=== PATIENT | female | born 1960 | race Caucasian/White ===

== ENCOUNTER 2020-06-08 07:28 | Outpatient (REF) | payer BC, SELFPAY | END 2020-06-08 07:29 | disposition home or self-care (01) | LOC: HO.LAB 07:28 | PROVIDERS: PCP Internal Medicine; Referring Provider Internal Medicine; Visit Provider Internal Medicine | DX: Z20.828 Contact with and (suspected) exposure to other viral communicable diseases (principal) | CPT/HCPCS: C9803; U0003 ==

== ENCOUNTER → 2021-09-03 08:40 | Outpatient (BNVA) | payer BC, SELFPAY | PROVIDERS: PCP Internal Medicine; Visit Provider Hospitalist ==

== ENCOUNTER 2021-10-09 08:47 | Outpatient (REF) | payer BC, SELFPAY ==
--- NOTE | 2021-10-09 16:00 | PFT_ITS ---
FLOWS: FEV1 45% of predicted at 1.03 L. FVC 66% of predicted at 1.94 L. FEV1 to FVC ratio of 0.53. Positive bronchodilator response. LUNG VOLUMES: Total lung capacity 105% of predicted at 4.87 L. Residual volume 166% of predicted at 3.10 L. Slow vital capacity 64% of predicted at 1.77 L. Expiratory reserve volume 36% of predicted at 0.26 L. Diffusion capacity is moderately decreased, diffusion capacity corrects to normal after adjustment for alveolar ventilation. IMPRESSION: Severe obstructive ventilatory defect with positive bronchodilator response. Increased residual volume suggests air trapping. Dajuan Spivey MD AP/MODL / [id number]
== END 2021-10-09 08:48 | disposition home or self-care (01) ==
LOC: HO.RESP 08:47
PROVIDERS: PCP Internal Medicine; Visit Provider Hospitalist
DX: R06.00 Dyspnea, unspecified (principal); J41.1 Mucopurulent chronic bronchitis
CPT/HCPCS: 94060; 94727; 94729

== ENCOUNTER 2021-10-17 13:42 | Outpatient (REF) | payer BC, SELFPAY ==
--- NOTE | ~2021-10-17 | CT_ITS ---
EXAMINATION: CT CHEST SCREENING CLINICAL INFORMATION: Smoking history. Current smoker. 50 pack-year history. COMPARISON: Previous chest CT most recent March 2017 and chest x-ray most recent July 2019 TECHNIQUE: Multidetector volumetric CT imaging of the chest is performed without contrast using low dose technique. Additional 2D coronal and sagittal reformatted images and axial 3D maximum intensity projection (MIP) images are generated on the CT workstation. This CT examination was performed using dose optimization techniques as appropriate, variously including the following: *Automated exposure control *Adjustment of mA and/or kV according to patient size (this includes techniques or standardized protocols for targeted exams where dose is matched to indication/reason for exam; i.e. extremities or head) *Use of iterative reconstruction technique DLP: 37 mGy-cm FINDINGS: LUNGS: There is biapical pleural and parenchymal scarring. There is evidence of emphysema. There is a irregularly-shaped 7 x 10 mm nodule in the posterior apical segment of the right upper lobe axial image 49 series 6. This demonstrates a slight increase in density with decreased air bronchograms. This may be slightly increased in size measuring maximum 5 x 10 mm axial image 74 series 4 on March 2017 exam. There is a spiculated 1.4 x 1.5 cm anterior segment right upper lobe nodule axial image 159 series 6 that is new and concerning for malignancy. There is a 1.1 x 1.2 cm right upper lobe nodule axial image 205 series 6 that is new and concerning for malignancy. This appears spiculated extending to the lateral pleural surface. There are scattered areas of focal bronchiectasis and cystic change seen in the more inferior right upper lobe. Largest area measures 1 cm axial image 162 series 5. There is a 3 mm peripheral or subpleural left upper lobe nodule axial image 81 series 6 that is stable. There are scattered areas of focal bronchiectasis and bronchial wall thickening in the left upper and lower lobes. There is a new 3 x 6 mm lingular nodule axial image 309 series 6. It is uncertain whether this is related to bronchial soft tissue opacification. MEDIASTINUM: There is evidence of atherosclerotic disease and coronary artery calcification. The mediastinum is otherwise normal. PLEURA: There is no pleural effusion. No pleural mass or thickening. AXILLA: No lymphadenopathy. UPPER ABDOMEN: Unremarkable OSSEOUS STRUCTURES: There are mild degenerative changes of the spine. CT/CT lung screening IMPRESSION: Emphysema. 2 new right upper lobe nodules suggestive of neoplasm and interval increase in size and density of irregularly-shaped nodule in the posterior apical segment of the right upper lobe. New 3 x 6 mm lingular nodule. Scattered areas of cystic change, bronchiectasis and bronchial wall thickening. Coronary artery calcification. ASSESSMENT: Lung-RADS category 4X. Suspicious. RECOMMENDATION: PET CT scan or tissue sampling of the right upper lobe nodules recommended. Findings will be communicated by the [facility] work flow environmental science program director.
== END 2021-10-17 13:43 | disposition home or self-care (01) ==
LOC: HO.CT 13:42
PROVIDERS: PCP Internal Medicine; Visit Provider Physician Assistant Medical
DX: Z12.2 Encounter for screening for malignant neoplasm of respiratory organs (principal); F17.210 Nicotine dependence, cigarettes, uncomplicated
CPT/HCPCS: 71271; G0296

== ENCOUNTER → 2021-10-22 10:15 | Outpatient (BNVA) | payer BC, SELFPAY | PROVIDERS: PCP Internal Medicine; Visit Provider Hospitalist | DX: K21.9 Gastro-esophageal reflux disease without esophagitis (principal); F17.200 Nicotine dependence, unspecified, uncomplicated ==

== ENCOUNTER 2021-10-28 10:09 | Outpatient (REF) | payer BC, SELFPAY ==
--- NOTE | ~2021-10-28 | PE_ITS ---
EXAMINATION: Fluorine-18 FDG PET/CT Scan CLINICAL INDICATION: Initial treatment management. Solitary pulmonary nodule. PROCEDURE: 53 minutes following the intravenous administration of 17.0 mCi of fluorine 18 FDG, images from the base of the skull to the mid thighs were obtained using a combined PET/CT scanner with CT scan based attenuation correction. No oral contrast was administered. No intravenous contrast was administered. Transverse, coronal, sagittal, and volume reconstruction projections were obtained. The patient's blood glucose as determined by a finger stick, was 87 mg/dl immediately prior to injection. Total CT exam dose-length product 193.98 mGy-cm * These CT images were obtained using dose optimization techniques as appropriate, variously including the following: Automated exposure control * Adjustment of mA and/or kV according to patient size (this includes techniques or standardized protocols for targeted exams where dose is matched to indication/reason for exam; i.e. extremities or head) * Use of iterative reconstruction technique COMPARISON: No previous PET/CT scan is available for comparison. CT scan of the chest dated 10/17/2021 is available for comparison. FINDINGS: (Slice numbers described in this report are numbered superiorly to inferiorly with slice #1 in the head) NECK AND VISUALIZED HEAD: No foci of abnormal FDG activity are noted. The distribution of FDG activity is physiological. There is no cervical lymphadenopathy. THORAX: Multiple pulmonary nodules of varying sizes are present, unchanged in appearance from the recent diagnostic CT scan dated 10/17/2021. A spiculated nodule in the right upper lobe shows a spot abnormal FDG activity, SUVmax 5.7, slice 74/267. This corresponds to a spiculated nodule on the CT images that measures 1.8 x 1.3 cm in largest transverse dimensions and approximately 1.6 cm cephalocaudad. Inferior and lateral to this in the right upper lobe there is a second FDG avid pulmonary nodule that shows SUVmax 3.3, slice 82/267 and measures 1.4 x 1.0 cm in largest transverse dimensions, and approximately 1.4 cm cephalocaudad. Spiculations from this nodule extent the lateral pleura. There is a posterior pleural-based right apical pulmonary nodule that measures 1.0 x 0.6 cm in largest transverse dimensions and shows no abnormal FDG activity. Additional smaller subcentimeter nodules visualized on the diagnostic 10/17/2021 CT scan are not well visualized on these nondiagnostic CT images. Biapical scarring is noted with no associated abnormal FDG activity. No additional foci of abnormal FDG activity are present in the chest. There is no pleural or pericardial fluid, or pneumothorax. Emphysema is noted. There is no mediastinal, supraclavicular, or axillary lymphadenopathy. ABDOMEN AND PELVIS: There are no foci of abnormal FDG activity in the abdomen or pelvis. The liver, gallbladder, and spleen are unremarkable. The kidneys, adrenal glands and pancreas are unremarkable. There is mild FDG activity throughout the gastrointestinal tract without a suspicious focal component. There is diverticulosis without evidence of diverticulitis. The hollow viscera are otherwise unremarkable. Uterine fibroids with some calcifications are noted. The pelvic organs are otherwise unremarkable. MUSCULOSKELETAL: No foci of abnormal FDG activity are present in the osseous structures. There is a mild thoracolumbar scoliosis with lumbar convexity to the left. There are degenerative changes in the spine but no suspicious sclerotic or lytic lesions are visualized. VASCULAR: Diffuse vascular calcifications including coronary are noted. There is a mild FDG activity at the junction of the middle and distal third of the left forearm in the region of a metallic bracelet. This is not due to an attenuation artifact as the FDG activity in this region is visible only nonattenuation corrected images. PET/PET CT fusion skull to thigh IMPRESSION: 1. Two right upper lobe FDG avid pulmonary nodules are noted, both likely malignant in etiology. 2. No additional abnormalities suspicious for metastatic or other malignant lesions are noted. 3. Mild FDG activity in the region of the distal left forearm immediately adjacent or underlying a metallic bracelet is noted and is nonspecific but may be due to some superficial inflammatory reaction or infection at this site. Clinical correlation is recommended. 4. Diffuse vascular calcifications including coronary.
== END 2021-10-28 10:10 | disposition home or self-care (01) ==
LOC: HO.PET 10:09
PROVIDERS: Visit Provider Hospitalist
DX: Z13.89 Encounter for screening for other disorder (principal)

== ENCOUNTER → 2021-10-31 09:00 | Outpatient (BNVA) | payer BC, SELFPAY | PROVIDERS: PCP Internal Medicine; Visit Provider Surgery | DX: R91.1 Solitary pulmonary nodule (principal); Z87.891 Personal history of nicotine dependence | CPT/HCPCS: 99202 ==

== ENCOUNTER → 2021-11-12 09:52 | Outpatient (REF) | payer BC, SELFPAY ==
--- NOTE | 2021-11-12 09:58 | ECG_ITS ---
Test Reason : preop Blood Pressure : / mmHG Vent. Rate : 084 BPM Atrial Rate : 084 BPM P-R Int : 130 ms QRS Dur : 070 ms QT Int : 350 ms P-R-T Axes : 044 080 072 degrees QTc Int : 413 ms Normal sinus rhythm Normal ECG When compared with ECG of 07-AUG-2019 14:10, No significant changes seen Referred By: Babar Espino Electronically Signed By:ALEXIS SHAH
[2021-11-12 10:11] LABS: MANUAL DIFF FLAG NO
[2021-11-12 10:39] LABS: Basophils Absolute Auto 0.1 X10*3/uL (0.0-0.2); Basophils Percent Auto 0.5 % (0-2); Eosinophils Absolute Auto 0.2 X10*3/uL (0.0-0.4); Eosinophils Percent Auto 1.4 % (0-4); Hemoglobin 15.3 g/dl (12.0-16.0); Imm Gran Abs Auto 0.07 X10*3/uL (0.00-0.03); Imm Gran Pct Auto 0.6 % (0.0-0.4); Lymphocytes Absolute Auto 2.1 X10*3/uL (1.2-4.9); Lymphocytes Percent Auto 17.4 % (20-40); Mean Corpuscular HGB Conc 33.3 g/dl (31.0-35.0); Mean Corpuscular Hemoglobin 31.8 pg (27.0-33.0); Mean Corpuscular Volume 95.6 fL (80.0-98.0); Mean Platelet Volume 9.3 fL (9.4-12.3); Monocytes Absolute Auto 0.8 X10*3/uL (0.1-1.2); Monocytes Percent Auto 6.5 % (2-11); Neutrophils Percent Auto 73.6 % (45-73); Platelet Count 298 X10*3/uL (160-400); Red Blood Count 4.81 X10*6/uL (4.20-5.50); Red Cell Distribution Width 13.2 % (11.0-16.0); White Blood Count 12.2 X10*3/uL (4.8-10.8)
[2021-11-12 10:50] LABS: INTERNATIONAL NORM RATIO 0.9 (0.9-1.1); Prothrombin Time 10.3 SEC (9.9-13.0)
[2021-11-12 10:53] LABS: Estimated Average Glucose 111 mg/dL; Hemoglobin A1C 148.7098 umol/L; Hemoglobin A1c % 5.5 %; Partial Thromboplastin Time 37.8 SEC (24.1-38.0)
[2021-11-12 10:58] LABS: Appearance Urine CLEAR; Color Urine YELLOW; Glucose Urine UA NEG (NEG); Leukocyte Esterase Urine NEG (NEG); Nitrite Urine NEG (NEG); Specific Gravity - Urine 1.015 (1.005-1.025); UACC Culture Trigger NO; Urine Blood 1+ (NEG); Urine Ketones NEG (NEG); Urine Protein NEG (NEG-TRACE)
[2021-11-12 11:14] LABS: Alanine Aminotransferase 20 U/L (0-31); Albumin Level 4.4 g/dL (3.5-5.0); Alkaline Phosphatase 103 U/L (39-117); Anion Gap 12 (12-20); Aspartate Amino Transferase 24 U/L (5-31); Bilirubin Total 0.6 mg/dL (0.0-1.0); Blood Urea Nitrogen 9 mg/dL (9-16); Carbon Dioxide 30 mmol/L (22-29); Chloride 100 mmol/L (96-108); Estimated Glomerular Filt Rate > 60; Glucose Random 96 mg/dL (60-115); Potassium 4.5 mmol/L (3.3-5.1); Sodium 137 mmol/L (135-145); Total Protein 7.4 g/dL (6.5-8.0)
[2021-11-12 11:17] LABS: Mucus Urine 2+ /LPF; Squamous Epithelial Cell Urine 1+ /LPF
[2021-11-12 11:18] LABS: RBC Urine 0-2 /HPF (0); WBC Urine 0 /HPF (0-4)
[2021-11-12 11:21] LABS: TSH reflex Free T4 0.47 uIU/mL (0.32-4.0)
== END ==
LOC: HO.CARD 09:52
PROVIDERS: PCP Internal Medicine; Visit Provider Internal Medicine
DX: Z01.818 Encounter for other preprocedural examination (principal); R73.9 Hyperglycemia, unspecified
CPT/HCPCS: 36415; 80053; 81001; 83036; 84443; 85025; 85610; 85730; 93005

== ENCOUNTER → 2021-11-14 10:41 | Outpatient (BNVA) | payer BC, SELFPAY | PROVIDERS: PCP Internal Medicine; Visit Provider Hospitalist | DX: K21.9 Gastro-esophageal reflux disease without esophagitis (principal); F17.200 Nicotine dependence, unspecified, uncomplicated ==

== ENCOUNTER 2022-05-18 08:20 | Outpatient (REF) | payer BC, SELFPAY ==
--- NOTE | ~2022-05-18 | CT_ITS ---
EXAMINATION: CT CHEST WITHOUT CONTRAST CLINICAL INFORMATION: Severe COMPARISON: Previous chest CT most recent September 2021 TECHNIQUE: Multidetector volumetric CT imaging of the chest was done. Axial MIP volume rendering provided. Sagittal and coronal reformatted images were obtained. This CT examination was performed using dose optimization techniques as appropriate, variously including the following: *Automated exposure control *Adjustment of mA and/or kV according to patient size (this includes techniques or standardized protocols for targeted exams where dose is matched to indication/reason for exam; i.e. extremities or head) *Use of iterative reconstruction technique DLP: 110 mGy-cm FINDINGS: LUNGS: There are are new postsurgical changes from right upper lobe lobectomy. There is evidence of emphysema. There is mild left apical pleural and parenchymal scarring. There is a small 3 mm peripheral or subpleural left upper lobe nodule axial image 97 series 5 that is stable. There is a 3 x 6 mm central left upper lobe nodule axial image 246 series 5 questionable for bronchial soft tissue opacification versus nodule. This is similar to previous exam. There is right lower lobe bronchial soft tissue opacification for example axial 3:30 360 series 5. The previously identified question endobronchial nodule in the lingula September 2021 exam is no longer seen. There is mild emphysema. MEDIASTINUM: The mediastinum is normal. CORONARY ARTERY CALCIFICATION: Severe PLEURA: There is no pleural effusion. No pleural mass or thickening. AXILLA: No lymphadenopathy. UPPER ABDOMEN: Unremarkable. OSSEOUS STRUCTURES: Degenerative changes of the spine. CT/CT chest wo IV con IMPRESSION: New postsurgical changes from right upper lobe lobectomy. Stable left upper lobe nodules. Right lower lobe bronchial soft tissue opacification. Previously identified 3 x 6 mm lingular nodule question representing bronchial soft tissue opacification on September 2021 exam no longer seen. Severe coronary artery calcification. Fleischner guidelines were followed.
== END 2022-05-18 08:21 | disposition home or self-care (01) ==
LOC: HO.CT 08:20
PROVIDERS: PCP Internal Medicine; Visit Provider Surgery
DX: C34.91 Malignant neoplasm of unspecified part of right bronchus or lung (principal)
CPT/HCPCS: 71250

== ENCOUNTER → 2022-05-26 08:39 | Outpatient (REF) | payer BC, SELFPAY ==
--- NOTE | 2022-05-26 08:42 | CA_ITS ---
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 The visually estimated ejection fraction is >70%. - The basal inferior segment is hypokinetic. - No obvious valvular pathology seen on this study. - Mild pulmonary hypertension is present. Findings Procedure Information Contrast agent, definity, is being given per protocol without apparent complications. Left Ventricle Normal left ventricular cavity size. There is normal left ventricular wall thickness. The left ventricular systolic function is hyperdynamic. The visually estimated ejection fraction is >70%. There is no evidence of regional wall motion abnormalities. Diastolic function is normal for age. Wall Motion Rest Echo Findings The basal inferior segment is hypokinetic. Right Ventricle Normal right ventricular cavity size and systolic function. Atria Both atria are normal in size. Aortic Valve There is a normal trileaflet aortic valve. There is no aortic valve stenosis. There is no aortic valve regurgitation. Mitral Valve The mitral valve appears normal. There is no mitral valve regurgitation. There is no mitral valve stenosis. Pulmonic Valve The pulmonic valve is likely normal. Tricuspid Valve Normal tricuspid valve structure. There is trace tricuspid valve regurgitation. The right ventricular systolic pressure is 41 mmHg. Mild pulmonary hypertension is present. Great Vessels The aorta was not well visualized. Venous The inferior vena cava is normal in size and collapses greater than 50% with inspiration. Pericardium/Pleural There is no evidence of pericardial effusion. Prior Study Comparison Changes noted compared to prior study dated: 08/08/2019. Mild pulmonary hypertension noted. See comments on wall motion. Recommendations, Care & Conclusions No obvious valvular pathology seen on this study. Measurements 2D Linear Measurements IVSd: 0.76 0.6-0.9/0.6-1.0 cm LVIDd: 4.01 3.9-5.3/4.2-5.9 cm LVIDd Index: 2.77 2.4-3.2/2.2-3.1 cm/m2 LVIDs: 2.51 2.0-3.6 cm LVPWd: 0.59 0.7-1.1 cm LA Diam: 2.80 2.7-3.8/3.0-4.0 cm LAIDs Index: 1.93 1.5-2.3 cm/m2 LV Mass: 92.91 67-162/88-224 g LV Mass Index: 64.08 43-95/49-115 g/m2 LVOT Diam: 2.00 3.0+(-)1.3 cm 2D Systolic Function EF 4C: 75.70 >55% EF 2C: 75.30 >55% EF BiP: 75.60 >55% Mitral Valve MV Pk E: 1.03 MV PK A: 1.06 MV Decel Time: 184.00 E/A: 1.00 E'Lateral: 8.81 E'Medial: 6.96 E/E' Med: 14.80 E/E' Lat: 11.70 PHT: 54.00 MVA PHT: 4.07 Decel Madison: 5.59 Aortic Valve AoV Pk Michael: 1.40 AoV Pk Grad: 8.00 LVOT LVOT Pk Michael: 1.23 LVOT Mn Michael: 0.87 LVOT VTI: 0.24 LVOT Pk Grad: 6.00 LVOT Mn Grad: 3.00 LVOT Diam: 2.00 LVOT Area: 3.14 Diastolic Function MV Pk E: 1.03 MV Pk A: 1.06 E/A: 1.00 E'Medial: 6.96 E/E' Med: 14.80 E' Laterial: 8.81 E/E' Lat: 11.70 Right Ventricle TAPSE (mm): 16.10 TVS' Michael: 12.70 Tricuspid Valve TR Pk Michael: 3.10 TR Pk Grad: 38.00 RA Press: 3.00 RVSP: 41.00 Great Vessels Aorta Sinus of Valsalva: 3.30 2.0-3.5 cm Pulmonary Valve PV Pk Michael: 1.12 Peak PV Grad: 5.00 Updated in Other Vendor System with Status of Final Joshua Jimenez MD electronically signed on 05/26/2022 2:33:35 PM with status of Final
== END ==
LOC: HO.CARD 08:39
PROVIDERS: Visit Provider Hospitalist
DX: I27.20 Pulmonary hypertension, unspecified (principal)
CPT/HCPCS: 93306; Q9957

== ENCOUNTER → 2022-07-10 10:08 | Outpatient (BNVA) | payer BC, SELFPAY | PROVIDERS: PCP Internal Medicine; Visit Provider Surgery | DX: C34.11 Malignant neoplasm of upper lobe, right bronchus or lung (principal) | CPT/HCPCS: 99212 ==

== ENCOUNTER → 2022-10-21 08:33 | Outpatient (BNVA) | payer BC, SELFPAY | PROVIDERS: PCP Internal Medicine; Visit Provider Hospitalist | DX: J41.1 Mucopurulent chronic bronchitis (principal); J47.9 Bronchiectasis, uncomplicated; R91.1 Solitary pulmonary nodule; C34.91 Malignant neoplasm of unspecified part of right bronchus or lung; Z79.899 Other long term (current) drug therapy; Z23 Encounter for immunization | CPT/HCPCS: 90471; 90677 ==

== ENCOUNTER 2022-11-11 10:35 | Outpatient (REF) | payer BC, SELFPAY ==
--- NOTE | ~2022-11-11 | CT_ITS ---
EXAMINATION: CT CHEST WITHOUT CONTRAST CLINICAL INFORMATION: Lung cancer right upper lobe COMPARISON: Previous chest CT scan most recent April 2022 TECHNIQUE: Multidetector volumetric CT imaging of the chest was done. Axial MIP volume rendering provided. Sagittal and coronal reformatted images were obtained. This CT examination was performed using dose optimization techniques as appropriate, variously including the following: *Automated exposure control *Adjustment of mA and/or kV according to patient size (this includes techniques or standardized protocols for targeted exams where dose is matched to indication/reason for exam; i.e. 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 Heterogeneous area in the central anterior segment of the left upper lobe. There are areas of mild focal bronchiectasis bronchial wall thickening and some bronchial soft tissue opacification. There is an adjacent heterogeneous groundglass attenuation area measuring 1.5 x 2 cm axial image 2:15 series 4. There are other scattered areas of mild bronchial wall thickening and bronchial soft tissue opacification. There is scarring or subsegmental atelectasis in the right middle lobe. Emphysema. MEDIASTINUM: Small mediastinal lymph nodes similar to previous exam. No enlarged lymph nodes. Normal heart size. Moderate to severe coronary artery calcification. No pericardial effusion. CORONARY ARTERY CALCIFICATION: Moderate to severe PLEURA: There is no pleural effusion. No pleural mass or thickening. AXILLA: No lymphadenopathy. UPPER ABDOMEN: Atherosclerotic disease. There may be small calcifications in the pancreas. OSSEOUS STRUCTURES: Degenerative changes of the spine. CT/CT chest wo IV con IMPRESSION: Stable postsurgical changes from right upper lobe lobectomy. Emphysema. New area of focal bronchiectasis, bronchial wall thickening and soft tissue opacification and associated 1.5 x 2 cm groundglass attenuation area in the anterior segment of the left upper lobe. This may represent an infectious or inflammatory process. Short-term follow-up chest CT in 3 months recommended following treatment. Fleischner guidelines were followed.
== END 2022-11-11 10:36 | disposition home or self-care (01) ==
LOC: HO.CT 10:35
PROVIDERS: PCP Internal Medicine; Visit Provider Surgery
DX: C34.11 Malignant neoplasm of upper lobe, right bronchus or lung (principal)
CPT/HCPCS: 71250

== ENCOUNTER → 2022-11-20 09:44 | Outpatient (BNVA) | payer BC, SELFPAY | PROVIDERS: PCP Internal Medicine; Visit Provider Surgery | DX: R91.1 Solitary pulmonary nodule (principal); C34.91 Malignant neoplasm of unspecified part of right bronchus or lung | CPT/HCPCS: 99212 ==

== ENCOUNTER 2023-01-20 07:25 | Outpatient (REF) | payer BC, SELFPAY ==
--- NOTE | ~2023-01-20 | CT_ITS ---
EXAMINATION: CT CHEST WITHOUT CONTRAST CLINICAL INFORMATION: Follow-up pulmonary nodule. History of right upper lobe lung cancer. COMPARISON: Previous chest CT most recent October 2022 TECHNIQUE: Multidetector volumetric CT imaging of the chest was done. Axial MIP volume rendering provided. Sagittal and coronal reformatted images were obtained. This CT examination was performed using dose optimization techniques as appropriate, variously including the following: *Automated exposure control *Adjustment of mA and/or kV according to patient size (this includes techniques or standardized protocols for targeted exams where dose is matched to indication/reason for exam; i.e. extremities or head) *Use of iterative reconstruction technique DLP: 100 mGy-cm FINDINGS: LUNGS: Stable postsurgical changes from right upper lobe lobectomy. The heterogeneous area of increased attenuation in the central left upper lobe is no longer seen. There is still some residual central left upper lobe bronchiectasis and bronchial wall thickening seen in this region. There are scattered areas of bronchial wall thickening and bronchial soft tissue opacification or mucus plugging seen throughout the lungs, greatest in both lower lobes. There is area of scarring or chronic subsegmental atelectasis in the right middle lobe axial image 314 series 5 that is stable. There is evidence of mild emphysema. MEDIASTINUM: No enlarged hilar or mediastinal lymph nodes. Visualized thyroid gland is normal. Normal heart size. Atherosclerotic disease. Normal caliber thoracic aorta. CORONARY ARTERY CALCIFICATION: Moderate PLEURA: There is no pleural effusion. No pleural mass or thickening. AXILLA: No lymphadenopathy. UPPER ABDOMEN: Atherosclerotic disease OSSEOUS STRUCTURES: Degenerative changes of the spine. CT/CT chest wo IV con IMPRESSION: Stable postsurgical changes from right upper lobe lobectomy. Emphysema. Previously identified groundglass attenuation area in the central left upper lobe no longer seen. Residual mild focal left upper lobe bronchiectasis and bronchial wall thickening seen in this region. Scattered areas of bronchial wall thickening and soft tissue opacification or mucus plugging, greatest in both lower lobes. Fleischner guidelines were followed.
== END 2023-01-20 07:26 | disposition home or self-care (01) ==
LOC: HO.CT 07:25
PROVIDERS: PCP Internal Medicine; Visit Provider Surgery
DX: R91.1 Solitary pulmonary nodule (principal)
CPT/HCPCS: 71250

== ENCOUNTER 2023-01-29 10:18 | Outpatient (AMB) | payer BC, SELFPAY ==
--- NOTE | 2023-01-29 10:46 | MHC.OFFVIS ---
Intake Vital Signs 01/29/23 10:55 Height 5 ft 1 in Weight 105 lb BMI 19.8 BP 140/80 H Blood Pressure Location Lt brachial Position Sitting Pulse 60 Pulse Oximetry (%) 92 Intake Visit Reasons: 6 month follow up Allergies levofloxacin [From LEVAQUIN] Allergy (Intermediate, Verified 01/29/23 10:55) NAUSEA & VOMITING, hives bupropion Allergy (Unknown, Verified 01/29/23 10:55) increased anxiety/depression Medication List - Last Reconciled 01/30/23 by Sergio uRsh MD acetaminophen 975 mg (3 x 325 mg) PO Q6-8H PRN 30 days albuterol sulfate 90 mcg/actuation 2 puffs inhalation Q6H PRN 30 days amlodipine 10 mg PO DAILY 90 days hydralazine 50 mg PO TID 90 days hydrochlorothiazide 12.5 mg PO DAILY 90 days lorazepam 0.5 mg PO TID PRN 30 days nicotine 1 patch transdermal DAILY Symbicort 160-4.5 mcg/actuation (budesonide-formoterol) 2 puffs PO BID NS tiotropium bromide 2.5 mcg/actuation (Spiriva Respimat) 2 puffs inhalation DAILY 90 days HPI 6 month follow up HPI Details 62-year-old woman who underwent a right upper Davinci wedge resection with completion right upper lobectomy on 12/17/2021 for a T3 N0 lung cancer.? She did get adjuvant chemotherapy afterwards and finished that in April of 2022.? She actually did quite well after the surgery and says that while she completed it she did have some difficulty with the chemotherapy and is now starting to feel much better.? She did have 99% PDL1 and the recommendation is for likely for continued immunotherapy for 1 year.? She sees Medical Oncology at [facility] Dr. Williamson.? She is considering whether to have the immunotherapy or not and is seeing him in 2 weeks to make that final decision.? She did have a CT scan of the chest here at [place] after finishing her chemotherapy on 05/18/2022 which showed no evidence of recurrence or new disease.? No pleural fluid and no mediastinal lymphadenopathy.? This was reviewed and interpreted by me directly.? A six-month follow-up CT scan of the chest was done on 11/11/2022 reviewed interpreted by me directly as well showing a new ground-glass ill-defined nodule in the anterior segment of the left upper lobe which is new from previous.? This is most likely infectious or inflammatory.? She is currently on the immunotherapy seems to be doing quite well with that.The CAT scan was repeated on 01/20/2023 which was not read yet but interpreted by me directly shows that the groundglass area in the left upper lobe anteriorly has nearly completely resolved. She is no longer on oxygen and says that her breathing seems to be close to her baseline.? She denies fevers, chills, unintentional weight loss, or any new neurologic symptoms.? She denies chest pain or pain at her incision sites. ? ? [facility] Medical History Adenocarcinoma of right lung (~2021) Anxiety Benign essential hypertension Bronchiectasis COPD (chronic obstructive pulmonary disease) Personal history of nicotine dependence Pulmonary nodule Pure hypercholesterolemia Tachycardia Vitamin D deficiency Surgical History History of colonoscopy History of lung surgery (~2021) History of reversal of tubal ligation History of thumb surgery History of tubal ligation Family History Father Myocardial infarction Mother Stroke Family/Other Hypertension Social History Housing: House Alcohol intake: current Alcohol intake frequency: holidays/special occasions only Patient Tobacco Use Status: Former Tobacco user Tobacco use type: Cigarette Cigarettes Per Day: 15 Years Smoked: Current smoker, onset 16, 3/4ppd x 45yrs, 33pyh e-Cigarette/Vaping Use: Never Used Second Hand Smoke Exposure: Yes service: No Current occupational status: employed Cognitive needs: No Hearing needs: No Vision needs: Yes Physical Exam Vital Signs: Last Vital Signs Pulse 60 01/29/23 10:55 BP 140/80 H 01/29/23 10:55 Pulse Ox 92 01/29/23 10:55 BMI result Body Mass Index 19.8 nad rrr ctab wounds well healed no edema nl bs and abd soft Assessment & Plan Assessment & Plan (1) Adenocarcinoma of right lung: Onset Date: ~2021 Comment: (T3N0 - 99%PDL1; s/p RUL lobectomy 11/2021; chemo 04/2022; Immunetherapy 06/2022) Code(s): C34.91 - Malignant neoplasm of unspecified part of right bronchus or lung Plan: With regards to her lung cancer she is doing quite well from a postoperative and clinical standpoint. There is no evidence of recurrence or new disease and we discussed the findings from her most recent CAT scan which she seemed understand. I did explain to her that as per protocol we will plan on doing a 6-month follow-up CT scan of the chest for the first 2 years postoperatively followed by yearly for 3 years after that and each CAT scan is associated with the visit. The schedule can change and if there are new findings. She looks quite well and is pleased with this plan. (2) Pulmonary nodule: Code(s): R91.1 - Solitary pulmonary nodule Plan: Regarding the left upper lobe pulmonary nodule on the CT scan previously, this has resolved and was likely an infectious or inflammatory nodule. I did explain to her pulmonary nodules in general and how their size, shape, and guide changer time affect are level of suspicion for malignancy which she seemed understand quite well. Follow-up imaging will be as per the surveillance protocol as described above. Orders: Orders CT chest wo IV con 6 Months C34.91 - Malignant neoplasm of unspecified part of right bronchus or lung Coding Level of Care Code Est Pt Level 4 (77628) Diagnoses Adenocarcinoma of right lung C34.91 Pulmonary nodule R91.1
[2023-01-29 10:55] VITALS: BP 140/80; PULSE 60; O2SAT 92; BMI 19.8
== END 2023-01-29 11:10 | disposition home or self-care (01) ==
PROVIDERS: PCP Internal Medicine; Visit Provider Surgery
DX: C34.91 Malignant neoplasm of unspecified part of right bronchus or lung (principal); R91.1 Solitary pulmonary nodule

== ENCOUNTER → 2023-01-29 10:18 | Outpatient (BNVA) | payer BC, SELFPAY | PROVIDERS: Visit Provider Surgery | DX: C34.91 Malignant neoplasm of unspecified part of right bronchus or lung (principal); R91.1 Solitary pulmonary nodule; Z90.2 Acquired absence of lung [part of]; Z92.21 Personal history of antineoplastic chemotherapy | CPT/HCPCS: 99212 ==

== ENCOUNTER 2023-04-07 08:48 | Outpatient (AMB) | payer BC, SELFPAY ==
[2023-04-07 08:56] VITALS: BP 118/70; PULSE 89; O2SAT 93
--- NOTE | 2023-04-07 08:56 | A.OFFVIS_ITS ---
Intake Vital Signs 04/07/23 08:56 Height 5 ft 1 in Weight 105 lb 13.15 oz BMI 20.0 BP 118/70 Blood Pressure Location Rt brachial Position Sitting Pulse 89 Pulse Source Pulse Oximeter Pulse Oximetry (%) 93 Oxygen Delivery Method Room Air Intake Visit Reasons: COPD [employer] Required: No Allergies levofloxacin [From LEVAQUIN] Allergy (Intermediate, Verified 04/07/23 11:00) NAUSEA & VOMITING, hives bupropion Allergy (Unknown, Verified 04/07/23 11:00) increased anxiety/depression HPI HPI Comments History of Present Illness Details The patient is a 62-year-old woman, current smoker, who has been having worsening cough and shortness of breath. Her cough tends to be productive in nature and moderate severity. She has been using inhalers including Flovent and long-acting muscarinic antagonist. The medications have not been very effective for her. Her provided did try to send her Trelegy but was not covered. In the meantime she continues to smoke. The patient understands that she needs to quit and is motivated to quitting. Although it is very hard for her to quit. We talked about different alternatives including trying the Nicotrol inhaler which may be effective for her to slow down her smoking hopefully switch it completely to the nicotine inhaler where she can then decrease it as part of her tobacco cessation. The patient continues to work regularly. she does have some i ncreased dyspnea on exertion but she is still able to do all her work related activities in does not have any significant limitations. We did review of previous chest x-rays that she has had demonstrating significant hyperinflation of the lungs. In addition to that she had a CT scan of the chest back in 2017 where was described that she had bronchiectatic changes. 10/22/2021 the patient is here for a pulmonary follow-up visit. Overall she is feeling little better. She is still coughing. She did try the Nicotrol inhaler for smoking cessation but is only meters smoke more. So therefore she stopped it. She still struggling with smoking. We also looked at her pulmonary function studies demonstrating evidence of COPD. The patient also has a decreased diffusing capacity. She did go back to the lung cancer screening program. She had a recent CT scan demonstrating significant pulmonary nodules in the right upper lobe. No significant lymphadenopathy. But the nodules are greater than a cm in size and are concerning for malignancy. However, in view of her the multiple nodules I will go ahead and request a PET scan to see if there is any progression of this Probable malignant process. She is taking part of the lung cancer screening program so therefore she will be discussed during weekly multidisciplinary rounds. 11/14/2021 the patient is here for a pulmonary follow-up visit. She did follow-up with her PET scan demonstrating significant activity at that right upper lobe area. She is currently scheduled to undergo a lobectomy of the right upper lobe with curative intent. She continues with respiratory therapy patient also quit smoking. Will plan to follow-up after the surgery when she recovers we consider pulmonary rehabilitation. 05/13/2022 the patient is here for pulmo irais follow-up visit. The patient is status post right upper lobe lobectomy. She did have some issues with prolonged air leak. She did have 3 lesions in the right upper lobe. She did start chemotherapy. Now she is recommended to start immune therapy. She does have a CT scan coming up soon next week. Will follow up with the results. In the meantime she did go for a 6 minute walk test with me. The patient did not desaturate although heart rate was elevated 120 needs. Will have her undergo an echocardiogram. She has been using the Symbicort Spiriva with good effect. She does not always using. She feels her breathing is a lot better. At this point the patient is reluctant to undergo pulmonary rehabilitation. She is also reluctant to start immune therapy. She will follow-up with oncology soon. 10/21/2022 the patient is here for pulmon az follow-up visit. She continues to do well. She started immune therapy in June. Some that she gets more congested from it. Moderate severity. Right now is a little better. We did talk about considering medications such as Daliresp or even azithromycin her symptoms persist. She is not interested in additional medicines right now. She has a CT scan scheduled for October and will follow-up with drastic surgery. She is going to continue with respiratory therapy. She is trying to stay active. Otherwise the patient is without any other complaints. Will follow-up in 6 months. 04/07/2023 the patient is here for a pulmonary follow-up visit. Overall she is doing about the same. Complains of a cough productive in nature. Moderate severity. She does use Mucinex on a regular basis with good effect. She also has been on Symbicort Spiriva. They have been affecting beneficial. She did have a repeat CT scan of the chest in December 2022 with postoperative changes. No evidence of any worsening nodular densities. The patient is still struggling with her smoking. She is trying to quit. Will go ahead and start her on azithromycin 3 times a week for her chronic bronchitis and continue with the current respiratory therapy. If she finds the azithromycin helpful then she needs to have an EKG done in order to continue the therapy. Otherwise she can just stop it. FORMERLY [facility] Medical History Adenocarcinoma of right lung (~2021) Anxiety Benign essential hypertension Bronchiectasis COPD (chronic obstructive pulmonary disease) Personal history of nicotine dependence Pulmonary nodule Pure hypercholesterolemia Tachycardia Vitamin D deficiency Surgical History History of lung surgery (~2021) History of thumb surgery History of reversal of tubal ligation History of colonoscopy History of tubal ligation Family History Father Myocardial infarction Mother Stroke Family/Other Hypertension Social History Housing: House Alcohol intake: current Alcohol intake frequency: holidays/special occasions only Patient Tobacco Use Status: Former Tobacco user Tobacco use type: Cigarette Cigarettes Per Day: 15 Years Smoked: Current smoker, onset 16, 3/4ppd x 45yrs, 33pyh e-Cigarette/Vaping Use: Never Used Second Hand Smoke Exposure: Yes service: No Current occupational status: employed Cognitive needs: No Hearing needs: No Vision needs: Yes Review of Systems Const Denies chills, Reports fatigue, Denies fever(s), Denies headache(s) and Reports weight gain ENT Denies headache(s), Denies odynophagia, Denies sinus pain and Denies sore throat Card Denies chest pain, Denies palpitations and Denies dyspnea on exertion (mild) Resp Reports chest congestion (on and off), Reports cough, Denies excessive phlegm production ((+) scanty thick whitish phlegm), Denies dyspnea on exertion (mild) and Denies wheezing (occasionally) GI Denies abdominal pain, Denies constipation, Denies heartburn, Denies diarrhea, Denies nausea, Denies odynophagia and Denies vomiting Denies difficulty voiding, Denies nocturia and Denies dysuria Neuro Denies headache(s) Endo Reports fatigue and Denies palpitations Aller/Immun Denies wheezing (occasionally) Physical Exam Vital Signs: Last Vital Signs Pulse 89 04/07/23 08:56 BP 118/70 04/07/23 08:56 Pulse Ox 93 04/07/23 08:56 Oxygen Delivery Method Room Air 04/07/23 08:56 BMI result Body Mass Index 20.0 Const General: alert Neck Neck: Yes normal visual inspection, Yes full ROM and Yes no lymphadenopathy Chest Chest palpation & inspection: normal inspection of the chest Resp Auscultation: no rhonchi, no wheezes and diminished lung sounds Cardio Rate: regular rate Rhythm: regular rhythm Heart sounds: S1 normal heart sound present and S2 normal heart sound present GI Palpation (GI): Soft to palpation and nontender Auscultation: normal bowel sounds Skin General skin exam: rashes and/or lesions noted Assessment & Plan Assessment & Plan (1) COPD (chronic obstructive pulmonary disease): Code(s): J44.9 - Chronic obstructive pulmonary disease, unspecified Qualifiers: COPD type: chronic bronchitis Chronic bronchitis type: mucopurulent Qualified Code(s): J41.1 - Mucopurulent chronic bronchitis (2) Bronchiectasis: Code(s): J47.9 - Bronchiectasis, uncomplicated Qualifiers: Bronchiectasis type: uncomplicated Qualified Code(s): J47.9 - Bronchiectasis, uncomplicated (3) Pulmonary nodule: Code(s): R91.1 - Solitary pulmonary nodule (4) Adenocarcinoma of right lung: Onset Date: ~2021 Comment: (T3N0 - 99%PDL1; s/p RUL lobectomy 11/2021; chemo 04/2022; Immunetherapy 06/2022) Code(s): C34.91 - Malignant neoplasm of unspecified part of right bronchus or lung Plan continue symbicort continue Spiriva daily continue Immunetherapy start macrolide therapy for chronic bronchitis x 4-[address] chest every 6 months follow-up in 6 months Medications: New azithromycin Take 1 tablet on Wednesday/Wednesday/Wednesday 250 mg PO 3XW 28 days 12 tabs 1RF K21.9 - Gastro-esophageal reflux disease without esophagitis Coding Level of Care Code Est Pt Level 4 (00912) Diagnoses Mucopurulent chronic bronchitis J41.1 COPD type: chronic bronchitis Chronic bronchitis type: mucopurulent Bronchiectasis without complication J47.9 Bronchiectasis type: uncomplicated Pulmonary nodule R91.1 Adenocarcinoma of right lung C34.91 Time Spent (min) 16
== END 2023-04-07 09:19 | disposition home or self-care (01) ==
PROVIDERS: PCP Internal Medicine; Visit Provider Hospitalist
DX: J41.1 Mucopurulent chronic bronchitis (principal); J47.9 Bronchiectasis, uncomplicated; R91.1 Solitary pulmonary nodule; C34.91 Malignant neoplasm of unspecified part of right bronchus or lung
CPT/HCPCS: 99214

== ENCOUNTER → 2023-04-07 08:48 | Outpatient (BNVA) | payer BC, SELFPAY | PROVIDERS: PCP Internal Medicine; Visit Provider Hospitalist | DX: K21.9 Gastro-esophageal reflux disease without esophagitis (principal); F17.200 Nicotine dependence, unspecified, uncomplicated ==

== ENCOUNTER 2023-04-07 10:09 | Outpatient (AMB) | payer BC, SELFPAY ==
[2023-04-07 10:10] VITALS: BP 118/72; PULSE 82; O2SAT 90; BMI 19.7
--- NOTE | 2023-04-07 10:10 | A.OFFPC_ITS ---
Vital Signs 04/07/23 10:10 Height 5 ft 1 in Weight 104 lb 8 oz BMI 19.7 BP 118/72 Blood Pressure Location Lt brachial Position Sitting Pulse 82 Pulse Source Pulse Oximeter Pulse Oximetry (%) 90 L Oxygen Delivery Method Room Air Intake Visit Reasons: 4 month f/u Feed Handler Required: No Accompanied by: Self / Same As Patient Allergies levofloxacin [From LEVAQUIN] Allergy (Intermediate, Verified 04/07/23 11:00) NAUSEA & VOMITING, hives bupropion Allergy (Unknown, Verified 04/07/23 11:00) increased anxiety/depression Medication List - Last Reconciled 04/12/23 by Babar Espino MD acetaminophen 975 mg (3 x 325 mg) PO Q6-8H PRN 30 days albuterol sulfate 90 mcg/actuation 2 puffs inhalation Q6H PRN 30 days amlodipine 10 mg PO DAILY 90 days azithromycin 250 mg PO 3XW durvalumab 500 mg IV Q2W hydralazine 50 mg PO TID 90 days hydrochlorothiazide 12.5 mg PO DAILY 90 days lorazepam 0.5 mg PO TID PRN 30 days nicotine 1 patch transdermal DAILY Symbicort 160-4.5 mcg/actuation (budesonide-formoterol) 2 puffs PO BID NS tiotropium bromide 2.5 mcg/actuation (Spiriva Respimat) 2 puffs inhalation DAILY 90 days Tobacco use date assessed: 04/07/23 Dental Screening Dental Screen Date: 04/07/23 Did you have a dental visit in the last 12 months?: Yes Did you have a dental problem in the last 6 months where you did not have access to dental care?: No Was dental information given to patient?: Patient has dentist HPI 4 month f/u HPI Details Patient comes in today for her follow up visit States that she feels okay Is reportedly doing well on immunotherapy with Imfinzi for her lung cancer [place] [facility] [place] with them earlier this morning - was started on Azithromycin TIW for her mucopurulent coughing Patient denies any headaches or dizziness Denies any chest pains, no increased SOB No nausea/vomiting, no abdominal pain No change in bowel habits noted PFSH Medical History Tachycardia Benign essential hypertension Adenocarcinoma of right lung (~2021) Pulmonary nodule Personal history of nicotine dependence Bronchiectasis Pure hypercholesterolemia Anxiety Vitamin D deficiency COPD (chronic obstructive pulmonary disease) Surgical History History of lung surgery (~2021) History of thumb surgery History of reversal of tubal ligation History of colonoscopy History of tubal ligation Family History Father Myocardial infarction Mother Stroke Family/Other Hypertension Social History Housing: House Alcohol intake: current Alcohol intake frequency: holidays/special occasions only Patient Tobacco Use Status: Former Tobacco user Tobacco use type: Cigarette Cigarettes Per Day: 15 Years Smoked: Current smoker, onset 16, 3/4ppd x 45yrs, 33pyh e-Cigarette/Vaping Use: Never Used Second Hand Smoke Exposure: Yes service: No Current occupational status: employed Cognitive needs: No Hearing needs: No Vision needs: Yes Questionnaire PHQ-9 Over the last 2 weeks, how often have you been bothered by any of the following problems? 1. Little interest or pleasure in doing things: not at all 2. Feeling down, depressed, or hopeless: not at all 3. Trouble falling or staying asleep, or sleeping too much: not at all 4. Feeling tired or having little energy: not at all 5. Poor appetite or overeating: not at all 6. Feeling bad about yourself - or that you are a failure or have let yourself or your family down: not at all 7. Trouble concentrating on things, such as reading the newspaper or watching television: not at all 8. Moving or speaking so slowly that other people could have noticed. Or the opposite - being so fidgety or restless that you have been moving around a lot more than usual: not at all 9. Thoughts that you would be better off or of hurting yourself in some way: not at all Total score: 0 Depression Screening Interpretation: Negative Depression Screening Done: Yes 70196 - PHQ-9 Billing: Yes Source: Developed by Drs. Khoa Cote, Isabel Babin, Tevin Rendon and colleagues, with an educational sancho from [employer]. Thrive Questionnaire Date Thrive assessed: 04/07/23 I am a: Patient What is your living situation today?: I have a steady place to live Within the past 12 months, did the food you bought not last and you didn't have the money to get more?: Never true Within the past 12 months, did you worry whether your food would run out before you got money to buy more?: Never true Do you have trouble paying for medicines?: No Do you have trouble getting transportation to medical appointments?: No Do you have trouble paying your heating and electricity bill?: No Do you have trouble taking care of your child, family member or friend?: No Do you have trouble with day-to-day activities such as bathing, preparing meals, shopping, managing finances, etc.?: No Are you currently unemployed and looking for a job?: No Are you interested in more education?: No Please select the resources that you would like help with: None Currently or been in a relationship where the following occur: no concerns re ported AUDIT C Alcohol Use Questionnaire (AUDIT-C) 1. How often do you have a drink containing alcohol?: Monthly or less 2. How many drinks containing alcohol do you have on a typical day when you are drinking?: 1 or 2 3. How often do you have six or more drinks on one occasion?: Never Total Score: 1 Score Reviewed/Action Taken: Yes LETTY-7 AMB Questionnaire LETTY-7 Date LETTY - 7 assessed: 04/07/23 Feeling nervous, anxious, or on edge: 0 = Not at all Not being able to stop or control worryin = Not at all Worrying too much about different things: 0 = Not at all Trouble relaxin = Not at all Being so restless that it is hard to sit still: 0 = Not at all Becoming easily annoyed or irritable: 0 = Not at all Feeling afraid as if something awful might happen: 0 = Not at all Total LETTY-7 score (0-4 normal; 5-9 mild; 10-14 moderate; 15-21 severe): 0 Source: Developed by Drs. Khoa Cote, Isabel Babin, Tevin Rendon and colleagues, with an educational sancho from [employer]. Review of Systems Const Denies chills, Denies fatigue, Denies fever(s) and Denies headache(s) ENT Denies dysphagia, Denies dizziness, Denies otalgia, Denies headache(s), Denies odynophagia and Denies sore throat Card Denies chest pain, Denies palpitations and Reports dyspnea on exertion (mild) Resp Reports chest congestion (on and off), Reports cough (recurrent; coughs up minimal thick whitish phlegm at times), Denies excessive phlegm production, Denies pain with cough and Reports dyspnea on exertion (mild) GI Denies abdominal pain, Denies constipation, Denies dysphagia, Denies heartburn, Denies diarrhea, Denies nausea, Denies odynophagia and Denies vomiting Denies difficulty voiding, Denies nocturia and Denies dysuria Musc Reports numbness (of her fingers and toes occasionally) and Reports tingling (in her fingers and toes occasionally) Skin/Breast Denies rash Neuro Denies dizziness, Denies headache(s), Reports numbness (of her fingers and toes occasionally) and Reports tingling (in her fingers and toes occasionally) Endo Denies fatigue and Denies palpitations Physical exam (Primary Care) Vital Signs: Last Vital Signs Pulse 82 04/07/23 10:10 BP 118/72 04/07/23 10:10 Pulse Ox 90 L 04/07/23 10:10 Oxygen Delivery Method Room Air 04/07/23 10:10 BMI result Body Mass Index 19.7 Tobacco/Smoking Status: Tobacco use Status Tobacco use date assessed 04/07/23 04/07/23 10:15 Patient Tobacco Use Status Former Tobacco user 04/07/23 10:12 Tobacco use type Cigarette 04/07/23 10:12 e-Cigarette/Vaping Use Never Used 04/07/23 10:12 PHQ-9: PHQ-9 Score PHQ-9: Total score 0 04/07/23 11:13 Depression Screening Interpretation: Negative Thrive Assessment: Date of Thrive Assessment Date Thrive assessed 04/07/23 04/07/23 10:15 Currently or been in a relationship where the following occur: no concerns reported Const General: no acute distress and alert HENMT Ears: TM's normal bilaterally and EAC's normal Throat: Yes posterior oropharynx normal and Yes tonsils normal (no TP congestion noted) Neck Neck: Yes no lymphadenopathy and Yes supple Resp Auscultation: clear to auscultation bilaterally, no crackles, no rales, no wheezes and diminished lung sounds (slightly) bilateral Cardio Rate: regular rate Rhythm: regular rhythm Heart sounds: no murmurs GI Palpation (GI): Soft to palpation and nontender Auscultation: normal bowel sounds Skin Rashes: no rashes Extrem General: Yes no clubbing, cyanosis or edema Office Procedures Flu Questionnaire Does the patient have a severe egg allergy?: No Does the patient have severe life threatening allergies?: No Does the patient have a fever or illness today?: No Has the patient ever had Guillain-[place] Syndrome?: No Has the patient ever had any past reaction to a flu shot?: No Immunizations flu vacc [id number] 6mos up(PF) 60 mcg(15 mcgx4)/0.5 mL IM syringe Performing Provider: Babar Espino MD Performing Location: [facility] Administered by: Jessica Barahona on 04/07/23 11:13 Dose Route Admin Location Dispensed Lot Number Expiration Date [employer] 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 Specialist 0.5 mL IM Left Deltoid 0.5 mL [id number] 12/26/23 [id number] Adhysteria VIS Given Date VIS Provided VIS Publication Date 04/07/23 Single Vaccine 21 Eligibility Eligibility Date Funding Source Not [facility] Eligible 04/07/23 Private Assessment and Plan Assessment & Plan (1) Cancer of upper lobe of right lung: Onset Date: ~2021 Comment: (Adenocarcinoma T3 N0, 99%PDL1 - S/P RUL lobectomy 12/16/21 - no LN, 3 distinct lesions, two were T1b and one was T2a; s/p adjuvant chemo - completed 04/2022) Code(s): C34.11 - Malignant neoplasm of upper lobe, right bronchus or lung Plan: S/P right upper lobectomy on 12/17/2021 and completed her adjuvant chemotherapy (Taxol with carboplatin) in April 2022 Started on immunotherapy in 06/2022 - is currently on Durvalumab at 10 mg/kg IV Q 2 weeks Follow up chest CT on 05/18/2022 after finishing her chemotherapy showed no evidence of recurrence or new disease; there are no pleural few with a no mediastinal lymphadenopathy Repeat chest CT done on 11/11/22 revealed stable postsurgical changes from her right upper lobectomy but there was a new area of focal findings and ground glass attentuation that Dr. Rush believed was due to an infection and she was started on a round of Abx for this - these have reportedly cleared up on her repeat chest CT on 01/20/23 She will be having another repeat chest CT done in 3 months for follow up Follow up with oncology/thoracic surgery as scheduled (2) Peripheral neuropathy due to chemotherapy: Code(s): G62.0 - Drug-induced polyneuropathy; T45.1X5A - Adverse effect of antineoplastic and immunosuppressive drugs, initial encounter Plan: States that her symptoms have improved a lot and are gradually subsiding since she completed her adjuvant chemotherapy in April 2022 (3) COPD (chronic obstructive pulmonary disease): Code(s): J44.9 - Chronic obstructive pulmonary disease, unspecified Qualifiers: COPD type: chronic bronchitis Chronic bronchitis type: mucopurulent Qualified Code(s): J41.1 - Mucopurulent chronic bronchitis Plan: Stable lately and she now no longer requires oxygen supplementation Continue Symbicort 160-4.5 mcg 2 inhalations BID and Spiriva Respimat 2.5 mcg 2 inhalations QD; continue Albuterol HFA 2 inhalations every 6 hours PRN She was started on Azithromycin TIW for her mucopurulent coughing earlier this morning Follow up with pulmonary as scheduled (4) Benign essential hypertension: Code(s): I10 - Essential (primary) hypertension Plan: Reinforced low sodium diet - goal is systolic BP of at least 130 mm or less Continue Amlodipine 10 mg QD, HCTZ 12.5 mg QD and Hydralazine 50 mg TID She is again reminded to monitor her BP regularly (5) Pure hypercholesterolemia: Code(s): E78.00 - Pure hypercholesterolemia, unspecified Plan: Will again try to obtain a copy of her most recent lab results from [facility] Reinforced low cholesterol diet Will recheck her labs and fasting lipids in 4 months for follow up (6) Vitamin D deficiency: Code(s): E55.9 - Vitamin D deficiency, unspecified Plan: Continue Vitamin D3 1000 units QD (7) Constipation: Code(s): K59.00 - Constipation, unspecified Qualifiers: Constipation type: unspecified constipation type Qualified Code(s): K59.00 - Constipation, unspecified Plan: Encouraged increased oral fluids and dietary fiber Continue Docusate 100 mg BID and Senna 8.6 mg 1 to 2 tabs Q HS PRN (8) Anxiety: Code(s): F41.9 - Anxiety disorder, unspecified Plan: Continue Escitalopram 20 mg QD and Lorazepam 0.5 mg TID PRN Plan Flu vaccine given today Follow up in 4 months Orders: Orders Complete Blood Count Auto Diff 4 Months I10 - Essential (primary) hypertension Comprehensive [place]. Panel Fast 4 Months E78.00 - Pure hypercholesterolemia, unspecified Lipid Panel 4 Months E78.00 - Pure hypercholesterolemia, unspecified TSH reflex Free T4 4 Months E78.00 - Pure hypercholesterolemia, unspecified UA CC w/rflx Micro + Cult 4 Months R30.0 - Dysuria Influenza [id number] Immunization 04/07/23 Z23 - Encounter for immunization Vitamin D 25-OH Total 4 Months E55.9 - Vitamin D deficiency, unspecified Medications: New azithromycin 3 weeks (Wednesday/Wednesday/Wednesday) 250 mg PO 3XW Coding Level of Care Code Est Pt Level 4 (46003) Diagnoses Cancer of upper lobe of right lung C34.11 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; T45.1X5A Mucopurulent chronic bronchitis J41.1 COPD type: chronic bronchitis Chronic bronchitis type: mucopurulent Benign essential hypertension I10 Pure hypercholesterolemia E78.00 Vitamin D deficiency E55.9 Constipation, unspecified constipation type K59.00 Constipation type: unspecified constipation type Anxiety F41.9
== END 2023-04-07 11:13 | disposition home or self-care (01) ==
PROVIDERS: PCP Internal Medicine; Visit Provider Internal Medicine
DX: Z23 Encounter for immunization (principal)
CPT/HCPCS: 90471; 90686; 99214

== ENCOUNTER 2023-07-19 07:39 | Outpatient (REF) | payer BC, SELFPAY ==
[2023-07-19 08:02] LABS: MANUAL DIFF FLAG NO
[2023-07-19 08:45] LABS: Basophils Absolute Auto 0.1 X10*3/uL (0.0-0.2); Basophils Percent Auto 0.5 % (0-2); Eosinophils Absolute Auto 0.2 X10*3/uL (0.0-0.4); Eosinophils Percent Auto 2.5 % (0-4); Hematocrit 44.6 % (37.0-47.0); Hemoglobin 14.7 g/dl (12.0-16.0); Imm Gran Abs Auto 0.03 X10*3/uL (0.00-0.03); Imm Gran Pct Auto 0.3 % (0.0-0.4); Lymphocytes Absolute Auto 2.4 X10*3/uL (1.2-4.9); Lymphocytes Percent Auto 26.7 % (20-40); Mean Corpuscular Hemoglobin 30.6 pg (27.0-33.0); Mean Corpuscular Volume 92.9 fL (80.0-98.0); Mean Platelet Volume 9.1 fL (9.4-12.3); Monocytes Absolute Auto 0.4 X10*3/uL (0.1-1.2); Monocytes Percent Auto 4.6 % (2-11); Neutrophils Percent Auto 65.4 % (45-73); Platelet Count 417 X10*3/uL (160-400); Red Cell Distribution Width 13.5 % (11.0-16.0); White Blood Count 9.1 X10*3/uL (4.8-10.8)
[2023-07-19 09:21] LABS: Alanine Aminotransferase 18 U/L (0-31); Albumin Level 4.3 g/dL (3.5-5.0); Alkaline Phosphatase 83 U/L (39-117); Anion Gap 13 (12-20); Aspartate Amino Transferase 20 U/L (5-31); Bilirubin Total 0.4 mg/dL (0.0-1.0); Blood Urea Nitrogen 14 mg/dL (9-16); Calcium 10.2 mg/dL (8.4-10.2); Carbon Dioxide 31 mmol/L (22-29); Chloride 102 mmol/L (96-108); Cholesterol 213 mg/dL (<200); Estimated Glomerular Filt Rate > 60; Glucose Fasting 107 mg/dL (60-99); HDL Cholesterol 80 mg/dL (>40); LDL Cholesterol Calculated 121 mg/dL (<100); Sodium 142 mmol/L (135-145); Total Protein 8.1 g/dL (6.5-8.0); Triglycerides 62 mg/dL (<150)
[2023-07-19 09:38] LABS: TSH reflex Free T4 0.82 uIU/mL (0.32-4.0); Vitamin D 25-OH Total 12.1 ng/mL (>30)
[2023-07-19 09:44] LABS: Folate 7.9 ng/mL (> or = 4.0); Vitamin B12 1754 pg/mL (200-900)
[2023-07-19 10:39] LABS: Appearance Urine Cloudy; Color Urine Dark Yellow; Glucose Urine UA Negative (Negative); Leukocyte Esterase Urine Trace (Negative); Nitrite Urine Negative (Negative); UMIC TRIGGER UACC YES; Urine Blood Negative (Negative); Urine Ketones Trace mg/dL (Negative); Urine Protein 30 (1+) mg/dL (Neg-Trace)
[2023-07-19 10:50] LABS: Bacteria Urine Trace (None Seen); RBC Urine 0-2 /HPF (0-2); Squamous Epithelial Cell Urine >20 /HPF (0-2); WBC Urine 0-5 /HPF (0-5)
== END 2023-07-19 07:40 | disposition home or self-care (01) ==
LOC: HO.LAB 07:39
PROVIDERS: PCP Internal Medicine; Visit Provider Internal Medicine
DX: I10 Essential (primary) hypertension (principal); E55.9 Vitamin D deficiency, unspecified; E53.8 Deficiency of other specified B group vitamins; E78.00 Pure hypercholesterolemia, unspecified
CPT/HCPCS: 36415; 80053; 80061; 81001; 82306; 82607; 82746; 84443; 85025

== ENCOUNTER 2023-07-20 07:45 | Outpatient (REF) | payer BC, SELFPAY ==
--- NOTE | ~2023-07-20 | CT_ITS ---
EXAMINATION: CT CHEST WITH CONTRAST CLINICAL INFORMATION: Right lung cancer follow-up COMPARISON: Multiple previous CTs, most recent, 01/20/2023 TECHNIQUE: Multidetector volumetric CT imaging of the chest was obtained after the administration of 65 mL of Omnipaque 350 intravenous contrast without immediate adverse reactions. Axial MIP volume rendering provided. Sagittal and coronal reformatted images were obtained. This CT examination was performed using dose optimization techniques as appropriate, variously including the following: *Automated exposure control *Adjustment of mA and/or kV according to patient size (this includes techniques or standardized protocols for targeted exams where dose is matched to indication/reason for exam; i.e. 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 LUNGS: Stable right upper lobectomy. Hyperinflation with centrilobular emphysema, scarring and atelectasis. Trachea and bronchi are patent. Tracheal debris, likely mucus. Bronchial wall thickening, most prominent right mainstem and right lower lobe bronchi with mucus plugging. Interval development of nonspecific scattered left hemithorax opacities, most prominent in the left lower lobe, 5:95, upper lobe, 5:78, 9:30 and 39, for example. Unchanged 3 mm DEINSE subpleural nodule, 5:42. MEDIASTINUM: Unremarkable thyroid. No change nonspecific mediastinal lymph nodes. Diffuse esophageal thickening. Heart size within normal limits. No pericardial effusion. Degree of coronary calcifications: Moderately severe. Atherosclerotic calcifications nonaneurysmal aorta. Ectatic pulmonary arteries. PLEURA: There is no pleural effusion. No pleural mass or thickening. CHEST WALL/AXILLA: Benign-appearing bilateral breast calcifications. Nonspecific axillary lymph nodes. UPPER ABDOMEN: Unremarkable OSSEOUS STRUCTURES: No suspicious osseous lesions CT/CT chest w IV con IMPRESSION: Stable right upper lobectomy changes, emphysema, bronchial wall thickening, mucus plugging and 3 mm left upper lobe subpleural nodule. No new lung nodules and no CT evidence of recurrent/residual malignancy. Interval development of nonspecific left hemithorax opacities, possibly infectious. [address] follow-up recommended. Fleischner guidelines were followed.
[2023-07-20] MEDS: iohexoL 350 MG/ML 100 ML INFUS..BTL IV (08:19)
== END 2023-07-20 07:46 | disposition home or self-care (01) ==
LOC: HO.CT 07:45
PROVIDERS: PCP Internal Medicine; Visit Provider Internal Medicine
DX: C34.91 Malignant neoplasm of unspecified part of right bronchus or lung (principal)
CPT/HCPCS: 71260; Q9967

== ENCOUNTER 2023-10-06 08:39 | Outpatient (AMB) | payer BC, SELFPAY ==
--- NOTE | 2023-10-06 08:46 | MHC.OFFVIS ---
Intake Vital Signs 10/06/23 08:48 Height 5 ft 1 in Weight 101 lb 6.602 oz BMI 19.2 BP 128/60 Blood Pressure Location Lt brachial Position Sitting Pulse 90 Pulse Source Pulse Oximeter Pulse Oximetry (%) 93 Oxygen Delivery Method Room Air Intake Visit Reasons: COPD Philosophy Specialist Required: No Allergies levofloxacin [From LEVAQUIN] Allergy (Intermediate, Verified 10/06/23 08:50) NAUSEA & VOMITING, hives bupropion Allergy (Unknown, Verified 10/06/23 08:50) increased anxiety/depression HPI HPI Comments History of Present Illness Details The patient is a 63-year-old woman, current smoker, who has been having worsening cough and shortness of breath. Her cough tends to be productive in nature and moderate severity. She has been using inhalers including Flovent and long-acting muscarinic antagonist. The medications have not been very effective for her. Her provided did try to send her Trelegy but was not covered. In the meantime she continues to smoke. The patient understands that she needs to quit and is motivated to quitting. Although it is very hard for her to quit. We talked about different alternatives including trying the Nicotrol inhaler which may be effective for her to slow down her smoking hopefully switch it completely to the nicotine inhaler where she can then decrease it as part of her tobacco cessation. The patient continues to work regularly. she does have some increased dyspnea on exertion but she is still able to do all her work related activities in does not have any significant limitations. We did review of previous chest x-rays that she has had demonstrating significant hyperinflation of the lungs. In addition to that she had a CT scan of the chest back in 2017 where was described that she had bronchiectatic changes. 10/22/2021 the patient is here for a pulmonary follow-up visit. Overall she is feeling little better. She is still coughing. She did try the Nicotrol inhaler for smoking cessation but is only meters smoke more. So therefore she stopped it. She still struggling with smoking. We also looked at her pulmonary function studies demonstrating evidence of COPD. The patient also has a decreased diffusing capacity. She did go back to the lung cancer screening program. She had a recent CT scan demonstrating significant pulmonary nodules in the right upper lobe. No significant lymphadenopathy. But the nodules are greater than a cm in size and are concerning for malignancy. However, in view of her the multiple nodules I will go ahead and request a PET scan to see if there is any progression of this Probable malignant process. She is taking part of the lung cancer screening program so therefore she will be discussed during weekly multidisciplinary rounds. 11/14/2021 the patient is here for a pulmonary follow-up visit. She did follow-up with her PET scan demonstrating significant activity at that right upper lobe area. She is currently scheduled to undergo a lobectomy of the right upper lobe with curative intent. She continues with respiratory therapy patient also quit smoking. Will plan to follow-up after the surgery when she recovers we consider pulmonary rehabilitation. 05/13/2022 the patient is here for pulmonary follow-up visit. The patient is status post right upper lobe lobectomy. She did have some issues with prolonged air leak. She did have 3 lesions in the right upper lobe. She did start chemotherapy. Now she is recommended to start immune therapy. She does have a CT scan coming up soon next week. Will follow up with the results. In the meantime she did go for a 6 minute walk test with me. The patient did not desaturate although heart rate was elevated 120 needs. Will have her undergo an echocardiogram. She has been using the Symbicort Spiriva with good effect. She does not always using. She feels her breathing is a lot better. At this point the patient is reluctant to undergo pulmonary rehabilitation. She is also reluctant to start immune therapy. She will follow-up with oncology soon. 10/21/2022 the patient is here for pulmonary follow-up visit. She continues to do well. She started immune therapy in June. Some that she gets more congested from it. Moderate severity. Right now is a little better. We did talk about considering medications such as Daliresp or even azithromycin her symptoms persist. She is not interested in additional medicines right now. She has a CT scan scheduled for October and will follow-up with drastic surgery. She is going to continue with respiratory therapy. She is trying to stay active. Otherwise the patient is without any other complaints. Will follow-up in 6 months. 04/07/2023 the patient is here for a pulmonary follow-up visit. Overall she is doing about the same. Complains of a cough productive in nature. Moderate severity. She does use Mucinex on a regular basis with good effect. She also has been on Symbicort Spiriva. They have been affecting beneficial. She did have a repeat CT scan of the chest in December 2022 with postoperative changes. No evidence of any worsening nodular densities. The patient is still struggling with her smoking. She is trying to quit. Will go ahead and start her on azithromycin 3 times a week for her chronic bronchitis and continue with the current respiratory therapy. If she finds the azithromycin helpful then she needs to have an EKG done in order to continue the therapy. Otherwise she can just stop it. 10/06/2023 the patient is here for a pulmonary follow-up visit. Overall she has been doing well. She is been off the immunotherapy now. She is doing well. Denies any worsening shortness of breath. She still has a productive cough at times but otherwise better. She has not using Mucinex as much. She did try the azithromycin but was not helpful. Was causing to have some GI upset. In addition to that she was placed on levofloxacin also had significant allergic reaction. It is now her allergy list. Her last CT scan of the chest back in June 2023 demonstrating stable disease postoperative changes. She is due for CT scan in 6 months. Therefore will have her get a CT scan in 6 months and follow-up after that. The meantime she continues on Symbicort and Spiriva. She has not required her rescue inhaler often. Typically less than twice a week. She is still working more than 40 hours a week and she is doing well denies any respiratory limitations. [facility] Medical History Tachycardia Benign essential hypertension Adenocarcinoma of right lung (~2021) Pulmonary nodule Personal history of nicotine dependence Bronchiectasis Pure hypercholesterolemia Anxiety Vitamin D deficiency COPD (chronic obstructive pulmonary disease) Surgical History History of lung surgery (~2021) History of thumb surgery History of reversal of tubal ligation History of colonoscopy History of tubal ligation Family History Father Myocardial infarction Mother Stroke Family/Other Hypertension Social History Housing: House Alcohol intake: current Alcohol intake frequency: holidays/special occasions only Patient Tobacco Use Status: Former Tobacco user Tobacco use type: Cigarette Cigarettes Per Day: 15 Years Smoked: Current smoker, onset 16, 3/4ppd x 45yrs, 33pyh e-Cigarette/Vaping Use: Never Used Second Hand Smoke Exposure: Yes service: No Current occupational status: employed Cognitive needs: No Hearing needs: No Vision needs: Yes Review of Systems Const Denies chills, Denies fatigue, Denies fever(s), Denies headache(s) and Reports weight gain ENT Denies headache(s), Denies odynophagia, Denies sinus pain and Denies sore throat Card Denies chest pain, Denies palpitations and Denies dyspnea on exertion (mild) Resp Reports chest congestion (on and off), Reports cough, Denies excessive phlegm production ((+) scanty thick whitish phlegm), Denies dyspnea on exertion (mild) and Denies wheezing (occasionally) GI Denies abdominal pain, Denies constipation, Denies heartburn, Denies diarrhea, Denies nausea, Denies odynophagia and Denies vomiting Denies difficulty voiding, Denies nocturia and Denies dysuria Neuro Denies headache(s) Endo Denies fatigue and Denies palpitations Aller/Immun Denies wheezing (occasionally) Physical Exam Const General: alert Neck Neck: Yes normal visual inspection, Yes full ROM and Yes no lymphadenopathy Chest Chest palpation & inspection: normal inspection of the chest Resp Auscultation: no rhonchi, no wheezes and diminished lung sounds Cardio Rate: regular rate Rhythm: regular rhythm Heart sounds: S1 normal heart sound present and S2 normal heart sound present GI Palpation (GI): Soft to palpation and nontender Auscultation: normal bowel sounds Skin General skin exam: rashes and/or lesions noted Assessment & Plan Assessment & Plan (1) COPD (chronic obstructive pulmonary disease): Code(s): J44.9 - Chronic obstructive pulmonary disease, unspecified Qualifiers: COPD type: chronic bronchitis Chronic bronchitis type: mucopurulent Qualified Code(s): J41.1 - Mucopurulent chronic bronchitis (2) Bronchiectasis: Code(s): J47.9 - Bronchiectasis, uncomplicated Qualifiers: Bronchiectasis type: uncomplicated Qualified Code(s): J47.9 - Bronchiectasis, uncomplicated (3) Pulmonary nodule: Code(s): R91.1 - Solitary pulmonary nodule (4) Adenocarcinoma of right lung: Onset Date: ~2021 Comment: (T3N0 - 99%PDL1; s/p RUL lobectomy 11/2021; chemo 04/2022; Immunetherapy 06/2022) Code(s): C34.91 - Malignant neoplasm of unspecified part of right bronchus or lung Plan continue symbicort continue Spiriva daily completed Immunetherapy Jun 2023 stopped macrolide therapy for chronic bronchitis x 4-8 weeks, did not work CT chest every 6 months November 2023 follow-up in 6 months Orders: Orders CT chest wo IV con 12/15/23 C34.91 - Malignant neoplasm of unspecified part of right bronchus or lung Coding Level of Care Code Est Pt Level 4 (82430) Diagnoses Mucopurulent chronic bronchitis J41.1 COPD type: chronic bronchitis Chronic bronchitis type: mucopurulent Bronchiectasis without complication J47.9 Bronchiectasis type: uncomplicated Pulmonary nodule R91.1 Adenocarcinoma of right lung C34.91 Time Spent (min) 17
[2023-10-06 08:48] VITALS: BP 128/60; PULSE 90; O2SAT 93; BMI 19.2
== END 2023-10-06 09:04 | disposition home or self-care (01) ==
PROVIDERS: PCP Internal Medicine; Visit Provider Hospitalist
DX: J41.1 Mucopurulent chronic bronchitis (principal); J47.9 Bronchiectasis, uncomplicated; R91.1 Solitary pulmonary nodule; C34.91 Malignant neoplasm of unspecified part of right bronchus or lung
CPT/HCPCS: 99214

== ENCOUNTER → 2023-10-06 08:39 | Outpatient (BNVA) | payer BC, SELFPAY | PROVIDERS: PCP Internal Medicine; Visit Provider Hospitalist | DX: K21.9 Gastro-esophageal reflux disease without esophagitis (principal); F17.200 Nicotine dependence, unspecified, uncomplicated ==

== ENCOUNTER 2023-12-01 13:02 | Outpatient (AMB) | payer BC, SELFPAY ==
[2023-12-01 13:03] VITALS: BP 138/64; PULSE 53; O2SAT 93; BMI 18.3
--- NOTE | 2023-12-01 13:03 | MHC.PC.OV ---
Vital Signs 12/01/23 13:03 Height 5 ft 1 in Weight 97 lb 0.6 oz BMI 18.3 BP 138/64 Blood Pressure Location Lt brachial Position Sitting Pulse 53 Pulse Source Pulse Oximeter Pulse Oximetry (%) 93 Oxygen Delivery Method Nasal Cannula Oxygen Flow Rate 1 Comment oxygen at 1 L Intake Visit Reasons: Hx lung cancer, COPD, HTN Intake Note: Patient is here to follow up Client Technologies Analyst Required: No Allergies levofloxacin [From LEVAQUIN] Allergy (Intermediate, Verified 01/27/24 23:05) NAUSEA & VOMITING, hives bupropion Allergy (Unknown, Verified 01/27/24 23:05) increased anxiety/depression Medication List - Last Reconciled 12/01/23 by Babar Espino MD acetaminophen 975 mg (3 x 325 mg) PO Q6-8H PRN 30 days albuterol sulfate 90 mcg/actuation 2 puffs inhalation Q6H PRN 30 days amlodipine 10 mg PO DAILY 90 days amoxicillin-pot clavulanate 875-125 mg 1 tab PO BID fluticasone propion-salmeterol 113-14 mcg/actuation (AirDuo RespiClick) 1 inh inhalation Q12H 90 days hydralazine 50 mg PO TID 90 days hydrochlorothiazide 12.5 mg PO DAILY 90 days ipratropium-albuterol 0.5 mg-3 mg(2.5 mg base)/3 mL mL inhalation lorazepam 0.5 mg PO TID PRN 30 days tiotropium bromide 2.5 mcg/actuation (Spiriva Respimat) 2 puffs inhalation DAILY 90 days Tobacco use date assessed: 12/01/23 Dental Screening Dental Screen Date: 12/01/23 HPI Hx lung cancer, COPD, HTN HPI Details Patient comes in today for her follow up visit States that she was recently hospitalized at [facility] from 11/25/2023 to 11/27/2023 for COPD exacerbation States that she has already finished her Azithromycin and is finishing up her Augmentin and oral Prednisone (has 1 more day of Tx left on both) She is currently on oxygen at 1 LPM, and her oxygen saturation earlier today was at 93% States that because the prescription for her oxygen at the time of her discharge was for her to use 1 LPM at rest and increase up to 6 LPM with ambulation, the oxygen concentrator that she had previously was taken away and she is currently using a large oxygen tank - was reportedly told that this is mostly because of the way her Rx was written out States that she is mostly keeping her oxygen at 1 LPM and goes up to only 2 to 3 LPM when needed with activity or ambulation as she actually feels like she cannot breathe right when she increases her oxygen to more than 3 LPM States that she feels most comfortable with her breathing when it is at 1 L She was able to move up her pulmonary follow up appt and is now scheduled to see Dr. Love next Wednesday on 12/06/2023 States that she is scheduled to go back to work tomorrow and does not think she is able to do so given her current condition and will need a note from us to oush back her RTW date She relates feeling fatigued often lately; denies any fever or sore throat She denies any chest pains; has significant SOB and GIRALDO that she states is chronic although she feels that her breathing has gotten worse over the past few months She is currently still on immunotherapy but is now wondering if that is even helping, given the progressive decline in her breathing recently Still has on and off nausea but she denies any vomiting; denies any abdominal pain No change in bowel habits noted [facility] Medical History Tobacco dependence Tachycardia Benign essential hypertension Adenocarcinoma of right lung (~2021) Pulmonary nodule Personal history of nicotine dependence Bronchiectasis Pure hypercholesterolemia Anxiety Vitamin D deficiency COPD (chronic obstructive pulmonary disease) Surgical History History of lung surgery (~2021) History of thumb surgery History of reversal of tubal ligation History of colonoscopy History of tubal ligation Family History Father Myocardial infarction Mother Stroke Family/Other Hypertension Social History Housing: House Alcohol intake: current Alcohol intake frequency: holidays/special occasions only Patient Tobacco Use Status: Former Tobacco user Tobacco use type: Cigarette Cigarettes Per Day: 15 Years Smoked: Current smoker, onset 16, 3/4ppd x 45yrs, 33pyh e-Cigarette/Vaping Use: Never Used Second Hand Smoke Exposure: Yes service: No Current occupational status: employed Cognitive needs: No Hearing needs: No Vision needs: Yes Questionnaire PHQ-9 Over the last 2 weeks, how often have you been bothered by any of the following problems? 1. Little interest or pleasure in doing things: not at all 2. Feeling down, depressed, or hopeless: not at all 3. Trouble falling or staying asleep, or sleeping too much: not at all 4. Feeling tired or having little energy: not at all 5. Poor appetite or overeating: not at all 6. Feeling bad about yourself - or that you are a failure or have let yourself or your family down: not at all 7. Trouble concentrating on things, such as reading the newspaper or watching television: not at all 8. Moving or speaking so slowly that other people could have noticed. Or the opposite - being so fidgety or restless that you have been moving around a lot more than usual: not at all 9. Thoughts that you would be better off or of hurting yourself in some way: not at all Total score: 0 Depression Screening Interpretation: Negative Depression Screening Done: Yes 14514 - PHQ-9 Billing: Yes Source: Developed by Drs. Khoa Cote, Isabel Babin, Tevin Rendon and colleagues, with an educational sancho from [employer]. Thrive Questionnaire Date Thrive assessed: 12/01/23 I am a: Patient What is your living situation today?: I have a steady place to live Within the past 12 months, did the food you bought not last and you didn't have the money to get more?: Never true Within the past 12 months, did you worry whether your food would run out before you got money to buy more?: Never true Do you have trouble paying for medicines?: No Do you have trouble getting transportation to medical appointments?: No Do you have trouble paying your heating and electricity bill?: No Do you have trouble taking care of your child, family member or friend?: No Do you have trouble with day-to-day activities such as bathing, preparing meals, shopping, managing finances, etc.?: No Are you currently unemployed and looking for a job?: No Are you interested in more education?: No Please select the resources that you would like help with: None Currently or been in a relationship where the following occur: no concerns reported THRIVE Score: 0 AUDIT C Alcohol Use Questionnaire (AUDIT-C) 1. How often do you have a drink containing alcohol?: Monthly or less 2. How many drinks containing alcohol do you have on a typical day when you are drinking?: 1 or 2 3. How often do you have six or more drinks on one occasion?: Never Total Score: 1 Score Reviewed/Action Taken: Yes LETTY-7 AMB Questionnaire LETTY-7 Date LETTY - 7 assessed: 04/07/23 Source: Developed by Drs. Khoa Cote, Isabel Babin, Tevin Rendon and colleagues, with an educational sancho from [employer]. Review of Systems Const Denies chills, Reports fatigue, Denies fever(s) and Denies headache(s) ENT Denies dysphagia, Denies dizziness, Denies otalgia, Denies headache(s), Denies odynophagia and Denies sore throat Card Denies chest pain, Denies palpitations, Reports dyspnea and Reports dyspnea on exertion Resp Reports chest congestion (chest feels tight), Reports cough (recurrent; coughs up minimal thick whitish phlegm at times), Denies excessive phlegm production, Denies pain with cough, Reports dyspnea, Reports dyspnea on exertion and Reports wheezing (at times) GI Denies abdominal pain, Denies constipation, Denies dysphagia, Denies heartburn, Denies diarrhea, Denies nausea, Denies odynophagia and Denies vomiting Denies difficulty voiding, Denies nocturia and Denies dysuria Musc Denies back pain, Reports numbness (of her fingers and toes occasionally) and Reports tingling (in her fingers and toes occasionally) Skin/Breast Denies rash Neuro Denies dizziness, Denies headache(s), Reports numbness (of her fingers and toes occasionally) and Reports tingling (in her fingers and toes occasionally) Endo Reports fatigue and Denies palpitations Aller/Immun Reports wheezing (at times) Physical exam (Primary Care) Vital Signs: Last Vital Signs Pulse 53 12/01/23 13:03 BP 138/64 12/01/23 13:03 Pulse Ox 93 12/01/23 13:03 Oxygen Delivery Method Nasal Cannula 12/01/23 13:03 Oxygen Flow Rate 1 12/01/23 13:03 BMI result Body Mass Index 18.3 Tobacco/Smoking Status: Tobacco use Status Tobacco use date assessed 12/01/23 12/01/23 13:04 Patient Tobacco Use Status Former Tobacco user 12/01/23 13:04 Tobacco use type Cigarette 12/01/23 13:04 e-Cigarette/Vaping Use Never Used 12/01/23 13:04 Depression Screening Interpretation: Negative Thrive Assessment: Date of Thrive Assessment Date Thrive assessed 12/01/23 12/01/23 13:04 Currently or been in a relationship where the following occur: no concerns reported Const General: no acute distress, alert and tired appearing HENMT Ears: TM's normal bilaterally and EAC's normal Throat: Yes posterior oropharynx normal and Yes tonsils normal (no TP congestion noted) Neck Neck: Yes no lymphadenopathy and Yes supple Thyroid: Thyroid normal Resp Auscultation: no crackles, no rales, rhonchi (scattered) throughout, no wheezes and diminished lung sounds bilateral Cardio Rate: regular rate Rhythm: regular rhythm Heart sounds: no murmurs GI Palpation (GI): Soft to palpation and nontender Auscultation: normal bowel sounds General: Yes no CVA tenderness Back/Spine/Pelvis Back: no CVA tenderness Skin Rashes: no rashes Extrem General: Yes no clubbing, cyanosis or edema Assessment and Plan Assessment & Plan (1) COPD exacerbation: Code(s): J44.1 - Chronic obstructive pulmonary disease with (acute) exacerbation Plan: Patient was just discharged from [facility], where she was admitted for bronchitis and COPD exacerbation She is currently still on oxygen at 2 liters/minute in is still experiencing significant GIRALDO /SOB and does not believe that she is able to return to work yet States that she will need a note from us extending leave of absence Would also like to get a prescription for a portable oxygen device so she is able to move around easier instead of having a large regular oxygen tank, which will limit her mobility significantly Continue Augmentin 875 mg BID Continue Airduo Respiclick 113-14 mcg 1 inhalation BID and Spiriva Respimat 2.5 mcg 2 inhalations QD; continue Albuterol HFA 2 inhalations every 6 hours PRN She will be seeing Dr. Love tomorrow for pulmonary follow-up (2) Cancer of upper lobe of right lung: Onset Date: ~2021 Comment: (Adenocarcinoma T3 N0, 99%PDL1 - S/P RUL lobectomy 12/16/21 - no LN, 3 distinct lesions, two were T1b and one was T2a; s/p adjuvant chemo - completed 04/2022) Code(s): C34.11 - Malignant neoplasm of upper lobe, right bronchus or lung Plan: S/P right upper lobectomy on 12/17/2021 and completed her adjuvant chemotherapy (Taxol with carboplatin) in April 2022 Started on immunotherapy in 06/2022 (Durvalumab at 10 mg/kg IV Q 2 weeks) x 1 year - completed immunotherapy earlier this year Follow up chest CT on 05/18/2022 after finishing her chemotherapy showed no evidence of recurrence or new disease; there are no pleural few with a no mediastinal lymphadenopathy Repeat chest CT done on 11/11/22 revealed stable postsurgical changes from her right upper lobectomy but there was a new area of focal findings and ground glass attentuation that Dr. Rush believed was due to an infection and she was started on a round of Abx for this - these have reportedly cleared up on her repeat chest CT on 01/20/23 She will be having another repeat chest CT done in 3 months for follow up Follow up with oncology/thoracic surgery as scheduled (3) Benign essential hypertension: Code(s): I10 - Essential (primary) hypertension Plan: Reinforced low sodium diet - goal is systolic BP of at least 130 mm or less Continue Amlodipine 10 mg QD, HCTZ 12.5 mg QD and Hydralazine 50 mg TID She is reminded to monitor her BP regularly (4) Pure hypercholesterolemia: Code(s): E78.00 - Pure hypercholesterolemia, unspecified Plan: Reinforced low cholesterol diet Will recheck her labs and fasting lipids in 3 to 4 months for follow up (5) Peripheral neuropathy due to chemotherapy: Code(s): G62.0 - Drug-induced polyneuropathy; T45.1X5A - Adverse effect of antineoplastic and immunosuppressive drugs, initial encounter Plan: States that her symptoms have improved a lot and are gradually subsiding since she completed her adjuvant chemotherapy in April 2022 (6) Constipation: Code(s): K59.00 - Constipation, unspecified Qualifiers: Constipation type: unspecified constipation type Qualified Code(s): K59.00 - Constipation, unspecified Plan: Encouraged increased oral fluids and dietary fiber Continue Docusate 100 mg BID and Senna 8.6 mg 1 to 2 tabs Q HS PRN (7) Anxiety: Code(s): F41.9 - Anxiety disorder, unspecified Plan: Continue Lorazepam 0.5 mg TID PRN (8) Smoker: Code(s): F17.200 - Nicotine dependence, unspecified, uncomplicated Plan: Counseled again on smoking cessation, especially now that she is on oxygen supplementation Plan Follow up in 3 months Medications: New [PORTABLE OXYGEN TANK for home use] Use as directed at 1 LPM at rest and can go up to 2 to 3 LPM with ambulation 1 ea 0RF COPD / shortness of breath Coding Level of Care Code Est Pt Level 4 (57392) Diagnoses COPD exacerbation J44.1 Cancer of upper lobe of right lung C34.11 Benign essential hypertension I10 Pure hypercholesterolemia E78.00 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; T45.1X5A Constipation, unspecified constipation type K59.00 Constipation type: unspecified constipation type Anxiety F41.9 Smoker F17.200
== END 2023-12-01 14:07 | disposition home or self-care (01) ==
PROVIDERS: PCP Internal Medicine; Visit Provider Internal Medicine
DX: J44.1 Chronic obstructive pulmonary disease with (acute) exacerbation (principal); C34.11 Malignant neoplasm of upper lobe, right bronchus or lung; I10 Essential (primary) hypertension; G62.0 Drug-induced polyneuropathy; E78.00 Pure hypercholesterolemia, unspecified; T45.1X5A Adverse effect of antineoplastic and immunosuppressive drugs, initial encounter; K59.00 Constipation, unspecified; F41.9 Anxiety disorder, unspecified; F17.200 Nicotine dependence, unspecified, uncomplicated
CPT/HCPCS: 99214

== ENCOUNTER 2023-12-06 15:31 | Outpatient (AMB) | payer BC, SELFPAY ==
[2023-12-06 15:34] VITALS: PULSE 90; O2SAT 93; BMI 18.9
--- NOTE | 2023-12-06 15:34 | A.OFFVIS_ITS ---
Vital Signs 12/06/23 15:34 Height 5 ft 1 in Weight 100 lb BMI 18.9 Pulse 90 Pulse Source Pulse Oximeter Pulse Oximetry (%) 93 Comment 1 Liter Oxygen([employer]) Intake Visit Reasons: copd [employer] Super[employer] Required: No Allergies levofloxacin [From [facility]EVAQUIN] Allergy (Intermediate, Verified 12/06/23 15:37) NAUSEA & VOMITING, hives bupropion Allergy (Unknown, Verified 12/06/23 15:37) increased anxiety/depression HPI Comments Details: The patient is a 63-year-old woman, current smoker, who has been having worsening cough and shortness of breath. Her cough tends to be productive in nature and moderate severity. She has been using inhalers including Flovent and long-acting muscarinic antagonist. The medications have not been very effective for her. Her provided did try to send her Trelegy but was not covered. In the meantime she continues to smoke. The patient understands that she needs to quit and is motivated to quitting. Although it is very hard for her to quit. We talked about different alternatives including trying the Nicotrol inhaler which may be effective for her to slow down her smoking hopefully switch it completely to the nicotine inhaler where she can then decrease it as part of her tobacco cessation. The patient continues to work regularly. she does have some increased dyspnea on exertion but she is still able to do all her work related activities in does not have any significant limitations. We did review of previous chest x-rays that she has had demonstrating significant hyperinflation of the lungs. In addition to that she had a CT scan of the chest back in 2017 where was described that she had bronchiectatic changes. 10/22/2021 the patient is here for a pulmonary follow-up visit. Overall she is feeling little better. She is still coughing. She did try the Nicotrol inhaler for smoking cessation but is only meters smoke more. So therefore she stopped it. She still struggling with smoking. We also looked at her pulmonary function studies demonstrating evidence of COPD. The patient also has a decreased diffusing capacity. She did go back to the lung cancer screening program. She had a recent CT scan demonstrating significant pulmonary nodules in the right upper lobe. No significant lymphadenopathy. But the nodules are greater than a cm in size and are concerning for malignancy. However, in view of her the multiple nodules I will go ahead and request a PET scan to see if there is any progression of this Probable malignant process. She is taking part of the lung cancer screening program so therefore she will be discussed during weekly multidisciplinary rounds. 11/14/2021 the patient is here for a pulmonary follow-up visit. She did follow-up with her PET scan demonstrating significant activity at that right upper lobe area. She is currently scheduled to undergo a lobectomy of the right upper lobe with curative intent. She continues with respiratory therapy patient also quit smoking. Will plan to follow-up after the surgery when she recovers we consider pulmonary rehabilitation. 05/13/2022 the patient is here for pulmonary follow-up visit. The patient is status post right upper lobe lobectomy. She did have some issues with prolonged air leak. She did have 3 lesions in the right upper lobe. She did start chemotherapy. Now she is recommended to start immune therapy. She does have a CT scan coming up soon next week. Will follow up with the results. In the meantime she did go for a 6 minute walk test with me. The patient did not desaturate although heart rate was elevated 120 needs. Will have her undergo an echocardiogram. She has been using the Symbicort Spiriva with good effect. She does not always using. She feels her breathing is a lot better. At this point the patient is reluctant to undergo pulmonary rehabilitation. She is also reluctant to start immune therapy. She will follow-up with oncology soon. 10/21/2022 the patient is here for pulmonary follow-up visit. She continues to do well. She started immune therapy in June. Some that she gets more congested from it. Moderate severity. Right now is a little better. We did talk about considering medications such as Daliresp or even azithromycin her symptoms persist. She is not interested in additional medicines right now. She has a CT scan scheduled for October and will follow-up with drastic surgery. She is going to continue with respiratory therapy. She is trying to stay active. Otherwise the patient is without any other complaints. Will follow-up in 6 months. 04/07/2023 the patient is here for a pulmonary follow-up visit. Overall she is doing about the same. Complains of a cough productive in nature. Moderate severity. She does use Mucinex on a regular basis with good effect. She also has been on Symbicort Spiriva. They have been affecting beneficial. She did have a repeat CT scan of the chest in December 2022 with postoperative changes. No evidence of any worsening nodular densities. The patient is still struggling with her smoking. She is trying to quit. Will go ahead and start her on azithromycin 3 times a week for her chronic bronchitis and continue with the current respiratory therapy. If she finds the azithromycin helpful then she needs to have an EKG done in order to continue the therapy. Otherwise she can just stop it. 10/06/2023 the patient is here for a pulmonary follow-up visit. Overall she has been doing well. She is been off the immunotherapy now. She is doing well. Denies any worsening shortness of breath. She still has a productive cough at times but otherwise better. She has not using Mucinex as much. She did try the azithromycin but was not helpful. Was causing to have some GI upset. In addition to that she was placed on levofloxacin also had significant allergic reaction. It is now her allergy list. Her last CT scan of the chest back in June 2023 demonstrating stable disease postoperative changes. She is due for CT scan in 6 months. Therefore will have her get a CT scan in 6 months and follow-up after that. The meantime she continues on Symbicort and Spiriva. She has not required her rescue inhaler often. Typically less than twice a week. She is still working more than 40 hours a week and she is doing well denies any respiratory limitations. 12/06/2023 the patient is here for hospital follow-up visit. The patient is gravely ill with acute respiratory failure and difficulty breathing. She was admitted to [facility]. She was placed on oxygen. She did have a CTA which I personally reviewed back in 11/26/2023. It actually demonstrated postoperative changes that she after her lung surgery. In addition to that had some areas of dense ground-glass opacities on the left hemithorax suggesting an airspace disease and pneumonia. She had significant bronchitis and mucus plugging. The patient was placed on antibiotics and prednisone she was able to be discharged home on oxygen. She is currently on 2 L and has a large oxygen tanks and is hard for her to carry. She is still pretty debilitated and weak. On further questioning she did admit that she is still smoking. is ve ry upset family in general. We talked about the importance of smoking cessation. Explained to the patient that she has a good chance of improving her overall health and respiratory capacity. She is significantly weak would benefit from pulmonary rehabilitation. I do believe that this will be a good opportunity to improve her overall health and exercise capacity then after the I am hopeful that we can wean her off some of the oxygen and she can go back to work. will try to see reassess her condition 3 months. Which time it will be difficult for her to work with her significant stability and oxygen requirements. So is reasonable to take a leave of absence for now for more in order to improve her overall respiratory capacity. She is willing to try the azithromycin again. She did not tolerate the GI upset before. Will see if we can restart in see if she can tolerate it better. If she can not then will try a different antibiotic. Patient also having wheezing place her on a slow prednisone taper to see if we can not some relief as well. For smoking cessation she has using the patch and she is tolerating well. She has significant cravings in between she will call for further recommendations. [facility] Medical History (Updated 12/06/23 @ 23:29 by Alex Love MD) Tobacco dependence Tachycardia Benign essential hypertension Adenocarcinoma of right lung (~2021) Pulmonary nodule Personal history of nicotine dependence Bronchiectasis Pure hypercholesterolemia Anxiety Vitamin D deficiency COPD (chronic obstructive pulmonary disease) Surgical History History of lung surgery (~2021) History of thumb surgery History of reversal of tubal ligation History of colonoscopy History of tubal ligation Family History Father Myocardial infarction Mother Stroke Family/Other Hypertension Social History Housing: House Alcohol intake: current Alcohol intake frequency: holidays/special occasions only Patient Tobacco Use Status: Former Tobacco user Tobacco use type: Cigarette Cigarettes Per Day: 15 Years Smoked: Current smoker, onset 16, 3/4ppd x 45yrs, 33pyh e-Cigarette/Vaping Use: Never Used Second Hand Smoke Exposure: Yes service: No Current occupational status: employed Cognitive needs: No Hearing needs: No Vision needs: Yes Review of Systems Const Denies chills, Reports fatigue, Denies fever(s), Denies headache(s) and Reports weight loss ENT Denies headache(s), Denies odynophagia, Denies sinus pain and Denies sore throat Card Denies chest pain, Denies palpitations, Reports dyspnea and Reports dyspnea on exertion (mild) Resp Reports chest congestion (on and off), Reports cough, Denies hemoptysis, Denies excessive phlegm production ((+) scanty thick whitish phlegm), Reports dyspnea, Reports dyspnea on exertion (mild) and Reports wheezing (occasionally) GI Denies abdominal pain, Denies constipation, Denies heartburn, Denies diarrhea, Denies nausea, Denies odynophagia and Denies vomiting Denies difficulty voiding, Denies nocturia and Denies dysuria Neuro Denies headache(s) Endo Reports fatigue and Denies palpitations Aller/Immun Reports wheezing (occasionally) Physical Exam Vital Signs: Last Vital Signs Pulse 90 12/06/23 15:34 Pulse Ox 93 12/06/23 15:34 BMI result Body Mass Index 18.9 Const General: alert and tired appearing Nutritional Appearance: underweight Neck Neck: Yes normal visual inspection, Yes full ROM and Yes no lymphadenopathy Chest Chest palpation & inspection: normal inspection of the chest Resp Effort & Inspection: normal respiratory effort and prolonged expiratory phase Auscultation: no rhonchi, wheezes and diminished lung sounds Cardio Rate: regular rate Rhythm: regular rhythm Heart sounds: S1 normal heart sound present and S2 normal heart sound present GI Palpation (GI): Soft to palpation and nontender Auscultation: normal bowel sounds Skin General skin exam: rashes and/or lesions noted Office Procedures 6 Minute Walk Time:: 23:30 SPO2 % at rest: 92 Pulse at rest: 78 SPO2 % during excercise: 88 Pulse during excercise: 90 Distance in yards walked: 120 Massimo Score: 6 Supplemental Oxygen: The patient was saturating 92% on room air rest. With quick ambulation on room air she desaturated down to 88%. She was placed on 2 L pulse maintaining a pulse ox of 93% with activity. The patient qualifies for a conserving device. [id number] - 6 Minute Walk Assessment & Plan Assessment & Plan (1) COPD (chronic obstructive pulmonary disease): Code(s): J44.9 - Chronic obstructive pulmonary disease, unspecified Category: Medical Qualifiers: COPD type: chronic bronchitis Chronic bronchitis type: mucopurulent Qualified Code(s): J41.1 - Mucopurulent chronic bronchitis (2) Bronchiectasis: Code(s): J47.9 - Bronchiectasis, uncomplicated Category: Medical Qualifiers: Bronchiectasis type: uncomplicated Qualified Code(s): J47.9 - Bronchiectasis, uncomplicated (3) Pulmonary nodule: Code(s): R91.1 - Solitary pulmonary nodule Category: Medical (4) Adenocarcinoma of right lung: Onset Date: ~2021 Comment: (T3N0 - 99%PDL1; s/p RUL lobectomy 11/2021; chemo 04/2022; Immunetherapy 06/2022) Code(s): C34.91 - Malignant neoplasm of unspecified part of right bronchus or lung Category: Medical (5) Tobacco dependence: Code(s): F17.200 - Nicotine dependence, unspecified, uncomplicated Category: Medical Plan continue oxygen: will request a POC 2l/pulse with activity or for now B cylinders with a conserving valve continue symbicort continue Spiriva daily Provided a nebulizer for Duoneb completed Immunetherapy Jun 2023 restart macrolide therapy for chronic bronchitis x 4-[address] taper CT chest in 3-4 months PFTs start pulmonary rehab Keep out of work untill we reassess her respiratory status and oxygen needs follow-up in 3 months Orders: Orders PFT pulmonary function test Today J41.1 - Mucopurulent chronic bronchitis Pulmonary Rehab Today J41.1 - Mucopurulent chronic bronchitis Medications: New nicotine 1 patch transdermal DAILY 28 ea 5RF 28 days ipratropium-albuterol 0.5 mg-3 mg(2.5 mg base)/3 mL 3 mL inhalation BID 180 mL 11RF 30 days J44.9 - Chronic obstructive pulmonary disease, unspecified prednisone PO daily; Take 2 tabs daily x 7 days, then 1 tab daily x 7 days, then 10mg every other day x 14 days 28 tabs 0RF 28 days azithromycin Wednesday, Wednesday, Wednesday 500 mg PO 3XW 12 tabs 4RF 28 days Coding Level of Care Code Est Pt Level 5 (84418) Diagnoses Mucopurulent chronic bronchitis J41.1 COPD type: chronic bronchitis Chronic bronchitis type: mucopurulent Bronchiectasis without complication J47.9 Bronchiectasis type: uncomplicated Pulmonary nodule R91.1 Adenocarcinoma of right lung C34.91 Tobacco dependence F17.200 CPT Codes Coding ([id number]) Time Spent (min) 40
[2023-12-06 23:29] VITALS: PULSE 78; O2SAT 92
== END 2023-12-06 16:09 | disposition home or self-care (01) ==
PROVIDERS: PCP Internal Medicine; Visit Provider Hospitalist
DX: J41.1 Mucopurulent chronic bronchitis (principal); J47.9 Bronchiectasis, uncomplicated; C34.91 Malignant neoplasm of unspecified part of right bronchus or lung; R91.1 Solitary pulmonary nodule; F17.200 Nicotine dependence, unspecified, uncomplicated
CPT/HCPCS: 94618; 99215

== ENCOUNTER → 2023-12-06 15:31 | Outpatient (BNVA) | payer BC, SELFPAY | PROVIDERS: PCP Internal Medicine; Visit Provider Hospitalist | DX: J41.1 Mucopurulent chronic bronchitis (principal); J47.9 Bronchiectasis, uncomplicated; C34.91 Malignant neoplasm of unspecified part of right bronchus or lung; R91.1 Solitary pulmonary nodule; F17.210 Nicotine dependence, cigarettes, uncomplicated | CPT/HCPCS: 94618 ==

== ENCOUNTER 2023-12-31 10:39 | Outpatient (REF) | payer BC, SELFPAY ==
[2023-12-31 08:09] VITALS: PULSE 73; RESP 16; O2SAT 95
--- NOTE | 2023-12-31 11:00 | PFT_ITS ---
Flows: FEV1: 49 % of predicted at 1.07 L FVC: 90 % of predicted at 2.46 L FEV1/FVC: 44 % Bronchodilator response: Absent Volumes: Total lung capacity: 104 % of predicted at 4.73 L Residual volume: 151 % of predicted at 2.45 L Slow vital capacity: 77 % of predicted at 2.28 L Expiratory reserve volume: 131 % of predicted at 0.90 L Diffusion capacity: Mildly decreased, corrects to normal after adjustment for alveolar ventilation. Impression: Severe obstructive ventilatory defect with no bronchodilator response. Increased residual volume suggests air trapping. Decreased diffusion capacity suggests emphysema. MTDD
== END 2023-12-31 10:40 | disposition home or self-care (01) ==
LOC: HO.RESP 10:39
PROVIDERS: PCP Internal Medicine; Visit Provider Hospitalist
DX: J41.1 Mucopurulent chronic bronchitis (principal)
CPT/HCPCS: 94010; 94640; 94727; 94729

== ENCOUNTER 2024-01-07 08:55 | Outpatient (AMB) | payer BC, SELFPAY ==
[2024-01-07 09:06] VITALS: BP 136/60; PULSE 60; O2SAT 95
--- NOTE | 2024-01-07 09:06 | A.OFFVIS_ITS ---
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 Her cough tends to be productive in nature and moderate severity. She has been using inhalers including Flovent and long-acting muscarinic antagonist. The medications have not been very effective for her. Her provided did try to send her Trelegy but was not covered. In the meantime she continues to smoke. The patient understands that she needs to quit and is motivated to quitting. Although it is very hard for her to quit. We talked about different alternatives including trying the Nicotrol inhaler which may be effective for her to slow down her smoking hopefully switch it completely to the nicotine inhaler where she can then decrease it as part of her tobacco cessation. The patient continues to work regularly. she does have some increased dyspnea on exertion but she is still able to do all her work related activities in does not have any significant limitations. We did review of previous chest x-rays that she has had demonstrating significant hyperinflation of the lungs. In addition to that she had a CT scan of the chest back in 2017 where was described that she had bronchiectatic changes. 10/22/2021 the patient is here for a pulmonary follow-up visit. Overall she is feeling little better. She is still coughing. She did try the Nicotrol inhaler for smoking cessation but is only meters smoke more. So therefore she stopped it. She still struggling with smoking. We also looked at her pulmonary function studies demonstrating evidence of COPD. The patient also has a decreased diffusing capacity. She did go back to the lung cancer screening program. She had a recent CT scan demonstrating significant pulmonary nodules in the right upper lobe. No significant lymphadenopathy. But the nodules are greater than a cm in size and are concerning for malignancy. However, in view of her the multiple nodules I will go ahead and request a PET scan to see if there is any progression of this Probable malignant process. She is taking part of the lung cancer screening program so therefore she will be discussed during weekly multidisciplinary rounds. 11/14/2021 the patient is here for a pulmonary follow-up visit. She did follow-up with her PET scan demonstrating significant activity at that right upper lobe area. She is currently scheduled to undergo a lobectomy of the right upper lobe with curative intent. She continues with respiratory therapy patient also quit smoking. Will plan to follow-up after the surgery when she recovers we consider pulmonary rehabilitation. 05/13/2022 the patient is here for pulmonary follow-up visit. The patient is status post right upper lobe lobectomy. She did have some issues with prolonged air leak. She did have 3 lesions in the right upper lobe. She did start chemotherapy. Now she is recommended to start immune therapy. She does have a CT scan coming up soon next week. Will follow up with the results. In the meantime she did go for a 6 minute walk test with me. The patient did not desaturate although heart rate was elevated 120 needs. Will have her undergo an echocardiogram. She has been using the Symbicort Spiriva with good effect. She does not always using. She feels her breathing is a lot better. At this point the patient is reluctant to undergo pulmonary rehabilitation. She is also reluctant to start immune therapy. She will follow-up with oncology soon. 10/21/2022 the patient is here for pulmonary follow-up visit. She continues to do well. She started immune therapy in June. Some that she gets more congested from it. Moderate severity. Right now is a little better. We did talk about considering medications such as Daliresp or even azithromycin her symptoms persist. She is not interested in additional medicines right now. She has a CT scan scheduled for October and will follow-up with drastic surgery. She is going to continue with respiratory therapy. She is trying to stay active. Otherwise the patient is without any other complaints. Will follow-up in 6 months. 04/07/2023 the patient is here for a pulmonary follow-up visit. Overall she is doing about the same. Complains of a cough productive in nature. Moderate severity. She does use Mucinex on a regular basis with good effect. She also has been on Symbicort Spiriva. They have been affecting beneficial. She did have a repeat CT scan of the chest in December 2022 with postoperative changes. No evidence of any worsening nodular densities. The patient is still struggling with her smoking. She is trying to quit. Will go ahead and start her on azithromycin 3 times a week for her chronic bronchitis and continue with the current respiratory therapy. If she finds the azithromycin helpful then she needs to have an EKG done in order to continue the therapy. Otherwise she can just stop it. 10/06/2023 the patient is here for a pulmonary follow-up visit. Overall she has been doing well. She is been off the immunotherapy now. She is doing well. Denies any worsening shortness of breath. She still has a productive cough at times but otherwise better. She has not using Mucinex as much. She did try the azithromycin but was not helpful. Was causing to have some GI upset. In addition to that she was placed on levofloxacin also had significant allergic re action. It is now her allergy list. Her last CT scan of the chest back in June 2023 demonstrating stable disease postoperative changes. She is due for CT scan in 6 months. Therefore will have her get a CT scan in 6 months and follow-up after that. The meantime she continues on Symbicort and Spiriva. She has not required her rescue inhaler often. Typically less than twice a week. She is still working more than 40 hours a week and she is doing well denies any respiratory limitations. 12/06/2023 the patient is here for hospital follow-up visit. The patient is gravely ill with acute respiratory failure and difficulty breathing. She was admitted to [facility]. She was placed on oxygen. She did have a CTA which I personally reviewed back in 11/26/2023. It actually demonstrated postoperative changes that she after her lung surgery. In addition to that had some areas of dense ground-glass opacities on the left hemithorax suggesting an airspace disease and pneumonia. She had significant bronchitis and mucus plugging. The patient was placed on antibiotics and prednisone she was able to be discharged home on oxygen. She is currently on 2 L and has a large oxygen tanks and is hard for her to carry. She is still pretty debilitated and weak. On further questioning she did admit that she is still smoking. is very upset family in general. We talked about the importance of smoking cessation. Explained to the patient that she has a good chance of improving her overall health and respiratory capacity. She is significantly weak would benefit from pulmonary rehabilitation. I do believe that this will be a good opportunity to improve her overall health and exercise capacity then after the I am hopeful that we can wean her off some of the oxygen and she can go back to work. will try to see reassess her condition 3 months. Which time it will be difficult for her to work with her significant stability and oxygen requirements. So is reasonable to take a leave of absence for now for more in order to improve her overall respiratory capacity. She is willing to try the azithromycin again. She did not tolerate the GI upset before. Will see if we can restart in see if she can tolerate it better. If she can not then will try a different antibiotic. Patient also having wheezing place her on a slow prednisone taper to see if we can not some relief as well. For smoking cessation she has using the patch and she is tolerating well. She has significant cravings in between she will call for further recommendations. 01/07/2024 the patient is here for a pulmonary follow-up visit. She is starting to participate in pulmonary rehabilitation. This will be very affecting beneficial for her. In addition to that we did review her pulmonary function studies demonstrating severe COPD. I am hopeful though that with her respiratory therapy and recovered from severe pneumonia that her PFTs were actually improved. She still has the oxygen she can use with activity. I am hopeful that when she returns in approximately 6 weeks she will be able to discontinue the oxygen. She will continue with current respiratory therapy. The patient is no longer smoking which is very reassuring. She will continue with the [facility] papers and she will be out of work until we can wean her off the oxygen and she completes her pulmonary rehabilitation. I which time she will have a reassessment in order to get back to work. [facility] Medical History (Updated 12/06/23 @ 23:29 by Alex Love MD) Tobacco dependence Tachycardia Benign essential hypertension Adenocarcinoma of right lung (~2021) Pulmonary nodule Personal history of nicotine dependence Bronchiectasis Pure hypercholesterolemia Anxiety Vitamin D deficiency COPD (chronic obstructive pulmonary disease) Surgical History History of lung surgery (~2021) History of thumb surgery History of reversal of tubal ligation History of colonoscopy History of tubal ligation Family History Father Myocardial infarction Mother Stroke Family/Other Hypertension Social History Housing: House Alcohol intake: current Alcohol intake frequency: holidays/special occasions only Patient Tobacco Use Status: Former Tobacco user Tobacco use type: Cigarette Cigarettes Per Day: 15 Years Smoked: Current smoker, onset 16, 3/4ppd x 45yrs, 33pyh e-Cigarette/Vaping Use: Never Used Second Hand Smoke Exposure: Yes service: No Current occupational status: employed Cognitive needs: No Hearing needs: No Vision needs: Yes Review of Systems Const Denies chills, Reports fatigue, Denies fever(s), Denies headache(s) and Reports weight loss ENT Denies headache(s), Denies odynophagia, Denies sinus pain and Denies sore throat Card Denies chest pain, Denies palpitations, Reports dyspnea and Reports dyspnea on exertion (mild) Resp Reports chest congestion (on and off), Reports cough, Denies hemoptysis, Denies excessive phlegm production ((+) scanty thick whitish phlegm), Reports dyspnea, Reports dyspnea on exertion (mild) and Reports wheezing (occasionally) GI Denies abdominal pain, Denies constipation, Denies heartburn, Denies diarrhea, Denies nausea, Denies odynophagia and Denies vomiting Denies difficulty voiding, Denies nocturia and Denies dysuria Neuro Denies headache(s) Endo Reports fatigue and Denies palpitations Aller/Immun Reports wheezing (occasionally) Physical Exam Vital Signs: Last Vital Signs Pulse 60 01/07/24 09:06 BP 136/60 01/07/24 09:06 Pulse Ox 95 01/07/24 09:06 Oxygen Delivery Method Room Air 01/07/24 09:06 BMI result Body Mass Index 20.0 Const General: alert and tired appearing Nutritional Appearance: underweight Neck Neck: Yes normal visual inspection, Yes full ROM and Yes no lymphadenopathy Chest Chest palpation & inspection: normal inspection of the chest Resp Effort & Inspection: normal respiratory effort and prolonged expiratory phase Auscultation: no rhonchi, wheezes and diminished lung sounds Cardio Rate: regular rate Rhythm: regular rhythm Heart sounds: S1 normal heart sound present and S2 normal heart sound present GI Palpation (GI): Soft to palpation and nontender Auscultation: normal bowel sounds Skin General skin exam: rashes and/or lesions noted Assessment & Plan Assessment & Plan (1) COPD (chronic obstructive pulmonary disease): Code(s): J44.9 - Chronic obstructive pulmonary disease, unspecified Category: Medical Qualifiers: COPD type: chronic bronchitis Chronic bronchitis type: mucopurulent Qualified Code(s): J41.1 - Mucopurulent chronic bronchitis (2) Bronchiectasis: Code(s): J47.9 - Bronchiectasis, uncomplicated Category: Medical Qualifiers: Bronchiectasis type: uncomplicated Qualified Code(s): J47.9 - Bronchiectasis, uncomplicated (3) Pulmonary nodule: Code(s): R91.1 - Solitary pulmonary nodule Category: Medical (4) Adenocarcinoma of right lung: Onset Date: ~2021 Comment: (T3N0 - 99%PDL1; s/p RUL lobectomy 11/2021; chemo 04/2022; Immunetherapy 06/2022) Code(s): C34.91 - Malignant neoplasm of unspecified part of right bronchus or lung Category: Medical (5) Tobacco dependence: Code(s): F17.200 - Nicotine dependence, unspecified, uncomplicated Category: Medical Plan continue oxygen: will request a POC 2l/pulse with activity or for now B cylinders with a conserving valve continue symbicort continue Spiriva daily nebulizer for Duoneb completed Immunetherapy Jun 2023 continue macrolide therapy for chronic bronchitis x 4-8 weeks restart prednisone taper CT chest in 3-4 months continue pulmonary rehab Keep out of work untill we reassess her respiratory status and oxygen needs during the next visit follow-up in 6-8 weeks Medications: New prednisone PO daily; Take 2 tabs daily x 10 days, then 1 tab daily x 10 days 30 tabs 0RF 20 days Coding Level of Care Code Tele Est Pt Level 4 (41403) Diagnoses Mucopurulent chronic bronchitis J41.1 COPD type: chronic bronchitis Chronic bronchitis type: mucopurulent Bronchiectasis without complication J47.9 Bronchiectasis type: uncomplicated Pulmonary nodule R91.1 Adenocarcinoma of right lung C34.91 Tobacco dependence F17.200 Time Spent (min) 17
== END 2024-01-07 09:57 | disposition home or self-care (01) ==
PROVIDERS: PCP Internal Medicine; Visit Provider Hospitalist
DX: J41.1 Mucopurulent chronic bronchitis (principal); J47.9 Bronchiectasis, uncomplicated; R91.1 Solitary pulmonary nodule; C34.91 Malignant neoplasm of unspecified part of right bronchus or lung; F17.200 Nicotine dependence, unspecified, uncomplicated
CPT/HCPCS: 99214

== ENCOUNTER → 2024-01-07 08:55 | Outpatient (BNVA) | payer BC, SELFPAY | PROVIDERS: PCP Internal Medicine; Visit Provider Hospitalist ==

== ENCOUNTER 2024-01-27 08:30 | Outpatient (RCR) | payer BC, SELFPAY | END 2024-03-02 07:39 | disposition home or self-care (01) | LOC: HO.PR 08:30 | PROVIDERS: PCP Internal Medicine; Visit Provider Hospitalist | DX: J44.9 Chronic obstructive pulmonary disease, unspecified (principal) | CPT/HCPCS: 94618; 94625; 99212 ==

== ENCOUNTER 2024-01-27 11:29 | Outpatient (AMB) | payer BC, SELFPAY ==
[2024-01-27 11:30] VITALS: BP 148/60; PULSE 63; O2SAT 94; BMI 19.6
--- NOTE | 2024-01-27 11:30 | MHC.PC.OV ---
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 Accompanied by: Self / Same As Patient Allergies levofloxacin [From LEVAQUIN] Allergy (Intermediate, Verified 01/27/24 23:05) NAUSEA & VOMITING, hives bupropion Allergy (Unknown, Verified 01/27/24 23:05) increased anxiety/depression Medication List - Last Reconciled 01/27/24 by Babar Espino MD acetaminophen 975 mg (3 x 325 mg) PO Q6-8H PRN 30 days albuterol sulfate 90 mcg/actuation 2 puffs inhalation Q6H PRN 30 days amlodipine 10 mg PO DAILY 90 days azithromycin 500 mg PO 3XW 28 days cholecalciferol (vitamin D3) 50 mcg PO DAILY 90 days fluticasone propion-salmeterol 113-14 mcg/actuation (AirDuo RespiClick) 1 inh inhalation Q12H 90 days hydralazine 50 mg PO TID 90 days hydrochlorothiazide 12.5 mg PO DAILY 90 days ipratropium-albuterol 0.5 mg-3 mg(2.5 mg base)/3 mL mL inhalation ipratropium-albuterol 0.5 mg-3 mg(2.5 mg base)/3 mL 3 mL inhalation BID 30 days lorazepam 0.5 mg PO TID PRN 30 days [NEBULIZER with all related supplies, including tubing and mask As directed] nicotine 1 patch topical DAILY nicotine 1 patch transdermal DAILY 28 days [PORTABLE OXYGEN TANK for home use Use as directed at 1 LPM at rest and can go up to 2 to 3 LPM with ambulation] prednisone PO daily; Take 2 tabs daily x 10 days, then 1 tab daily x 10 days 20 days sertraline 25 mg PO DAILY 30 days tiotropium bromide 2.5 mcg/actuation (Spiriva Respimat) 2 puffs inhalation DAILY 90 days tizanidine 4 mg PO Q8H PRN 30 days Tobacco use date assessed: 12/01/23 Dental Screening Dental Screen Date: 12/01/23 HPI Neck Pain HPI Details Patient comes in today for her follow-up visit States that she currently feels okay and is much better than she was last time she was here, when she was experiencing a significant exacerbation of her COPD She is currently still going to pulmonary rehab and is finishing up her most recent round of oral Prednisone taper States that she has not required oxygen so far She continues to use her inhalers regularly as instructed and follows up with [place]monary [place] [facility] [place] Relates that she has been experiencing increased pain over the right side of her neck for over a week now - states that she has a hard time sleeping at night recently due to her neck pain She does not recall any recent injury to her neck She has also been experiencing increased anxiety lately and is wondering if she can have her dose of Lorazepam increased - states that she tries to take her Lorazepam only as needed but finds that it has not been helping as much lately She denies any headaches or dizziness Denies any chest pains No nausea/ vomiting, no abdominal pain No change in bowel habits noted [facility] Medical History Tobacco dependence Tachycardia Benign essential hypertension Adenocarcinoma of right lung (~2021) Pulmonary nodule Personal history of nicotine dependence Bronchiectasis Pure hypercholesterolemia Anxiety Vitamin D deficiency COPD (chronic obstructive pulmonary disease) Surgical History History of lung surgery (~2021) History of thumb surgery History of reversal of tubal ligation History of colonoscopy History of tubal ligation Family History Father Myocardial infarction Mother Stroke Family/Other Hypertension Social History Housing: House Alcohol intake: current Alcohol intake frequency: holidays/special occasions only Patient Tobacco Use Status: Former Tobacco user Tobacco use type: Cigarette Cigarettes Per Day: 15 Years Smoked: Current smoker, onset 16, 3/4ppd x 45yrs, 33pyh e-Cigarette/Vaping Use: Never Used Second Hand Smoke Exposure: Yes service: No Current occupational status: employed Cognitive needs: No Hearing needs: No Vision needs: Yes Questionnaire PHQ-9 Over the last 2 weeks, how often have you been bothered by any of the following problems? 1. Little interest or pleasure in doing things: not at all 2. Feeling down, depressed, or hopeless: not at all 3. Trouble falling or staying asleep, or sleeping too much: not at all 4. Feeling tired or having little energy: not at all 5. Poor appetite or overeating: not at all 6. Feeling bad about yourself - or that you are a failure or have let yourself or your family down: not at all 7. Trouble concentrating on things, such as reading the newspaper or watching television: not at all 8. Moving or speaking so slowly that other people could have noticed. Or the opposite - being so fidgety or restless that you have been moving around a lot more than usual: not at all 9. Thoughts that you would be better off or of hurting yourself in some way: not at all Total score: 0 Depression Screening Interpretation: Negative Depression Screening Done: Yes 34847 - PHQ-9 Billing: Yes Source: Developed by Drs. Khoa Cote, Tevin Guerra and colleagues, with an educational sancho from [employer]. Thrive Questionnaire Date Thrive assessed: 12/01/23 LETTY-7 AMB Questionnaire LETTY-7 Date LETTY - 7 assessed: 01/27/24 Feeling nervous, anxious, or on edge: 0 = Not at all Not being able to stop or control worryin = Not at all Worrying too much about different things: 0 = Not at all Trouble relaxin = Not at all Being so restless that it is hard to sit still: 0 = Not at all Becoming easily annoyed or irritable: 0 = Not at all Feeling afraid as if something awful might happen: 0 = Not at all Total LETTY-7 score (0-4 normal; 5-9 mild; 10-14 moderate; 15-21 severe): 0 Source: Developed by Drs. Khao Cote, Tevin Guerra and colleagues, with an educational sancho from [employer]. Review of Systems Const Denies chills, Reports fatigue, Denies fever(s) and Denies headache(s) ENT Denies dysphagia, Denies dizziness, Denies otalgia, Denies headache(s), Reports neck pain (over the right side - increased for over a week), Denies odynophagia and Denies sore throat Card Denies chest pain, Denies palpitations and Reports dyspnea on exertion Resp Denies chest congestion (but chest still feels tight at times), Reports cough (occasional; coughs up minimal thick whitish phlegm at times), Denies excessive phlegm production, Denies pain with cough, Reports dyspnea on exertion and Denies wheezing GI Denies abdominal pain, Denies constipation, Denies dysphagia, Denies heartburn, Denies diarrhea, Denies nausea, Denies odynophagia and Denies vomiting Denies difficulty voiding, Denies nocturia and Denies dysuria Musc Denies back pain, Reports neck pain (over the right side - increased for over a week), Reports numbness (of her fingers and toes occasionally) and Reports tingling (in her fingers and toes occasionally) Skin/Breast Denies rash Neuro Denies dizziness, Denies headache(s), Reports numbness (of her fingers and toes occasionally) and Reports tingling (in her fingers and toes occasionally) Psych Reports anxiety (increased) Endo Reports fatigue and Denies palpitations Aller/Immun Denies wheezing Physical exam (Primary Care) Vital Signs: Last Vital Signs Pulse 63 01/27/24 11:30 BP 148/60 H 01/27/24 11:30 Pulse Ox 94 01/27/24 11:30 Oxygen Delivery Method Room Air 01/27/24 11:30 BMI result Body Mass Index 19.6 Tobacco/Smoking Status: Tobacco use Status Tobacco use date assessed 12/01/23 01/27/24 11:32 Patient Tobacco Use Status Former Tobacco user 01/27/24 11:32 Tobacco use type Cigarette 01/27/24 11:32 e-Cigarette/Vaping Use Never Used 01/27/24 11:32 PHQ-9: PHQ-9 Score PHQ-9: Total score 0 01/27/24 12:15 Depression Screening Interpretation: Negative Thrive Assessment: Date of Thrive Assessment Date Thrive assessed 12/01/23 01/27/24 11:32 Const General: no acute distress and alert HENMT Ears: TM's normal bilaterally and EAC's normal Throat: Yes posterior oropharynx normal and Yes tonsils normal (no TP congestion noted) Neck Neck: Yes no lymphadenopathy and Yes supple Thyroid: Thyroid normal Resp Auscultation: no crackles, no rales, no wheezes and diminished lung sounds (significantly) bilateral Cardio Rate: regular rate Rhythm: regular rhythm Heart sounds: no murmurs GI Palpation (GI): Soft to palpation and nontender Auscultation: normal bowel sounds General: Yes no CVA tenderness Back/Spine/Pelvis Back: no CVA tenderness Cervical Spine: cervical muscular tenderness (increased over the right side, including the right trapezius muscle) and No Cervical spine tenderness Thoracic/Lumbar Spine: paraspinal muscle tenderness on the right in the upper thoracic and No lumbar spinal tenderness Skin Rashes: no rashes Extrem General: Yes no clubbing, cyanosis or edema Assessment and Plan Assessment & Plan (1) COPD (chronic obstructive pulmonary disease): Code(s): J44.9 - Chronic obstructive pulmonary disease, unspecified Qualifiers: COPD type: chronic bronchitis Chronic bronchitis type: mucopurulent Qualified Code(s): J41.1 - Mucopurulent chronic bronchitis Plan: Stable lately and she now no longer requires oxygen supplementation Continue Airduo Respiclick 113-14 mcg 1 inhalation BID and Spiriva Respimat 2.5 mcg 2 inhalations QD; continue Albuterol HFA 2 inhalations every 6 hours PRN Continue Azithromycin TIW for her mucopurulent coughing She is currently still going to pulmonary rehab and is still finishing up her oral prednisone taper Follow up with pulmonary as scheduled (2) Cancer of upper lobe of right lung: Onset Date: ~2021 Comment: (Adenocarcinoma T3 N0, 99%PDL1 - S/P RUL lobectomy 12/16/21 - no LN, 3 distinct lesions, two were T1b and one was T2a; s/p adjuvant chemo - completed 04/2022) Code(s): C34.11 - Malignant neoplasm of upper lobe, right bronchus or lung Plan: S/P right upper lobectomy on 12/17/2021 and completed her adjuvant chemotherapy (Taxol with carboplatin) in April 2022 Started on immunotherapy in 06/2022 (Durvalumab at 10 mg/kg IV Q 2 weeks) x 1 year - completed immunotherapy earlier this year Follow up chest CT on 05/18/2022 after finishing her chemotherapy showed no evidence of recurrence or new disease; there are no pleural few with a no mediastinal lymphadenopathy Repeat chest CT done on 11/11/22 revealed stable postsurgical changes from her right upper lobectomy but there was a new area of focal findings and ground glass attentuation that Dr. Rush believed was due to an infection and she was started on a round of Abx for this - these have reportedly cleared up on her repeat chest CT on 01/20/23 She will be having another repeat chest CT done in 3 months for follow up Follow up with oncology/thoracic surgery as scheduled (3) Benign essential hypertension: Code(s): I10 - Essential (primary) hypertension Plan: Reinforced low sodium diet - goal is systolic BP of at least 130 mm or less Continue Amlodipine 10 mg QD, HCTZ 12.5 mg QD and Hydralazine 50 mg TID She is again reminded to monitor her BP regularly (4) Pure hypercholesterolemia: Code(s): E78.00 - Pure hypercholesterolemia, unspecified Plan: Reinforced low cholesterol diet Will recheck her labs and fasting lipids in 4 months for follow up (5) Vitamin D deficiency: Code(s): E55.9 - Vitamin D deficiency, unspecified Plan: Will start her on Vitamin D3 2000 units QD (6) Acute cervical myofascial strain: Code(s): S16.1XXA - Strain of muscle, fascia and tendon at neck level, initial encounter Qualifiers: Encounter type: initial encounter Qualified Code(s): S16.1XXA - Strain of muscle, fascia and tendon at neck level, initial encounter Plan: Will start her on Tizanidine 4 mg TID PRN Advised that she can also apply some warm compress over the path of the right side of her neck PRN for symptomatic relief Will refer her to Physical therapy for further evaluation and management (7) Peripheral neuropathy due to chemotherapy: Code(s): G62.0 - Drug-induced polyneuropathy; T45.1X5A - Adverse effect of antineoplastic and immunosuppressive drugs, initial encounter Plan: States that her symptoms have improved a lot and are gradually subsiding since she completed her adjuvant chemotherapy in April 2022 (8) Constipation: Code(s): K59.00 - Constipation, unspecified Qualifiers: Constipation type: unspecified constipation type Qualified Code(s): K59.00 - Constipation, unspecified Plan: Encouraged increased oral fluids and dietary fiber Continue Docusate 100 mg BID and Senna 8.6 mg 1 to 2 tabs Q HS PRN (9) Anxiety: Code(s): F41.9 - Anxiety disorder, unspecified Plan: Continue Lorazepam 0.5 mg TID PRN - Rx refilled Will start her on Sertraline 25 mg QD Plan Follow up as scheduled in February 2024 Medications: New sertraline 25 mg PO DAILY 30 days 30 tabs 1RF tizanidine 4 mg PO Q8H 30 days PRN 90 tabs 0RF muscle spasms/muscle pain cholecalciferol (vitamin D3) 50 mcg PO DAILY 90 days 90 caps 3RF E55.9 - Vitamin D deficiency, unspecified Refilled lorazepam 0.5 mg PO TID 30 days PRN 90 tabs 2RF anxiety Coding Level of Care Code Est Pt Level 4 (24718) Diagnoses Mucopurulent chronic bronchitis J41.1 COPD type: chronic bronchitis Chronic bronchitis type: mucopurulent Cancer of upper lobe of right lung C34.11 Benign essential hypertension I10 Pure hypercholesterolemia E78.00 Vitamin D deficiency E55.9 Acute cervical myofascial strain, initial encounter S16.1XXA Encounter type: initial encounter 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; T45.1X5A Constipation, unspecified constipation type K59.00 Constipation type: unspecified constipation type Anxiety F41.9
== END 2024-01-27 12:35 | disposition home or self-care (01) ==
PROVIDERS: PCP Internal Medicine; Visit Provider Internal Medicine
DX: J41.1 Mucopurulent chronic bronchitis (principal); C34.11 Malignant neoplasm of upper lobe, right bronchus or lung; G62.0 Drug-induced polyneuropathy; I10 Essential (primary) hypertension; E78.00 Pure hypercholesterolemia, unspecified; E55.9 Vitamin D deficiency, unspecified; S16.1XXA Strain of muscle, fascia and tendon at neck level, initial encounter; T45.1X5A Adverse effect of antineoplastic and immunosuppressive drugs, initial encounter; K59.00 Constipation, unspecified; F41.9 Anxiety disorder, unspecified
CPT/HCPCS: 99214

== ENCOUNTER 2024-02-23 10:35 | Outpatient (AMB) | payer BC, SELFPAY ==
[2024-02-23 10:38] VITALS: BP 128/70; PULSE 89; O2SAT 94; BMI 19.8
--- NOTE | 2024-02-23 10:38 | MHC.OFFVIS ---
Vital Signs 02/23/24 10:38 Height 5 ft 1 in Weight 105 lb BMI 19.8 BP 128/70 Blood Pressure Location Lt brachial Position Sitting Pulse 89 Pulse Source Pulse Oximeter Pulse Oximetry (%) 94 Oxygen Delivery Method Room Air Intake Visit Reasons: copd Burner Tender Required: No Allergies levofloxacin [From LEVAQUIN] Allergy (Intermediate, Verified 02/23/24 10:41) NAUSEA & VOMITING, hives bupropion Allergy (Unknown, Verified 02/23/24 10:41) increased anxiety/depression HPI Comments Details: The patient is a 63-year-old woman, current smoker, who has been having worsening cough and shortness of breath. Her cough tends to be productive in nature and moderate severity. She has been using inhalers including Flovent and long-acting muscarinic antagonist. The medications have not been very effective for her. Her provided did try to send her Trelegy but was not covered. In the meantime she continues to smoke. The patient understands that she needs to quit and is motivated to quitting. Although it is very hard for her to quit. We talked about different alternatives including trying the Nicotrol inhaler which may be effective for her to slow down her smoking hopefully switch it completely to the nicotine inhaler where she can then decrease it as part of her tobacco cessation. The patient continues to work regularly. she does have some increased dyspnea on exertion but she is still able to do all her work related activities in does not have any significant limitations. We did review of previous chest x-rays that she has had demonstrating significant hyperinflation of the lungs. In addition to that she had a CT scan of the chest back in 2016 where was described that she had bronchiectatic changes. 10/06/2023 the patient is here for a pulmonary follow-up visit. Overall she has been doing well. She is been off the immunotherapy now. She is doing well. Denies any worsening shortness of breath. She still has a productive cough at times but otherwise better. She has not using Mucinex as much. She did try the azithromycin but was not helpful. Was causing to have some GI upset. In addition to that she was placed on levofloxacin also had significant allergic reaction. It is now her allergy list. Her last CT scan of the chest back in June 2023 demonstrating stable disease postoperative changes. She is due for CT scan in 6 months. Therefore will have her get a CT scan in 6 months and follow-up after that. The meantime she continues on Symbicort and Spiriva. She has not required her rescue inhaler often. Typically less than twice a week. She is still working more than 40 hours a week and she is doing well denies any respiratory limitations. 12/06/2023 the patient is here for hospital follow-up visit. The patient is gravely ill with acute respiratory failure and difficulty breathing. She was admitted to [facility]. She was placed on oxygen. She did have a CTA which I personally reviewed back in 11/26/2023. It actually demonstrated postoperative changes that she after her lung surgery. In addition to that had some areas of dense ground-glass opacities on the left hemithorax suggesting an airspace disease and pneumonia. She had significant bronchitis and mucus plugging. The patient was placed on antibiotics and prednisone she was able to be discharged home on oxygen. She is currently on 2 L and has a large oxygen tanks and is hard for her to carry. She is still pretty debilitated and weak. On further questioning she did admit that she is still smoking. is very upset family in general. We talked about the importance of smoking cessation. Explained to the patient that she has a good chance of improving her overall health and respiratory capacity. She is significantly weak would benefit from pulmonary rehabilitation. I do believe that this will be a good opportunity to improve her overall health and exercise capacity then after the I am hopeful that we can wean her off some of the oxygen and she can go back to work. will try to see reassess her condition 3 months. Which time it will be difficult for her to work with her significant stability and oxygen requirements. So is reasonable to take a leave of absence for now for more in order to improve her overall respiratory capacity. She is willing to try the azithromycin again. She did not tolerate the GI upset before. Will see if we can restart in see if she can tolerate it better. If she can not then will try a different antibiotic. Patient also having wheezing place her on a slow prednisone taper to see if we can not some relief as well. For smoking cessation she has using the patch and she is tolerating well. She has significant cravings in between she will call for further recommendations. 01/07/2024 the patient is here for a pulmonary follow-up visit. She is starting to participate in pulmonary rehabilitation. This will be very affecting beneficial for her. In addition to that we did review her pulmonary function studies demonstrating severe COPD. I am hopeful though that with her respiratory therapy and recovered from severe pneumonia that her PFTs were actually improved. She still has the oxygen she can use with activity. I am hopeful that when she returns in approximately 6 weeks she will be able to discontinue the oxygen. She will continue with current respiratory therapy. The patient is no longer smoking which is very reassuring. She will continue with the [facility] papers and she will be out of work until we can wean her off the oxygen and she completes her pulmonary rehabilitation. I which time she will have a reassessment in order to get back to work. 02/23/2024 the patient is here for pulmonary follow-up visit. Overall she is feeling better. She has been performing well pulmonary rehabilitation. The patient also has been using her respiratory medications. She has been able to wean off her oxygen to some degree. We did go for a walking oximetry and her oxygen still drops to the high 80s low 90s with activity. Therefore will keep her on the portable oxygen concentrator that she can use for portability outside of the home. She does not need her concentrator and home any longer or oxygen tanks. Therefore will request a revision. She is able to go back to work. She is scheduled to go back work on Wednesday which is reassuring as well. The patient does have a CT scan scheduled for sometime in February. She will follow-up with Oncology and also with thoracic surgery. [facility], [facility] Medical History Tobacco dependence Tachycardia Benign essential hypertension Adenocarcinoma of right lung (~2021) Pulmonary nodule Personal history of nicotine dependence Bronchiectasis Pure hypercholesterolemia Anxiety Vitamin D deficiency COPD (chronic obstructive pulmonary disease) Surgical History History of lung surgery (~2021) History of thumb surgery History of reversal of tubal ligation History of colonoscopy History of tubal ligation Family History Father Myocardial infarction Mother Stroke Family/Other Hypertension Social History Housing: House Alcohol intake: current Alcohol intake frequency: holidays/special occasions only Patient Tobacco Use Status: Former Tobacco user Tobacco use type: Cigarette Cigarettes Per Day: 15 Years Smoked: Current smoker, onset 16, 3/4ppd x 45yrs, 33pyh e-Cigarette/Vaping Use: Never Used Second Hand Smoke Exposure: Yes service: No Current occupational status: employed Cognitive needs: No Hearing needs: No Vision needs: Yes Review of Systems Const Denies chills, Reports fatigue, Denies fever(s) and Denies headache(s) ENT Denies headache(s), Denies odynophagia, Denies sinus pain and Denies sore throat Card Denies chest pain, Denies palpitations and Reports dyspnea on exertion (mild) Resp Denies chest congestion (on and off), Reports cough, Denies hemoptysis, Denies excessive phlegm production ((+) scanty thick whitish phlegm), Reports dyspnea on exertion (mild) and Reports wheezing (occasionally) GI Denies abdominal pain, Denies constipation, Denies heartburn, Denies diarrhea, Denies nausea, Denies odynophagia and Denies vomiting Denies difficulty voiding, Denies nocturia and Denies dysuria Neuro Denies headache(s) Endo Reports fatigue and Denies palpitations Aller/Immun Reports wheezing (occasionally) Physical Exam Vital Signs: Last Vital Signs Pulse 89 02/23/24 10:38 BP 128/70 02/23/24 10:38 Pulse Ox 94 02/23/24 10:38 Oxygen Delivery Method Room Air 02/23/24 10:38 BMI result Body Mass Index 19.8 Const General: alert and tired appearing Nutritional Appearance: underweight Neck Neck: Yes normal visual inspection, Yes full ROM and Yes no lymphadenopathy Chest Chest palpation & inspection: normal inspection of the chest Resp Effort & Inspection: normal respiratory effort and prolonged expiratory phase Auscultation: no rhonchi, no wheezes and diminished lung sounds Cardio Rate: regular rate Rhythm: regular rhythm Heart sounds: S1 normal heart sound present and S2 normal heart sound present GI Palpation (GI): Soft to palpation and nontender Auscultation: normal bowel sounds Skin General skin exam: rashes and/or lesions noted Assessment & Plan Assessment & Plan (1) COPD (chronic obstructive pulmonary disease): Code(s): J44.9 - Chronic obstructive pulmonary disease, unspecified Category: Medical Qualifiers: COPD type: chronic bronchitis Chronic bronchitis type: mucopurulent Qualified Code(s): J41.1 - Mucopurulent chronic bronchitis (2) Bronchiectasis: Code(s): J47.9 - Bronchiectasis, uncomplicated Category: Medical Qualifiers: Bronchiectasis type: uncomplicated Qualified Code(s): J47.9 - Bronchiectasis, uncomplicated (3) Pulmonary nodule: Code(s): R91.1 - Solitary pulmonary nodule Category: Medical (4) Adenocarcinoma of right lung: Onset Date: ~2021 Comment: (T3N0 - 99%PDL1; s/p RUL lobectomy 11/2021; chemo 04/2022; Immunetherapy 06/2022) Code(s): C34.91 - Malignant neoplasm of unspecified part of right bronchus or lung Category: Medical (5) Tobacco dependence: Code(s): F17.200 - Nicotine dependence, unspecified, uncomplicated Category: Medical Plan continue oxygen: a POC 2l/pulse with activity with POC for portability outside of the home. She may discontinue the home concentrator and tanks continue symbicort continue Spiriva daily nebulizer for Duoneb completed Immunetherapy Jun 2023, Oncology F/U 02/2024 stopped macrolide therapy for chronic bronchitis CT chestevery 6 months continue pulmonary rehab follow-up in 3-4 months Coding Level of Care Code Est Pt Level 4 (42297) Complex EM visit Add On G2211 Diagnoses Mucopurulent chronic bronchitis J41.1 COPD type: chronic bronchitis Chronic bronchitis type: mucopurulent Bronchiectasis without complication J47.9 Bronchiectasis type: uncomplicated Pulmonary nodule R91.1 Adenocarcinoma of right lung C34.91 Tobacco dependence F17.200 Time Spent (min) 17
== END 2024-02-23 11:07 | disposition home or self-care (01) ==
PROVIDERS: PCP Internal Medicine; Visit Provider Hospitalist
DX: J41.1 Mucopurulent chronic bronchitis (principal); J47.9 Bronchiectasis, uncomplicated; R91.1 Solitary pulmonary nodule; C34.91 Malignant neoplasm of unspecified part of right bronchus or lung; F17.200 Nicotine dependence, unspecified, uncomplicated
CPT/HCPCS: 99214

== ENCOUNTER → 2024-02-23 10:35 | Outpatient (BNVA) | payer BC, SELFPAY | PROVIDERS: PCP Internal Medicine; Visit Provider Hospitalist ==

== ENCOUNTER 2024-03-22 08:32 | Outpatient (REF) | payer BC, SELFPAY ==
--- NOTE | ~2024-03-22 | CT_ITS ---
EXAMINATION: CT CHEST WITH CONTRAST CLINICAL INFORMATION: Malignant neoplasm of unspecified part of right bronchus or lung COMPARISON: 07/20/2023 TECHNIQUE: Multidetector volumetric CT imaging of the chest was obtained after the administration of 65 mL of Omnipaque 350 intravenous contrast without immediate adverse reactions. Axial MIP volume rendering provided. Sagittal and coronal reformatted images were obtained. This CT examination was performed using dose optimization techniques as appropriate, variously including the following: *Automated exposure control *Adjustment of mA and/or kV according to patient size (this includes techniques or standardized protocols for targeted exams where dose is matched to indication/reason for exam; i.e. extremities or head) *Use of iterative reconstruction technique DLP: 142 mGy-cm FINDINGS: [employer]: Hyperexpanded lungs. LUNGS: There are postsurgical changes in the right lung status post right upper lobectomy. There is moderate emphysema with bronchial wall thickening. There is no definite consolidation. Scattered areas of linear scarring and atelectasis in both lungs. There are scattered micronodules measuring less than 4 mm, no dominant suspicious pulmonary nodules. MEDIASTINUM: Normal thyroid. Central airway appears patent. Normal heart size, no pericardial effusion. Scattered aortic valve calcifications. No bulky mediastinal lymphadenopathy PLEURA: There is no pleural effusion. No pleural mass or thickening. AXILLA: No lymphadenopathy. UPPER ABDOMEN: Unremarkable OSSEOUS STRUCTURES: Unremarkable. CT/CT chest w IV con IMPRESSION: 1. Postsurgical changes in the right lung status post right upper lobectomy. No dominant suspicious pulmonary nodules. 2. Moderate emphysema. Fleischner guidelines were followed. Electronically signed by: Khoa Betancourt MD 04/03/2024 09:13 AM EDT
[2024-03-22] MEDS: iohexoL 350 MG/ML 100 ML INFUS..BTL IV (09:56)
[2024-03-23 08:11] LABS: Creatinine POC 0.7 mg/dL (0.5-1.4); GFR POC > 60
== END 2024-03-22 08:33 | disposition home or self-care (01) ==
LOC: HO.CT 08:32
PROVIDERS: PCP Internal Medicine; Visit Provider Internal Medicine
DX: C34.91 Malignant neoplasm of unspecified part of right bronchus or lung (principal)
CPT/HCPCS: 71260; 82565; Q9967

== ENCOUNTER 2024-05-12 11:18 | Outpatient (AMB) | payer BC, SELFPAY ==
--- NOTE | 2024-05-12 11:21 | MHC.OFFVIS ---
Vital Signs 05/12/24 11:22 Height 5 ft 1 in Weight 104 lb 2 oz BMI 19.7 BP 120/54 L Blood Pressure Location Rt brachial Position Sitting Pulse 61 Pulse Source Pulse Oximeter Pulse Oximetry (%) 92 Oxygen Delivery Method Room Air Intake Visit Reasons: productive cough, shortness of breath Allergies levofloxacin [From LEVAQUIN] Allergy (Intermediate, Verified 05/12/24 11:24) NAUSEA & VOMITING, hives bupropion Allergy (Unknown, Verified 05/12/24 11:24) increased anxiety/depression HPI HPI productive cough, shortness of breath: Details: Dee Dee is a pleasant 63 year old female, former smoker with 30pyh with underlying RUL adenocarcinoma, COPD, and bronchiectasis. At baseline she is moderately controlled on AirDuo, Spiriva, albuterol MDI, Duoneb. She is under the care of Dr. Love and presents today for an acute visit. She reports worsening wheezing, productive cough and dyspnea since Wednesday with associated chills and notes sick contacts. She called PCP who prescribed cefuroxime which she started yesterday and presents today with question of prednisone given wheezing. She denies any increased need of supplemental oxygen, currently using 2-3L with exertion, room air at rest. She is not using supplemental oxygen today. [facility] Medical History Tobacco dependence Tachycardia Benign essential hypertension Adenocarcinoma of right lung (~2021) Pulmonary nodule Personal history of nicotine dependence Bronchiectasis Pure hypercholesterolemia Anxiety Vitamin D deficiency COPD (chronic obstructive pulmonary disease) Surgical History History of lung surgery (~2021) History of thumb surgery History of reversal of tubal ligation History of colonoscopy History of tubal ligation Family History Father Myocardial infarction Mother Stroke Family/Other Hypertension Social History Housing: House Alcohol intake: current Alcohol intake frequency: holidays/special occasions only Patient Tobacco Use Status: Former Tobacco user Tobacco use type: Cigarette Cigarettes Per Day: 15 Years Smoked: Current smoker, onset 16, 3/4ppd x 45yrs, 33pyh e-Cigarette/Vaping Use: Never Used Second Hand Smoke Exposure: Yes service: No Current occupational status: employed Cognitive needs: No Hearing needs: No Vision needs: Yes Review of Systems Const Denies excessive sweating, Denies fever(s), Denies headache(s) and Denies night sweats Eyes Denies dry eyes, Denies irritation and Denies itchy eyes ENT Reports Normal hearing present, Denies headache(s), Denies nasal congestion, Denies nasal discharge, Denies post nasal drip and Denies sore throat Card Denies chest pain, Denies chest pain at rest, Denies chest pain with activity, Denies claudication, Denies leg edema, Reports dyspnea on exertion, Denies orthopnea and Denies paroxysmal nocturnal dyspnea Resp Reports chest congestion, Reports cough, Denies excessive phlegm production, Denies pain on inspiration, Denies pain with cough, Reports dyspnea on exertion, Denies stridor and Reports wheezing Musc Denies myalgias Neuro Reports Normal hearing present and Denies headache(s) Endo Denies excessive sweating Dell/Lymph Denies lymphadenopathy Aller/Immun Denies itchy eyes, Denies seasonal rhinorrhea and Reports wheezing Physical Exam Vital Signs: Last Vital Signs Pulse 61 05/12/24 11:22 BP 120/54 L 05/12/24 11:22 Pulse Ox 92 05/12/24 11:22 Oxygen Delivery Method Room Air 05/12/24 11:22 BMI result Body Mass Index 19.7 Const General: cooperative, no acute distress, well developed and alert Orientation/consciousness: patient oriented x3 Limitations: no limitations HEENT Head: Yes normal to inspection, Yes normocephalic and Yes atraumatic Ears: hearing grossly normal bilaterally and external ears normal Eyes General: appearance normal, both eyes and all related structures Eyelids: Yes eyelids normal Sclerae: sclerae normal EOM: EOMs intact bilaterally Neck Neck: Yes normal visual inspection and Yes no lymphadenopathy Lymphatic: no lymphadenopathy noted Chest Chest palpation & inspection: normal inspection of the chest Resp Effort & Inspection: normal respiratory effort, able to speak in complete sentences, no audible wheezes, no stridor, not tachypneic, no tripod positioning and no use of accessory muscles Auscultation: rhonchi and wheezes Cardio Jugular venous distension: no JVD Rate: regular rate Rhythm: regular rhythm Skin Other: warm, dry General skin exam: no rashes or lesions noted Neuro General: patient oriented x3 Cranial nerves: Yes Normal hearing present Cognition (Neuro): normal cognition Gait exam (Neuro): Normal gait present Extrem General: Yes normal to inspection, Yes capillary refill normal, Yes no clubbing, cyanosis or edema and Yes no pedal edema Psych Appearance: grossly normal and well kempt Speech and movement: Normal speech and movement present and Clear speech present Affect: normal affect Attitude: cooperative Thought process: Normal thought process present Thought content: Normal thought content present Insight: Good insight present (Psych) Judgement: Good judgement present (Psych) Assessment & Plan Assessment & Plan (1) COPD (chronic obstructive pulmonary disease): Code(s): J44.9 - Chronic obstructive pulmonary disease, unspecified Category: Medical Qualifiers: COPD type: chronic bronchitis Chronic bronchitis type: mucopurulent Qualified Code(s): J41.1 - Mucopurulent chronic bronchitis (2) Bronchiectasis: Code(s): J47.9 - Bronchiectasis, uncomplicated Category: Medical Qualifiers: Bronchiectasis type: uncomplicated Qualified Code(s): J47.9 - Bronchiectasis, uncomplicated (3) Adenocarcinoma of right lung: Onset Date: ~2021 Comment: (T3N0 - 99%PDL1; s/p RUL lobectomy 11/2021; chemo 04/2022; Immunetherapy 06/2022) Code(s): C34.91 - Malignant neoplasm of unspecified part of right bronchus or lung Category: Medical Plan Advised patient to complete antibiotics prescribed by PCP and will add prednisone. She is aware if symptoms do not improve to call office and will send for CXR. If symptoms worsen she will seek emergent care. All questions were answered and patient is in agreement of plan. Will follow up for regularly scheduled appointment with Dr. Love or sooner if needed. Medications: New prednisone 40 mg (2 x 20 mg) PO DAILY 10 tabs 0RF Coding Level of Care Code Est Pt Level 4 (16384) Complex EM visit Add On G2211 Diagnoses Mucopurulent chronic bronchitis J41.1 COPD type: chronic bronchitis Chronic bronchitis type: mucopurulent Bronchiectasis without complication J47.9 Bronchiectasis type: uncomplicated Adenocarcinoma of right lung C34.91
[2024-05-12 11:22] VITALS: BP 120/54; PULSE 61; O2SAT 92; BMI 19.7
== END 2024-05-12 11:41 | disposition home or self-care (01) ==
PROVIDERS: PCP Internal Medicine; Visit Provider Nurse Practitioner Family
DX: J41.1 Mucopurulent chronic bronchitis (principal); J47.9 Bronchiectasis, uncomplicated; C34.91 Malignant neoplasm of unspecified part of right bronchus or lung
CPT/HCPCS: 99214

== ENCOUNTER → 2024-05-12 11:18 | Outpatient (BNVA) | payer BC, SELFPAY | PROVIDERS: PCP Internal Medicine; Visit Provider Nurse Practitioner Family ==

== ENCOUNTER 2024-05-24 09:02 | Outpatient (AMB) | payer BC, SELFPAY ==
[2024-05-24 09:08] VITALS: BP 108/52; PULSE 98; O2SAT 94; BMI 19.6
--- NOTE | 2024-05-24 09:08 | MHC.OFFVIS ---
Vital Signs 05/24/24 09:08 Height 5 ft 1 in Weight 103 lb 9.876 oz BMI 19.6 BP 108/52 L Blood Pressure Location Lt brachial Position Sitting Pulse 98 Pulse Source Pulse Oximeter Pulse Oximetry (%) 94 Oxygen Delivery Method Room Air Intake Visit Reasons: COPD Product Safety Associate Required: No Allergies levofloxacin [From LEVAQUIN] Allergy (Intermediate, Verified 05/24/24 09:10) NAUSEA & VOMITING, hives bupropion Allergy (Unknown, Verified 05/24/24 09:10) increased anxiety/depression HPI Comments Details: The patient is a 63-year-old woman, current smoker, who has been having worsening cough and shortness of breath. Her cough tends to be productive in nature and moderate severity. She has been using inhalers including Flovent and long-acting muscarinic antagonist. The medications have not been very effective for her. Her provided did try to send her Trelegy but was not covered. In the meantime she continues to smoke. The patient understands that she needs to quit and is motivated to quitting. Although it is very hard for her to quit. We talked about different alternatives including trying the Nicotrol inhaler which may be effective for her to slow down her smoking hopefully switch it completely to the nicotine inhaler where she can then decrease it as part of her tobacco cessation. The patient continues to work regularly. she does have some increased dyspnea on exertion but she is still able to do all her work related activities in does not have any significant limitations. We did review of previous chest x-rays that she has had demonstrating significant hyperinflation of the lungs. In addition to that she had a CT scan of the chest back in 2016 where was described that she had bronchiectatic changes. 10/06/2023 the patient is here for a pulmonary follow-up visit. Overall she has been doing well. She is been off the immunotherapy now. She is doing well. Denies any worsening shortness of breath. She still has a productive cough at times but otherwise better. She has not using Mucinex as much. She did try the azithromycin but was not helpful. Was causing to have some GI upset. In addition to that she was placed on levofloxacin also had significant allergic reaction. It is now her allergy list. Her last CT scan of the chest back in June 2023 demonstrating stable disease postoperative changes. She is due for CT scan in 6 months. Therefore will have her get a CT scan in 6 months and follow-up after that. The meantime she continues on Symbicort and Spiriva. She has not required her rescue inhaler often. Typically less than twice a week. She is still working more than 40 hours a week and she is doing well denies any respiratory limitations. 12/06/2023 the patient is here for hospital follow-up visit. The patient is gravely ill with acute respiratory failure and difficulty breathing. She was admitted to [facility]. She was placed on oxygen. She did have a CTA which I personally reviewed back in 11/26/2023. It actually demonstrated postoperative changes that she after her lung surgery. In addition to that had some areas of dense ground-glass opacities on the left hemithorax suggesting an airspace disease and pneumonia. She had significant bronchitis and mucus plugging. The patient was placed on antibiotics and prednisone she was able to be discharged home on oxygen. She is currently on 2 L and has a large oxygen tanks and is hard for her to carry. She is still pretty debilitated and weak. On further questioning she did admit that she is still smoking. is very upset family in general. We talked about the importance of smoking cessation. Explained to the patient that she has a good chance of improving her overall health and respiratory capacity. She is significantly weak would benefit from pulmonary rehabilitation. I do believe that this will be a good opportunity to improve her overall health and exercise capacity then after the I am hopeful that we can wean her off some of the oxygen and she can go back to work. will try to see reassess her condition 3 months. Which time it will be difficult for her to work with her significant stability and oxygen requirements. So is reasonable to take a leave of absence for now for more in order to improve her overall respiratory capacity. She is willing to try the azithromycin again. She did not tolerate the GI upset before. Will see if we can restart in see if she can tolerate it better. If she can not then will try a different antibiotic. Patient also having wheezing place her on a slow prednisone taper to see if we can not some relief as well. For smoking cessation she has using the patch and she is tolerating well. She has significant cravings in between she will call for further recommendations. 01/07/2024 the patient is here for a pulmonary follow-up visit. She is starting to participate in pulmonary rehabilitation. This will be very affecting beneficial for her. In addition to that we did review her pulmonary function studies demonstrating severe COPD. I am hopeful though that with her respiratory therapy and recovered from severe pneumonia that her PFTs were actually improved. She still has the oxygen she can use with activity. I am hopeful that when she returns in approximately 6 weeks she will be able to discontinue the oxygen. She will continue with current respiratory therapy. The patient is no longer smoking which is very reassuring. She will continue with the [facility] papers and she will be out of work until we can wean her off the oxygen and she completes her pulmonary rehabilitation. I which time she will have a reassessment in order to get back to work. 02/23/2024 the patient is here for pulmonary follow-up visit. Overall she is feeling better. She has been performing well pulmonary rehabilitation. The patient also has been using her respiratory medications. She has been able to wean off her oxygen to some degree. We did go for a walking oximetry and her oxygen still drops to the high 80s low 90s with activity. Therefore will keep her on the portable oxygen concentrator that she can use for portability outside of the home. She does not need her concentrator and home any longer or oxygen tanks. Therefore will request a revision. She is able to go back to work. She is scheduled to go back work on Wednesday which is reassuring as well. The patient does have a CT scan scheduled for sometime in February. She will follow-up with Oncology and also with thoracic surgery. 05/24/2024 the patient is follow-up did require antibiotics and prednisone. She is back to her baseline now. Although she is a little congested. She continues with respiratory therapy with good effect. She continues use a portable oxygen concentrator with activity with good effect. She wants her concentrator to be picked up from her home. Will go ahead and put a script out as she is not using the home oxygen longer just needs portability outside of the home. Her last CT scan was back in the fall 2023 which is reassuring. She will have a follow-up CT scan in 6 months set up by thoracic surgery and Oncology. She has received all her vaccines. Otherwise patient is without any other complaints. She will follow-up in 6 months. [facility] Medical History Tobacco dependence Tachycardia Benign essential hypertension Adenocarcinoma of right lung (~2021) Pulmonary nodule Personal history of nicotine dependence Bronchiectasis Pure hypercholesterolemia Anxiety Vitamin D deficiency COPD (chronic obstructive pulmonary disease) Surgical History History of lung surgery (~2021) History of thumb surgery History of reversal of tubal ligation History of colonoscopy History of tubal ligation Family History Father Myocardial infarction Mother Stroke Family/Other Hypertension Social History Housing: House Alcohol intake: current Alcohol intake frequency: holidays/special occasions only Patient Tobacco Use Status: Former Tobacco user Tobacco use type: Cigarette Cigarettes Per Day: 15 Years Smoked: Current smoker, onset 16, 3/4ppd x 45yrs, 33pyh e-Cigarette/Vaping Use: Never Used Second Hand Smoke Exposure: Yes service: No Current occupational status: employed Cognitive needs: No Hearing needs: No Vision needs: Yes Review of Systems Const Denies chills, Reports fatigue, Denies fever(s) and Denies headache(s) ENT Denies headache(s), Denies odynophagia, Denies sinus pain and Denies sore throat Card Denies chest pain, Denies palpitations and Reports dyspnea on exertion (mild) Resp Denies chest congestion (on and off), Reports cough, Denies hemoptysis, Denies excessive phlegm production ((+) scanty thick whitish phlegm), Reports dyspnea on exertion (mild) and Reports wheezing (occasionally) GI Denies abdominal pain, Denies constipation, Denies heartburn, Denies diarrhea, Denies nausea, Denies odynophagia and Denies vomiting Denies difficulty voiding, Denies nocturia and Denies dysuria Neuro Denies headache(s) Endo Reports fatigue and Denies palpitations Aller/Immun Reports wheezing (occasionally) Physical Exam Vital Signs: Last Vital Signs Pulse 98 05/24/24 09:08 BP 108/52 L 05/24/24 09:08 Pulse Ox 94 05/24/24 09:08 Oxygen Delivery Method Room Air 05/24/24 09:08 BMI result Body Mass Index 19.6 Const General: alert and tired appearing Nutritional Appearance: underweight Neck Neck: Yes normal visual inspection, Yes full ROM and Yes no lymphadenopathy Chest Chest palpation & inspection: normal inspection of the chest Resp Effort & Inspection: normal respiratory effort and prolonged expiratory phase Auscultation: no rhonchi, no wheezes and diminished lung sounds Cardio Rate: regular rate Rhythm: regular rhythm Heart sounds: S1 normal heart sound present and S2 normal heart sound present GI Palpation (GI): Soft to palpation and nontender Auscultation: normal bowel sounds Skin General skin exam: rashes and/or lesions noted Assessment & Plan Assessment & Plan (1) COPD (chronic obstructive pulmonary disease): Code(s): J44.9 - Chronic obstructive pulmonary disease, unspecified Category: Medical Qualifiers: COPD type: chronic bronchitis Chronic bronchitis type: mucopurulent Qualified Code(s): J41.1 - Mucopurulent chronic bronchitis (2) Bronchiectasis: Code(s): J47.9 - Bronchiectasis, uncomplicated Category: Medical Qualifiers: Bronchiectasis type: uncomplicated Qualified Code(s): J47.9 - Bronchiectasis, uncomplicated (3) Pulmonary nodule: Code(s): R91.1 - Solitary pulmonary nodule Category: Medical (4) Adenocarcinoma of right lung: Onset Date: ~2021 Comment: (T3N0 - 99%PDL1; s/p RUL lobectomy 11/2021; chemo 04/2022; Immunetherapy 06/2022) Code(s): C34.91 - Malignant neoplasm of unspecified part of right bronchus or lung Category: Medical (5) Tobacco dependence: Code(s): F17.200 - Nicotine dependence, unspecified, uncomplicated Category: Medical Plan continue oxygen: a POC 2l/pulse with activity with POC for portability outside of the home. She may discontinue the home concentrator and tanks continue symbicort continue Spiriva daily nebulizer for Duoneb completed Immunetherapy till Jun 2023, Oncology F/U CT chest every 6 months continue pulmonary rehab follow-up in 4-6 months Medications: New prednisone PO daily; Take 2 tabs daily x 5 days, then 1 tablet daily x 5 days 15 tabs 0RF 10 days doxycycline hyclate 100 mg PO BID 20 caps 0RF 10 days Coding Level of Care Code Est Pt Level 4 (22561) Complex EM visit Add On G2211 Diagnoses Mucopurulent chronic bronchitis J41.1 COPD type: chronic bronchitis Chronic bronchitis type: mucopurulent Bronchiectasis without complication J47.9 Bronchiectasis type: uncomplicated Pulmonary nodule R91.1 Adenocarcinoma of right lung C34.91 Tobacco dependence F17.200 Time Spent (min) 17
== END 2024-05-24 09:22 | disposition home or self-care (01) ==
PROVIDERS: PCP Internal Medicine; Visit Provider Hospitalist
DX: J41.1 Mucopurulent chronic bronchitis (principal); J47.9 Bronchiectasis, uncomplicated; R91.1 Solitary pulmonary nodule; C34.91 Malignant neoplasm of unspecified part of right bronchus or lung; F17.200 Nicotine dependence, unspecified, uncomplicated
CPT/HCPCS: 99214

== ENCOUNTER → 2024-05-24 09:02 | Outpatient (BNVA) | payer BC, SELFPAY | PROVIDERS: PCP Internal Medicine; Visit Provider Hospitalist ==

== ENCOUNTER 2024-07-17 08:58 | Outpatient (REF) | payer BC, SELFPAY ==
[2024-07-17 18:29] LABS: Influenza A PCR NEGATIVE (Negative); Influenza B PCR NEGATIVE (Negative); Resp Syncy Virus RNA Qual PCR NEGATIVE (Negative); SARS COV2 PCR INHOUSE NEGATIVE (Negative)
== END 2024-07-17 08:59 | disposition home or self-care (01) ==
LOC: HO.LNP 08:58
PROVIDERS: PCP Internal Medicine; Visit Provider Physician Assistant Medical
DX: J44.1 Chronic obstructive pulmonary disease with (acute) exacerbation (principal); R05.9 Cough, unspecified; J98.01 Acute bronchospasm
CPT/HCPCS: 0241U; 96127

== ENCOUNTER 2024-07-17 08:58 | Outpatient (AMB) | payer BC, SELFPAY ==
--- NOTE | 2024-07-17 09:00 | A.OFFPC_ITS ---
Vital Signs 07/17/24 09:02 Height 5 ft 1 in Weight 101 lb BMI 19.1 BP 100/60 Blood Pressure Location Lt brachial Position Sitting Pulse 105 H Pulse Source Pulse Oximeter Temp 97.1 F Temp Source Skin Pulse Oximetry (%) 93 Oxygen Delivery Method Room Air Intake Visit Reasons: breathing problems Intake Note: Patient is here to follow up on Breathing problems with little movements. Recovering from cold about a week ago. Umbrella Frame Maker Required: No Plane Tableman: Not Required per policy Accompanied by: Self / Same As Patient Allergies levofloxacin [From LEVAQUIN] Allergy (Intermediate, Verified 07/17/24 09:56) NAUSEA & VOMITING, hives bupropion Allergy (Unknown, Verified 07/17/24 09:56) increased anxiety/depression Medication List - Last Reconciled 07/17/24 by Lorna Batres PA-C acetaminophen 975 mg (3 x 325 mg) PO Q6-8H PRN 30 days albuterol sulfate 90 mcg/actuation 2 puffs inhalation Q6H PRN 30 days amlodipine 10 mg PO DAILY 90 days amoxicillin-pot clavulanate 875-125 mg 1 tab PO BID 10 days azithromycin For 250 mg dose pack: take 500 mg today (day 1), then 250 mg for 4 days (days 2-5) PO cholecalciferol (vitamin D3) 50 mcg PO DAILY 90 days fluticasone propion-salmeterol 113-14 mcg/actuation (AirDuo RespiClick) 1 inh inhalation Q12H 90 days hydralazine 50 mg PO TID 90 days hydrochlorothiazide 12.5 mg PO DAILY 90 days ipratropium-albuterol 0.5 mg-3 mg(2.5 mg base)/3 mL 3 mL inhalation BID 30 days ipratropium-albuterol 0.5 mg-3 mg(2.5 mg base)/3 mL 3 mL inhalation Q20M PRN lorazepam 0.5 mg PO TID PRN 30 days [NEBULIZER with all related supplies, including tubing and mask As directed] nicotine 1 patch topical DAILY [PORTABLE OXYGEN TANK for home use Use as directed at 1 LPM at rest and can go up to 2 to 3 LPM with ambulation] prednisone PO daily; Take 2 tabs daily x 5 days, then 1 tablet daily x 5 days 10 days prednisone 60 mg (3 x 20 mg) PO DAILY 7 days tiotropium bromide 2.5 mcg/actuation (Spiriva Respimat) 2 puffs inhalation DAILY 90 days Tobacco use date assessed: 07/17/24 Fall risk assessment: No Falls in past year Last assessed Fall Risk: 07/17/24 Dental Screening Dental Screen Date: 07/17/24 Did you have a dental visit in the last 12 months?: No Did you have a dental problem in the last 6 months where you did not have access to dental care?: No Was dental information given to patient?: Patient has dentist [facility] Medical History Tobacco dependence Tachycardia Benign essential hypertension Adenocarcinoma of right lung (~2021) Pulmonary nodule Personal history of nicotine dependence Bronchiectasis Pure hypercholesterolemia Anxiety Vitamin D deficiency COPD (chronic obstructive pulmonary disease) Surgical History History of lung surgery (~2021) History of thumb surgery History of reversal of tubal ligation History of colonoscopy History of tubal ligation Family History Father Myocardial infarction Mother Stroke Family/Other Hypertension Social History Housing: House Alcohol intake: current Alcohol intake frequency: holidays/special occasions only Patient Tobacco Use Status: Former Tobacco user Tobacco use type: Cigarette Cigarettes Per Day: 15 Years Smoked: Current smoker, onset 16, 3/4ppd x 45yrs, 33pyh Packs per year/per ci.00 e-Cigarette/Vaping Use: Never Used Second Hand Smoke Exposure: Yes service: No Current occupational status: employed Cognitive needs: No Hearing needs: No Vision needs: Yes Questionnaire PHQ-9 Over the last 2 weeks, how often have you been bothered by any of the following problems? 1. Little interest or pleasure in doing things: not at all 2. Feeling down, depressed, or hopeless: not at all 3. Trouble falling or staying asleep, or sleeping too much: not at all 4. Feeling tired or having little energy: not at all 5. Poor appetite or overeating: not at all 6. Feeling bad about yourself - or that you are a failure or have let yourself or your family down: not at all 7. Trouble concentrating on things, such as reading the newspaper or watching television: not at all 8. Moving or speaking so slowly that other people could have noticed. Or the opposite - being so fidgety or restless that you have been moving around a lot more than usual: not at all 9. Thoughts that you would be better off or of hurting yourself in some way: not at all Total score: 0 Depression Screening Interpretation: Negative Depression Screening Done: Yes 72327 - PHQ-9 Billing: Yes Source: Developed by Drs. Khoa Cote, Isabel Babin, Tevin Rendon and colleagues, with an educational sancho from [employer]. Thrive Questionnaire Date Thrive assessed: 07/17/24 I am a: Patient What is your living situation today?: I have a steady place to live Within the past 12 months, did the food you bought not last and you didn't have the money to get more?: Never true Within the past 12 months, did you worry whether your food would run out before you got money to buy more?: Never true Do you have trouble paying for medicines?: No Do you have trouble getting transportation to medical appointments?: No Do you have trouble paying your heating and electricity bill?: No Do you have trouble taking care of your child, family member or friend?: No Do you have trouble with day-to-day activities such as bathing, preparing meals, shopping, managing finances, etc.?: No Are you currently unemployed and looking for a job?: No Are you interested in more education?: No Please select the resources that you would like help with: None Currently or been in a relationship where the following occur: No concerns reported THRIVE Score: 0 AUDIT C Alcohol Use Questionnaire (AUDIT-C) 1. How often do you have a drink containing alcohol?: Monthly or less 2. How many drinks containing alcohol do you have on a typical day when you are drinking?: 1 or 2 3. How often do you have six or more drinks on one occasion?: Never Total Score: 1 Score Reviewed/Action Taken: Yes LETTY-7 AMB Questionnaire LETTY-7 Date LETTY - 7 assessed: 07/17/24 Feeling nervous, anxious, or on edge: 0 = Not at all Not being able to stop or control worryin = Not at all Worrying too much about different things: 0 = Not at all Trouble relaxin = Not at all Being so restless that it is hard to sit still: 0 = Not at all Becoming easily annoyed or irritable: 0 = Not at all Feeling afraid as if something awful might happen: 0 = Not at all Total LETTY-7 score (0-4 normal; 5-9 mild; 10-14 moderate; 15-21 severe): 0 Source: Developed by Drs. Khoa Cote, Isabel Babin, Tevin Rendon and colleagues, with an educational sancho from [employer]. LETTY-7 Assessment Billing LETTY-7 Assessment Tool: LETTY-7 Assessment 26709 Physical exam (Primary Care) Vital Signs: Last Vital Signs Temp 97.1 F 07/17/24 09:02 Pulse 105 H 07/17/24 09:02 BP 100/60 07/17/24 09:02 Pulse Ox 93 07/17/24 09:02 Oxygen Delivery Method Room Air 07/17/24 09:02 Care Plan Goal for BP management: Blood pressure within normal limits 100/60. BMI result Body Mass Index 19.1 Normal BMI Tobacco/Smoking Status: Tobacco use Status Tobacco use date assessed 07/17/24 07/17/24 09:09 Patient Tobacco Use Status Former Tobacco user 07/17/24 09:09 Tobacco use type Cigarette 07/17/24 09:09 e-Cigarette/Vaping Use Never Used 07/17/24 09:09 PHQ-9: PHQ-9 Score PHQ-9: Total score 0 07/17/24 09:09 Depression Screening Interpretation: Negative Thrive Assessment: Date of Thrive Assessment Date Thrive assessed 07/17/24 07/17/24 09:09 Currently or been in a relationship where the following occur: No concerns reported Coding Level of Care Code Est Pt Level 4 (43803) Complex EM visit Add On G2211 Diagnoses COPD exacerbation J44.1 Cough R05.9 Bronchospasm J98.01 Additional Codes PHQ-9 - 50348 - PHQ-9 Billing: Yes ([id number]) LETTY-7 Assessment Billing - LETTY-7 Assessment Tool: LETTY-7 Assessment 84266 ([id number]) Assessment & Plan Assessment & Plan (1) COPD exacerbation: Code(s): J44.1 - Chronic obstructive pulmonary disease with (acute) exacerbation Category: Medical Plan: Patient given DuoNeb exam improved while here in the clinic. Oxygen 92-3% on RA. Will send for chest x-ray to rule out pneumonia. Patient will be sent home with Augmentin, Z-Carson, prednisone, albuterol inhaler and DuoNeb with instructions to follow-up on Wednesday as scheduled with PCP. Condition is stable will continue to monitor. (2) Cough: Code(s): R05.9 - Cough, unspecified Category: Medical Plan: See above. (3) Bronchospasm: Code(s): J98.01 - Acute bronchospasm Category: Medical Plan: See above. Plan Plan - Perform a chest X-ray to assess pulmonary status. - Administer a breathing treatment during the visit. - patient will be discharged with Augmentin, Z-Carson, prednisone for 7 days with refill of albuterol, nebulizer. - Refer the patient to the hospital for completion of the chest X-ray. - patient to follow-up on Wednesday as scheduled with PCP. Orders: Orders XR chest 2V Today J44.1 - Chronic obstructive pulmonary disease with (acute) exacerbation, J98.01 - Acute bronchospasm, R05.9 - Cough, unspecified SARS-CoV2/FLU/RSV Today J44.1 - Chronic obstructive pulmonary disease with (a cute) exacerbation, J98.01 - Acute bronchospasm, R05.9 - Cough, unspecified Medications: New amoxicillin-pot clavulanate 875-125 mg 1 tab PO BID 10 days 20 tabs 0RF ipratropium-albuterol 0.5 mg-3 mg(2.5 mg base)/3 mL for 3 doses 3 mL inhalation Q20M PRN 90 mL 3RF shortness of breath or wheezing azithromycin For 250 mg dose pack: take 500 mg today (day 1), then 250 mg for 4 days (days 2-5) PO 6 tabs 0RF prednisone 60 mg (3 x 20 mg) PO DAILY 7 days 21 tabs 0RF copd excerbation Patient Instructions: Patient Instructions - go across the street to obtain your chest x-ray - Monitor for any side effects while on Augmentin, and azithromycin. - use albuterol inhaler which is your rescue inhaler every 4-6 hours - use your DuoNeb every 4-6 hours for up dry - Contact the clinic if experiencing adverse reactions. - Follow-up as discussed for further evaluation and guidance. - by a pulse oximetry monitor if your oxygen goes below 90% on room air you will have to go to the emergency department immediately Scribe Plan - Not visible on output: History of Present Illness The patient is a 64-year-old female presenting with trouble breathing. This symptom began approximately one week ago and has been progressively worsening. The patient has a history of Chronic Obstructive Pulmonary Disease (COPD) and uses an albuterol inhaler for management. She reports using the inhaler every hour due to waking up feeling breathless, both day and night. Despite this frequent use, she experiences persistent trouble breathing. There is no history of fever, and no significant relief from attempts to use other medications like a ALBA (likely a reference to a corticosteroid inhaler) twice daily. The patient mentions spitting up mucus but denies chest pain, except when coughing, which exacerbates her trouble breathing. She has not experienced leg swelling or calf tenderness. The patient is a smoker and recently returned to smoking after some cessation. Social History - Current smoker, recently returned to smoking Review of Systems - Respiratory: Reports spitting up mucus. Physical Exam Appearance: Alert. Oriented X3. In mild acute respiratory distress with decreased breath sounds and inspiratory and expiratory wheezing throughout with accessory muscle usage noted. No hypoxia is noted. No cyanosis is noted. Head: Normal external exam. Normocephalic. Atraumatic. Eyes: Pupils are equal, round, and reactive to light. Extraocular movements intact. Conjunctiva and sclera normal. Eyelids normal. Ears: External auditory canal normal. Tympanic membranes normal. Throat: Pharynx normal. Uvula midline. Moist mucous membranes. Neck: Normal inspection. Neck supple. Full range of motion. No adenopathy. Thyroid Normal. No meningeal signs. No neck mass noted. Cardiovascular: Normal heart rate and rhythm. Heart sound normal. No murmurs noted. Pulses normal throughout. Respiratory: In mild acute respiratory distress with decreased breath sounds and inspiratory and expiratory wheezing throughout with accessory muscle usage noted. No tracheal tugging noted. No abdominal retractions are noted. No hypoxia is noted. No cyanosis is noted. Patient tolerating secretions well. No trismus or drooling or stridor. No changes in voice. Abdomen: Soft and nontender. Bowel sounds normal in all 4 quadrants. No distention noted. No organomegaly noted. Back: No costovertebral angle tenderness. Full range of motion noted. Skin: Skin warm and dry. Normal skin color. Normal skin turgor. No rashes/lesi ons/lacerations noted. Extremities: No lower extremity edema. Extremities exhibit normal range of motion. Extremities nontender. Neuro: Oriented X 3. No motor deficit. No sensory deficit. Reflexes normal. In Clinic: This patient presents with symptoms most consistent with acute COPD exacerbation with bronchospasm. No hypoxia. Patient most likely URI such as RSV/COVID/flu or bronchitis. H and P not consistent with pneumonia although will obtain chest x-ray to rule out. H&P not consistent with acute PE, pneumothorax, ACS, CHF, cardiac effusion. Patient received 2 DuoNebs while here and exam improved no longer and respiratory distress. Breath sounds have improved and patient has mild wheezing noted at this time. No accessory muscle usage is noted at this time. No cyanosis noted. Patient tolerating secretions well. Plan - Perform a chest X-ray to assess pulmonary status. - Administer a breathing treatment during the visit. - patient will be discharged with Augmentin, Z-Carson, prednisone for 7 days with refill of albuterol, nebulizer. - Refer the patient to the hospital for completion of the chest X-ray. - patient to follow-up on Wednesday as scheduled with PCP. Patient was informed and verbally consented to the use of an ambient scribe for clinic note documentation during this visit. Discussion Notes I discussed with the patient her current symptoms and management options. I informed her of the necessity for a chest X-ray to better assess her pulmonary condition. We discussed the potential for breathing treatments while she is here and considering additional use of steroid injection if available. I advised her to proceed to the hospital for a chest X-ray following our initial assessments here. The importance of managing her COPD was emphasized, and smoking cessation support was recommended to improve her respiratory health. We will evaluate the effectiveness of the current management plan based on the chest X-ray findings and her response to treatments administered during this visit. Patient Instructions - go across the street to obtain your chest x-ray - Monitor for any side effects while on Augmentin, and azithromycin. - use albuterol inhaler which is your rescue inhaler every 4-6 hours - use your DuoNeb every 4-6 hours for up dry - Contact the clinic if experiencing adverse reactions. - Follow-up as discussed for further evaluation and guidance. - by a pulse oximetry monitor if your oxygen goes below 90% on room air you will have to go to the emergency department immediately
[2024-07-17 09:02] VITALS: BP 100/60; PULSE 105; TEMP 36.2; O2SAT 93; BMI 19.1
== END 2024-07-17 13:45 | disposition home or self-care (01) ==
PROVIDERS: PCP Internal Medicine; Visit Provider Physician Assistant Medical
DX: J44.1 Chronic obstructive pulmonary disease with (acute) exacerbation (principal); R05.9 Cough, unspecified; J98.01 Acute bronchospasm

== ENCOUNTER 2024-07-19 13:54 | Outpatient (AMB) | payer BC, SELFPAY ==
--- NOTE | 2024-07-19 14:25 | A.OFFPC_ITS ---
Vital Signs 07/19/24 14:26 Height 5 ft 1 in Weight 100 lb 2 oz BMI 18.9 BP 122/64 Blood Pressure Location Lt brachial Position Sitting Pulse 102 H Pulse Source Pulse Oximeter Pulse Oximetry (%) 99 Oxygen Delivery Method Room Air Intake Visit Reasons: COPD, lung cancer Stunt Double Required: No Accompanied by: Self / Same As Patient Allergies levofloxacin [From LEVAQUIN] Allergy (Intermediate, Verified 07/24/24 00:08) NAUSEA & VOMITING, hives bupropion Allergy (Unknown, Verified 07/24/24 00:08) increased anxiety/depression Medication List - Last Reconciled 07/24/24 by Babar Espino MD acetaminophen 975 mg (3 x 325 mg) PO Q6-8H PRN 30 days albuterol sulfate 90 mcg/actuation 2 puffs inhalation Q6H PRN 30 days amlodipine 10 mg PO DAILY 90 days amoxicillin-pot clavulanate 875-125 mg 1 tab PO BID 10 days azithromycin For 250 mg dose pack: take 500 mg today (day 1), then 250 mg for 4 days (days 2-5) PO cholecalciferol (vitamin D3) 50 mcg PO DAILY 90 days fluticasone propion-salmeterol 113-14 mcg/actuation (AirDuo RespiClick) 1 inh inhalation Q12H 90 days hydralazine 50 mg PO TID 90 days hydrochlorothiazide 12.5 mg PO DAILY 90 days ipratropium-albuterol 0.5 mg-3 mg(2.5 mg base)/3 mL 3 mL inhalation BID 30 days ipratropium-albuterol 0.5 mg-3 mg(2.5 mg base)/3 mL 3 mL inhalation Q20M PRN lorazepam 0.5 mg PO TID PRN 30 days [NEBULIZER with all related supplies, including tubing and mask As directed] nicotine 1 patch topical DAILY [PORTABLE OXYGEN TANK for home use Use as directed at 1 LPM at rest and can go up to 2 to 3 LPM with ambulation] prednisone PO daily; Take 2 tabs daily x 5 days, then 1 tablet daily x 5 days 10 days prednisone 60 mg (3 x 20 mg) PO DAILY 7 days prednisone 4 tablets x 3 days, then 3 tablets x 3 days, then 2 tablets x 3 days, then 1 tablet x 3 days 12 days tiotropium bromide 2.5 mcg/actuation (Spiriva Respimat) 2 puffs inhalation DAILY 90 days Tobacco use date assessed: 07/19/24 Fall risk assessment: No Falls in past year Last assessed Fall Risk: 07/19/24 Dental Screening Dental Screen Date: 07/19/24 Did you have a dental visit in the last 12 months?: No Did you have a dental problem in the last 6 months where you did not have access to dental care?: No Was dental information given to patient?: No HPI COPD, lung cancer HPI Details Patient comes in today for her follow up visit She was just seen here by another provider a couple of days ago for increasing cough and congestion and shortness of breath and was started empirically on dual antibiotic therapy with Augmentin and azithromycin as well as started on oral prednisone 60 mg QD x 7 days Patient states that she is still currently on these medications reports experiencing only a slight improvement in her symptoms so far Patient relates (+) fatigue but denies any fever, headaches or dizziness She denies any chest pains; still has increased chest congestion/tightness and on and off shortness of breath that feels worse with exertion No nausea/vomiting, no abdominal pain No change in bowel habits noted [facility] Medical History Tobacco dependence Tachycardia Benign essential hypertension Adenocarcinoma of right lung (~2021) Pulmonary nodule Personal history of nicotine dependence Bronchiectasis Pure hypercholesterolemia Anxiety Vitamin D deficiency COPD (chronic obstructive pulmonary disease) Surgical History History of lung surgery (~2021) History of thumb surgery History of reversal of tubal ligation History of colonoscopy History of tubal ligation Family History Father Myocardial infarction Mother Stroke Family/Other Hypertension Social History Housing: House Alcohol intake: current Alcohol intake frequency: holidays/special occasions only Patient Tobacco Use Status: Former Tobacco user Tobacco use type: Cigarette Cigarettes Per Day: 15 Years Smoked: Current smoker, onset 16, 3/4ppd x 45yrs, 33pyh e-Cigarette/Vaping Use: Never Used Second Hand Smoke Exposure: Yes service: No Current occupational status: employed Cognitive needs: No Hearing needs: No Vision needs: Yes Questionnaire PHQ-9 Over the last 2 weeks, how often have you been bothered by any of the following problems? 1. Little interest or pleasure in doing things: not at all 2. Feeling down, depressed, or hopeless: not at all 3. Trouble falling or staying asleep, or sleeping too much: not at all 4. Feeling tired or having little energy: not at all 5. Poor appetite or overeating: not at all 6. Feeling bad about yourself - or that you are a failure or have let yourself or your family down: not at all 7. Trouble concentrating on things, such as reading the newspaper or watching television: not at all 8. Moving or speaking so slowly that other people could have noticed. Or the opposite - being so fidgety or restless that you have been moving around a lot more than usual: not at all 9. Thoughts that you would be better off or of hurting yourself in some way: not at all Total score: 0 Depression Screening Interpretation: Negative Depression Screening Done: Yes 19425 - PHQ-9 Billing: Yes Source: Developed by Drs. Khoa Cote, Isabel Babin, Tevin Rendon and colleagues, with an educational sancho from [employer]. Thrive Questionnaire Date Thrive assessed: 07/19/24 I am a: Patient What is your living situation today?: I have a steady place to live Within the past 12 months, did the food you bought not last and you didn't have the money to get more?: Never true Within the past 12 months, did you worry whether your food would run out before you got money to buy more?: Never true Do you have trouble paying for medicines?: No Do you have trouble getting transportation to medical appointments?: No Do you have trouble paying your heating and electricity bill?: No Do you have trouble taking care of your child, family member or friend?: No Do you have trouble with day-to-day activities such as bathing, preparing meals, shopping, managing finances, etc.?: No Are you currently unemployed and looking for a job?: No Are you interested in more education?: No Please select the resources that you would like help with: None Currently or been in a relationship where the following occur: No concerns reported THRIVE Score: 0 AUDIT C Alcohol Use Questionnaire (AUDIT-C) 1. How often do you have a drink containing alcohol?: Monthly or less 2. How many drinks containing alcohol do you have on a typical day when you are drinking?: 1 or 2 3. How often do you have six or more drinks on one occasion?: Never Total Score: 1 Score Reviewed/Action Taken: Yes LETTY-7 AMB Questionnaire LETTY-7 Date LETTY - 7 assessed: 07/19/24 Feeling nervous, anxious, or on edge: 0 = Not at all Not being able to stop or control worryin = Not at all Worrying too much about different things: 0 = Not at all Trouble relaxin = Not at all Being so restless that it is hard to sit still: 0 = Not at all Becoming easily annoyed or irritable: 0 = Not at all Feeling afraid as if something awful might happen: 0 = Not at all Total LETTY-7 score (0-4 normal; 5-9 mild; 10-14 moderate; 15-21 severe): 0 Source: Developed by Drs. Khoa Cote, Isabel Babin, Tevin Rendon and colleagues, with an educational sancho from [employer]. LETTY-7 Assessment Billing LETTY-7 Assessment Tool: LETTY-7 Assessment 24372 Review of Systems Const Denies chills, Reports fatigue, Denies fever(s) and Denies headache(s) ENT Denies dysphagia, Denies dizziness, Denies otalgia, Denies headache(s), Denies neck pain, Denies odynophagia and Denies sore throat Card Denies chest pain, Denies palpitations and Reports dyspnea on exertion Resp Reports chest congestion (chest still feels tight at times), Reports cough (recurrent and increased lately; coughs up thick whitish phlegm often), Denies excessive phlegm production, Denies pain with cough, Reports dyspnea on exertion and Reports wheezing (occasionally) GI Denies abdominal pain, Denies constipation, Denies dysphagia, Denies heartburn, Denies diarrhea, Denies nausea, Denies odynophagia and Denies vomiting Denies difficulty voiding, Denies nocturia, Denies dysuria and Denies urinary urgency Musc Denies back pain, Denies neck pain, Reports numbness (of her fingers and toes occasionally) and Reports tingling (in her fingers and toes occasionally) Skin/Breast Denies rash Neuro Denies dizziness, Denies headache(s), Reports numbness (of her fingers and toes occasionally) and Reports tingling (in her fingers and toes occasionally) Psych Reports anxiety Endo Reports fatigue and Denies palpitations Aller/Immun Reports wheezing (occasionally) Physical exam (Primary Care) Vital Signs: Last Vital Signs Pulse 102 H 07/19/24 14:26 BP 122/64 07/19/24 14:26 Pulse Ox 99 07/19/24 14:26 Oxygen Delivery Method Room Air 07/19/24 14:26 BMI result Body Mass Index 18.9 Tobacco/Smoking Status: Tobacco use Status Tobacco use date assessed 07/19/24 07/19/24 14:34 Patient Tobacco Use Status Former Tobacco user 07/19/24 14:34 Tobacco use type Cigarette 07/19/24 14:34 e-Cigarette/Vaping Use Never Used 07/19/24 14:34 PHQ-9: PHQ-9 Score PHQ-9: Total score 0 07/19/24 14:56 Depression Screening Interpretation: Negative Thrive Assessment: Date of Thrive Assessment Date Thrive assessed 07/19/24 07/19/24 14:34 Currently or been in a relationship where the following occur: No concerns reported Const General: no acute distress and alert HENMT Ears: TM's normal bilaterally and EAC's normal Throat: Yes posterior oropharynx normal and Yes tonsils normal (no TP congestion noted) Neck Neck: Yes supple and No lymphadenopathy Thyroid: Thyroid normal Resp Auscultation: no crackles, no rales, rhonchi (scattered) throughout, no wheezes and diminished lung sounds (significantly) bilateral Cardio Rate: regular rate Rhythm: regular rhythm Heart sounds: no murmurs GI Palpation (GI): Soft to palpation and nontender Auscultation: normal bowel sounds General: Yes no CVA tenderness Back/Spine/Pelvis Back: no CVA tenderness Cervical Spine: No Cervical spine tenderness Thoracic/Lumbar Spine: No lumbar spinal tenderness Skin Rashes: no rashes Extrem General: Yes no clubbing, cyanosis or edema Coding Level of Care Code Est Pt Level 4 (00466) Diagnoses COPD exacerbation J44.1 Cancer of upper lobe of right lung C34.11 Benign essential hypertension I10 Pure hypercholesterolemia E78.00 Vitamin D deficiency E55.9 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; T45.1X5A Constipation, unspecified constipation type K59.00 Constipation type: unspecified constipation type Anxiety F41.9 Additional Codes LETTY-7 Assessment Billing - LETTY-7 Assessment Tool: LETTY-7 Assessment 39661 ([id number]) PHQ-9 - 54162 - PHQ-9 Billing: Yes ([id number]) Assessment & Plan Assessment & Plan (1) COPD exacerbation: Code(s): J44.1 - Chronic obstructive pulmonary disease with (acute) exacerbation Category: Medical Plan: Continue Augmentin and Azithromycin Continue Prednisone 60 mg QD but will have her start/continue on oral Prednisone taper as soon as she is finished with her 7 days course of 60 mg of Prednisone daily Follow up with pulmonary as scheduled (2) Cancer of upper lobe of right lung: Onset Date: ~2021 Comment: (Adenocarcinoma T3 N0, 99%PDL1 - S/P RUL lobectomy 12/16/21 - no LN, 3 distinct lesions, two were T1b and one was T2a; s/p adjuvant chemo - completed 04/2022) Code(s): C34.11 - Malignant neoplasm of upper lobe, right bronchus or lung Category: Medical Plan: S/P right upper lobectomy on 12/17/2021 and completed her adjuvant chemotherapy (Taxol with carboplatin) in April 2022 Started on immunotherapy in 06/2022 (Durvalumab at 10 mg/kg IV Q 2 weeks) x 1 year - completed immunotherapy earlier this year Follow up chest CT on 05/18/2022 after finishing her chemotherapy showed no evidence of recurrence or new disease; there are no pleural few with a no mediastinal lymphadenopathy Repeat chest CT done on 11/11/22 revealed stable postsurgical changes from her right upper lobectomy but there was a new area of focal findings and ground glass attentuation that Dr. Rush believed was due to an infection and she was started on a round of Abx for this - these have reportedly cleared up on her repeat chest CT on 01/20/[address] done in February 2024 revealed (+) postsurgical changes in the right lung status post right upper lobectomy. No dominant suspicious pulmonary nodules were seen. Moderate emphysema She will have repeat chest CT done again in 6 months - CT ordered for August 2024 Follow up with oncology/thoracic surgery as scheduled for continuing surveillance (3) Benign essential hypertension: Code(s): I10 - Essential (primary) hypertension Category: Medical Plan: Reinforced low sodium diet - goal is systolic BP of at least 130 mm or less Continue Amlodipine 10 mg QD, HCTZ 12.5 mg QD and Hydralazine 50 mg TID She is again reminded to monitor her BP regularly (4) Pure hypercholesterolemia: Code(s): E78.00 - Pure hypercholesterolemia, unspecified Category: Medical Plan: Reinforced low cholesterol diet Her recent labs done did not include a fasting lipid profile Will recheck her labs and fasting lipids in 4 months for follow up (5) Vitamin D deficiency: Code(s): E55.9 - Vitamin D deficiency, unspecified Category: Medical Plan: Continue Vitamin D3 2000 units QD (6) Peripheral neuropathy due to chemotherapy: Code(s): G62.0 - Drug-induced polyneuropathy; T45.1X5A - Adverse effect of antineoplastic and immunosuppressive drugs, initial encounter Category: Medical Plan: States that her symptoms have improved a lot and are gradually subsiding since she completed her adjuvant chemotherapy in April 2022 (7) Constipation: Code(s): K59.00 - Constipation, unspecified Category: Medical Qualifiers: Constipation type: unspecified constipation type Qualified Code(s): K59.00 - Constipation, unspecified Plan: Encouraged increased oral fluids and dietary fiber Continue Docusate 100 mg BID and Senna 8.6 mg 1 to 2 tabs Q HS P (8) Anxiety: Code(s): F41.9 - Anxiety disorder, unspecified Category: Medical Plan: Continue Lorazepam 0.5 mg TID PRN She was started additionally on Sertraline 25 mg QD a few months ago but it appears that she self-discontinued the medication a while back Plan Follow-up in 4 months Orders: Orders CT chest w IV con 09/19/24 C34.91 - Malignant neoplasm of unspecified part of right bronchus or lung Medications: New prednisone 4 tablets x 3 days, then 3 tablets x 3 days, then 2 tablets x 3 days, then 1 tablet x 3 days 12 days 33 ea 0RF J45.901 - Unspecified asthma with (acute) exacerbation, M25.50 - Pain in unspecified joint
[2024-07-19 14:26] VITALS: BP 122/64; PULSE 102; O2SAT 99; BMI 18.9
--- OUTSIDE RECORDS SUMMARY | 2024-07-19 16:10 | XMS_ITS | Clinical Summary ---
Author Organization [facility] Address [address] [place] [address] Care Team Providers Care Thumb Sewer Name Role Phone Babar Espino MD Primary Care Provider [phone]- [phone] Allergies Active Allergy Reactions Criticality Noted Date Comments Bupropion 11/07/2021 Other reaction(s): OTHER Levofloxacin 11/07/2021 Other reaction(s): Hives/Urticaria Medications Medication Sig Dispensed Refills Start Date End Date Status acetaminophen (TYLENOL) 325 MG tablet TAKE 3 TABLETS (975 MG) BY MOUTH EVERY 6 TO 8 HOURS NEEDED FOR PAIN FOR 30 DAYS 0 01/05/2022 Active Albuterol Sulfate, sensor, 108 (90 Base) MCG/ACT AEPB Inhale 2 puffs into the lungs every 6 (six) hours as needed. 0 Active amLODIPine (NORVASC) tablet 10 mg TAKE 1 TABLET BY MOUTH DAILY FOR BLOOD PRESSURE 0 01/05/2022 Active budesonide-formoterol (SYMBICORT) 160-4.5 MCG/ACT inhaler Inhale 2 puffs into the lungs. 0 Active hydroCHLOROthiazide (MICROZIDE) 12.5 MG capsule Take 1 capsule (12.5 mg total) by mouth. 0 Active LORazepam (ATIVAN) 0.5 MG tablet Take 1 tablet (0.5 mg total) by mouth. 0 Active Spiriva Respimat 2.5 MCG/ACT AERS 0 01/15/2022 Active azithromycin (ZITHROMAX) 250 MG tablet TAKE 1 TAB 250 MG ORALLY 3 TIMES A WEEK FOR 28 DAYS TAKE 1 TABLET ON WEDNESDAY/WEDNESDAY/ IDAY 0 04/07/2023 Active Active Problems Problem Noted Date Diagnosed Date Non-small cell carcinoma of lung 02/13/2022 Family History Medical History Relation Name Comments Hypertension Father Hypertension Mother Cancer Niece Relation Name Status Comments Father Mother Niece Social History Tobacco Use Types Packs/Day Years Used Date Smoking Tobacco: Former Cigarettes Smokeless Tobacco: Never Alcohol Use Standard Drinks/Week Comments Yes 0 (1 standard drink = 0.6 oz pur e alcohol) SOCIAL Sex and Gender Information Value Date Recorded Sex Assigned at Female 02/19/2022 3:59 PM EDT Gender Identity Not on file Sexual Orientation Not on file Job Start Date Occupation Industry Not on file Not on file Not on file Last Filed Vital Signs Vital Sign Reading Time Taken Comments Blood Pressure 133/60 03/29/2024 8:46 AM EDT Pulse 89 03/29/2024 8:46 AM EDT Temperature 36.2 ??C (97.1 ??F) 03/29/2024 8:46 AM ED T Respiratory Rate 16 07/14/2023 9:11 AM EST Oxygen Saturation 97% 03/29/2024 8:46 AM EDT Inhaled Oxygen Concentration - - Weight 49.1 kg (108 lb 3.2 oz) 03/29/2024 8:46 A M EDT Height 154.9 cm (5' 1 ) 12/15/2023 8:55 AM EDT Body Mass Index 20.44 12/15/2023 8:55 AM EDT Plan of Treatment Health Maintenance Due Date Last Done Comments Hepatitis C Screening 1960 COVID-19 Vaccine (#1) 1965 Pneumococcal Vaccine (1 of 2 - PCV) 1966 Pneumococcal Vaccine (1 of 2 - PCV) 1966 Depression Screening 1972 Preventative Health Evaluation 1978 DTap / Tdap / Td (1 - Tdap) 1979 Shingrix-Zoster Vaccine (1 of 2) 1979 Cervical Cancer Screening (P ap Smear) 1981 Colon Cancer Screening (Colonoscopy) 2005 Breast Cancer Screening (Mammogram) 2010 RSV Adult > 60+ Yrs or Pregn ant (1 - Risk 60-74 years 1-dose series) 2020 Influenza Vaccine (#1) 2024 Hepatitis B Vaccines Aged Out No long er eligible based on patient's age to complete this topic RSV Ped < 20 months Aged Out No longe r eligible based on patient's age to complete this topic Care Teams Thumb Sewer Relationship Specialty Start Date End Date Babar Espino MD [address] [place] [address] [place] [address] PCP - General Internal Medicine 01/22/22
--- OUTSIDE RECORDS SUMMARY | 2024-07-19 16:10 | XMS_ITS | Encounter Summary ---
Author Organization [facility] Address [address] [place] [address] Care Team Providers Care Demo Specialist Name Role Phone Babar Espino MD Primary Care Provider [phone]- [phone] Reason for Visit * Reason Comments High EOB for [facility] Encounter Details Date Type Department Care Team Description 03/30/2022 Nurse Only [facility] [address] [place] [address] Sima Laguerre RN High EOB for [facility] Social History Tobacco Use Types Packs/Day Years [...] file Not on file Not on file COVID-19 Exposure Response Date Recorded In the last 10 days, have yo u been in contact with someone who was confirmed or suspected to have Coronavirus/COVID-19? No / Unsure 03/18/2022 9:06 AM EDT documented as of this encounter Progress Notes * Sima Laguerre RN - 03/30/2022 9:09 AM EDT Received call from patient, she received an EOB from her insurance for $28,182.51, it stated a prior authorization was not done for the Caris test this office ordered. NN called [employer] and spoke with Eden from the Financial Dept, he reported at this time patient has a zero dollar balance for 2 of the 3 test done, she also reported that the patient will not pay more than a co-pay of deductible. Mr. Charles. Aware there is help if he needs he will call the office. documented in this encounter Plan of Treatment Not on file documented as of this encounter Visit Diagnoses Not on filedocumented in this encounter Care Teams Demo Specialist Relationship Specialty Start Date End Date Babar Espino MD [address] [place] [address] [place] [address] PCP - General Internal Medicine 01/22/22 documented as of this encounter
--- OUTSIDE RECORDS SUMMARY | 2024-07-19 16:10 | XMS_ITS | Clinical Summary ---
[facility] Organization [facility] Address [address] [place] [address] Care Team Providers Care Splitter Head Name Role Phone Babar Espino MD Primary Care Provider Allergies Active Allergy Reactions Criticality Noted Date Comments Bupropion 11/07/2021 Other reaction(s): OTHER Levofloxacin 11/07/2021 Other reaction(s): Hives/Urticaria Medications Medication Sig Dispensed Refills Start Date End Date Status acetaminophen (TYLENOL) 325 mg tablet TAKE 3 TABLETS (975 MG) BY MOUTH EVERY 6 TO 8 HOURS NEEDED FOR PAIN FOR 30 DAYS 01/05/2022 Active albuterol sulfate 90 mcg/actuation aero powdr breath act w/sensor Inhale 2 puffs into the lungs every 6 (six) hours as needed. Active amLODIPine (NORVASC) 10 mg tablet TAKE 1 TABLET BY MOUTH DAILY FOR BLOOD PRESSURE 01/05/2022 Active azithromycin (ZITHROMAX) 250 mg tablet TAKE 1 TAB 250 MG ORALLY 3 TIMES A WEEK FOR 28 DAYS TAKE 1 TABLET ON WEDNESDAY/WEDNESDAY/ AY 04/07/2023 Active budesonide-formoter oL (SYMBICORT) 160-4.5 mcg/actuation inhaler Inhale 2 puffs into the lungs. Active docusate sodium (COLACE) 100 mg capsule TAKE 1 CAPSULE BY MOUTH TWICE A DAY NEEDED FOR CONSTIPATION 01/05/2022 Active hydroCHLOROthiazide (MICROZIDE) 12.5 mg capsule Take 1 capsule (12.5 mg total) by mouth. Active LORazepam (ATIVAN) 0.5 mg tablet Take 1 tablet (0.5 mg total) by mouth. Active ondansetron (ZOFRAN) 8 mg tablet Take 1 tablet (8 mg total) by mouth every 8 (eight) hours as needed for nausea. 02/25/2022 Active senna (SENOKOT) 8.6 mg tablet Take 1 tablet by mouth daily. Active tiotropium (Spiriva Respimat) 2.5 mcg/actuation inhalation spray 01/15/2022 Active Active Problems Problem Noted Date Diagnosed Date Non-small cell carcinoma of lung 02/13/2022 Surgical History Surgery Date Site/Laterality Comments TUBAL LIGATION PROCEDURE: HISTORICAL TUBAL LIGATION OTHER SURGICAL HISTORY N/A PROCEDURE: AK CLTX CARPO/METACARPAL DISLOCATION THUMB W/MANJ COLONOSCOPY N/A PROCEDURE: HISTORICAL COLONOSCOPY TUBAL LIGATION N/A PROCEDURE: HISTORICAL TUBAL LIGATION; COMMENT: reversal OTHER SURGICAL HISTORY 12/16/2021 Right PROCEDURE: AK THORACOSCOPY W/LOBECTOMY SINGLE LOBE; COMMENT: RUL Medical History Medical History Date Comments Anxiety disorder DX:Anxiety diso rder COPD (chronic obstructive pu lmonary disease) (CMS/HCC) DX:COPD (chronic obstructive pulmonary disease) ([facility]) Pulmonary nodule DX:Pulmonary no dule Vitamin D deficiency DX:Vitamin D deficiency Pure hypercholesterolemia DX:Pur e hypercholesterolemia Bronchiectasis (CMS/HCC) DX:Bron chiectasis (HCC) Mild intermittent asthma, uncomplicated 09/06/2023 DX:Mild intermittent asthma, uncomplicated Essential (primary) hypertension 09/06/2023 DX:Essential (primary) hypertension Adenocarcinoma of right lung (CMS/HCC) 2021 DX:Adenocarcinoma of right l terry ([facility]) Personal history of nicotine dependence DX:Personal history of nicot ine dependence Supraventricular tachycardia (CMS/HCC) DX:Supraventricular tachycar fernie ([facility]) Family History Medical History Relation Name Comments Heart attack Father Stroke Mother Relation Name Status Comments Father Mother Social History Tobacco Use Types Packs/Day Years Used Date Smoking Tobacco: Former Cigarettes 1 48.4 0 06/28/1973 - 11/04/2021 Smokeless Tobacco: Never Alcohol Use Standard Drinks/Week Comments Not Currently 0 (1 standard drink = 0.6 oz pur e alcohol) Sex and Gender Information Value Date Recorded Sex Assigned at Not on file Gender Identity Not on file Sexual Orientation Not on file Obstetrics History Last Filed Vital Signs Vital Sign Reading Time Taken Comments Blood Pressure 144/63 04/17/2024 9:07 AM EDT Sitting L Arm Pulse 54 04/17/2024 9:07 AM EDT Temperature - - Respiratory Rate - - Oxygen Saturation - - Inhaled Oxygen Concentration - - Weight 48.9 kg (107 lb 12.8 oz) 04/17/2024 9:07 AM EDT Height 154.9 cm (5' 1 ) 04/17/2024 9:07 AM EDT Body Mass Index 20.37 04/17/2024 9:07 AM EDT Plan of Treatment Upcoming Encounters Date Type Department Care Team (Late st Contact Info) Description 09/20/2024 8:45 AM EDT Office Visit [facility] Hematology Oncology [address] [place] [address] Marie Williamson MD [address] [place] [address] Health Maintenance Due Date Last Done Comments Breast Cancer Screening 1960 COVID-19 Vaccine (#1) 1965 Pneumococcal Vaccine: Pediat rics (0 to 5 Years) and At-Risk Patients (6 to 64 Years) (1 of 2 - PCV) 1966 DTaP,Tdap,and Td Vaccines (1 - Tdap) 1979 Zoster Vaccines (1 of 2) 1979 Cervical Cancer Screening: P ap Smear 1981 RSV Immunization Patients 60 + Years Old (1 - Risk 60-74 years 1-dose series) 2020 Colorectal Cancer Screening: Colonoscopy 06/06/2022 Depression Screening 06/06/2022 HIV Screening 06/06/2022 Hepatitis C Screening 06/06/2022 Lung Cancer Screening (Low Dose CT) 06/06/2022 Social Influencers of Health Screening 06/06/2022 Influenza Vaccine (#1) 2024 HIB Vaccines Aged Out No longer eligi ble based on patient's age to complete this topic HPV Vaccines Aged Out No longer eligi ble based on patient's age to complete this topic Hepatitis A Vaccines Aged Out No long er eligible based on patient's age to complete this topic Hepatitis B Vaccines Aged Out No long er eligible based on patient's age to complete this topic IPV Vaccines Aged Out No longer eligi ble based on patient's age to complete this topic MMR Vaccines Aged Out No longer eligi ble based on patient's age to complete this topic Meningococcal ACWY Vaccine Aged Out N o longer eligible based on patient's age to complete this topic RSV Immunization Patients Un hailey 20 months Aged Out No longer eligible b ased on patient's age to complete this topic Varicella Vaccines Aged Out No longer eligible based on patient's age to complete this topic Care Teams Splitter Head Relationship Specialty Start Date End Date Babar Espino MD [address] [place] [address] Dr [address] [place], [place] PCP - General Internal Medicine 11/07/21
--- OUTSIDE RECORDS SUMMARY | 2024-07-19 16:10 | XMS_ITS | Encounter Summary ---
Author Organization [facility] Address [address] [place] [address] Care Team Providers Care Ticket Taker Ferryboat Name Role Phone Babar Espino MD Primary Care Provider Encounter Details Date Type Department Care Team (Late st Contact Info) Description 03/29/2024 8:28 AM EDT Hospital Encounter TH HISTORIC ENCOUNTERS EASTERN CONVERSION ONLY Marie Williamson MD [address] [place] [id number] Social History Tobacco Use Types Packs/Day Years [...] HPI: 63-year-old female who has more than 06-evfb-lzkw smoking history, quit smoking few months ago, [...] 45 Oncology History Overview Note Patient has 92-rtzu-yrrg smoking history, also evidence of COPD In [...] on molecular studies, according to results from [facility], it seems that all his specimen (3 [...] of lung (HCC) 02/25/2022 - 04/29/2022 Chemotherapy [facility] OP PACLITAXEL / CARBOPLATIN (LUNG) 5 HRS Plan Provider: Marie Williamson MD Treatment goal: Curative Line of treatment: Adjuvant 07/23/2022 - 07/14/2023 Chemotherapy [facility] BCN OP DURVALUMAB Plan Provider: Marie Williamson MD Treatment goal: Curative Line of treatment: Adjuvant PAST MEDICAL HISTORY: Chronic obstructive pulmonary disease Adenocarcinoma of right lung Hypertension Anxiety ? SOCIAL HISTORY: She quit smoking in October 2023, has more than 46-zexd-jtsg smoking history She drinks socially She was [...] CT scan done a week ago in [facility] still not read by radiologist, I will call them again IMPRESSION: SNOMED CT(R) 1. Adenocarcinoma of right lung (HCC) ADENOCARCINOMA OF RIGHT LUNG 63-year-old female who has more than 35-suyt-yqmc smoking history, she quit smoking in October of this year, patient in the spring of this year had CT scan that showed groundglass opacities/question infection/inflammation (at that time she was diagnosed with pneumonia and treated with antibiotics with good response) patient has been feeling very well, has no worsening symptom or any major issues, patient had a CT scan done week ago in [facility], we do not have results yet, I try [facility]ology department, hopefully some radiologist will call [...] Description 09/20/2024 8:45 AM EDT Office Visit [facility] Hematology Oncology [address] [place] [phone] Marie Williamson MD [address] [place] [address] documented as of this encounter Procedures Procedure Name Priority Date/Time Associated Diagnosis Comments ..MISCELLANEOUS REFERENCE LAB TEST 03/29/2024 documented in this encounter Results * Miscellaneous reference lab test (03/29/2024) Provider Onbase MD LAB BLOOD ORDERABLES documented in this encounter Visit Diagnoses Not on filedocumented in this encounter Care Teams Ticket Taker Ferryboat Relationship Specialty Start Date End Date Babar Espino MD [address] [place] [address] Dr [address] [place], [place] PCP - General Internal Medicine 11/07/21 documented as of this encounter
--- OUTSIDE RECORDS SUMMARY | 2024-07-19 16:10 | XMS_ITS | Encounter Summary ---
Author Organization [facility] Address [address] [place] [address] Care Team Providers Care Groundskeeping Yardman Name Role Phone Babar Espino MD Primary Care Provider [phone]- [phone] Encounter Details Date Type Department Care Team Description 02/25/2022 Social Work [facility] Oncology Services [address] [place] [address] Bill C[place], [facility] Social History Tobacco Use Types Packs/Day Years [...] suspected to have Coronavirus/COVID-19? No / Unsure 02/25/2022 9:46 AM EDT documented as of this encounter Plan of Treatment Not on file documented as of this encounter Visit Diagnoses Not on filedocumented in this encounter Care Teams Groundskeeping Yardman Relationship Specialty Start Date End Date Babar Espino MD [address] [place] [address] [place] [address] PCP - General Internal Medicine 01/22/22 documented as of this encounter
--- OUTSIDE RECORDS SUMMARY | 2024-07-19 16:10 | XMS_ITS ---
Author Organization [facility] Address [address] [place] [address] Care Team Providers Care Seeing Eye Dog Trainer Name Role Phone Babar Espino MD Primary Care Provider [phone]- [phone] Active Problems Problem Noted Date Diagnosed Date Non-small cell carcinoma of lung 02/13/2022 Current Oncology Plans No current plan information found. Past Plans ONCOLOGY TREATMENT Plan Name Start Date Discontinue Date Treatment Medications Discontinue Reason Plan Provider [facility] 08/31/2023 albuterol (PROVENTIL)diphenhydrAMI NE (BENADRYL)durvalumab (IMFINZI) infusionEPINEPHrinefamot idine (PF) (PEPCID)hydrocortisone (SOLU-CORTEF) IVmeperidine (DEMEROL) 25 MG/MLpotassium chloride ERSaline Flush 0.9 %sodium chloride (NS) 0.9 %sodium chloride 0.9% bolus (NS) Therapy Complete Marie Williamson MD 15 of [address] [facility] OP PACLITAXEL / CARBOPLATIN (LUNG) 5 HRS 022 07/14/2022 albuterol (PROVENTIL)CARBOplatin (PARAPLATIN) chemo infusion (by AUC)dexamethasone (DECADRON)dexamethasone (DECADRON) DOSE > 10 mg IVPBdexamethasone sod phosphate PF (DECADRON)diphenhydrAMIN E (BENADRYL)EPINEPHrinefam otidine (PEPCID)famotidine (PF) (PEPCID)hydrocortisone (SOLU-CORTEF) IVmeperidine (DEMEROL) 25 MG/MLPACLitaxel (TAXOL) chemo infusionpalonosetron (ALOXI)potassium chloride ERprochlorperazine (COMPAZINE)Saline Flush 0.9 %sodium chloride (NS) 0.9 %sodium chloride 0.9% bolus (NS) Change in Level of Care Marie Williamson MD [facility] 5 HRS 022 02/25/2022 albuterol (PROVENTIL)CARBOplatin (PARAPLATIN) chemo infusion (by AUC)dexamethasone (DECADRON)dexamethasone (DECADRON) DOSE > 10 mg IVPBdexamethasone sod phosphate PF (DECADRON)diphenhydrAMIN E (BENADRYL)EPINEPHrinefam otidine (PEPCID)famotidine (PF) (PEPCID)hydrocortisone (SOLU-CORTEF) IVmeperidine (DEMEROL) 25 MG/MLPACLitaxel (TAXOL) chemo infusionpalonosetron (ALOXI)prochlorperazine (COMPAZINE)Saline Flush 0.9 %sodium chloride (NS) 0.9 %sodium chloride 0.9% bolus (NS) Entered in error Marie Williamson MD 1 of 4 cycles started [facility] [id number] METFORMIN OR [place] WITH PACLITAXEL AND CARBOPLATIN 022 02/24/2022 No medications scheduled. Entered in error Marie Williamson MD No cycles in plan Radiation Treatments * No radiation treatments are documented for this patient in [facility]. Treatments may have been administered in another system.
== END 2024-07-19 15:11 | disposition home or self-care (01) ==
PROVIDERS: PCP Internal Medicine; Visit Provider Internal Medicine
DX: J44.1 Chronic obstructive pulmonary disease with (acute) exacerbation (principal); C34.11 Malignant neoplasm of upper lobe, right bronchus or lung; G62.0 Drug-induced polyneuropathy; I10 Essential (primary) hypertension; E78.00 Pure hypercholesterolemia, unspecified; E55.9 Vitamin D deficiency, unspecified; T45.1X5A Adverse effect of antineoplastic and immunosuppressive drugs, initial encounter; K59.00 Constipation, unspecified; F41.9 Anxiety disorder, unspecified

== ENCOUNTER → 2024-07-19 13:54 | Outpatient (BNVA) | payer BC, SELFPAY | PROVIDERS: PCP Internal Medicine; Visit Provider Internal Medicine | DX: J44.1 Chronic obstructive pulmonary disease with (acute) exacerbation (principal); Z85.118 Personal history of other malignant neoplasm of bronchus and lung; I10 Essential (primary) hypertension; E78.00 Pure hypercholesterolemia, unspecified; E55.9 Vitamin D deficiency, unspecified; G62.0 Drug-induced polyneuropathy; T45.1X5D Adverse effect of antineoplastic and immunosuppressive drugs, subsequent encounter; K59.00 Constipation, unspecified; F41.9 Anxiety disorder, unspecified; Z79.899 Other long term (current) drug therapy | CPT/HCPCS: 96127 ==

== ENCOUNTER 2024-08-20 10:01 | Inpatient (IN) | payer BC, SELFPAY ==
[2024-08-20] VITALS (10 sets, daily range): BP systolic 103–153; BP diastolic 49–99; PULSE 97–106; RESP 18–26; TEMP 36.6–36.9; O2SAT 85–99; BMI 18.5
--- NOTE | ~2024-08-20 | CT_ITS ---
CLINICAL HISTORY: diff breathing CTA chest with 3-D postprocessing Comparison: CR - XR CHEST 1V - 08/20/24 10:[address]/SR - CT CHEST W IV CON - 03/22/24 08:[address]/REG/HI/SR - CT CHEST W IV CON - 07/20/23 07:57 EST Findings: Study quality is adequate for the diagnosis of pulmonary embolism. No pulmonary embolism. Heart size within normal limits. RV/LV ratio is normal. Severe calcified coronary artery disease. No aortic dissection or aneurysm. Moderate calcified atherosclerotic disease in the chest. Severe calcified atherosclerotic disease in the upper abdomen. No lymphadenopathy. Mediastinal and hilar lymph nodes measure up to 9 mm in short axis Status post right upper lobectomy. Right hemithorax mild volume loss. Mild increased subpleural reticulation /scarring. There is a mild amount of bilateral ground-glass opacity which is predominantly at the lung bases, however also seen in the left upper lobe. There is mild bronchial wall thickening with a mild amount of secretions in the airways with question of mucous plugging. Mild emphysema. No pneumothorax or pleural effusion. No acute osseous or soft tissue abnormality. No acute pathology in the imaged portion of the upper abdomen. Impression: No pulmonary embolism. Mild amount of bilateral ground-glass opacity which could be infectious /inflammatory. Three-month follow-up chest CT is recommended to confirm resolution. This document has been electronically signed by: Florinda Brady MD on 08/20/2024 13:56:50
--- NOTE | ~2024-08-20 | XR_ITS ---
CLINICAL HISTORY: dyspnea 1 view chest x-ray Comparison: CT dated 03/22/2024 Findings: Emphysematous lungs and mild right basilar lung scarring. Postsurgical right hilar/perihilar changes. Mild hazy left basilar atelectasis/infiltrate. Heart size is normal. No acute fracture. IMPRESSION: Mild hazy left basilar atelectasis/infiltrate. This document has been electronically signed by: Celestina Cardona MD on 08/20/2024 11:57:33
--- NOTE | 2024-08-20 10:10 | ECG_ITS ---
Test Reason : TACHY Blood Pressure : */* mmHG Vent. Rate : 107 BPM Atrial Rate : 107 BPM P-R Int : 132 ms QRS Dur : 70 ms QT Int : 326 ms P-R-T Axes : 80 79 74 degrees QTcB Int : 435 ms Sinus tachycardia Possible Left atrial enlargement Minimal voltage criteria for LVH, may be normal variant ( Jerel product ) Borderline ECG When compared with ECG of 12-Nov-2021 09:59, No significant change was found Referred By: Generic ED Physician Electronically Signed By: ALEXIS SHAH
--- NOTE | 2024-08-20 10:13 | ED_ITS ---
HPI - General Adult General Chief complaint: Dyspnea Stated complaint: diff breathing Time Seen by Provider: 08/20/24 10:50 Source: patient and family (patient's daughter) Mode of arrival: wheelchair Limitations: no limitations History of Present Illness ED Provider: Brenda Harry PA-C HPI narrative: Patient is a 64 year old assigned female at with a history of COPD and right upper lobe lung cancer s/p lobectomy and immunotherapy presenting to the emergency department today with increased shortness of breath and coughing. Patient states that over the last 3 days she has had significant cough and shortness of breath. Patient denies any dizziness, lightheadedness, abdominal pain, nausea, vomiting, fever, chills, blurry vision, double vision, loss of vision, chest pain, back pain, night sweats, pain with urination, increased urinary frequency, increased urinary urgency, blood in her urine or stool, syncope or a near syncopal episode, recent trauma or falls, bowel incontinence, bladder incontinence, or any other complaints at this time. Onset (ago): day(s) (3) Relieving factors: none Exacerbating factors: none Associated symptoms: cough and shortness of breath Treatments prior to arrival: none Related Data Home Medications ?Medication ?Instructions ?Recorded ?Confirmed nicotine 21 mg/24 hr daily 1 patch topical DAILY 12/06/23 07/24/24 transdermal patch Previous Rx's ?Medication ?Instructions ?Recorded acetaminophen 325 mg tablet 975 mg (3 x 325 mg) PO Q6-8H PRN 01/05/22 pain 30 days #360 tabs NEBULIZER with all related #1 ea 12/03/23 supplies, including tubing and mask PORTABLE OXYGEN TANK for home use #1 ea 12/06/23 ipratropium 0.5 mg-albuterol 3 mg 3 ml inhalation BID 30 days #180 mL 12/06/23 (2.5 mg base)/3 mL nebulization soln cholecalciferol (vitamin D3) 50 50 mcg PO DAILY 90 days #90 caps 01/27/24 mcg (2,000 unit) capsule lorazepam 0.5 mg tablet 0.5 mg PO TID PRN anxiety 30 days 01/27/24 #90 tabs amlodipine 10 mg tablet 10 mg PO DAILY for blood pressure 03/15/24 90 days #90 tabs hydrochlorothiazide 12.5 mg capsule 12.5 mg PO DAILY 90 days #90 caps 04/08/24 fluticasone 113 mcg-salmeterol 14 1 inh inhalation Q12H 90 days #3 ea 04/26/24 mcg/actuation breath activated powdr (AirDuo RespiClick) prednisone 20 mg tablet See Rx Instructions PO DAILY 10 05/24/24 days #15 tabs hydralazine 50 mg tablet 50 mg PO TID blood pressure 90 07/07/24 days #270 tabs tiotropium bromide 2.5 2 puff inhalation DAILY 90 days #3 07/07/24 mcg/actuation mist for inhalation inhalers (Spiriva Respimat) amoxicillin 875 mg-potassium 1 tab PO BID 10 days #20 tabs 07/17/24 clavulanate 125 mg tablet azithromycin 250 mg tablet See Rx Instructions PO .COMPLEX #6 07/17/24 tabs ipratropium 0.5 mg-albuterol 3 mg 3 ml inhalation Q20M PRN shortness 07/17/24 (2.5 mg base)/3 mL nebulization of breath or wheezing #90 mL soln prednisone 20 mg tablet 60 mg (3 x 20 mg) PO DAILY copd 07/17/24 excerbation 7 days #21 tabs prednisone 10 mg tablets in a dose See Rx Instructions PO PER PKG DIR 07/19/24 pack 12 days #33 ea albuterol sulfate 90 mcg/actuation 2 puff inhalation Q6H PRN 07/25/24 aerosol inhaler shortness of breath or wheezing 30 days #8.5 grams Allergies Allergy/AdvReac Type Severity Reaction Status Date / Time levofloxacin [From LEVAQUIN] Allergy Intermediate NAUSEA & Verified 08/20/24 10:08 VOMITING, hives bupropion Allergy Unknown increased Verified 08/20/24 10:08 anxiety/depression Review of Systems 2 Constitutional: Constitutional: Reports no additional constitutional complaints, Denies chills, Denies fever(s) and Denies night sweats Eyes: Eyes: Reports no additional eye complaints, Denies blurry vision, Denies change in vision, Denies diplopia, Denies eye discharge, Denies loss of vision and Denies eye pain ENT: Denies dizziness Cardiovascular: Cardiovascular: Reports no additional cardiovascular complaints, Denies chest pain, Denies lightheadedness, Denies Loss of Consciousness and Reports dyspnea Respiratory: Respiratory: Reports no additional respiratory complaints, Reports cough and Reports dyspnea Gastrointestinal: Gastrointestinal: Reports no additional gastrointestinal complaints, Denies abdominal pain, Denies melena, Denies hematochezia, Denies change in bowel habits and Denies change in stool character Genitourinary: Genitourinary: Denies hematuria, Denies urinary frequency, Denies dysuria, Denies urinary incontinence, Denies urinary hesitancy and Denies urinary urgency Musculoskeletal: Musculoskeletal: Reports no additional musculoskeletal complaints, Denies numbness and Denies tingling Neurologic: Denies dizziness, Denies loss of vision, Denies numbness and Denies tingling Psychiatric: Psychiatric: Reports no additional psychiatric complaints Endocrine: Endocrine: Reports no additional endocrine complaints Hematologic/Lymphatic: Hematologic/Lymphatic: Reports no additional hematologic/lymphatic complaints Allergic/Immunologic: Allergic/Immunologic: Reports no additional allergic/immunologic complaints PMFSH Past Medical History Attestation statement: The following information was validated with the patient. (patient's daughter validated all information) Source: old records reviewed, obtained from family (patient's daughter provided additional history and confirmed the history provided by the patient.) and nursing notes reviewed Medical History Tobacco dependence Tachycardia Benign essential hypertension Adenocarcinoma of right lung (~2021) Pulmonary nodule Personal history of nicotine dependence Bronchiectasis Pure hypercholesterolemia Anxiety Vitamin D deficiency COPD (chronic obstructive pulmonary disease) Surgical History History of lung surgery (~2021) History of thumb surgery History of reversal of tubal ligation History of colonoscopy History of tubal ligation Family History Family History Father Myocardial infarction Mother Stroke Family/Other Hypertension Social History Social History Housing: House Alcohol intake: current Alcohol intake frequency: holidays/special occasions only Patient Tobacco Use Status: Former Tobacco user Tobacco use type: Cigarette Cigarettes Per Day: 15 Years Smoked: Current smoker, onset 16, 3/4ppd x 45yrs, 33pyh e-Cigarette/Vaping Use: Never Used Second Hand Smoke Exposure: Yes Advance Directives: Yes Advance Directives Information Provided: No Advance Directives on File: No Do you have a plan to hurt others: No Plan service: No Current occupational status: employed Cognitive needs: No Hearing needs: No Vision needs: Yes Physical Exam ED Vital Signs: Vital Signs - 24 hr 08/20/24 10:03 08/20/24 10:08 08/20/24 10:40 Temperature 98.1 F Pulse Rate 106 H 106 H Respiratory Rate 26 H 22 H Blood Pressure 153/99 H Pulse Oximetry 85 L 94 Oxygen Delivery Method Nasal Cannula Nasal Cannula Oxygen Flow Rate 3 BMI result Body Mass Index 18.5 Const General: cooperative, no acute distress, alert and awake Nutritional Appearance: well nourished Orientation/consciousness: patient oriented x3 Limitations: no limitations HENMT Head: Yes normal to inspection and Yes atraumatic Ears: hearing grossly normal bilaterally and external ears normal General nose exam: Normal external nose present, no nasal discharge noted and no epistaxis Face and sinus: Yes normal facial exam, No abrasion and No laceration Mouth: Normal oral and palatal mucosa present, no drooling and no muffled voice Eyes General: appearance normal, both eyes and all related structures Periorbital: periorbital findings normal Eyelids: Yes eyelids normal Conjunctivae: conjunctivae normal Pupils: Equal, round and reactive pupils present EOM: EOMs intact bilaterally Neck Neck: Yes normal visual inspection, Yes full ROM and Yes no lymphadenopathy Chest Chest palpation & inspection: normal inspection of the chest Resp Effort & Inspection: able to speak in complete sentences, labored and tachypneic Auscultation: wheezes throughout and diminished lung sounds diffuse Cardio Rate: tachycardic GI Inspection: Yes normal to inspection Neuro General: patient oriented x3, moves all extremities and CN's II-XI intact bilaterally Cranial nerves: Yes Equal, round and reactive pupils present Cognition (Neuro): normal cognition Extrem General: Yes normal to inspection, Yes full ROM and Yes capillary refill normal Psych Appearance: grossly normal Mental Status: mental status grossly normal Affect: normal affect Attitude: cooperative Thought process: Normal thought process present Thought content: Normal thought content present Insight: Good insight present (Psych) Course Course Course Narrative: RME performed by Brenda Harry PA-C. Patient is a 64 year old assigned female at presenting to the emergency department with shortness of breath / difficulty breathing. Detailed physical exam and review of systems are deferred to the outreach clinician. EKG, labs, imaging, and swabs ordered. career services representative aware. Medications Administered Generic Name Dose Route Start Last Admin Trade Name Freq PRN Reason Stop Dose Admin Azithromycin 500 mg/ Sodium 250 mls @ 125 mls/hr 08/20/24 11:01 08/20/24 11:37 Chloride IV 08/20/24 13:00 125 mls/hr ONCE ONE Administration Discontinued Medications Generic Name Dose Route Start Last Admin Trade Name Freq PRN Reason Stop Dose Admin Albuterol Sulfate 5 mg/ 7.5 mg 08/20/24 10:39 08/20/24 11:03 Albuterol Sulfate 2.5 mg INHALE 08/20/24 10:40 7.5 mg ONCE ONE Administration Ceftriaxone Sodium 1 gm 08/20/24 11:01 08/20/24 11:24 Ceftriaxone Sodium 1 Gm Vial IVPUSH 08/20/24 11:02 1 gm ONCE ONE Administration Magnesium Sulfate/Dextrose 1 gm in 100 mls @ 100 mls/hr 08/20/24 10:37 08/20/24 11:58 Magnesium Sulfate/D5w IV 08/20/24 11:36 Infused ONCE ONE Infusion Lorazepam 1 mg 08/20/24 11:01 08/20/24 11:21 Lorazepam 2 Mg/Ml Vial IVPUSH 08/20/24 11:02 1 mg ONCE ONE Administration Methylprednisolone Sodium Succinate 60 mg 08/20/24 10:37 08/20/24 10:59 Methylprednisolone Sod Succ 125 Mg/2 Ml Vial IVPUSH 08/20/24 10:38 60 mg ONCE ONE Administration Medical Decision Making Medical Decision Making MDM Narrative: Patient is a 64 year old assigned female at with a history of COPD and right upper lobe lung cancer s/p lobectomy and immunotherapy presenting to the emergency department today with increased shortness of breath and coughing. Patient's physical exam was as noted in the physical exam portion of this note. Patient was found to be tachycardic and hypoxic at 85%. Patient's blood work was unremarkable. Patient's EKG showed tachycardia. Patient's chest x-ray showed a mild left basilar atelectasis / infiltrate. I explained my physical exam findings as well as all test results to the patient and the patient's daughter. I answered all questions asked by the patient and the patient's daughter. Patient was given IV solu-medrol, IV magnesium, a breathing treatment, and started on oxygenation via nasal cannula as previously noted. Patient's work of breathing improved. Patient's clinical presentation is most consistent with a COPD exacerbation and possible pneumonia but NOT sepsis at 1200. Patient was given IV Ceftriaxone and azithromycin. I spoke with the hospitalist team who agreed to admission. Patient and her daughter verbalized understanding and agreement with this treatment plan and admission. Differential Diagnosis Differential Diagnoses: The differential diagnosis associated with the presentation includes COPD exacerbation Influenza RSV PNA Hypoxia Admission/Observation Consideration of admission/observation: Escalation of care including admission/observation considered Patient admitted as noted in the MDM Rationale portion of this note. Consult Healthcare Provider Management of the patient was discussed with: Hospitalist (agreed to admission as noted in the MDM Rationale portion of this note. ) Lab Data [facility] Lab Attestation statement: I reviewed the patient's lab results. My interpretation of these results are in the MDM Rationale portion of this note. 08/20/24 10:22 08/20/24 10:24 Labs: Lab Results 08/20/24 08/20/24 08/20/24 Range/Units 10:22 10:24 11:01 WBC 9.0 (4.8-10.8) X10*3/uL RBC 5.02 (4.20-5.50) X10*6/uL Hgb 15.5 (12.0-16.0) g/dl Hct 44.6 (37.0-47.0) % MCV 88.8 (80.0-98.0) fL MCH 30.9 (27.0-33.0) pg MCHC 34.8 (31.0-35.0) g/dl RDW 13.7 (11.0-16.0) % Plt Count 409 H (160-400) X10*3/uL MPV 8.5 L (9.4-12.3) fL Immature Gran % (Auto) 0.2 (0.0-0.4) % Neut % (Auto) 80.9 H (45-73) % Lymph % (Auto) 9.1 L (20-40) % [place] % (Auto) 9.2 (2-11) % Eos % (Auto) 0.4 (0-4) % Baso % (Auto) 0.2 (0-2) % Lymph # (Auto) 0.8 L (1.2-4.9) X10*3/uL [place] # (Auto) 0.8 (0.1-1.2) X10*3/uL Eos # (Auto) 0.0 (0.0-0.4) X10*3/uL Baso # (Auto) 0.0 (0.0-0.2) X10*3/uL Abs Immat Gran (auto) 0.02 (0.00-0.03) X10*3/uL Absolute Neuts (auto) 7.3 (2.0-8.3) x10*3/uL Absolute Nucleated RBC 0.000 (0.0-0.012) X10*3/uL Nucleated RBC % (auto) 0.0 (0.0-0.2) /100WBC VBG pH 7.48 H (7.32-7.43) VBG pCO2 42 mmHg VBG pO2 42 mmHg VBG HCO3 32 H (22-26) mmol/L VBG O2 Saturation 70.0 % VBG Base Excess 7.7 mmol/L Sodium 136 (135-145) mmol/L Potassium 3.4 (3.3-5.1) mmol/L Chloride 95 L (96-108) mmol/L Carbon Dioxide 26 (22-29) mmol/L Anion Gap 18 (12-20) BUN 7 L (9-16) mg/dL Creatinine 0.62 (0.5-1.4) mg/dL Estim Creat Clear Calc 64.1 Estimated GFR > 60 Random Glucose 116 H (60-115) mg/dL Calcium 10.0 (8.4-10.2) mg/dL Total Bilirubin 0.5 (0.0-1.0) mg/dL AST 23 (5-31) U/L ALT 13 (0-31) U/L Alkaline Phosphatase 75 (39-117) U/L Troponin I High Sens 3.8 (<3.5-17.0) ng/L B-Natriuretic Peptide < 10 (<100) pg/mL Total Protein 7.5 (6.5-8.0) g/dL Albumin 4.0 (3.5-5.0) g/dL Influenza Type A (PCR) NEGATIVE (Negative) Influenza Type B (PCR) NEGATIVE (Negative) RSV RNA Qual (PCR) NEGATIVE (Negative) SARS-CoV-2 RNA (RT-PCR) NEGATIVE (Negative) Independent Interpretation I performed an independent interpretation of an: EKG and Plain X-Ray Interpretation: My interpretation is in agreement with the radiologist's impression of this imaging study. L CLINICAL HISTORY: dyspnea 1 view chest x-ray Comparison: CT dated 03/22/2024 Findings: Emphysematous lungs and mild right basilar lung scarring. Postsurgical right hilar/perihilar changes. Mild hazy left basilar atelectasis/infiltrate. Heart size is normal. No acute fracture. IMPRESSION: Mild hazy left basilar atelectasis/infiltrate. This document has been electronically signed by: Celestina Cardona MD on 08/20/2024 11:57:33 Dictated By: Celestina Cardona MD Signed By: Electronically signed by Celestina Cardona MD 08/20/24 1158 I independently interpreted this EKG and am in agreement with the below findings: Vent. Rate: 107 BPM Atrial Rate: 107 BPM P-R Int: 132 ms QRS Dur: 70 ms QT Int: 326 ms P-R-T Axes: 80 79 74 degrees QTcB Int: 435 ms Sinus tachycardia Possible Left atrial enlargement Minimal voltage criteria for LVH, may be normal variant ([place] product) When compared with ECG of 12-Nov-2021 09:59, No significant change was found DD/ 1016 Radiology Impression Discussion of test interpretation with radiology: I have reviewed the radiologist's reading. Independent Historian Clinical information obtained from an independent historian. History obtained from or confirmed by: Other (patient's daughter provided additional history and confirmed the history provided by the patient.) Critical Care Time Critical Care Time Critical Care Time: Yes Total Critical Care Time: 31 Attestation: I spent 31 minutes of Critical Care Time with this patient. This does not include time spent on separately reported billable procedures. Discharge Plan Discharge Clinical Impression: Hypoxia, Asthma exacerbation in COPD, Pneumonia Patient Disposition: Admitted As Inpatient Print Language: Rw[place]an
[2024-08-20 10:28] LABS: MANUAL DIFF FLAG NO
[2024-08-20 10:29] LABS: Basophils Percent Auto 0.2 % (0-2); Eosinophils Percent Auto 0.4 % (0-4); Hematocrit 44.6 % (37.0-47.0); Hemoglobin 15.5 g/dl (12.0-16.0); Imm Gran Abs Auto 0.02 X10*3/uL (0.00-0.03); Imm Gran Pct Auto 0.2 % (0.0-0.4); Lymphocytes Absolute Auto 0.8 X10*3/uL (1.2-4.9); Lymphocytes Percent Auto 9.1 % (20-40); Mean Corpuscular HGB Conc 34.8 g/dl (31.0-35.0); Mean Corpuscular Hemoglobin 30.9 pg (27.0-33.0); Mean Corpuscular Volume 88.8 fL (80.0-98.0); Mean Platelet Volume 8.5 fL (9.4-12.3); Monocytes Absolute Auto 0.8 X10*3/uL (0.1-1.2); Monocytes Percent Auto 9.2 % (2-11); Neutrophils Absolute Auto 7.3 x10*3/uL (2.0-8.3); Neutrophils Percent Auto 80.9 % (45-73); Platelet Count 409 X10*3/uL (160-400); Red Blood Count 5.02 X10*6/uL (4.20-5.50); Red Cell Distribution Width 13.7 % (11.0-16.0)
[2024-08-20 10:50] LABS: Alanine Aminotransferase 13 U/L (0-31); Alkaline Phosphatase 75 U/L (39-117); Anion Gap 18 (12-20); Aspartate Amino Transferase 23 U/L (5-31); Bilirubin Total 0.5 mg/dL (0.0-1.0); Blood Urea Nitrogen 7 mg/dL (9-16); Carbon Dioxide 26 mmol/L (22-29); Chloride 95 mmol/L (96-108); Creatinine Clr Calc Pharmacy 64.1; Estimated Glomerular Filt Rate > 60; Glucose Random 116 mg/dL (60-115); Potassium 3.4 mmol/L (3.3-5.1); Sodium 136 mmol/L (135-145); Total Protein 7.5 g/dL (6.5-8.0)
[2024-08-20 10:56] LABS: B Type Natriuretic Peptide < 10 pg/mL (<100)
[2024-08-20 10:58] LABS: Troponin-I High Sensitivity 3.8 ng/L (<3.5-17.0)
[2024-08-20] MEDS: methylPREDNISolone Sod Succ 125 MG/2 ML VIAL 60 MG IVPUSH (10:59)
[2024-08-20] MEDS: Magnesium Sulfate/D5W 1 GM/100 ML PIGGYBACK IV (11:02)
[2024-08-20] MEDS: Albuterol Sulfate 5 MG, Albuterol Sulfate (0.083%) 2.5 MG 7.5 MG INHALE (11:03)
[2024-08-20 11:05] LABS: Venous Blood Gas Refer to POC result
[2024-08-20 11:05] LABS: VBG Base Excess 7.7 mmol/L; VBG HCO3 32 mmol/L (22-26); VBG pCO2 42 mmHg; VBG pH 7.48 (7.32-7.43); VBG pO2 42 mmHg
[2024-08-20 11:07] LABS: Influenza A PCR NEGATIVE (Negative); Influenza B PCR NEGATIVE (Negative); Resp Syncy Virus RNA Qual PCR NEGATIVE (Negative); SARS COV2 PCR INHOUSE NEGATIVE (Negative)
[2024-08-20] MEDS: LORazepam 2 MG/ML VIAL 1 MG IVPUSH (11:21)
[2024-08-20] MEDS: cefTRIAXone sodium 1 GM VIAL IVPUSH ×2 (11:24→22:35)
[2024-08-20] MEDS: Azithromycin 500 MG in 0.9 % Sodium Chloride 250 ML 125 MG IV (11:37)
--- NOTE | 2024-08-20 12:13 | P.HPHOSP_ITS ---
History of Present Illness Date of Service: 08/20/24 Attending physician on admission: Benjie Crane Chief Complaint: SOB 64 year old female presents to the ED w/ fatigue, malaise, shortness of breath and cough X 3 days. Cough is non productive. Shortness of breath present at rest and with exertion but seems to be worse with even mild exertion. She denies recent travel, long travel, hx PE/DVT, endorses cancer hx. Not on Blood thinners or OCPS. Denies CP, nausea, vomiting, abd pain, headache, vision changes, dizziness, fevers, chills. She tells me she just doesnt feel like her self. Review of Systems 2 Review of Systems: Yes all other systems are reviewed and are negative [facility] Medical History Tobacco dependence Tachycardia Benign essential hypertension Adenocarcinoma of right lung (~2021) Pulmonary nodule Personal history of nicotine dependence Bronchiectasis Pure hypercholesterolemia Anxiety Vitamin D deficiency COPD (chronic obstructive pulmonary disease) Functional capacity: independent ambulation Family History Father Myocardial infarction Mother Stroke Family/Other Hypertension Surgical History History of lung surgery (~2021) History of thumb surgery History of reversal of tubal ligation History of colonoscopy History of tubal ligation Social History Housing: House Alcohol intake: current Alcohol intake frequency: holidays/special occasions only Patient Tobacco Use Status: Former Tobacco user Tobacco use type: Cigarette Cigarettes Per Day: 15 Years Smoked: Current smoker, onset 16, 3/4ppd x 45yrs, 33pyh Smoked in Last 30 Days: Yes e-Cigarette/Vaping Use: Never Used Second Hand Smoke Exposure: Yes Advance Directives: Yes Advance Directives Information Provided: No Advance Directives on File: No Do you have a plan to hurt others: No Plan service: No Current occupational status: employed Cognitive needs: No Hearing needs: No Vision needs: Yes Meds Allergies Allergy/AdvReac Type Severity Reaction Status Date / Time levofloxacin [From LEVAQUIN] Allergy Intermediate NAUSEA & Verified 08/20/24 10:08 VOMITING, hives bupropion Allergy Unknown increased Verified 08/20/24 10:08 anxiety/depression Active Medications: Current Medications Azithromycin 500 mg/ Sodium (Chloride) 250 mls @ 125 mls/hr IV ONCE ONE Stop: 08/20/24 13:00 Last Admin: 08/20/24 11:37 Dose: 125 mls/hr Home Medications ?Medication ?Instructions ?Recorded ?Confirmed ?Last Taken ?Type nicotine 14 mg/24 hr daily 1 patch transdermal DAILY 08/20/24 08/20/24 Unknown History transdermal patch Physical Exam 2 Vital Signs and Narrative: Vital Signs: Last Vital Signs Temp 98.1 F 08/20/24 10:03 Pulse 106 H 08/20/24 10:40 Resp 22 H 08/20/24 10:40 BP 153/99 H 08/20/24 10:03 Pulse Ox 94 08/20/24 10:08 O2 Del Method Nasal Cannula 08/20/24 10:08 O2 Flow Rate 3 08/20/24 10:08 Oxygen Flow Rate 3 08/20/24 10:03 BMI result Body Mass Index 18.5 vss 94% on 3L NCC Appearance: Alert.? Oriented X3.? No acute distress.? Head: Normocephalic, atraumatic, no step-offs or deformities Eyes: Pupils equal, round and reactive to light.? Neck: Normal inspection.? Neck supple.? CVS: Normal heart rate and rhythm.? Pulses normal.? Respiratory: No respiratory distress.? Breath sounds diminished b.l & expiratory wheezing b/l .? Abdomen: Soft and nontender.? Skin: Skin warm and dry.? Normal skin color.? Normal skin turgor.? Extremities: No lower extremity edema.? No calf ttp. 5/5 strength to bilateral upper and lower extremities Back: No midline tenderness, no C-spine tenderness, full range of motion, no CVA tenderness bilaterally Neuro: Oriented X 3.? No motor deficit.? No sensory deficit. CN 2-12 intact Results Labs 08/20/24 10:22 08/20/24 10:24 Labs: Laboratory Results - last 24 hr 08/20/24 08/20/24 08/20/24 10:22 10:24 11:01 MCV 88.8 MCH 30.9 MCHC 34.8 RDW 13.7 Plt Count 409 H MPV 8.5 L Immature Gran % (Auto) 0.2 Neut % (Auto) 80.9 H Lymph % (Auto) 9.1 L [place] % (Auto) 9.2 Eos % (Auto) 0.4 Baso % (Auto) 0.2 Lymph # (Auto) 0.8 L [place] # (Auto) 0.8 Eos # (Auto) 0.0 Baso # (Auto) 0.0 Abs Immat Gran (auto) 0.02 Absolute Neuts (auto) 7.3 Absolute Nucleated RBC 0.000 Nucleated RBC % (auto) 0.0 VBG pH 7.48 H VBG pCO2 42 VBG pO2 42 VBG HCO3 32 H VBG O2 Saturation 70.0 VBG Base Excess 7.7 Anion Gap 18 Estim Creat Clear Calc 64.1 Estimated GFR > 60 Random Glucose 116 H Calcium 10.0 Total Bilirubin 0.5 AST 23 ALT 13 Alkaline Phosphatase 75 B-Natriuretic Peptide < 10 Total Protein 7.5 Albumin 4.0 Influenza Type A (PCR) NEGATIVE Influenza Type B (PCR) NEGATIVE RSV RNA Qual (PCR) NEGATIVE SARS-CoV-2 RNA (RT-PCR) NEGATIVE Assessment and Plan (1) Asthma exacerbation in COPD: Status: Acute (2) Hypoxia: Status: Acute (3) Malignant neoplasm of unspecified part of right bronchus or lung: Status: Acute (4) Tobacco dependence: Status: Acute (5) Bronchitis: Status: Acute Plan 64 year old female hx copd, asthma, hypertension, lung cancer, anxiety, presents to the ed w/ 3 days of cough and shortness of breath. She reports overall just feeling tired and unwell. No sick contacts. Denies hx of DT/KS. Not on thinners. Denies CP, fevers, chills, headache, vision changes, dizziness, weakness, nausea, vomiting, abd pain.Labs CBC unremarkable, chemistry no acute findings needing intervention. Viral panel negative however I [place] [facility] [place]. Xray with mild hazy left basilar atelectasis/infiltrate. Requested ED to order CTA chest to rule out PE as patient has hx of malignancy is tachycardic, hypoxic 85% on 3 L as well as tachypnic Tachycardia likely in setting of multiple nebulizing treatments I do not suspect sepsis 1435- CTA no PE mild amount of ground glass opacity which could be infections ( follow treatment guide as below) #Hypoxia #Bronchitis -Ceftriaxone 1 g IV Q 12 H & Azithromycin 500 mg IV daily -Decadron 6 mg IVP daily [place] [place] pending #COPD/Asthma overlap -Duoneb 3 mL q4h prn #Hypertension -Amlodipine 10 mg daily -Hydralazine 50 mg TID -Hydrochlorothiazide 12.5 mg dialy #lung cancer - Adenocarcioma in R lung s/p lobectomy, chemo and immunotherapy ( although patient says its on the left side but all medical records show right) -Could be contributing to SOB # Anxiety - Lorazepam 0.5 mg TID PRN #Nicotine dependence -Nicotine patches PRN Code status: full code DVTP: Lovenox Quality Stroke Does the patient have a stroke diagnosis?: No VTE Prior VTE?: No VTE Risk Level:: Medical - moderate - high VTE Device Contraindication: Treatment Not Indicated VTE Drug Contraindication: N/A - Med Ordered
[2024-08-20] MEDS: Nicotine 14 MG PATCH.TD24 TRANSDERMA (12:36)
[2024-08-20] MEDS: Nicotine Polacrilex Lozenge 2 MG LOZENGE BUCCAL (12:37)
[2024-08-20] MEDS: iohexoL 350 MG/ML 100 ML INFUS..BTL IV (12:56)
--- NOTE | 2024-08-20 13:09 | PHA.MEDREC ---
Pharmacy Consult ? Medication Reconciliation Pharmacy has completed the medication reconciliation. Spoke to pt to confirm meds. Per pt, no longer taking ABX at home.
[2024-08-20] MEDS: hydrALAZINE HCl 50 MG TABLET PO ×2 (16:09→21:38)
[2024-08-20] MEDS: Enoxaparin Sodium 40 MG/0.4 ML SYRINGE SUBCUT (16:09)
[2024-08-20] MEDS: 0.9 % Sodium Chloride Flush 3 ML SYRINGE IVFLUSH (16:09)
--- NOTE | 2024-08-20 17:11 | PM.EVENT ---
Event Note Date of Service: 08/20/24 Event Note: patient is inga nd exmained came with sob and productive cough ,generlaised weak labs ,imaging ,ekg reviewed : cbc , bmp seems fine , ekg nsr cta :No pulmonary embolism.Mild amount of bilateral ground-glass opacity which could be infectious /inflammatory. Three-month follow-up chest CT is recommended to confirm resolution. physical exam and assessment and plan coordianted in APC note agree with the plan in addition: acute hypoxemic respiratory failure sec to copd/possible pneumonia per cta tachycardia sec to nebs tachypnea sec to copd no leucocytosis or fever no sepsis at present started on nebs ,steriods ,antibiotics ,oxygen ,moniter closely for respiratory status and sats Time Spent With Patient Time: Total time managing care of this patient today ____ minutes.
[2024-08-20] MEDS: LORazepam 0.5 MG TABLET PO (22:45)
--- NOTE | 2024-08-20 22:52 | PC.NURSE ---
pt ambulated to bathroom with 02 tank on wheels 3L. pt has sob with exp wheezing.
[2024-08-21] VITALS (13 sets, daily range): BP systolic 116–127; BP diastolic 62–74; PULSE 89–101; RESP 16–20; TEMP 36.5–37.1; O2SAT 93–95
[2024-08-21] MEDS: 0.9 % Sodium Chloride Flush 3 ML SYRINGE IVFLUSH ×3 (01:01→15:20)
--- NOTE | 2024-08-21 01:10 | PC.NURSE ---
Report taken from Phuong RN, assumed care of pt at 2300. Pt resting in bed eyes closed easily awoken. A&Ox3 skin pwd respirations even unlabored. Productive cough noted. Offers no complaints. VSS. Awaiting bed assignment for admission, aware of plan of care.
[2024-08-21] MEDS: Albuterol/Iprat 2.5/0.5MG 3 ML AMPUL.NEB INHALE ×2 (01:58→06:59)
--- NOTE | 2024-08-21 05:56 | PC.NURSE ---
Pt continues to rest in bed NAD. Skin pwd respirations even unlabored. Continues to await bed assignment for admission.
[2024-08-21 06:45] LABS: Hematocrit 40.8 % (37.0-47.0); Hemoglobin 13.6 g/dl (12.0-16.0); Mean Corpuscular HGB Conc 33.3 g/dl (31.0-35.0); Mean Corpuscular Hemoglobin 30.3 pg (27.0-33.0); Mean Corpuscular Volume 90.9 fL (80.0-98.0); Mean Platelet Volume 9.2 fL (9.4-12.3); Platelet Count 427 X10*3/uL (160-400); Red Blood Count 4.49 X10*6/uL (4.20-5.50); Red Cell Distribution Width 13.5 % (11.0-16.0); White Blood Count 11.9 X10*3/uL (4.8-10.8)
[2024-08-21 07:02] LABS: Alanine Aminotransferase 13 U/L (0-31); Albumin Level 3.6 g/dL (3.5-5.0); Alkaline Phosphatase 66 U/L (39-117); Anion Gap 14 (12-20); Aspartate Amino Transferase 19 U/L (5-31); Bilirubin Total 0.2 mg/dL (0.0-1.0); Blood Urea Nitrogen 7 mg/dL (9-16); Calcium 9.6 mg/dL (8.4-10.2); Carbon Dioxide 30 mmol/L (22-29); Chloride 99 mmol/L (96-108); Creatinine Clr Calc Pharmacy 67.3; Estimated Glomerular Filt Rate > 60; Glucose Random 121 mg/dL (60-115); Potassium 3.6 mmol/L (3.3-5.1); Sodium 139 mmol/L (135-145); Total Protein 6.6 g/dL (6.5-8.0)
[2024-08-21] MEDS: Tiotropium Bromide 2.5 mcg 1 PUFF/2.5 MCG MIST.INHAL 2 PUFF INHALE (07:47)
[2024-08-21] MEDS: Fluticasone/Vilanterol 100/25 BLST.W.DEV 1 PUFF INHALE (07:48)
[2024-08-21] MEDS: Cholecalciferol (Vitamin D3) 25 MCG TABLET 50 MCG PO (08:34)
[2024-08-21] MEDS: hydroCHLOROthiazide 12.5 MG TABLET PO (08:34)
[2024-08-21] MEDS: hydrALAZINE HCl 50 MG TABLET PO ×3 (08:34→20:44)
[2024-08-21] MEDS: amLODIPine Besylate 10 MG TABLET PO (08:35)
[2024-08-21] MEDS: Nicotine 14 MG PATCH.TD24 TRANSDERMA (08:36)
[2024-08-21] MEDS: dexAMETHasone sod phosphate 4 MG/ML VIAL 6 MG IVPUSH (08:37)
[2024-08-21] MEDS: Azithromycin 500 MG in 0.9 % Sodium Chloride 250 ML 125 MG IV (08:40)
[2024-08-21] MEDS: LORazepam 0.5 MG TABLET PO ×2 (08:46→20:46)
[2024-08-21 08:53] LABS: C Reactive Protein 4.61 mg/dL (< or = 0.50)
[2024-08-21 09:09] LABS: Procalcitonin 0.04 ng/mL
--- NOTE | 2024-08-21 09:49 | PC.NURSE ---
Pt alert and oriented, breathing even and unlabored right now. On 3L O2 NC. Had breathing treatment this morning with good effect. Reporting pain with breathing. Ate breakfast and took morning meds with no issues. No new complaints.
[2024-08-21] MEDS: cefTRIAXone sodium 1 GM VIAL IVPUSH (11:18)
[2024-08-21] MEDS: Nicotine Polacrilex Lozenge 2 MG LOZENGE BUCCAL (11:18)
[2024-08-21 11:45] LABS: Adenovirus PCR Not Detected (Not Detect.); Bordetella parapertussis PCR Not Detected (Not Detect.); Bordetella pertussis PCR Not Detected (Not Detect.); Chlamydia pneumoniae PCR Not Detected (Not Detect.); Coronavirus 229E PCR Not Detected (Not Detect.); Coronavirus HKU1 PCR Not Detected (Not Detect.); Coronavirus NL63 PCR Not Detected (Not Detect.); Coronavirus OC43 PCR Not Detected (Not Detect.); Human metapneumovirus PCR Not Detected (Not Detect.); Influenza A PCR Not Detected (Not Detect.); Influenza B PCR Not Detected (Not Detect.); Mycoplasma pneumoniae PCR Not Detected (Not Detect.); Parainfluenza 1 PCR Not Detected (Not Detect.); Parainfluenza 2 PCR Not Detected (Not Detect.); Parainfluenza 3 PCR Not Detected (Not Detect.); Parainfluenza 4 PCR Not Detected (Not Detect.); RSV PCR Not Detected (Not Detect.); Rhino/Enterovirus PCR Not Detected (Not Detect.)
--- NOTE | 2024-08-21 11:50 | HO.PM.IMPN ---
Subjective Subjective Date of Service: 08/21/24 Interval History: c/o dyspnea, wheeze; nonproductive cough; no fever smokes 5-7 cig/d, requesting nicotine lozenge in addition to patch Review of Systems Review of Systems: Yes all other systems are reviewed and are negative Physical Exam Vital Signs: Vital Signs: Last Vital Signs Temp 97.8 F 08/21/24 08:41 Pulse 101 H 08/21/24 08:41 Resp 19 08/21/24 08:41 BP 119/65 08/21/24 08:41 Pulse Ox 94 08/21/24 08:41 O2 Del Method Nasal Cannula 08/21/24 08:41 O2 Flow Rate 3 08/21/24 08:41 Oxygen Flow Rate 3 08/20/24 10:03 BMI result Body Mass Index 18.5 Gen: pursed-lip breathing HEENT: sclera anicteric, moist mucus membranes Neck: supple Lungs: diminished, scattered inspiratory rhonchi Heart: regular rate and rhythm, no murmurs Abd: soft, non-tender, non-distended Ext: no edema Skin: warm/well-perfused Neuro: alert and oriented x3, no focal findings Psych: appropriate affect Objective Data Active Medications Acetaminophen (Acetaminophen 325 Mg Tablet) 650 mg PO Q6H PRN PRN Reason: Pain, Mild 1-3,fever,headache Amlodipine Besylate (Amlodipine Besylate 10 Mg Tablet) 10 mg PO DAILY [facility]; Protocol Last Admin: 08/21/24 08:35 Dose: 10 mg Documented By: CRISPIN Calcium Carbonate (Calcium Carbonate 750 Mg Tab.Chew) 750 mg PO Q4H PRN PRN Reason: Heartburn Ceftriaxone Sodium (Ceftriaxone Sodium 1 Gm Vial) 1 gm IVPUSH Q12H [facility] Last Admin: 08/21/24 11:18 Dose: 1 gm Documented By: CRISPIN Levalbuterol HCl 1.25 mg/ (Ipratropium [place] 0.5 mg) 0 mg INHALE Q4H PRN PRN Reason: shortness of breath or wheeze Dexamethasone Sodium Phosphate (Dexamethasone Sod Phosphate 4 Mg/Ml Vial) 6 mg IVPUSH DAILY [facility] Last Admin: 08/21/24 08:37 Dose: 6 mg Documented By: CRISPIN Enoxaparin Sodium (Enoxaparin Sodium 40 Mg/0.4 Ml Syringe) 40 mg SUBCUT Q24H [facility] Last Admin: 08/20/24 16:09 Dose: 40 mg Documented By: LENY Fluticasone/Vilanterol (Fluticasone/Vilanterol 100/25 Blst.W.Dev) 1 puff INHALE RDAILY [facility] Last Admin: 08/21/24 07:48 Dose: 1 puff Documented By: CRISPIN Hydralazine HCl (Hydralazine Hcl 50 Mg Tablet) 50 mg PO TID [facility]; Protocol Last Admin: 08/21/24 08:34 Dose: 50 mg Documented By: CRISPIN Hydrochlorothiazide (Hydrochlorothiazide 12.5 Mg Tablet) 12.5 mg PO DAILY [facility]; Protocol Last Admin: 08/21/24 08:34 Dose: 12.5 mg Documented By: CRISPIN Azithromycin 500 mg/ Sodium (Chloride) 250 mls @ 125 mls/hr IV DAILY [facility] Stop: 08/24/24 08:59 Last Infusion: 08/21/24 10:56 Dose: Infused Documented By: CRISPIN Lorazepam (Lorazepam 0.5 Mg Tablet) 0.5 mg PO TID PRN PRN Reason: anxiety Last Admin: 08/21/24 08:46 Dose: 0.5 mg Documented By: CRISPIN Magnesium Hydroxide (Milk Of Magnesia 30 Ml Oral.Susp) 30 ml PO DAILY PRN PRN Reason: Constipation Melatonin (Melatonin 3 Mg Tablet) 6 mg PO BEDTIME PRN PRN Reason: Insomnia Nicotine (Nicotine 14 Mg Patch.Td24) 14 mg TRANSDERMA DAILY [facility] Last Admin: 08/21/24 08:36 Dose: 14 mg Documented By: CRISPIN Nicotine Polacrilex (Nicotine Polacrilex Lozenge 2 Mg Lozenge) 2 mg BUCCAL Q2H PRN PRN Reason: Nicotine Cravings Last Admin: 08/21/24 11:18 Dose: 2 mg Documented By: CRISPIN Sodium Chloride (0.9 % Sodium Chloride Flush 3 Ml Syringe) 3 ml IVFLUSH QSHIFT [facility] Last Admin: 08/21/24 07:49 Dose: 3 ml Documented By: CRISPIN Tiotropium [place] (Tiotropium [place] 2.5 Mcg 1 Puff/2.5 Mcg Mist.Inhal) 2 puff INHALE RDAILY [facility] Last Admin: 08/21/24 07:47 Dose: 2 puff Documented By: CRISPIN Vitamin D (Cholecalciferol (Vitamin D3) 25 Mcg Tablet) 50 mcg PO DAILY [facility] Last Admin: 08/21/24 08:34 Dose: 50 mcg Documented By: CRISPIN Labs 08/21/24 06:19 08/21/24 06:19 Labs: Laboratory Results - last 24 hr 08/21/24 06:19 MCV 90.9 MCH 30.3 MCHC 33.3 RDW 13.5 Plt Count 427 H MPV 9.2 L Absolute Nucleated RBC 0.000 Nucleated RBC % (auto) 0.0 Anion Gap 14 Estim Creat Clear Calc 67.3 Estimated GFR > 60 Random Glucose 121 H Calcium 9.6 Total Bilirubin 0.2 AST 19 ALT 13 Alkaline Phosphatase 66 C-Reactive Protein 4.61 H Total Protein 6.6 Albumin 3.6 Procalcitonin 0.04 Assessment and Plan (1) COPD exacerbation: Status: Acute Plan d2 for 64yo F with hx lung adenoCA s/p RUL lobectomy/chemotherapy/immunotherapy, COPD on prn home O2, asthma, HTN, and anxiety presenting with 3d of cough + dyspnea, found to be hypoxic; CTA with no PE but with bilateral GGO acute-chronic hypoxic respiratory failure due to COPD/asthma exacerbation and ground-glass pneumonia - dexamethasone 08/21-, ceftriaxone + azithromycin 08/20-, nebs, Breo + Spiriva - RPP pending, follow BCx, send urinary antigens for Legionella and pneumococcus, trend PCT - wean O2 as tolerated; on prn home O2 HTN - continue amlodipine, hydralazine, HCTZ anxiety - continue prn lorazepam tobacco abuse - combination NRT patch/lozenge dispo - PT eval; may benefit from outpt pulm rehab VTE ppx - enoxaparin In my clinical judgment, the patient requires continued inpatient hospitalization for the following reasons: hypoxia Total time managing care of this patient today: 35 minutes. Quality Stroke Does the patient have a stroke diagnosis?: No VTE Prior VTE?: No VTE Risk Level:: Medical - moderate - high VTE Device Contraindication: Treatment Not Indicated VTE Drug Contraindication: N/A - Med Ordered
[2024-08-21 12:45] LABS: SARS-CoV-2 PCR Not Detected (Not Detect.)
[2024-08-21] MEDS: Enoxaparin Sodium 40 MG/0.4 ML SYRINGE SUBCUT (15:19)
--- NOTE | 2024-08-21 16:25 | MHC.CM.PN ---
PT REPORTS SHE LIVES WITH HER SPOUSE AND IS INDEPENDENT WITH CARE SHE HAS NO SERVICES AND USES HOME OXYGEN COPY OF HCP REQUESTED P[CP: JOSE M VALADEZ DCP: HOME NO SERVICES VIA FAMILY TRANSPORT
[2024-08-21] MEDS: Melatonin 3 MG TABLET 6 MG PO (23:36)
[2024-08-22] VITALS (8 sets, daily range): BP systolic 120–145; BP diastolic 57–72; PULSE 75–98; RESP 14–18; TEMP 36–36.7; O2SAT 87–95; BMI 18.5
[2024-08-22 07:17] LABS: Hematocrit 41.9 % (37.0-47.0); Hemoglobin 14.8 g/dl (12.0-16.0); Mean Corpuscular HGB Conc 35.3 g/dl (31.0-35.0); Mean Corpuscular Hemoglobin 31.5 pg (27.0-33.0); Mean Corpuscular Volume 89.1 fL (80.0-98.0); Mean Platelet Volume 8.8 fL (9.4-12.3); Platelet Count 435 X10*3/uL (160-400); Red Cell Distribution Width 13.4 % (11.0-16.0); White Blood Count 14.3 X10*3/uL (4.8-10.8)
[2024-08-22 07:21] LABS: VBG Base Excess 10.7 mmol/L; VBG HCO3 35 mmol/L (22-26); VBG pCO2 47 mmHg; VBG pH 7.48 (7.32-7.43); VBG pO2 84 mmHg
[2024-08-22 07:21] LABS: Venous Blood Gas Refer to POC result
[2024-08-22 07:32] LABS: Anion Gap 14 (12-20); Blood Urea Nitrogen 14 mg/dL (9-16); Calcium 9.7 mg/dL (8.4-10.2); Carbon Dioxide 31 mmol/L (22-29); Chloride 100 mmol/L (96-108); Creatinine Clr Calc Pharmacy 66.2; Estimated Glomerular Filt Rate > 60; Glucose Random 95 mg/dL (60-115); Potassium 3.5 mmol/L (3.3-5.1); Sodium 141 mmol/L (135-145)
[2024-08-22] MEDS: dexAMETHasone sod phosphate 4 MG/ML VIAL 6 MG IVPUSH (08:07)
[2024-08-22] MEDS: hydrALAZINE HCl 50 MG TABLET PO ×3 (08:07→20:13)
[2024-08-22] MEDS: Azithromycin 500 MG in 0.9 % Sodium Chloride 250 ML 125 MG IV (08:07)
[2024-08-22] MEDS: Cholecalciferol (Vitamin D3) 25 MCG TABLET 50 MCG PO (08:07)
[2024-08-22] MEDS: amLODIPine Besylate 10 MG TABLET PO (08:07)
[2024-08-22] MEDS: hydroCHLOROthiazide 12.5 MG TABLET PO (08:07)
[2024-08-22] MEDS: Nicotine 14 MG PATCH.TD24 TRANSDERMA (08:08)
[2024-08-22] MEDS: 0.9 % Sodium Chloride Flush 3 ML SYRINGE IVFLUSH ×3 (08:08→20:13)
[2024-08-22] MEDS: cefTRIAXone sodium 1 GM VIAL IVPUSH (13:48)
--- NOTE | 2024-08-22 13:54 | HO.PM.IMPN ---
Subjective Subjective Date of Service: 08/22/24 Interval History: hypoxic to 87 on RA though dyspnea improved short of breath with exertion Review of Systems Review of Systems: Yes all other systems are reviewed and are negative Physical Exam Vital Signs: Vital Signs: Last Vital Signs Temp 98.0 F 08/22/24 11:37 Pulse 98 08/22/24 11:37 Resp 14 08/22/24 11:37 BP 145/60 H 08/22/24 11:37 Pulse Ox 87 L 08/22/24 11:37 O2 Del Method Room Air 08/22/24 11:37 O2 Flow Rate 2 08/22/24 07:41 Oxygen Flow Rate 3 08/20/24 10:03 BMI result Body Mass Index 18.5 Gen: NAD HEENT: sclera anicteric, moist mucus membranes Neck: supple Lungs: diminished Heart: regular rate and rhythm, no murmurs Abd: soft, non-tender, non-distended Ext: no edema Skin: warm/well-perfused Neuro: alert and oriented x3, no focal findings Psych: appropriate affect Objective Data Active Medications Acetaminophen (Acetaminophen 325 Mg Tablet) 650 mg PO Q6H PRN PRN Reason: Pain, Mild 1-3,fever,headache Amlodipine Besylate (Amlodipine Besylate 10 Mg Tablet) 10 mg PO DAILY [facility]; Protocol Last Admin: 08/22/24 08:07 Dose: 10 mg Documented By: PAM Calcium Carbonate (Calcium Carbonate 750 Mg Tab.Chew) 750 mg PO Q4H PRN PRN Reason: Heartburn Ceftriaxone Sodium (Ceftriaxone Sodium 1 Gm Vial) 1 gm IVPUSH Q24H [facility] Last Admin: 08/22/24 13:48 Dose: 1 gm Documented By: PAM Levalbuterol HCl 1.25 mg/ (Ipratropium [place] 0.5 mg) 0 mg INHALE Q4H PRN PRN Reason: shortness of breath or wheeze Dexamethasone Sodium Phosphate (Dexamethasone Sod Phosphate 4 Mg/Ml Vial) 6 mg IVPUSH DAILY [facility] Last Admin: 08/22/24 08:07 Dose: 6 mg Documented By: PAM Enoxaparin Sodium (Enoxaparin Sodium 40 Mg/0.4 Ml Syringe) 40 mg SUBCUT Q24H [facility] Last Admin: 08/21/24 15:19 Dose: 40 mg Documented By: CRISPIN Fluticasone/Vilanterol (Fluticasone/Vilanterol 100/25 Blst.W.Dev) 1 puff INHALE RDAILY [facility] Last Admin: 08/22/24 11:15 Dose: Not Given Documented By: ALEM Non-Admin Reason: Med Not Available Hydralazine HCl (Hydralazine Hcl 50 Mg Tablet) 50 mg PO TID [facility]; Protocol Last Admin: 08/22/24 08:07 Dose: 50 mg Documented By: PAM Hydrochlorothiazide (Hydrochlorothiazide 12.5 Mg Tablet) 12.5 mg PO DAILY [facility]; Protocol Last Admin: 08/22/24 08:07 Dose: 12.5 mg Documented By: PAM Azithromycin 500 mg/ Sodium (Chloride) 250 mls @ 125 mls/hr IV DAILY [facility] Stop: 08/24/24 08:59 Last Infusion: 08/22/24 10:24 Dose: Infused Documented By: PAM Lorazepam (Lorazepam 0.5 Mg Tablet) 0.5 mg PO TID PRN PRN Reason: anxiety Last Admin: 08/21/24 20:46 Dose: 0.5 mg Documented By: ARLETTE Magnesium Hydroxide (Milk Of Magnesia 30 Ml Oral.Susp) 30 ml PO DAILY PRN PRN Reason: Constipation Melatonin (Melatonin 3 Mg Tablet) 6 mg PO BEDTIME PRN PRN Reason: Insomnia Last Admin: 08/21/24 23:36 Dose: 6 mg Documented By: DENISE Nicotine (Nicotine 14 Mg Patch.Td24) 14 mg TRANSDERMA DAILY [facility] Last Admin: 08/22/24 08:08 Dose: 14 mg Documented By: PAM Nicotine Polacrilex (Nicotine Polacrilex Lozenge 2 Mg Lozenge) 2 mg BUCCAL Q2H PRN PRN Reason: Nicotine Cravings Last Admin: 08/21/24 11:18 Dose: 2 mg Documented By: CRISPIN Sodium Chloride (0.9 % Sodium Chloride Flush 3 Ml Syringe) 3 ml IVFLUSH QSHIFT [facility] Last Admin: 08/22/24 08:08 Dose: 3 ml Documented By: PAM Tiotropium [place] (Tiotropium [place] 2.5 Mcg 1 Puff/2.5 Mcg Mist.Inhal) 2 puff INHALE RDAILY [facility] Last Admin: 08/22/24 11:15 Dose: Not Given Documented By: ALEM Non-Admin Reason: Med Not Available Vitamin D (Cholecalciferol (Vitamin D3) 25 Mcg Tablet) 50 mcg PO DAILY [facility] Last Admin: 08/22/24 08:07 Dose: 50 mcg Documented By: PAM Labs 08/22/24 07:10 08/22/24 07:10 Labs: Laboratory Results - last 24 hr 08/22/24 08/22/24 07:10 07:17 MCV 89.1 MCH 31.5 MCHC 35.3 H RDW 13.4 Plt Count 435 H MPV 8.8 L Absolute Nucleated RBC 0.000 Nucleated RBC % (auto) 0.0 VBG pH 7.48 H VBG pCO2 47 VBG pO2 84 VBG HCO3 35 H VBG O2 Saturation 98.0 VBG Base Excess 10.7 Anion Gap 14 Estim Creat Clear Calc 66.2 Estimated GFR > 60 Random Glucose 95 Calcium 9.7 Assessment and Plan (1) COPD exacerbation: Status: Acute Plan d3 for 64yo F with hx lung adenoCA s/p RUL lobectomy/chemotherapy/immunotherapy, COPD on prn home O2, asthma, HTN, and anxiety presenting with 3d of cough + dyspnea, found to be hypoxic; CTA with no PE but with bilateral ground-glass opacities acute-chronic hypoxic respiratory failure due to COPD/asthma exacerbation and ground-glass pneumonia - dexamethasone 08/21-, ceftriaxone + azithromycin 08/20-, nebs, Breo + Spiriva - RPP negative, PCT low - on prn home O2; wean as tolerated HTN - continue amlodipine, hydralazine, HCTZ anxiety - continue prn lorazepam tobacco abuse - combination NRT patch/lozenge dispo - PT eval: outpt pulm rehab VTE ppx - enoxaparin In my clinical judgment, the patient requires continued inpatient hospitalization for the following reasons: hypoxia Total time managing care of this patient today: 35 minutes. Quality Stroke Does the patient have a stroke diagnosis?: No VTE Prior VTE?: No VTE Risk Level:: Medical - moderate - high VTE Device Contraindication: Treatment Not Indicated VTE Drug Contraindication: N/A - Med Ordered
[2024-08-22] MEDS: Enoxaparin Sodium 40 MG/0.4 ML SYRINGE SUBCUT (16:03)
[2024-08-22] MEDS: Acetaminophen 325 MG TABLET 650 MG PO (18:08)
[2024-08-22] MEDS: LORazepam 0.5 MG TABLET PO (23:59)
[2024-08-23] MEDS: Acetaminophen 325 MG TABLET 650 MG PO (00:01)
[2024-08-23 03:50] VITALS: BP 145/66; PULSE 66; RESP 16; TEMP 36.1; O2SAT 95
[2024-08-23 06:42] LABS: Venous Blood Gas Refer to POC result
[2024-08-23 06:45] LABS: VBG Base Excess 11.6 mmol/L; VBG HCO3 36 mmol/L (22-26); VBG pCO2 47 mmHg; VBG pH 7.49 (7.32-7.43); VBG pO2 96 mmHg
[2024-08-23 07:28] LABS: Anion Gap 13 (12-20); Blood Urea Nitrogen 13 mg/dL (9-16); Calcium 9.6 mg/dL (8.4-10.2); Carbon Dioxide 30 mmol/L (22-29); Chloride 100 mmol/L (96-108); Creatinine Clr Calc Pharmacy 68.5; Estimated Glomerular Filt Rate > 60; Glucose Random 88 mg/dL (60-115); Potassium 3.2 mmol/L (3.3-5.1); Sodium 140 mmol/L (135-145)
[2024-08-23 07:36] VITALS: BP 141/76; PULSE 77; RESP 18; TEMP 36.2; O2SAT 95
[2024-08-23 07:46] LABS: Procalcitonin 0.03 ng/mL
[2024-08-23] MEDS: Tiotropium Bromide 2.5 mcg 1 PUFF/2.5 MCG MIST.INHAL 2 PUFF INHALE (08:08)
[2024-08-23 08:09] VITALS: PULSE 77; RESP 18; O2SAT 92
[2024-08-23] MEDS: Fluticasone/Vilanterol 100/25 BLST.W.DEV 1 PUFF INHALE (08:09)
[2024-08-23] MEDS: Nicotine 14 MG PATCH.TD24 TRANSDERMA (08:27)
[2024-08-23] MEDS: Azithromycin 500 MG in 0.9 % Sodium Chloride 250 ML 125 MG IV (08:28)
[2024-08-23] MEDS: 0.9 % Sodium Chloride Flush 3 ML SYRINGE IVFLUSH (08:28)
[2024-08-23 08:29] VITALS: BP 141/76
[2024-08-23] MEDS: dexAMETHasone sod phosphate 4 MG/ML VIAL 6 MG IVPUSH (08:29)
[2024-08-23] MEDS: Cholecalciferol (Vitamin D3) 25 MCG TABLET 50 MCG PO (08:29)
[2024-08-23] MEDS: amLODIPine Besylate 10 MG TABLET PO (08:29)
[2024-08-23] MEDS: hydrALAZINE HCl 50 MG TABLET PO (08:29)
[2024-08-23 08:30] VITALS: BP 141/76
[2024-08-23] MEDS: hydroCHLOROthiazide 12.5 MG TABLET PO (08:30)
[2024-08-23] MEDS: Potassium Chloride ER 20 MEQ TAB.ER.PRT 40 MEQ PO (08:45)
--- NOTE | 2024-08-23 11:26 | PM.DS ---
DS: Providers Provider Date of Service: 08/23/24 Date of admission: 08/20/24 13:51 Date of discharge: 08/23/24 Primary care physician: Babar Espino MD DS: Diagnosis Discharge Diagnosis (1) COPD exacerbation: Status: Acute DS: Summary Hospital Course Hospital Course: from initial hpi: 64 year old female presents to the ED w/ fatigue, malaise, shortness of breath and cough X 3 days. Cough is non productive. Shortness of breath present at rest and with exertion but seems to be worse with even mild exertion. She denies recent travel, long travel, hx PE/DVT, endorses cancer hx. Not on Blood thinners or OCPS. Denies CP, nausea, vomiting, abd pain, headache, vision changes, dizziness, fevers, chills. She tells me she just doesnt feel like her self. hospital course: Patient was admitted for acute on chronic hypoxic respiratory failure due to COPD/ moderate persistent asthma with acute decompensation at complicated by pneumonia. Was treated with dexamethasone, ceftriaxone, azithromycin, DuoNebs and inhalers. Respiratory viral panel was negative. Was weaned down to baseline O2 and will be discharged home with 5 more days of prednisone, cefuroxime, azithromycin. For hypertension was continued on amlodipine, hydralazine, hydrochlorothiazide. For anxiety was continued on lorazepam. For tobacco dependence was continued on nicotine patch. Patient is feeling better will be discharged home. Time Attestation Discharge Coordination Time (in mins): 34 Quality: Safe Use of Opioids Does Pt have an Active Cancer Diagnosis on the Problem List?: No Quality: Stroke Does the patient have a stroke diagnosis?: No Physical Exam Vital Signs: Vital Signs: Last Vital Signs Temp 97.1 F 08/23/24 07:36 Pulse 77 08/23/24 08:09 Resp 18 08/23/24 08:09 BP 141/76 H 08/23/24 08:30 Pulse Ox 95 08/23/24 07:36 O2 Del Method Nasal Cannula 08/23/24 07:36 O2 Flow Rate 2 08/23/24 07:36 Oxygen Flow Rate 3 08/20/24 10:03 BMI result Body Mass Index 18.5 General: AO X 3, no acute distress Resp: CTA bilateral, no accessory muscles used CVS: S1,S2,RRR GI: soft, non tender, non distended Neuro: motor grossly intact, alert Psych: appropriate affect, appropriate insight DS: Data Data Completed and Pending Labs on day of discharge: Laboratory Results - last 24 hr 08/23/24 08/23/24 06:37 06:41 Hold Purple Top SEE NOTE VBG pH 7.49 H VBG pCO2 47 VBG pO2 96 VBG HCO3 36 H VBG O2 Saturation 99.0 VBG Base Excess 11.6 Sodium 140 Potassium 3.2 L Chloride 100 Carbon Dioxide 30 H Anion Gap 13 BUN 13 Creatinine 0.58 Estim Creat Clear Calc 68.5 Estimated GFR > 60 Random Glucose 88 Calcium 9.6 Procalcitonin 0.03 Discharge Plan Discharge Anticipated Discharge Date/Time: 08/23/24 11:24 Patient Disposition: Home, Self-Care Discharge Diagnosis: copd Referrals: Babar Espino MD [Primary Care Provider] - 1 Week Discharge Medications: New prednisone 20 mg tablet 40 mg PO DAILY Qty: 10 0RF cefuroxime axetil 500 mg tablet 500 mg PO BID Qty: 10 0RF azithromycin 500 mg tablet 500 mg PO DAILY 5 Days Qty: 5 0RF Continued (DME) NEBULIZER with all related supplies, including tubing and mask See Rx Instructions .Route .MEDSUPPLY Qty: 1 0RF Rx Instructions: As directed (DME) PORTABLE OXYGEN TANK for home use See Rx Instructions .Route .MEDSUPPLY Qty: 1 0RF Rx Instructions: Use as directed at 1 LPM at rest and can go up to 2 to 3 LPM with ambulation amlodipine 10 mg tablet 10 mg PO DAILY 90 Days Qty: 90 1RF hydrochlorothiazide 12.5 mg capsule 12.5 mg PO DAILY 90 Days Qty: 90 1RF fluticasone propion-salmeterol [AirDuo RespiClick] 113-14 mcg/actuation aerosol powdr breath activated 1 inh inhalation Q12H 90 Days Qty: 3 1RF hydralazine 50 mg tablet 50 mg PO TID 90 Days Qty: 270 1RF Spiriva Respimat 2.5 mcg/actuation mist 2 puff inhalation DAILY 90 Days Qty: 3 3RF albuterol sulfate 90 mcg/actuation HFA aerosol inhaler 2 puff inhalation Q6H PRN (Reason: shortness of breath or wheezing) 30 Days Qty: 8.5 3RF nicotine 14 mg/24 hr Patch 24 Hour 1 patch TRANSDERMAL DAILY lorazepam 0.5 mg tablet 0.5 mg PO TID PRN (Reason: anxiety) 30 Days Qty: 90 2RF cholecalciferol (vitamin D3) 50 mcg (2,000 unit) capsule 50 mcg PO DAILY 90 Days Qty: 90 3RF ipratropium-albuterol 0.5 mg-3 mg(2.5 mg base)/3 mL solution for nebulization 3 ml inhalation Q20M PRN (Reason: shortness of breath or wheezing) Qty: 90 3RF Rx Instructions: for 3 doses Discharge Orders: Discharge Order (Routine); Ordered 08/23/24 Ordered By: Ghanshyam Salguero Diet: Advance to usual diet Activity on Discharge: As tolerated Stand Alone Forms: Patient Portal Discharge page Print Language: [place] Care Plan Goals: recovery Health Concerns: copd Plan of Treatment: 5 more days prednisone, ceftin azithro Assessment: see above
--- NOTE | 2024-08-23 12:58 | MHC.CM.PN ---
Pt. has been medically cleared for DC, she will go home via private transport, plan is self care.
[2024-08-24 19:49] LABS: Strep Pneumo Ag urine Not Detected (Not Detected)
[2024-08-25 16:48] LABS: Legionella Ag Urine Not Detected (Not Detected)
== END 2024-08-23 12:15 | disposition home or self-care (01) | DRG 140 ==
LOC: HO.ED 11:48 → HO.EDOVER 14:05 → HO.IMC 08-21 21:25
PROVIDERS: Family Medicine; Physician Assistant Medical; Admitting Provider Physician Assistant; Emergency Provider Emergency Medicine; PCP Internal Medicine; Visit Provider Internal Medicine
DX: J44.0 Chronic obstructive pulmonary disease with (acute) lower respiratory infection (principal); J96.21 Acute and chronic respiratory failure with hypoxia; J18.9 Pneumonia, unspecified organism; J44.1 Chronic obstructive pulmonary disease with (acute) exacerbation; J45.41 Moderate persistent asthma with (acute) exacerbation; F41.9 Anxiety disorder, unspecified; I10 Essential (primary) hypertension; F17.210 Nicotine dependence, cigarettes, uncomplicated; Z71.6 Tobacco abuse counseling; Z20.822 Contact with and (suspected) exposure to COVID-19; Z85.118 Personal history of other malignant neoplasm of bronchus and lung; Z90.2 Acquired absence of lung [part of]; Z79.52 Long term (current) use of systemic steroids; Z79.899 Other long term (current) drug therapy
CPT/HCPCS: 0241U; 36415; 71045; 71275; 80048; 80053; 82803; 83880; 84145; 84484; 85025; 85027; 86140; 87449; 87633; 87899; 93005; 94640; 97161; 99285; J0456; J0696; J1100; J1650; J2060; J2919; J3475; Q9967

== ENCOUNTER → 2024-08-20 10:10 | Outpatient (BNV) | payer BC, SELFPAY | PROVIDERS: Emergency Provider Emergency Medicine; PCP Internal Medicine; Visit Provider Radiology Diagnostic Radiology | DX: R06.02 Shortness of breath (principal); R06.00 Dyspnea, unspecified | CPT/HCPCS: 71045; 71275 ==

== ENCOUNTER → 2024-08-20 10:10 | Outpatient (BNV) | payer BC, SELFPAY | PROVIDERS: Admitting Provider Physician Assistant; Emergency Provider Emergency Medicine; PCP Internal Medicine; Visit Provider Internal Medicine | DX: R00.0 Tachycardia, unspecified (principal); R94.31 Abnormal electrocardiogram [ECG] [EKG] | CPT/HCPCS: 93010 ==

== ENCOUNTER → 2024-08-20 13:51 | Outpatient (BNV) | payer BC, SELFPAY | PROVIDERS: Admitting Provider Physician Assistant; Emergency Provider Emergency Medicine; PCP Internal Medicine; Visit Provider Physician Assistant | DX: J44.1 Chronic obstructive pulmonary disease with (acute) exacerbation (principal) | CPT/HCPCS: 99232; 99239 ==

== ENCOUNTER 2024-08-30 09:45 | Outpatient (AMB) | payer BC, SELFPAY ==
[2024-08-30 09:48] VITALS: BP 104/70; PULSE 105; O2SAT 92; BMI 18.8
--- NOTE | 2024-08-30 09:48 | MHC.PC.OV ---
Vital Signs 08/30/24 09:48 Height 5 ft 1 in Weight 99 lb 8 oz BMI 18.8 BP 104/70 Blood Pressure Location Lt brachial Position Sitting Pulse 105 H Pulse Source Pulse Oximeter Pulse Oximetry (%) 92 Oxygen Delivery Method Room Air Intake Visit Reasons: [facility] 08/23 COPD Full Fashioned Garment Knitter Required: No Accompanied by: Self / Same As Patient Allergies levofloxacin [From LEVAQUIN] Allergy (Intermediate, Verified 08/30/24 10:19) NAUSEA & VOMITING, hives bupropion Allergy (Unknown, Verified 08/30/24 10:19) increased anxiety/depression Medication List - Last Reconciled 08/30/24 by MAHI Duarte albuterol sulfate 90 mcg/actuation 2 puffs inhalation Q6H PRN 30 days amlodipine 10 mg PO DAILY 90 days cholecalciferol (vitamin D3) 50 mcg PO DAILY 90 days fluticasone propion-salmeterol 113-14 mcg/actuation (AirDuo RespiClick) 1 inh inhalation Q12H 90 days hydralazine 50 mg PO TID 90 days hydrochlorothiazide 12.5 mg PO DAILY 90 days ipratropium-albuterol 0.5 mg-3 mg(2.5 mg base)/3 mL 3 mL inhalation Q20M PRN lorazepam 0.5 mg PO TID PRN 30 days [NEBULIZER with all related supplies, including tubing and mask As directed] nicotine 1 patch transdermal DAILY [PORTABLE OXYGEN TANK for home use Use as directed at 1 LPM at rest and can go up to 2 to 3 LPM with ambulation] prednisone 40 mg (2 x 20 mg) PO DAILY tiotropium bromide 2.5 mcg/actuation (Spiriva Respimat) 2 puffs inhalation DAILY 90 days Tobacco use date assessed: 08/30/24 Fall risk assessment: No Falls in past year Last assessed Fall Risk: 08/30/24 Dental Screening Dental Screen Date: 08/30/24 Did you have a dental visit in the last 12 months?: No Did you have a dental problem in the last 6 months where you did not have access to dental care?: No Was dental information given to patient?: No HPI [facility] 08/23 COPD HPI Details The patient is a 64-year-old female who was presenting for follow up post hospital admission visit for COPD exacerbation hospital course: Patient was admitted for acute on chronic hypoxic respiratory failure due to COPD/ moderate persistent asthma with acute decompensation at complicated by pneumonia. Was treated with dexamethasone, ceftriaxone, azithromycin, DuoNebs and inhalers. Respiratory viral panel was negative. Was weaned down to baseline O2 and will be discharged home with 5 more days of prednisone, cefuroxime, azithromycin. For hypertension was continued on amlodipine, hydralazine, hydrochlorothiazide. For anxiety was continued on lorazepam. For tobacco dependence was continued on nicotine patch. Patient is feeling better will be discharged home. Patient reports that she is feeling much better and has been using her rescue inhaler sparingly Patient reports that she has not smoked for 10 days and has been using the nicotine patch daily Patient reports that she only wants to quit; reports that she tried before and failed Reports still having intermittent cough and feels like her inflammation is not completely cleared up as yet She denies increase sob, chest pain, heart palpitation, or dizziness TCM TCM Information Date of Discharge 08/23/24 Discharged From [facility] Interactive Contact Date (Reference documentation from this date) 08/24/24 FOR[facility]LY [facility] Medical History Tobacco dependence Tachycardia Benign essential hypertension Adenocarcinoma of right lung (~2021) Pulmonary nodule Personal history of nicotine dependence Bronchiectasis Pure hypercholesterolemia Anxiety Vitamin D deficiency COPD (chronic obstructive pulmonary disease) Surgical History History of lung surgery (~2021) History of thumb surgery History of reversal of tubal ligation History of colonoscopy History of tubal ligation Family History Father Myocardial infarction Mother Stroke Family/Other Hypertension Social History Household Members: Spouse and Children Housing: House Alcohol intake: current Alcohol intake frequency: holidays/special occasions only Patient Tobacco Use Status: Former Tobacco user Tobacco use type: Cigarette Cigarettes Per Day: 15 Years Smoked: Current smoker, onset 16, 3/4ppd x 45yrs, 33pyh e-Cigarette/Vaping Use: Never Used Second Hand Smoke Exposure: Yes Advance Directives Date on File: 08/21/24 service: No Current occupational status: employed Cognitive needs: No Hearing needs: No Vision needs: Yes Questionnaire PHQ-9 Over the last 2 weeks, how often have you been bothered by any of the following problems? 1. Little interest or pleasure in doing things: not at all 2. Feeling down, depressed, or hopeless: not at all 3. Trouble falling or staying asleep, or sleeping too much: not at all 4. Feeling tired or having little energy: not at all 5. Poor appetite or overeating: not at all 6. Feeling bad about yourself - or that you are a failure or have let yourself or your family down: not at all 7. Trouble concentrating on things, such as reading the newspaper or watching television: not at all 8. Moving or speaking so slowly that other people could have noticed. Or the opposite - being so fidgety or restless that you have been moving around a lot more than usual: not at all 9. Thoughts that you would be better off or of hurting yourself in some way: not at all Total score: 0 Depression Screening Interpretation: Negative Depression Screening Done: Yes Source: Developed by Drs. Khoa Cote, Isabel Babin, Tevin Rendon and colleagues, with an educational sancho from [employer]. Thrive Questionnaire Date Thrive assessed: 08/30/24 I am a: Patient What is your living situation today?: I have a steady place to live Within the past 12 months, did the food you bought not last and you didn't have the money to get more?: Never true Within the past 12 months, did you worry whether your food would run out before you got money to buy more?: Never true Do you have trouble paying for medicines?: No Do you have trouble getting transportation to medical appointments?: No Do you have trouble paying your heating and electricity bill?: No Do you have trouble taking care of your child, family member or friend?: No Do you have trouble with day-to-day activities such as bathing, preparing meals, shopping, managing finances, etc.?: No Are you currently unemployed and looking for a job?: No Are you interested in more education?: No Please select the resources that you would like help with: None Currently or been in a relationship where the following occur: No concerns reported THRIVE Score: 0 AUDIT C Alcohol Use Questionnaire (AUDIT-C) 1. How often do you have a drink containing alcohol?: Monthly or less 2. How many drinks containing alcohol do you have on a typical day when you are drinking?: 1 or 2 3. How often do you have six or more drinks on one occasion?: Never Total Score: 1 Score Reviewed/Action Taken: Yes LETTY-7 AMB Questionnaire LETTY-7 Date LETTY - 7 assessed: 08/30/24 Feeling nervous, anxious, or on edge: 0 = Not at all Not being able to stop or control worryin = Not at all Worrying too much about different things: 0 = Not at all Trouble relaxin = Not at all Being so restless that it is hard to sit still: 0 = Not at all Becoming easily annoyed or irritable: 0 = Not at all Feeling afraid as if something awful might happen: 0 = Not at all Total LETTY-7 score (0-4 normal; 5-9 mild; 10-14 moderate; 15-21 severe): 0 Source: Developed by Drs. Khoa Cote, Isabel Babin, Tevin Rendon and colleagues, with an educational sancho from [employer]. Review of Systems Const Details: Denies chills, Denies fatigue, Denies fever(s), Denies headache(s) and Denies weakness Cardiac Denies chest pain, Denies claudication, Denies leg edema, Denies lightheadedness, Denies palpitations, Denies dyspnea, Denies dyspnea on exertion, Denies orthopnea and Denies other (Loss of consciousness) Resp reports intermittent cough, Denies excessive phlegm production, Denies dyspnea, Denies increased dyspnea on exertion, Denies snoring and Denies wheezing Physical exam (Primary Care) Vital Signs: Last Vital Signs Pulse 105 H 08/30/24 09:48 BP 104/70 08/30/24 09:48 Pulse Ox 92 08/30/24 09:48 Oxygen Delivery Method Room Air 08/30/24 09:48 BMI result Body Mass Index 18.8 Tobacco/Smoking Status: Tobacco use Status Tobacco use date assessed 08/30/24 08/30/24 09:50 Patient Tobacco Use Status Former Tobacco user 08/30/24 09:50 Tobacco use type Cigarette 08/30/24 09:50 e-Cigarette/Vaping Use Never Used 08/30/24 09:50 PHQ-9: PHQ-9 Score PHQ-9: Total score 0 09/01/24 12:14 Depression Screening Interpretation: Negative Thrive Assessment: Date of Thrive Assessment Date Thrive assessed 08/30/24 08/30/24 09:50 Currently or been in a relationship where the following occur: No concerns reported Const General: healthy appearing, no acute distress, alert and awake Nutritional Appearance: well nourished Orientation/consciousness: oriented to person, oriented to place and oriented to time HENMT Ears: TM's normal bilaterally General nose exam: Normal nasal mucous membranes and turbinates present Eyes Conjunctivae: conjunctivae normal Sclerae: sclerae normal Pupils: Equal, round and reactive pupils present Neck Neck: Yes no lymphadenopathy and Yes no JVD Thyroid: Thyroid normal Carotids: no bruits Resp Effort & Inspection: normal respiratory effort and not tachypneic Auscultation: no crackles, no rales, no rhonchi and no wheezes Cardio Rate: regular rate Rhythm: regular rhythm Heart sounds: no murmurs and normal S1 and S2 GI Palpation (GI): Soft to palpation, nontender, no hepatomegaly and no splenomegaly Auscultation: normal bowel sounds Skin General skin exam: no rashes or lesions noted and dry skin Neuro General: oriented to person, oriented to place and oriented to time Cranial nerves: Yes Equal, round and reactive pupils present Gait exam (Neuro): Normal gait present Motor exam (neuro): no tremor noted Extrem Right upper extremity: full ROM Left upper extremity: full ROM Right lower extremity: full ROM; no edema Left lower extremity: full ROM; no edema Psych Mental Status: mental status grossly normal Speech and movement: Normal speech and movement present Affect: normal affect Attitude: cooperative Thought process: Normal thought process present Coding Level of Care Code TCM Mod MDM <= 7 Days Diagnoses COPD exacerbation J44.1 Chronic cough R05.3 Cough type: chronic Tobacco dependence F17.200 Benign essential hypertension I10 Hypokalemia E87.6 Time Spent (min) 35 Assessment & Plan Assessment & Plan (1) COPD exacerbation: Code(s): J44.1 - Chronic obstructive pulmonary disease with (acute) exacerbation Category: Medical Plan: Patient was admitted for acute on chronic hypoxic respiratory failure due to COPD/ moderate persistent asthma with acute decompensation at complicated by pneumonia. Was treated with dexamethasone, ceftriaxone, azithromycin, DuoNebs and inhalers. Respiratory viral panel was negative. Was weaned down to baseline O2 and will be discharged home with 5 more days of prednisone, cefuroxime, azithromycin. The patient was given prednisone 20 mg x 3 days. Continue home maintenance inhalers and rescue inhaler as needed (2) Cough: Code(s): R05.9 - Cough, unspecified Category: Medical Qualifiers: Cough type: chronic Qualified Code(s): R05.3 - Chronic cough Plan: chronic cough, reports that she thinks that her inflammation is not completely cleared up, but she feels much better. Reports that she has not smoke in 10 days. (3) Tobacco dependence: Code(s): F17.200 - Nicotine dependence, unspecified, uncomplicated Category: Medical Plan: Reports that she has not smoked in 10 days, reports that she is trying to quit again Continue nicotine patch daily (4) Benign essential hypertension: Code(s): I10 - Essential (primary) hypertension Category: Medical Plan: Reinforced low-sodium diet Continue hydralazine 50 mg t.i.d., hydrochlorothiazide 12.5 mg daily, amlodipine 10 mg daily (5) Hypokalemia: Code(s): E87.6 - Hypokalemia Category: Medical Plan: The patient had low potassium level in the hospital; this was replaced in the hosp. Will recheck BMP in 1 week Orders: Orders Basic Metabolic Panel 1 Week E87.6 - Hypokalemia Medications: New prednisone 20 mg PO DAILY 3 days 3 tabs 0RF J44.1 - Chronic obstructive pulmonary disease with (acute) exacerbation Refilled lorazepam 0.5 mg PO TID 30 days PRN 90 tabs 2RF anxiety
--- OUTSIDE RECORDS SUMMARY | 2024-08-30 11:08 | XMS_ITS ---
Author Organization [facility] Address [address] [place] [address] Care Team Providers Care Software Development Coordinator Name Role Phone Babar Espino MD Primary Care Provider [phone]- [phone] Active Problems Problem Noted Date Diagnosed Date Non-small cell carcinoma of lung 02/13/2022 Current Oncology Plans No current plan information found. Past Plans ONCOLOGY TREATMENT Plan Name Start Date Discontinue Date Treatment Medications Discontinue Reason Plan Provider Cycles [facility] DURVAL[facility]AB 023 08/31/2023 albuterol (PROVENTIL)diphenhydrAMI NE (BENADRYL)durvalumab (IMFINZI) infusionEPINEPHrinefamot idine (PF) (PEPCID)hydrocortisone (SOLU-CORTEF) IVmeperidine (DEMEROL) 25 MG/MLpotassium chloride ERSaline Flush 0.9 %sodium chloride (NS) 0.9 %sodium chloride 0.9% bolus (NS) Therapy Complete Marie Williamson MD 15 of 15 cycles started [facility] OP PACLITAXEL / CARBOPLATIN (LUNG) [...] Williamson MD 4 of 4 cycles [facility] PAC[facility] CARBOPLATIN (LUNG) 5 HRS [...] Williamson MD 1 of 4 cycles started [facility] [id number] METFORMIN OR [place] WITH PACLITAXEL AND CARBOPLATIN 022 02/24/2022 No medications scheduled. Entered in error Marie Williamson MD No cycles in plan Radiation Treatments * No radiation treatments are documented for this patient in [facility]. Treatments may have been administered in another system.
--- OUTSIDE RECORDS SUMMARY | 2024-08-30 11:08 | XMS_ITS | Encounter Summary ---
Author Organization [facility] Address [address] [place] [address] Care Team Providers Care Mail Deliverer Name Role Phone Babar Espino MD Primary Care Provider [phone] Encounter Details Date Type Department Care Team (Late st Contact Info) Description 08/24/2024 Telephone [facility] Hematology Oncology [address] [place] [address] Marie Williamson MD [address] [place] [address] Social History Tobacco Use Types Packs/Day Years [...] on file documented as of this encounter Progress Notes * Severiano Ricci MA - 08/24/2024 4:[address] scan from [facility] med records. Returned call to pt and explained that Dr. Williamson reviewedscan yet would still like her to keep upcoming FOV on 09/27/24 as this is a routing 6 month surveillance visit. Pt understands and had no further questions. * Jacklyn Bearden - 08/24/2024 10:14 AM EST Patient was recently in hospital, had ct scan while in and just would like to review that and let her know if she has to keep her upcoming appt with you. Please call her at [phone] documented in this encounter Plan of Treatment Upcoming Encounters Date Type Department Care Team (Late st Contact Info) Description 09/27/2024 9:15 AM EDT Office Visit [facility] Hematology Oncology [address] [place] [phone] Marie Williamson MD [address] [place] [address] documented as of this encounter Visit Diagnoses Not on filedocumented in this encounter Care Teams Mail Deliverer Relationship Specialty Start Date End Date Babar Espino MD [address] [place] [address] Dr [address] [place] PCP - General Internal Medicine 11/07/21 documented as of this encounter
--- OUTSIDE RECORDS SUMMARY | 2024-08-30 11:08 | XMS_ITS | Encounter Summary ---
Author Organization [facility] Address [address] [place] [address] Care Team Providers Care Cloth Carrier Name Role Phone Babar Espino MD Primary Care Provider [phone]- [phone] Reason for Visit * Reason Comments High EOB for Caris Encounter Details Date Type Department Care Team Description 03/30/2022 Nurse Only [facility] Oncology Services [address] [place] [address] Sima Laguerre RN High EOB for Caris [...] on filedocumented in this encounter Care Teams Cloth Carrier Relationship Specialty Start Date End Date Babar Espino MD [address] [place] [address] [place] [address] PCP - General Internal Medicine 01/22/22 documented as of this encounter
--- OUTSIDE RECORDS SUMMARY | 2024-08-30 11:08 | XMS_ITS | Encounter Summary ---
Author Organization [facility] Address [address] [place] [address] Care Team Providers Care Merchandise Adjustment Clerk Name Role Phone Babar Espino MD Primary Care Provider [phone]- [phone] Encounter Details Date Type Department Care Team Description 02/25/2022 Social Work [facility] Oncology Services [address] [place] [address] Bill Cid, [facility] Social History Tobacco Use Types Packs/Day Years [...] on filedocumented in this encounter Care Teams Merchandise Adjustment Clerk Relationship Specialty Start Date End Date Babar Espino MD [address] [place] [address] [place] [address] PCP - General Internal Medicine 01/22/22 documented as of this encounter
--- OUTSIDE RECORDS SUMMARY | 2024-08-30 11:08 | XMS_ITS | Encounter Summary ---
Author Organization [facility] Address [address] [place] [address] Care Team Providers Care R D Internship Name Role Phone Babar Espino MD Primary Care Provider Encounter Details Date Type Department Care Team (Late st Contact Info) Description 03/29/2024 8:28 AM EDT Hospital Encounter TH HISTORIC ENCOUNTERS [facility]AST[facility] CONVERSION ONLY Marie Williamson MD [address] [place] [id number] Social History Tobacco Use Types Packs/Day Years [...] HPI: 63-year-old female who has more than 19-nsov-pwuh smoking history, quit smoking few months ago, [...] 45 Oncology History Overview Note Patient has 40-gjsa-ooej smoking history, also evidence of COPD In [...] on molecular studies, according to results from [facility], it seems that all his specimen (3 [...] smoking in October 2023, has more than 15-iori-nnjp smoking history She drinks socially She was [...] CT scan done a week ago in [facility] still not read by radiologist, I will call them again IMPRESSION: SNOMED CT(R) 1. Adenocarcinoma of right lung (HCC) ADENOCARCINOMA OF RIGHT LUNG 63-year-old female who has more than 37-qbqk-zlhl smoking history, she quit smoking in October of this year, patient in the spring of this year had CT scan that showed groundglass opacities/question infection/inflammation (at that time she was diagnosed with pneumonia and treated with antibiotics with good response) patient has been feeling very well, has no worsening symptom or any major issues, patient had a CT scan done week ago in [facility], we do not have results yet, I try [facility] radiology department, hopefully some radiologist will [...] Description 09/27/2024 9:15 AM EDT Office Visit [facility] Hematology Oncology [address] [place] [id number] Marie Williamson MD [address] [place] [address] documented as of this encounter Procedures Procedure Name Priority Date/Time Associated Diagnosis Comments ..MISCELLANEOUS REFERENCE LAB TEST 03/29/2024 documented in this encounter Results * Miscellaneous reference lab test (03/29/2024) us Provider Onbase LAB BLOOD ORDERABLES Final Re sult documented in this encounter Visit Diagnoses Not on filedocumented in this encounter Care Teams R D Internship Relationship Specialty Start Date End Date Babar Espino MD [address] [place] [address] Dr [address] [place], [place] PCP - General Internal Medicine 11/07/21 documented as of this encounter
--- OUTSIDE RECORDS SUMMARY | 2024-08-30 11:08 | XMS_ITS | Clinical Summary ---
Author Organization [facility] it Address [address] [place] [address] Care Team Providers Care Hvac Technician Residential Name Role Phone Babar Espino MD Primary Care Provider Allergies Active Allergy Reactions Criticality Noted Date Comments Bupropion 11/07/2021 Other reaction(s): OTHER Levofloxacin 11/07/2021 Other reaction(s): Hives/Urticaria Medications acetaminophen (TYLENOL) 325 mg tablet TAKE 3 TABLETS (975 MG) BY MOUTH EVERY 6 TO 8 HOURS NEEDED FOR PAIN FOR 30 DAYS 2 Active albuterol sulfate 90 mcg/actuation aero powdr breath act w/sensor Inhale 2 puffs into the lungs every 6 (six) hours as needed. Active amLODIPine (NORVASC) 10 mg tablet TAKE 1 TABLET BY MOUTH DAILY FOR BLOOD PRESSURE 2 Active azithromycin (ZITHROMAX) 250 mg tablet TAKE 1 TAB 250 MG ORALLY 3 TIMES A WEEK FOR 28 DAYS TAKE 1 TABLET ON WEDNESDAY/WEDNESDAY /Wednesday 3 Active budesonide-form oteroL (SYMBICORT) 160-4.5 mcg/actuation inhaler Inhale 2 puffs into the lungs. Active docusate sodium (COLACE) 100 mg capsule TAKE 1 CAPSULE BY MOUTH TWICE A DAY NEEDED FOR CONSTIPATION 2 Active hydroCHLOROthia zide (MICROZIDE) 12.5 mg capsule Take 1 capsule (12.5 mg total) by mouth. Active LORazepam (ATIVAN) 0.5 mg tablet Take 1 tablet (0.5 mg total) by mouth. Active ondansetron (ZOFRAN) 8 mg tablet Take 1 tablet (8 mg total) by mouth every 8 (eight) hours as needed for nausea. 2 Active senna (SENOKOT) 8.6 mg tablet Take 1 tablet by mouth daily. Active tiotropium (Spiriva Respimat) 2.5 mcg/actuation inhalation spray 2 Active Active Problems Problem Noted Date Diagnosed Date Non-small cell carcinoma of lung 02/13/2022 Encounters Date Type Department Care Team Description 08/24/2024 Telephone [facility] Hematology Oncology [address] [place] [address] Marie Williamson MD from Last 3 Months Surgical History Surgery Date Site/Laterality Comments TUBAL LIGATION PROCEDURE: HISTORICAL TUBAL LIGATION OTHER SURGICAL HISTORY N/A PROCEDURE: [place] CLTX CARPO/METACARPAL DISLOCATION THUMB W/MANJ COLONOSCOPY N/A PROCEDURE: HISTORICAL COLONOSCOPY TUBAL LIGATION N/A PROCEDURE: HISTORICAL TUBAL LIGATION; COMMENT: reversal OTHER SURGICAL HISTORY 12/16/2021 Right PROCEDURE: [place] THORACOSCOPY W/LOBECTOMY SINGLE LOBE; COMMENT: RUL Medical History Medical History Date Comments Anxiety disorder DX:Anxiety diso rder COPD (chronic obstructive pu lmonary disease) (CMS/HCC) DX:COPD (chronic obstructive pulmonary disease) ([facility]) Pulmonary nodule DX:Pulmonary no dule Vitamin D deficiency DX:Vitamin D deficiency Pure hypercholesterolemia DX:Pur e hypercholesterolemia Bronchiectasis (CMS/HCC) DX:Bron chiectasis (HCC) Mild intermittent asthma, uncomplicated 09/06/2023 DX:Mild intermittent asthma, uncomplicated Essential (primary) hypertension 09/06/2023 DX:Essential (primary) hypertension Adenocarcinoma of right lung (CMS/HCC) 2021 DX:Adenocarcinoma of right l terry (HCC) Personal history of nicotine dependence DX:Personal history of nicot ine dependence Supraventricular tachycardia (CMS/HCC) DX:Supraventricular tachycar fernie (HCC) Family History Medical History Relation Name Comments [...] Description 09/27/2024 9:15 AM EDT Office Visit [facility] Hematology Oncology [address] [place] [phone] Marie Williamson MD [address] [place] [address] Health Maintenance Due Date Last Done Comments Breast Cancer Screening 1960 COVID-19 Vaccine (#1) 1965 DTaP,Tdap,and Td Vaccines (1 - Tdap) 1979 Pneumococcal Vaccine: 50+ Ye ars (1 of 2 - PCV) 1979 Pneumococcal Vaccine: Pediat rics (0 to 5 Years) and At-Risk Patients (6 to 64 Years) (1 of 2 - PCV) 1979 Zoster Vaccines (1 of 2) 1979 [...] patient's age to complete this topic Meningococcal B Vacine Aged Out No lo nger eligible based on patient's age to complete this topic RSV Immunization Patients Un hailey 20 months Aged Out No longer eligible b ased on patient's age to complete this topic Varicella Vaccines Aged Out No longer eligible based on patient's age to complete this topic Insurance [facility] Care Teams Hvac Technician Residential Relationship Specialty Start Date End Date Babar Espino MD [address] [place] [address] [address] [place], [place] PCP - General Internal Medicine 11/07/21
--- OUTSIDE RECORDS SUMMARY | 2024-08-30 11:08 | XMS_ITS | Clinical Summary ---
Author Organization [facility] Address [address] [place] [address] Care Team Providers Care Irrigation Technician Name Role Phone Babar Espino MD Primary Care Provider +1- [phone] Allergies Active Allergy Reactions Criticality Noted Date [...] age to complete this topic Care Teams Irrigation Technician Relationship Specialty Start Date End Date Babar Espino MD [address] [place] [address] [place] [address] PCP - General Internal Medicine 01/22/22
== END 2024-08-30 11:13 | disposition home or self-care (01) ==
PROVIDERS: PCP Internal Medicine
DX: J44.1 Chronic obstructive pulmonary disease with (acute) exacerbation (principal); R05.3 Chronic cough; F17.200 Nicotine dependence, unspecified, uncomplicated; I10 Essential (primary) hypertension; E87.6 Hypokalemia

== ENCOUNTER → 2024-08-30 09:45 | Outpatient (BNVA) | payer BC, SELFPAY | PROVIDERS: PCP Internal Medicine ==

== ENCOUNTER 2024-10-25 08:38 | Outpatient (REF) | payer BC, SELFPAY ==
--- NOTE | ~2024-10-25 | CT_ITS ---
CLINICAL HISTORY: C34.91 - Malignant neoplasm of unspecified part of right bronchus or lung --- Addit ional Notes or Special Instructions: 6 months follow up for surveillance CT chest with contrast Comparison: CT/SR - CT ANGIO CHEST PE PROTOCOL - 08/20/24 12:[address]/SR - CT CHEST W IV CON - 03/22/24 08:57 EDT Findings: Stable changes of right upper lobectomy with postsurgical volume loss. Multifocal subpleural fibrosis and parenchymal scarring, most pronounced in the right lung base. The multifocal ground-glass attenuation changes with micronodular/fibronodular change on most recent prior have resolved compatible with resolution multifocal pneumonia. Multifocal peribronchial thickening and bronchial opacification compatible with mucous plugging. New linear opacity in the medial right upper lung which may reflect progressive scarring or atypical atelectasis. Continued close follow-up suggested. No pleural effusion or pneumothorax. Thoracic inlet intact. No thyroid nodules. No enlarged mediastinal or hilar lymph nodes. Suture line along the medial right hemithorax. Heart size normal. No pericardial effusion. Extensive coronary artery calcification. Similar mild nonspecific wall thickening of the esophagus. No hiatal hernia. No acute process evident upper abdomen. No acute or aggressive appearing bone lesion. Soft tissues intact. Impression: New linear opacity along the anterior right mediastinal border suggesting progressive scarring or atypical atelectasis/postobstructive change. The multifocal ground-glass attenuation and micronodular changes on the prior CT have resolved. Remainder of the chest appears stable. This document has been electronically signed by: Chava Post MD on 10/26/2024 09:20:21
--- OUTSIDE RECORDS SUMMARY | 2024-10-25 08:54 | XMS_ITS ---
Author Organization [facility] Address [address] [place] [address] Care Team Providers Care Circuit Breaker Mechanic Name Role Phone Babar Espino MD Primary Care Provider +1- [phone] Active Problems Problem Noted Date Diagnosed Date Non-small cell carcinoma of lung 02/13/2022 Current Oncology Plans No current plan information found. Past Plans ONCOLOGY TREATMENT Plan Name Start Date Discontinue Date Treatment Medications Discontinue Reason Plan Provider [facility]23 08/31/2023 albuterol (PROVENTIL)diphenhydrAMI NE (BENADRYL)durvalumab (IMFINZI) infusionEPINEPHrinefamot idine (PF) (PEPCID)hydrocortisone (SOLU-CORTEF) IVmeperidine (DEMEROL) 25 MG/MLpotassium chloride ERSaline Flush 0.9 %sodium chloride (NS) 0.9 %sodium chloride 0.9% bolus (NS) Therapy Complete Marie Williamson MD 15 of 15 cycles started [facility] OP PACLITAXEL / CARBOPLATIN (LUNG) 5 HRS [...] Williamson MD 4 of 4 cycles completed [facility] OP PACLITAXEL / CARBOPLATIN (LUNG) 5 HRS [...] Williamson MD 1 of 4 cycles started [facility] [id number] METFORMIN OR [place] WITH PACLITAXEL AND CARBOPLATIN 022 02/24/2022 No medications scheduled. Entered in error Marie Williamson MD No cycles in plan Radiation Treatments * No radiation treatments are documented for this patient in [facility]. Treatments may have been administered in another system.
--- OUTSIDE RECORDS SUMMARY | 2024-10-25 08:54 | XMS_ITS | Encounter Summary ---
Author Organization [facility] Address [address] [place] [address] Care Team Providers Care Metal Machine Operator Name Role Phone Babar Espino MD Primary Care Provider Encounter Details Date Type Department Care Team (Late st Contact Info) Description 03/29/2024 8:28 AM EDT Hospital Encounter TH HISTORIC ENCOUNTERS EASTERN CONVERSION ONLY aMrie Williamson MD [address] [place] [id number] Social History Tobacco Use Types Packs/Day Years [...] HPI: 63-year-old female who has more than 30-hodd-wxhw smoking history, quit smoking few months ago, [...] 45 Oncology History Overview Note Patient has 04-oodw-aosz smoking history, also evidence of COPD In [...] on molecular studies, according to results from [employer], it seems that all his specimen (3 [...] of lung (HCC) 02/25/2022 - 04/29/2022 Chemotherapy [facility] OP PACLITAXEL / CARBOPLATIN (LUNG) 5 HRS Plan Provider: Marie Williamson MD Treatment goal: Curative Line of treatment: Adjuvant 07/23/2022 - 07/14/2023 Chemotherapy [facility] OP DURVALUMAB Plan Provider: Marie Williamson MD Treatment goal: Curative Line of treatment: Adjuvant PAST MEDICAL HISTORY: Chronic obstructive pulmonary disease Adenocarcinoma of right lung Hypertension Anxiety ? SOCIAL HISTORY: She quit smoking in October 2023, has more than 10-eflg-deeh smoking history She drinks socially She was [...] CT scan done a week ago in [facility] still not read by radiologist, I will call them again IMPRESSION: SNOMED CT(R) 1. Adenocarcinoma of right lung (HCC) ADENOCARCINOMA OF RIGHT LUNG 63-year-old female who has more than 39-yfhy-zzvh smoking history, she quit smoking in October of this year, patient in the spring of this year had CT scan that showed groundglass opacities/question infection/inflammation (at that time she was diagnosed with pneumonia and treated with antibiotics with good response) patient has been feeling very well, has no worsening symptom or any major issues, patient had a CT scan done week ago in [facility], we do not have results yet, I try [facility] radiology department, hopefully some radiologist will [...] Care Team (Late st Contact Info) Description 11/15/2024 10:00 AM EDT Office Visit Thoracic Surgery - [place] [address] [phone] Dg Lima PA [address] [address] 05/30/2025 9:15 AM EST Office Visit [facility] Hematology Oncology [address] [place] [address] Marie Williamson MD [address] [place] [address] documented as of this encounter Procedures Procedure Name Priority Date/Time Associated Diagnosis Comments ..MISCELLANEOUS REFERENCE LAB TEST 03/29/2024 documented in this encounter Results * Miscellaneous reference lab test (03/29/2024) us Provider Onbase LAB BLOOD ORDERABLES Final Re sult documented in this encounter Visit Diagnoses Not on filedocumented in this encounter Care Teams Metal Machine Operator Relationship Specialty Start Date End Date Babar Espino MD [address] [place] [address] Dr [address] [place] PCP - General Internal Medicine 11/07/21 documented as of this encounter
--- OUTSIDE RECORDS SUMMARY | 2024-10-25 08:54 | XMS_ITS | Clinical Summary ---
Author Organization [facility] Address [address] [place] [address] Phone Care Team Providers Care White Lead Filterer Name Role Phone Babar Espino MD Primary Care Provider +1- [phone] Allergies Active Allergy Reactions Criticality Noted Date Comments Bupropion 11/07/2021 Other reaction(s): OTHER Levofloxacin 11/07/2021 Other reaction(s): Hives/Urticaria Medications acetaminophen (TYLENOL) 325 mg tablet TAKE 3 TABLETS (975 MG) BY MOUTH EVERY 6 TO 8 HOURS NEEDED FOR PAIN FOR 30 DAYS 01/06/20 22 Active albuterol sulfate 90 mcg/actuation aero powdr breath act w/sensor Inhale 2 puffs into the lungs every 6 (six) hours as needed. Active amLODIPine (NORVASC) 10 mg tablet TAKE 1 TABLET BY MOUTH DAILY FOR BLOOD PRESSURE 01/06/20 22 Active budesonide-for moteroL (SYMBICORT) 160-4.5 mcg/actuation inhaler Inhale 2 puffs into the lungs. Active docusate sodium (COLACE) 100 mg capsule TAKE 1 CAPSULE BY MOUTH TWICE A DAY NEEDED FOR CONSTIPATION 01/06/20 22 Active hydroCHLOROthi azide (MICROZIDE) 12.5 mg capsule Take 1 capsule (12.5 mg total) by mouth. Active LORazepam (ATIVAN) 0.5 mg tablet Take 1 tablet (0.5 mg total) by mouth. Active ondansetron (ZOFRAN) 8 mg tablet Take 1 tablet (8 mg total) by mouth every 8 (eight) hours as needed for nausea. 02/26/20 22 Active tiotropium (Spiriva Respimat) 2.5 mcg/actuation inhalation spray 01/16/20 22 Active potassium chloride 20 mEq tablet extended release Take 1 tablet by mouth 1 (one) time each day. 09/21/19 25 Active cholecalcifero l (VITAMIN D-3) 50 mcg (2,000 unit) capsule Take 1 capsule (2,000 Units total) by mouth 1 (one) time each day. 07/20/19 25 Active cyanocobalamin (VITAMIN B-12) 500 mcg tablet Take 1 tablet (500 mcg total) by mouth 1 (one) time each day. Active azithromycin (ZITHROMAX) 250 mg tablet TAKE 1 TAB 250 MG ORALLY 3 TIMES A WEEK FOR 28 DAYS TAKE 1 TABLET ON WEDNESDAY//Wednesday04/07/20 23 025 Discontinued senna (SENOKOT) 8.6 mg tablet Take 1 tablet by mouth daily. 025 Discontinued Active Problems Problem Noted Date Diagnosed Date Non-small cell carcinoma of lung ([facility] V24, [place]/[facility] V28) 02/13/2022 Encounters Date Type Department Care Team Description 09/27/2024 9:15 AM EDT Office Visit [facility] Hematology Oncology [address] [place] [phone] Marie Williamson MD Non-small cell cancer of right lung ([facility] V24, [facility] V28) (Primary Dx) 08/24/[address] [facility] Hematology Oncology [address] [place] [phone] Marie Williamson MD from Last 3 Months Surgical History Surgery Date Site/Laterality Comments TUBAL LIGATION PROCEDURE: HISTORICAL TUBAL LIGATION OTHER SURGICAL HISTORY N/A PROCEDURE: [place] CLTX CARPO/METACARPAL DISLOCATION THUMB W/MANJ COLONOSCOPY N/A PROCEDURE: HISTORICAL COLONOSCOPY TUBAL LIGATION N/A PROCEDURE: HISTORICAL TUBAL LIGATION; COMMENT: reversal OTHER SURGICAL HISTORY 12/16/2021 Right PROCEDURE: [place] THORACOSCOPY W/LOBECTOMY SINGLE LOBE; COMMENT: RUL Medical History Medical History Date Comments Anxiety disorder DX:Anxiety diso rder COPD (chronic obstructive pu lmonary disease) ([facility] V24, [facility] V28) DX:COPD (chronic o bstructive pulmonary disease) ([facility]) Pulmonary nodule DX:Pulmonary no dule Vitamin D deficiency DX:Vitamin D deficiency Pure hypercholesterolemia DX:Pur e hypercholesterolemia Bronchiectasis ([facility] V24, [facility] V28) DX:Bronchiectasis ([facility]) Mild intermittent asthma, uncomplicated 09/06/2023 DX:Mild intermittent asthma, uncomplicated Essential (primary) hypertension 09/06/2023 DX:Essential (primary) hypertension Adenocarcinoma of right lung ([facility] V24, [facility] V28) 2021 DX:Adenocarcinoma of right l terry ([facility]) Personal history of nicotine dependence DX:Personal history of nicot ine dependence Supraventricular tachycardia ([facility]24) DX:Supraventricular tachycar fernie ([facility]) Family History Medical History Relation Name Comments [...] Sign Reading Time Taken Comments Blood Pressure 129/68 09/27/2024 9:27 AM EDT Pulse 108 09/27/2024 9:27 AM EDT Temperature 36.6 ??C (97.9 ??F) 09/27/2024 9:27 AM ED T Respiratory Rate - - Oxygen Saturation 93% 09/27/2024 9:27 AM EDT Inhaled Oxygen Concentration - - Weight 45.8 kg (101 lb) 09/27/2024 9:27 AM EDT Height 154.9 cm (5' 1 ) 09/27/2024 9:27 AM EDT Body Mass Index 19.08 09/27/2024 9:27 AM EDT Plan of Treatment Upcoming Encounters Date Type Department Care Team (Late st Contact Info) Description 11/15/2024 10:00 AM EDT Office Visit Thoracic Surgery - [address] [phone] Dg Lima PA [address] [address] 05/30/2025 9:15 AM EST Office Visit [facility] Hematology Oncology [address] [place] [phone] Marie Williamson MD [address] [place] [address] Health Maintenance Due Date Last Done Comments Breast Cancer Screening 1960 Zoster Vaccines (1 of 2) 1979 Cervical Cancer Screening: Pap Smear 1981 RSV Immunization Adult Patients (1 - Risk 60-74 years 1-dose series) 2020 Colorectal Cancer Screening: Colonoscopy 06/06/2022 Depression Screening 06/06/2022 HIV Screening 06/06/2022 Hepatitis C Screening 06/06/2022 Lung Cancer Screening (Low Dose CT) 06/06/2022 Social Influencers of Health Screening 06/06/2022 COVID-19 Vaccine (5 - Moderna risk 2023- season) 2024 03/29/2024, 06/26/2021, 09/18/2020, Additional history exists DTaP,Tdap,and Td Vaccines (2 - Td or Tdap) 10/25/2028 10/25/2018 Pneumococcal Vaccine: 50+ Years Completed 10/21/2022, 10/18/2018, 04/20/2017 Pneumococcal Vaccine: Pediatrics (0 to 5 Years) and At-Risk Patients (6 to 64 Years) Completed 10/21/2022, 10/18/2018, 04/20/2017 Influenza Vaccine Completed 03/29/2024, , 04/20/2022, Additional history exists HIB Vaccines Aged Out No longer eligi [...] age to complete this topic Meningococcal B Vaccine Aged Out No l onger eligible based on patient's age to complete this topic RSV Immunization Patients Under 20 months Aged Out No longer eligible based on patient's age to complete this topic Varicella Vaccines Aged Out No longer eligible based on patient's age to complete this topic Procedures Procedure Name Priority Date/Time Associated Diagnosis Comments HISTORICAL IMAGING SCAN RESULT 09/20/2024 from Last 3 Months Results * HISTORICAL IMAGING SCAN RESULT (09/20/2024) Anatomical Region Laterality Modality Ultrasound us Provider Onbase MD JURDAO US PROCEDURES Final Resul t from Last 3 Months Insurance [facility] Care Teams White Lead Filterer Relationship Specialty Start Date End Date Babar Espino MD [address] [place] [address] [address] [place], [place] PCP - General Internal Medicine 11/07/21
--- OUTSIDE RECORDS SUMMARY | 2024-10-25 08:54 | XMS_ITS | Encounter Summary ---
Author Organization [facility] Address [address] [place] [address] Care Team Providers Care Striper Spray Gun Name Role Phone Babar Espino MD Primary Care Provider +1- [phone] Reason for Visit * Reason Comments High EOB for Caris Encounter Details Date Type Department Care Team Description 03/30/2022 Nurse Only [facility] Oncology Services [address] [place] [address] Sima Laguerre RN High EOB for Caris [...] on filedocumented in this encounter Care Teams Striper Spray Gun Relationship Specialty Start Date End Date Babar Espino MD [address] [place] [address] [place] [address] PCP - General Internal Medicine 01/22/22 documented as of this encounter
--- OUTSIDE RECORDS SUMMARY | 2024-10-25 08:54 | XMS_ITS | Clinical Summary ---
Author Organization [facility] Address [address] [place] [address] Care Team Providers Care Paint Brush Maker Name Role Phone Babar Espino MD Primary Care Provider +1- [phone] Allergies Active Allergy Reactions Criticality Noted Date [...] age to complete this topic Care Teams Paint Brush Maker Relationship Specialty Start Date End Date Babar Espino MD [address] [place] [address] [place] [address] PCP - General Internal Medicine 01/22/22
--- OUTSIDE RECORDS SUMMARY | 2024-10-25 08:54 | XMS_ITS | Encounter Summary ---
Author Organization [facility] Address [address] [place] [address] Care Team Providers Care Collar Trimmer Name Role Phone Babar Espino MD Primary Care Provider +1- [phone] Encounter Details Date Type Department Care Team Description 02/25/2022 Social Work [facility] Oncology Services [address] [place] [address] Bill Cid, [facility] Social History Tobacco Use Types Packs/Day Years [...] on filedocumented in this encounter Care Teams Collar Trimmer Relationship Specialty Start Date End Date Babar Espino MD [address] [place] [address] [place] [address] PCP - General Internal Medicine 01/22/22 documented as of this encounter
[2024-10-25] MEDS: iohexoL 350 MG/ML 100 ML INFUS..BTL IV (09:35)
[2024-10-25 11:27] LABS: Creatinine POC 0.8 mg/dL (0.5-1.4); GFR POC > 60
== END 2024-10-25 08:39 | disposition home or self-care (01) ==
LOC: HO.CT 08:38
PROVIDERS: PCP Internal Medicine; Visit Provider Internal Medicine
DX: C34.91 Malignant neoplasm of unspecified part of right bronchus or lung (principal)
CPT/HCPCS: 71260; 82565; Q9967

== ENCOUNTER → 2024-10-25 08:40 | Outpatient (BNV) | payer BC, SELFPAY | PROVIDERS: PCP Internal Medicine; Visit Provider Radiology Diagnostic Radiology | DX: R91.8 Other nonspecific abnormal finding of lung field (principal) | CPT/HCPCS: 71260 ==

== ENCOUNTER 2024-11-08 08:46 | Outpatient (AMB) | payer BC, SELFPAY ==
[2024-11-08 08:49] VITALS: BP 116/64; PULSE 93; O2SAT 94; BMI 19.8
--- NOTE | 2024-11-08 08:49 | A.OFFVIS_ITS ---
Vital Signs 11/08/24 08:49 Height 5 ft 1 in Weight 104 lb 11.513 oz BMI 19.8 BP 116/64 Blood Pressure Location Rt brachial Position Sitting Pulse 93 Pulse Source Pulse Oximeter Pulse Oximetry (%) 94 Oxygen Delivery Method Room Air Intake Visit Reasons: COPD Energy Economist Required: No Accompanied by: Self / Same As Patient Allergies levofloxacin [From LEVAQUIN] Allergy (Intermediate, Verified 11/08/24 08:54) NAUSEA & VOMITING, hives bupropion Allergy (Unknown, Verified 11/08/24 08:54) increased anxiety/depression HPI Comments Details: The patient is a 64-year-old woman, current smoker, who has been having worsening cough and shortness of breath. Her cough tends to be productive in nature and moderate severity. She has been using inhalers including Flovent and long-acting muscarinic antagonist. The medications have not been very effective for her. Her provided did try to send her Trelegy but was not covered. In the meantime she continues to smoke. The patient understands that she needs to quit and is motivated to quitting. Although it is very hard for her to quit. We talked about different alternatives including trying the Nicotrol inhaler which may be effective for her to slow down her smoking hopefully switch it completely to the nicotine inhaler where she can then decrease it as part of her tobacco cessation. The patient continues to work regularly. she does have some increased dyspnea on exertion but she is still able to do all her work related activities in does not have any significant limitations. We did review of previous chest x-rays that she has had demonstrating significant hyperinflation of the lungs. In addition to that she had a CT scan of the chest back in 2016 where was described that she had bronchiectatic changes. 10/06/2023 the patient is here for a pulmonary follow-up visit. Overall she has been doing well. She is been off the immunotherapy now. She is doing well. Denies any worsening shortness of breath. She still has a productive cough at times but otherwise better. She has not using Mucinex as much. She did try the azithromycin but was not helpful. Was causing to have some GI upset. In addition to that she was placed on levofloxacin also had significant allergic reaction. It is now her allergy list. Her last CT scan of the chest back in June 2023 demonstrating stable disease postoperative changes. She is due for CT scan in 6 months. Therefore will have her get a CT scan in 6 months and follow-up after that. The meantime she continues on Symbicort and Spiriva. She has not required her rescue inhaler often. Typically less than twice a week. She is still working more than 40 hours a week and she is doing well denies any respiratory limitations. 12/06/2023 the patient is here for hospital follow-up visit. The patient is gravely ill with acute respiratory failure and difficulty breathing. She was admitted to [facility]. She was placed on oxygen. She did have a CTA which I personally reviewed back in 11/26/2023. It actually demonstrated postoperative changes that she after her lung surgery. In addition to that had some areas of dense ground-glass opacities on the left hemithorax suggesting an airspace disease and pneumonia. She had significant bronchitis and mucus plugging. The patient was placed on antibiotics and prednisone she was able to be discharged home on oxygen. She is currently on 2 L and has a large oxygen tanks and is hard for her to carry. She is still pretty debilitated and weak. On further questioning she did admit that she is still smoking. is very upset family in general. We talked about the importance of smoking cessation. Explained to the patient that she has a good chance of improving her overall health and respiratory capacity. She is significantly weak would benefit from pulmonary rehabilitation. I do believe that this will be a good opportunity to improve her overall health and exercise capacity then after the I am hopeful that we can wean her off some of the oxygen and she can go back to wo rk. will try to see reassess her condition 3 months. Which time it will be difficult for her to work with her significant stability and oxygen requirements. So is reasonable to take a leave of absence for now for more in order to improve her overall respiratory capacity. She is willing to try the azithromycin again. She did not tolerate the GI upset before. Will see if we can restart in see if she can tolerate it better. If she can not then will try a different antibiotic. Patient also having wheezing place her on a slow prednisone taper to see if we can not some relief as well. For smoking cessation she has using the patch and she is tolerating well. She has significant cravings in between she will call for further recommendations. 01/07/2024 the patient is here for a pulmonary follow-up visit. She is starting to participate in pulmonary rehabilitation. This will be very affecting beneficial for her. In addition to that we did review her pulmonary function studies demonstrating severe COPD. I am hopeful though that with her respiratory therapy and recovered from severe pneumonia that her PFTs were actually improved. She still has the oxygen she can use with activity. I am hopeful that when she returns in approximately 6 weeks she will be able to discontinue the oxygen. She will continue with current respiratory therapy. The patient is no longer smoking which is very reassuring. She will continue with the [facility] papers and she will be out of work until we can wean her off the oxygen and she completes her pulmonary rehabilitation. I which time she will have a reassessment in order to get back to work. 02/23/2024 the patient is here for pulmonary follow-up visit. Overall she is feeling better. She has been performing well pulmonary rehabilitation. The patient also has been using her respiratory medications. She has been able to wean off her oxygen to some degree. We did go for a walking oximetry and her oxygen still drops to the high 80s low 90s with activity. Therefore will keep her on the portable oxygen concentrator that she can use for portability outside of the home. She does not need her concentrator and home any longer or oxygen tanks. Therefore will request a revision. She is able to go back to work. She is scheduled to go back work on Wednesday which is reassuring as well. The patient does have a CT scan scheduled for sometime in February. She will follow-up with Oncology and also with thoracic surgery. 05/24/2024 the patient is follow-up did require antibiotics and prednisone. She is back to her baseline now. Although she is a little congested. She continues with respiratory therapy with good effect. She continues use a portable oxygen concentrator with activity with good effect. She wants her concentrator to be picked up from her home. Will go ahead and put a script out as she is not using the home oxygen longer just needs portability outside of the home. Her last CT scan was back in the fall 2023 which is reassuring. She will have a follow-up CT scan in 6 months set up by thoracic surgery and Oncology. She has received all her vaccines. Otherwise patient is without any other complaints. She will follow-up in 6 months. 11/08/2024 the patient is here for pulmonary follow-up visit. Overall she is doing okay. She still has a productive cough moderate severity. Difficult to expectorate at times. All his having some minimal dyspnea on exertion. She does take her respiratory medications as prescribed. She did have a recent CT scan of the chest which we personally reviewed. Seems like she has some areas of scarring and mucus plugging with significant amount of bronchitis and mucus within the airways. She also has some fluid in her actual proximal esophagus suggesting the possibility of reflux and micro aspirations. Will go ahead and request a barium swallow. In addition to that the patient will have another repeat CAT scan in 6 months as for protocol for her lung cancer. She will try to provide us with a sputum culture. If she is not able to do so and if he gets more congested we did talk about bronchoscopy which will be a very good option to provide diagnostic and therapeutic interventions. She will let me know if that is the case. She will follow-up in 6 months or sooner if she develops any other issues. [facility] Medical History Tobacco dependence Tachycardia Benign essential hypertension Adenocarcinoma of right lung (~2021) Pulmonary nodule Personal history of nicotine dependence Bronchiectasis Pure hypercholesterolemia Anxiety Vitamin D deficiency COPD (chronic obstructive pulmonary disease) Surgical History History of lung surgery (~2021) History of thumb surgery History of reversal of tubal ligation History of colonoscopy History of tubal ligation Family History Father Myocardial infarction Mother Stroke Family/Other Hypertension Social History Household Members: Spouse and Children Housing: House Alcohol intake: current Alcohol intake frequency: holidays/special occasions only Patient Tobacco Use Status: Former Tobacco user Tobacco use type: Cigarette Cigarettes Per Day: 15 Years Smoked: Current smoker, onset 16, 3/4ppd x 45yrs, 33pyh e-Cigarette/Vaping Use: Never Used Second Hand Smoke Exposure: Yes Advance Directives Date on File: 08/21/24 service: No Current occupational status: employed Cognitive needs: No Hearing needs: No Vision needs: Yes Review of Systems Const Denies chills, Denies fatigue, Denies fever(s), Denies weight gain and Denies weight loss ENT Denies dizziness Card Denies chest pain, Denies leg edema, Denies lightheadedness, Denies palpitations, Reports dyspnea on exertion, Denies orthopnea and Denies other Resp Reports chest congestion, Reports cough, Reports dyspnea on exertion and Reports wheezing (occasionally) GI Denies hematochezia and Denies change in stool character Denies difficulty voiding, Denies nocturia and Denies dysuria Musc Denies abnormal gait, Denies muscle weakness, Denies numbness, Denies radiating pain into limb and Denies tingling Neuro Denies abnormal gait, Denies dizziness, Denies numbness and Denies tingling Endo Denies fatigue and Denies palpitations Aller/Immun Reports wheezing (occasionally) Physical Exam Vital Signs: Last Vital Signs Pulse 93 11/08/24 08:49 BP 116/64 11/08/24 08:49 Pulse Ox 94 11/08/24 08:49 Oxygen Delivery Method Room Air 11/08/24 08:49 BMI result Body Mass Index 19.8 Const General: alert and tired appearing Nutritional Appearance: underweight Neck Neck: Yes normal visual inspection, Yes full ROM and Yes no lymphadenopathy Chest Chest palpation & inspection: normal inspection of the chest Resp Effort & Inspection: normal respiratory effort and prolonged expiratory phase Auscultation: no rhonchi, no wheezes and diminished lung sounds Cardio Rate: regular rate Rhythm: regular rhythm Heart sounds: S1 normal heart sound present and S2 normal heart sound present GI Palpation (GI): Soft to palpation and nontender Auscultation: normal bowel sounds Skin General skin exam: rashes and/or lesions noted Assessment & Plan Assessment & Plan (1) COPD (chronic obstructive pulmonary disease): Code(s): J44.9 - Chronic obstructive pulmonary disease, unspecified Category: Medical Qualifiers: COPD type: chronic bronchitis Chronic bronchitis type: mucopurulent Qualified Code(s): J41.1 - Mucopurulent chronic bronchitis (2) Bronchiectasis: Code(s): J47.9 - Bronchiectasis, uncomplicated Category: Medical Qualifiers: Bronchiectasis type: uncomplicated Qualified Code(s): J47.9 - Bronchiectasis, uncomplicated (3) Pulmonary nodule: Code(s): R91.1 - Solitary pulmonary nodule Category: Medical (4) Adenocarcinoma of right lung: Onset Date: ~2021 Comment: (T3N0 - 99%PDL1; s/p RUL lobectomy 11/2021; chemo 04/2022; Immunetherapy 06/2022) Code(s): C34.91 - Malignant neoplasm of unspecified part of right bronchus or lung Category: Medical (5) Tobacco dependence: Code(s): F17.200 - Nicotine dependence, unspecified, uncomplicated Category: Medical Plan continue oxygen: a POC 2l/pulse with activity with POC for portability outside of the home. She may discontinue the home concentrator and tanks continue symbicort continue Spiriva daily nebulizer for Duoneb completed Immunetherapy till Jun 2023, Oncology F/U CT chest every 6 months pulmonary rehab Barium swallow sputum cx, ?bronchoscopy follow-up in 4-6 months Orders: Orders CT chest wo IV con 6 Months C34.11 - Malignant neoplasm of upper lobe, right bronchus or lung FL barium swallow Today K21.9 - Gastro-esophageal reflux disease without esophagitis Sputum Cult + Gram stain Today R91.1 - Solitary pulmonary nodule Coding Level of Care Code Est Pt Level 4 (83292) Complex EM visit Add On G2211 Diagnoses Mucopurulent chronic bronchitis J41.1 COPD type: chronic bronchitis Chronic bronchitis type: mucopurulent Bronchiectasis without complication J47.9 Bronchiectasis type: uncomplicated Pulmonary nodule R91.1 Adenocarcinoma of right lung C34.91 Tobacco dependence F17.200 Time Spent (min) 17
--- OUTSIDE RECORDS SUMMARY | 2024-11-08 09:05 | XMS_ITS | Clinical Summary ---
Author Organization [facility] Address [address] [place] [address] Phone Care Team Providers Care Dishtank Operator Name Role Phone Babar Espino MD Primary Care Provider [phone]- [phone] Allergies Active Allergy Reactions Criticality Noted Date [...] MOUTH DAILY FOR BLOOD PRESSURE 2 Active budesonide-form oteroL (SYMBICORT) 160-4.5 mcg/actuation inhaler [...] hours as needed for nausea. 2 Active tiotropium (Spiriva Respimat) 2.5 mcg/actuation inhalation spray 2 Active potassium chloride 20 mEq tablet extended release Take 1 tablet by mouth 1 (one) time each day. 5 Active cholecalciferol (VITAMIN D-3) 50 mcg (2,000 unit) capsule Take 1 capsule (2,000 Units total) by mouth 1 (one) time each day. 5 Active cyanocobalamin (VITAMIN B-12) 500 mcg tablet Take 1 tablet (500 mcg total) by mouth 1 (one) time each day. Active Active Problems Problem Noted Date Diagnosed Date Non-small cell carcinoma of lung ([facility] V24, [facility] V28) 02/13/2022 Encounters Date Type Department Care Team Description 09/27/2024 9:15 AM EDT Office Visit [facility] Hematology Oncology [address] [place] [phone] Marie Williamson MD Non-small cell cancer of right lung ([facility] V24, [facility] V28) (Primary Dx) 08/24/2024 Telephone [facility] Oncology [address] [place] [phone] Marie Williamson MD from Last 3 Months Surgical History Surgery Date Site/Laterality Comments TUBAL LIGATION PROCEDURE: HISTORICAL TUBAL LIGATION OTHER SURGICAL HISTORY N/A PROCEDURE: [place] CLTX CARPO/METACARPAL DISLOCATION THUMB W/MANJ COLONOSCOPY N/A PROCEDURE: HISTORICAL COLONOSCOPY TUBAL LIGATION N/A PROCEDURE: HISTORICAL TUBAL LIGATION; COMMENT: reversal OTHER SURGICAL HISTORY 12/16/2021 Right PROCEDURE: FL THORACOSCOPY W/LOBECTOMY SINGLE LOBE; COMMENT: RUL Medical History Medical History Date Comments Anxiety disorder DX:Anxiety diso rder COPD (chronic obstructive pu lmonary disease) ([facility] V24, [facility] V28) DX:COPD (chronic o bstructive pulmonary disease) ([facility]) Pulmonary nodule DX:Pulmonary no dule Vitamin D deficiency DX:Vitamin D deficiency Pure hypercholesterolemia DX:Pur e hypercholesterolemia Bronchiectasis ([facility] V24, [facility] V28) DX:Bronchiectasis ([facility]) Mild intermittent asthma, uncomplicated 09/06/2023 DX:Mild intermittent asthma, uncomplicated Essential (primary) hypertension 09/06/2023 DX:Essential (primary) hypertension Adenocarcinoma of right lung (CMS/HCC V24, CMS/HCC V28) 2021 DX:Adenocarcinoma of right l terry (HCC) Personal history of nicotine dependence DX:Personal history of nicot ine dependence Supraventricular tachycardia (CMS/HCC V24) DX:Supraventricular tachycar fernie (HCC) Family History Medical [...] AM EDT Office Visit Thor[facility] - [place] [address] [phone] [place] [address] [address] 05/30/2025 9:15 AM EST Office Visit [facility] Hematology Oncology [address] [place] [phone] Marie Williamson MD [address] [place] [address] Health Maintenance Due Date Last Done Comments [...] 06/06/2022 COVID-19 Vaccine (5 - Moderna risk season) 2024 03/29/2024, 06/26/2021, 09/18/2020, Additional history [...] Laterality Modality Ultrasound us Provider Onbase MD JURADO US PROCEDURES Final Resul t from Last 3 Months Insurance [facility] Care Teams Dishtank Operator Relationship Specialty Start Date End Date Babar Espino MD [address] [place] [address] Dr [address] [place] PCP - General Internal Medicine 11/07/21
--- OUTSIDE RECORDS SUMMARY | 2024-11-08 09:05 | XMS_ITS | Encounter Summary ---
Author Organization [facility] Address [address] [place] [address] Care Team Providers Care Roof Fitter Name Role Phone Babar Espino MD Primary Care Provider [phone] Encounter Details Date Type Department Care Team (Late st Contact Info) Description 03/29/2024 8:28 AM EDT Hospital Encounter TH HISTORIC ENCOUNTERS EASTERN CONVERSION ONLY Marie Williamson MD [address] [place] [phone] Social History Tobacco Use Types Packs/Day Years [...] HPI: 63-year-old female who has more than 40-dtal-kbbq smoking history, quit smoking few months ago, [...] 45 Oncology History Overview Note Patient has 88-piyi-aqse smoking history, also evidence of COPD In [...] on molecular studies, according to results from [facility], it seems that all his specimen (3 [...] of lung (HCC) 02/25/2022 - 04/29/2022 Chemotherapy [facility] [place] [place] BCN OP PACLITAXEL / CARBOPLATIN (LUNG) 5 HRS Plan Provider: Marie Williamson MD Treatment goal: Curative Line of treatment: Adjuvant 07/23/2022 - 07/14/2023 Chemotherapy [facility] BCN OP DURVALUMAB Plan Provider: Marie Williamson MD Treatment goal: Curative Line of treatment: Adjuvant PAST MEDICAL HISTORY: Chronic obstructive pulmonary disease Adenocarcinoma of right lung Hypertension Anxiety ? SOCIAL HISTORY: She quit smoking in October 2023, has more than 22-hgwv-hbui smoking history She drinks socially She was [...] CT scan done a week ago in [facility] still not read by radiologist, I will call them again IMPRESSION: SNOMED CT(R) 1. Adenocarcinoma of right lung (HCC) ADENOCARCINOMA OF RIGHT LUNG 63-year-old female who has more than 87-flyp-lhxe smoking history, she quit smoking in October of this year, patient in the spring of this year had CT scan that showed groundglass opacities/question infection/inflammation (at that time she was diagnosed with pneumonia and treated with antibiotics with good response) patient has been feeling very well, has no worsening symptom or any major issues, patient had a CT scan done week ago in [facility], we do not have results yet, I try [facility] radiology department, hopefully some radiologist [...] AM EDT Office Visit Thoracic Surgery - [place] [address] [phone] [place] [address] [address] 05/30/2025 9:15 AM EST Office Visit [facility] Hematology Oncology [address] [place] [phone] Marie Williamson MD [address] [place] [address] documented as of this encounter Procedures Procedure Name Priority Date/Time Associated Diagnosis Comments ..MISCELLANEOUS REFERENCE LAB TEST 03/29/2024 documented in this encounter Results * Miscellaneous reference lab test (03/29/2024) us Provider Onbase LAB BLOOD ORDERABLES Final Re sult documented in this encounter Visit Diagnoses Not on filedocumented in this encounter Care Teams Roof Fitter Relationship Specialty Start Date End Date Babar Espino MD [address] [place] [address] Dr [address] [place] PCP - General Internal Medicine 11/07/21 documented as of this encounter
--- OUTSIDE RECORDS SUMMARY | 2024-11-08 09:05 | XMS_ITS | Clinical Summary ---
Author Organization [facility] Address [address] [place] [address] Care Team Providers Care Professor Of Apologetics Name Role Phone Babar Espino MD Primary Care Provider [phone] Allergies Active Allergy Reactions Criticality Noted Date [...] age to complete this topic Care Teams Professor Of Apologetics Relationship Specialty Start Date End Date Babar Espino MD [address] [place] [address] [place] [address] PCP - General Internal Medicine 01/22/22
--- OUTSIDE RECORDS SUMMARY | 2024-11-08 09:05 | XMS_ITS | Encounter Summary ---
Author Organization [facility] Address [address] [place] [address] Care Team Providers Care Convention Worker Name Role Phone Babar Espino MD Primary Care Provider [phone]- [phone] Encounter Details Date Type Department Care Team Description 02/25/2022 Social Work [facility] Oncology Services [address] [place] [address] Bill Cid, [facility] Social History Tobacco Use Types Packs/Day Years [...] on filedocumented in this encounter Care Teams Convention Worker Relationship Specialty Start Date End Date Babar Espino MD [address] [place] [address] [place] [address] PCP - General Internal Medicine 01/22/22 documented as of this encounter
--- OUTSIDE RECORDS SUMMARY | 2024-11-08 09:05 | XMS_ITS ---
Author Organization [facility] Address [address] [place] [address] Care Team Providers Care Cold Type Artist Name Role Phone Babar Espino MD Primary Care Provider [phone] Active Problems Problem Noted Date Diagnosed Date Non-small cell carcinoma of lung 02/13/2022 Current Oncology Plans No current plan information found. Past Plans ONCOLOGY TREATMENT Plan Name Start Date Discontinue Date Treatment Medications Discontinue Reason Plan Provider [facility] 08/31/2023 albuterol (PROVENTIL)diphenhydrAMI NE (BENADRYL)durvalumab (IMFINZI) infusionEPINEPHrinefamot idine (PF) (PEPCID)hydrocortisone (SOLU-CORTEF) IVmeperidine (DEMEROL) 25 MG/MLpotassium chloride ERSaline Flush 0.9 %sodium chloride (NS) 0.9 %sodium chloride 0.9% bolus (NS) Therapy Complete Marie Williamson MD 15 of 15 cycles started [facility] OP PACLITAXEL / CARBOPLATIN (LUNG) 5 [...] Williamson MD 4 [facility] 4 [facility]LUNG) 5 HRS [...] Williamson MD 1 of [address] [facility] [phone] METFORMIN OR [place] WITH PACLITAXEL AND CARBOPLATIN 022 02/24/2022 No medications scheduled. Entered in error Marie Williamson MD No cycles in plan Radiation Treatments * No radiation treatments are documented [facility]. Treatments may have been administered in another system.
--- OUTSIDE RECORDS SUMMARY | 2024-11-08 09:05 | XMS_ITS | Encounter Summary ---
Author Organization [facility] Address [address] [place] [address] Care Team Providers Care Tire Builder Operator Name Role Phone Babar Espino MD Primary Care Provider [phone] Reason for Visit * Reason Comments High EOB for Caris Encounter Details Date Type Department Care Team Description 03/30/2022 Nurse Only [facility] Oncology Services [address] [place] [address] Sima Laguerre RN High EOB for Caris [...] on filedocumented in this encounter Care Teams Tire Builder Operator Relationship Specialty Start Date End Date Babar Espino MD [address] [place] [address] [place] [address] PCP - General Internal Medicine 01/22/22 documented as of this encounter
== END 2024-11-08 09:22 | disposition home or self-care (01) ==
LOC: HO.HPS 08:46
PROVIDERS: PCP Internal Medicine; Visit Provider Hospitalist
DX: J41.1 Mucopurulent chronic bronchitis (principal); J47.9 Bronchiectasis, uncomplicated; R91.1 Solitary pulmonary nodule; C34.91 Malignant neoplasm of unspecified part of right bronchus or lung; F17.200 Nicotine dependence, unspecified, uncomplicated
CPT/HCPCS: 99214

== ENCOUNTER → 2024-11-08 08:46 | Outpatient (BNVA) | payer BC, SELFPAY | PROVIDERS: PCP Internal Medicine; Visit Provider Hospitalist ==

== ENCOUNTER 2024-11-22 10:02 | Outpatient (AMB) | payer BC, SELFPAY ==
[2024-11-22 10:10] VITALS: BP 110/74; PULSE 77; O2SAT 93; BMI 19.7
--- NOTE | 2024-11-22 10:10 | MHC.PC.OV ---
Vital Signs 11/22/24 10:10 Height 5 ft 1 in Weight 104 lb 8 oz BMI 19.7 BP 110/74 Blood Pressure Location Lt brachial Position Sitting Pulse 77 Pulse Source Pulse Oximeter Pulse Oximetry (%) 93 Oxygen Delivery Method Room Air Intake Visit Reasons: 4mth f/u Process Server Required: No Accompanied by: Self / Same As Patient Allergies levofloxacin [From LEVAQUIN] Allergy (Intermediate, Verified 11/22/24 10:46) NAUSEA & VOMITING, hives bupropion Allergy (Unknown, Verified 11/22/24 10:46) increased anxiety/depression Medication List - Last Reconciled 11/22/24 by Babar Espino MD albuterol sulfate 90 mcg/actuation 2 puffs inhalation Q6H PRN 30 days amlodipine 10 mg PO DAILY 90 days cholecalciferol (vitamin D3) 50 mcg PO DAILY 90 days fluticasone propion-salmeterol 113-14 mcg/actuation (AirDuo RespiClick) 1 inh inhalation Q12H 90 days hydralazine 50 mg PO TID 90 days hydrochlorothiazide 12.5 mg PO DAILY 90 days ipratropium-albuterol 0.5 mg-3 mg(2.5 mg base)/3 mL 3 mL inhalation Q20M PRN lorazepam 0.5 mg PO TID PRN 30 days [NEBULIZER with all related supplies, including tubing and mask As directed] [PORTABLE OXYGEN TANK for home use Use as directed at 1 LPM at rest and can go up to 2 to 3 LPM with ambulation] potassium chloride ER 20 mEq PO DAILY 30 days tiotropium bromide 2.5 mcg/actuation (Spiriva Respimat) 2 puffs inhalation DAILY 90 days Tobacco use date assessed: 11/22/24 Fall risk assessment: No Falls in past year Last assessed Fall Risk: 11/22/24 Dental Screening Dental Screen Date: 11/22/24 Did you have a dental visit in the last 12 months?: No Did you have a dental problem in the last 6 months where you did not have access to dental care?: No Was dental information given to patient?: No HPI 4mth f/u HPI Details Patient comes in today for her follow up visit States that she currently feels okay although she still has her chronic cough and on and off shortness of breath, especially with exertion She has advanced COPD and states that her current inhalers help but only to some extent - she will need her Airduo inhaler Rx refilled States that she also has her nebulizer to use when needed States that she is back to work at [employer] and does not appear to have any significant limitation with regards to her activities at work She has completed her treatment and immunotherapy for her lung cancer Her most recent chest CT done on 10/26/2024 revealed (+) new linear opacity along the anterior right mediastinal border suggesting progressive scarring or atypical atelectasis/postobstructive change but no recurrence of malignancy She will be getting another chest CT for follow up in 6 months Patient denies any headaches or dizziness Denies any chest pains No nausea/vomiting, no abdominal pain No change in bowel habits noted States that she has been struggling with her sleep at night and has tried several different OTC meds unsuccessfully so far and would like to try getting something stronger just so she can finally get some sleep and rest [facility] Medical History (Updated 11/22/24 @ 12:22 by Babar Espino MD) Smoker Insomnia Tobacco dependence Tachycardia Benign essential hypertension Adenocarcinoma of right lung (~2021) Pulmonary nodule Personal history of nicotine dependence Bronchiectasis Pure hypercholesterolemia Anxiety Vitamin D deficiency COPD (chronic obstructive pulmonary disease) Surgical History History of lung surgery (~2021) History of thumb surgery History of reversal of tubal ligation History of colonoscopy History of tubal ligation Family History Father Myocardial infarction Mother Stroke Family/Other Hypertension Social History Household Members: Spouse and Children Housing: House Alcohol intake: current Alcohol intake frequency: holidays/special occasions only Patient Tobacco Use Status: Former Tobacco user Tobacco use type: Cigarette Cigarettes Per Day: 15 Years Smoked: Current smoker, onset 16, 3/4ppd x 45yrs, 33pyh e-Cigarette/Vaping Use: Never Used Second Hand Smoke Exposure: Yes Advance Directives Date on File: 08/21/24 service: No Current occupational status: employed Cognitive needs: No Hearing needs: No Vision needs: Yes Questionnaire PHQ-9 Over the last 2 weeks, how often have you been bothered by any of the following problems? 1. Little interest or pleasure in doing things: not at all 2. Feeling down, depressed, or hopeless: not at all 3. Trouble falling or staying asleep, or sleeping too much: more than half the days 4. Feeling tired or having little energy: several days 5. Poor appetite or overeating: not at all 6. Feeling bad about yourself - or that you are a failure or have let yourself or your family down: not at all 7. Trouble concentrating on things, such as reading the newspaper or watching television: not at all 8. Moving or speaking so slowly that other people could have noticed. Or the opposite - being so fidgety or restless that you have been moving around a lot more than usual: not at all 9. Thoughts that you would be better off or of hurting yourself in some way: not at all Total score: 3 Depression Screening Interpretation: Negative Depression Screening Done: Yes 25291 - PHQ-9 Billing: Yes Source: Developed by Drs. Khoa Cote, Isabel Babin, Tevin Rendon and colleagues, with an educational sancho from [employer]. Thrive Questionnaire Date Thrive assessed: 11/22/24 I am a: Patient What is your living situation today?: I have a steady place to live Within the past 12 months, did the food you bought not last and you didn't have the money to get more?: Never true Within the past 12 months, did you worry whether your food would run out before you got money to buy more?: Never true Do you have trouble paying for medicines?: No Do you have trouble getting transportation to medical appointments?: No Do you have trouble paying your heating and electricity bill?: No Do you have trouble taking care of your child, family member or friend?: No Do you have trouble with day-to-day activities such as bathing, preparing meals, shopping, managing finances, etc.?: No Are you currently unemployed and looking for a job?: No Are you interested in more education?: No Please select the resources that you would like help with: None Currently or been in a relationship where the following occur: No concerns reported THRIVE Score: 0 AUDIT C Alcohol Use Questionnaire (AUDIT-C) 1. How often do you have a drink containing alcohol?: 2-3 times a week 2. How many drinks containing alcohol do you have on a typical day when you are drinking?: 1 or 2 3. How often do you have six or more drinks on one occasion?: Never Total Score: 3 Score Reviewed/Action Taken: Yes LETTY-7 AMB Questionnaire LETTY-7 Date LETTY - 7 assessed: 11/22/24 Feeling nervous, anxious, or on edge: 1 = Several days Not being able to stop or control worryin = Several days Worrying too much about different things: 1 = Several days Trouble relaxin = Several days Being so restless that it is hard to sit still: 1 = Several days Becoming easily annoyed or irritable: 1 = Several days Feeling afraid as if something awful might happen: 0 = Not at all Total LETTY-7 score (0-4 normal; 5-9 mild; 10-14 moderate; 15-21 severe): 6 Source: Developed by Drs. Khoa Cote, Isabel Babin, Tevin Rendon and colleagues, with an educational sancho from [employer]. Review of Systems Const Denies chills, Reports difficulty sleeping, Reports fatigue, Denies fever(s) and Denies headache(s) ENT Denies dysphagia, Denies dizziness, Denies otalgia, Denies headache(s), Denies neck pain, Denies odynophagia and Denies sore throat Card Denies chest pain, Denies palpitations and Reports dyspnea on exertion Resp Reports chest congestion (chest still feels tight at times), Reports cough (recurrent; coughs up thick whitish phlegm at times), Denies pain with cough, Reports dyspnea on exertion and Denies wheezing GI Denies abdominal pain, Denies constipation, Denies dysphagia, Denies heartburn, Denies diarrhea, Denies nausea, Denies odynophagia and Denies vomiting Denies difficulty voiding, Denies nocturia, Denies dysuria and Denies urinary urgency Musc Denies back pain, Denies neck pain, Reports numbness (of her fingers and toes occasionally) and Reports tingling (in her fingers and toes occasionally) Skin/Breast Denies rash Neuro Denies dizziness, Denies headache(s), Reports numbness (of her fingers and toes occasionally) and Reports tingling (in her fingers and toes occasionally) Psych Reports anxiety Endo Reports fatigue and Denies palpitations Aller/Immun Denies wheezing Physical exam (Primary Care) Vital Signs: Last Vital Signs Pulse 77 11/22/24 10:10 BP 110/74 11/22/24 10:10 Pulse Ox 93 11/22/24 10:10 Oxygen Delivery Method Room Air 11/22/24 10:10 BMI result Body Mass Index 19.7 Tobacco/Smoking Status: Tobacco use Status Tobacco use date assessed 11/22/24 11/22/24 10:17 Patient Tobacco Use Status Former Tobacco user 11/22/24 10:17 Tobacco use type Cigarette 11/22/24 10:17 e-Cigarette/Vaping Use Never Used 11/22/24 10:17 PHQ-9: PHQ-9 Score PHQ-9: Total score 3 11/22/24 10:17 Depression Screening Interpretation: Negative Thrive Assessment: Date of Thrive Assessment Date Thrive assessed 11/22/24 11/22/24 10:17 Currently or been in a relationship where the following occur: No concerns reported Const General: no acute distress and alert HENMT Ears: TM's normal bilaterally and EAC's normal Throat: Yes posterior oropharynx normal and Yes tonsils normal (no TP congestion noted) Neck Neck: Yes supple and No lymphadenopathy Thyroid: Thyroid normal Resp Auscultation: no crackles, no rales, rhonchi (scattered) throughout, no wheezes and diminished lung sounds (significantly) bilateral Cardio Rate: regular rate Rhythm: regular rhythm Heart sounds: no murmurs GI Palpation (GI): Soft to palpation and nontender Auscultation: normal bowel sounds General: Yes no CVA tenderness Back/Spine/Pelvis Back: no CVA tenderness Cervical Spine: No Cervical spine tenderness Thoracic/Lumbar Spine: No lumbar spinal tenderness Skin Rashes: no rashes Extrem General: Yes no clubbing, cyanosis or edema Coding Level of Care Code Est Pt Level 4 (52064) Complex EM visit Add On G2211 Diagnoses Mucopurulent chronic bronchitis J41.1 COPD type: chronic bronchitis Chronic bronchitis type: mucopurulent Cancer of upper lobe of right lung C34.11 Benign essential hypertension I10 Pure hypercholesterolemia E78.00 Vitamin D deficiency E55.9 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; T45.1X5A Constipation, unspecified constipation type K59.00 Constipation type: unspecified constipation type Insomnia, unspecified type G47.00 Insomnia type: unspecified Anxiety F41.9 Smoker F17.200 Additional Codes PHQ-9 - 22023 - PHQ-9 Billing: Yes ([id number]) Assessment & Plan Assessment & Plan (1) COPD (chronic obstructive pulmonary disease): Code(s): J44.9 - Chronic obstructive pulmonary disease, unspecified Category: Medical Qualifiers: COPD type: chronic bronchitis Chronic bronchitis type: mucopurulent Qualified Code(s): J41.1 - Mucopurulent chronic bronchitis Plan: Continue Spiriva Respimat 2.5 mcg 2 inhalations QD, AirDuo Respiclick 113-14 mcg 1 inhalation BID and ALbuterol HFA 1 to 2 inhalations Q 6 hours PRN She also has DuoNeb to use with her nebulizer QID when needed Follow up with pulmonary as scheduled (2) Cancer of upper lobe of right lung: Onset Date: ~2021 Comment: (Adenocarcinoma T3 N0, 99%PDL1 - S/P RUL lobectomy 12/16/21 - no LN, 3 distinct lesions, two were T1b and one was T2a; s/p adjuvant chemo - completed 04/2022) Code(s): C34.11 - Malignant neoplasm of upper lobe, right bronchus or lung Category: Medical Plan: S/P right upper lobectomy on 12/17/2021 and completed her adjuvant chemotherapy (Taxol with carboplatin) in April 2022 Started on immunotherapy in 06/2022 (Durvalumab at 10 mg/kg IV Q 2 weeks) x 1 year - completed immunotherapy earlier this year Follow up chest CT on 05/18/2022 after finishing her chemotherapy showed no evidence of recurrence or new disease; there are no pleural few with a no mediastinal lymphadenopathy Repeat chest CT done on 11/11/22 revealed stable postsurgical changes from her right upper lobectomy but there was a new area of focal findings and ground glass attentuation that Dr. Rush believed was due to an infection and she was started on a round of Abx for this - these have reportedly cleared up on her repeat chest CT on 01/20/[address] done in February 2024 revealed (+) postsurgical changes in the right lung status post right upper lobectomy. No dominant suspicious pulmonary nodules were seen. Moderate emphysema. Her last chest CT done on 10/26/2024 showed similar findings from previous except for a new linear opacity along the anterior right mediastinal border suggesting progressive scarring or atypical atelectasis/postobstructive change. The multifocal ground-glass attenuation and micronodular changes on the prior CT have resolved. Remainder of the chest appears stable She will have repeat chest CT done again in 6 months - CT ordered for April 2025 Follow up with oncology/thoracic surgery as scheduled for continuing surveillance (3) Benign essential hypertension: Code(s): I10 - Essential (primary) hypertension Category: Medical Plan: Reinforced low sodium diet - goal is systolic BP of at least 130 mm or less Continue Amlodipine 10 mg QD, HCTZ 12.5 mg QD and Hydralazine 50 mg TID She is again reminded to monitor her BP regularly (4) Pure hypercholesterolemia: Code(s): E78.00 - Pure hypercholesterolemia, unspecified Category: Medical Plan: Reinforced low cholesterol diet Her previous labs done did not include a fasting lipid profile Will recheck her labs and fasting lipids in 4 months for follow up (5) Vitamin D deficiency: Code(s): E55.9 - Vitamin D deficiency, unspecified Category: Medical Plan: Continue Vitamin D3 2000 units QD (6) Peripheral neuropathy due to chemotherapy: Code(s): G62.0 - Drug-induced polyneuropathy; T45.1X5A - Adverse effect of antineoplastic and immunosuppressive drugs, initial encounter Category: Medical Plan: States that her symptoms have improved a lot and are gradually subsiding since she completed her adjuvant chemotherapy in April 2022 (7) Constipation: Code(s): K59.00 - Constipation, unspecified Category: Medical Qualifiers: Constipation type: unspecified constipation type Qualified Code(s): K59.00 - Constipation, unspecified Plan: Encouraged increased oral fluids and dietary fiber Continue Docusate 100 mg BID and Senna 8.6 mg 1 to 2 tabs Q HS P (8) Insomnia: Code(s): G47.00 - Insomnia, unspecified Category: Medical Qualifiers: Insomnia type: unspecified Qualified Code(s): G47.00 - Insomnia, unspecified Plan: Sleep hygiene discussed Will start her on a trial of Zolpidem 5 mg Q HS PRN (9) Anxiety: Code(s): F41.9 - Anxiety disorder, unspecified Category: Medical Plan: Continue Lorazepam 0.5 mg TID PRN She was started additionally on Sertraline 25 mg QD a few months ago but it appears that she self-discontinued the medication a while back (10) Smoker: Code(s): F17.200 - Nicotine dependence, unspecified, uncomplicated Category: Social Hx Plan: Patient is counseled again on complete smoking cessation - states that she is still struggling with this Plan Follow up in 4 months Orders: Orders Comprehensive [place]. Panel Fast 4 Months E78.00 - Pure hypercholesterolemia, unspecified Lipid Panel 4 Months E78.00 - Pure hypercholesterolemia, unspecified UA CC w/rflx Micro + Cult 4 Months R30.0 - Dysuria Complete Blood Count Auto Diff 4 Months D64.9 - Anemia, unspecified TSH reflex Free T4 4 Months E78.00 - Pure hypercholesterolemia, unspecified Vitamin D 25-OH Total 4 Months E55.9 - Vitamin D deficiency, unspecified Vitamin B12 and Folate 4 Months E53.8 - Deficiency of other specified B group vitamins Medications: New zolpidem 5 mg PO BEDTIME 30 days PRN 30 tabs 0RF sleep/insomnia Refilled fluticasone propion-salmeterol 113-14 mcg/actuation (AirDuo RespiClick) 1 inh inhalation Q12H 90 days 3 ea 1RF
--- OUTSIDE RECORDS SUMMARY | 2024-11-22 10:58 | XMS_ITS | Clinical Summary ---
Author Organization [facility] Address [address] [place] [address] Phone Care Team Providers Care Supervisor [employer] Name Role Phone Babar Espino MD Primary Care Provider [phone] Allergies Active Allergy Reactions Criticality Noted Date [...] Active Problems Problem Noted Date Diagnosed Date History of lung cancer 11/16/2024 Assessment & Plan (11/16/2024 3:25 PM EDT): 64-year-old woman with severe COPD who underwent a da Marisol right upper lobectomy on 12/17/2021. She did get adjuvant chemotherapy afterwards which she did have some difficulty with but followed that with 1 year of immunotherapy finishing that of 2022. Her most recent chest CT scan which was performed at [facility] in October 2024 and shows no obvious new or worsening pulmonary nodules or mediastinal lymphadenopathy however does show a new linear opacity in the right upper lobe which is likely scarring however she was informed that we will follow-up with a 6- month chest CT scan which will be due in April 2025 at [facility] to ensure stability or resolution of this opacity. Non-small cell carcinoma of lung (CMS/HCC V24, C MS/HCC V28) 02/13/2022 Encounters Date Type Department Care Team Description 11/15/2024 10:00 AM EDT Office Visit Thoracic Surgery - [place] [facility] [address] [place] [address] Dg Lima PA History of lung cancer (Primary Dx) 09/27/2024 9:15 AM EDT Office Visit [facility] [address] [place] [phone] Marie Williamson MD Non-small cell cancer of right lung (CMS/HCC V24, CMS/HCC V28) (Primary Dx) from Last 3 Months Surgical History Surgery Date Site/Laterality Comments TUBAL LIGATION PROCEDURE: HISTORICAL TUBAL LIGATION OTHER SURGICAL HISTORY N/A PROCEDURE: LA CLTX CARPO/METACARPAL DISLOCATION THUMB W/MANJ COLONOSCOPY N/A PROCEDURE: HISTORICAL COLONOSCOPY TUBAL LIGATION N/A PROCEDURE: HISTORICAL TUBAL LIGATION; COMMENT: reversal OTHER SURGICAL HISTORY 12/16/2021 Right PROCEDURE: LA THORACOSCOPY W/LOBECTOMY SINGLE LOBE; COMMENT: RUL Medical History Medical History Date Comments Anxiety disorder DX:Anxiety diso rder COPD (chronic obstructive pu lmonary disease) ([place] V24, [place] V28) DX:COPD (chronic o bstructive pulmonary disease) ([facility]) Pulmonary nodule DX:Pulmonary no dule Vitamin D deficiency DX:Vitamin D deficiency Pure hypercholesterolemia DX:Pur e hypercholesterolemia Bronchiectasis ([place] V24, [place] V28) DX:Bronchiectasis ([facility]) Mild intermittent asthma, uncomplicated 09/06/2023 DX:Mild intermittent asthma, uncomplicated Essential (primary) hypertension 09/06/2023 DX:Essential (primary) hypertension Adenocarcinoma of right lung ([place] V24, [place] V28) 2021 DX:Adenocarcinoma of right l terry ([facility]) Personal history of nicotine dependence DX:Personal history of nicot ine dependence Supraventricular tachycardia ([place] V24) DX:Supraventricular tachycar fernie ([facility]) Family History Medical History Relation Name Comments Heart attack Father Stroke Mother Relation Name Status Comments Father Mother Social History Tobacco Use Types Packs/Day Years Used Date Smoking Tobacco: Some Days Cigarettes 1 48.4 Started: 06/28/1973; Last attempted to quit: 11/04/2021 Smokeless Tobacco: Never Tobacco Cessation:Ready to Q uit: Not Asked; Counseling Given: Not Answered Alcohol Use Standard Drinks/Week Comments Not Currently 0 (1 standard drink = 0.6 oz pur e alcohol) Comments Unknown Sex and Gender Information Value Date Recorded Sex Assigned at Not on file Legal Sex Female 12:18 PM EST Gender Identity Not on file Sexual Orientation Not on file Obstetrics History Last Filed Vital Signs Vital Sign Reading Time Taken Comments Blood Pressure 145/69 11/15/2024 9:47 AM EDT Pulse 54 11/15/2024 9:47 AM EDT Temperature 36.7 ??C (98.1 ??F) 11/15/2024 9:47 AM ED T Respiratory Rate 16 11/15/2024 9:47 AM EDT Oxygen Saturation 94% 11/15/2024 9:47 AM EDT Inhaled Oxygen Concentration - - Weight 47.6 kg (105 lb) 11/15/2024 9:47 AM EDT Height 154.9 cm (5' 1 ) 11/15/2024 9:47 AM EDT Body Mass Index 19.84 11/15/2024 9:47 AM EDT Plan of Treatment Upcoming Encounters Date Type Department Care Team (Late st Contact Info) Description 05/30/2025 9:15 AM EST Office Visit [facility] [address] [place] [phone] Marie Williamson MD [address] [place] [address] Health Maintenance Due Date Last Done Comments Breast Cancer Screening 1960 Zoster Vaccines (1 of 2) 1979 Cervical Cancer Screening: Pap Smear 1981 RSV Immunization Adult Patients (1 - Risk 60-74 years 1-dose series) 2020 Cholesterol Screening (Lipid Panel) 06/06/2022 Colorectal Cancer Screening: Colonoscopy 06/06/2022 Depression Screening [...] Resul t from Last 3 Months Insurance [facility] Care Teams Supervisor [employer] Relationship Specialty Start Date End Date Babar Espino MD [address] [place] [address] [address] [place], [place] PCP - General Internal Medicine 11/07/21
== END 2024-11-22 11:01 | disposition home or self-care (01) ==
LOC: HO.HMCH 10:03
PROVIDERS: PCP Internal Medicine; Visit Provider Internal Medicine
DX: J41.1 Mucopurulent chronic bronchitis (principal); C34.11 Malignant neoplasm of upper lobe, right bronchus or lung; I10 Essential (primary) hypertension; E78.00 Pure hypercholesterolemia, unspecified; E55.9 Vitamin D deficiency, unspecified; G62.0 Drug-induced polyneuropathy; T45.1X5A Adverse effect of antineoplastic and immunosuppressive drugs, initial encounter; K59.00 Constipation, unspecified; G47.00 Insomnia, unspecified; F41.9 Anxiety disorder, unspecified; F17.200 Nicotine dependence, unspecified, uncomplicated

== ENCOUNTER → 2024-11-22 10:02 | Outpatient (BNVA) | payer BC, SELFPAY | PROVIDERS: PCP Internal Medicine; Visit Provider Internal Medicine | DX: R05.3 Chronic cough (principal); J41.1 Mucopurulent chronic bronchitis; I10 Essential (primary) hypertension; E78.00 Pure hypercholesterolemia, unspecified; E55.9 Vitamin D deficiency, unspecified; G62.0 Drug-induced polyneuropathy; K59.00 Constipation, unspecified; G47.00 Insomnia, unspecified; F41.9 Anxiety disorder, unspecified; F17.210 Nicotine dependence, cigarettes, uncomplicated; R30.0 Dysuria; D64.9 Anemia, unspecified; E53.8 Deficiency of other specified B group vitamins; T45.1X5A Adverse effect of antineoplastic and immunosuppressive drugs, initial encounter; Z85.118 Personal history of other malignant neoplasm of bronchus and lung; Z79.899 Other long term (current) drug therapy | CPT/HCPCS: 96127 ==

== ENCOUNTER 2024-12-07 08:36 | Outpatient (REF) | payer BC, SELFPAY ==
--- OUTSIDE RECORDS SUMMARY | 2024-12-07 08:50 | XMS_ITS | Clinical Summary ---
Author Organization [facility] Address [address] [place] [address] Phone Care Team Providers Care Ocean Transportation Intermediary Name Role Phone Babar Espino MD Primary Care Provider +1- [phone] Allergies Active Allergy Reactions Criticality Noted Date [...] chest CT scan which was performed at [facility] in October 2024 and shows no obvious new or worsening pulmonary nodules or mediastinal lymphadenopathy however does show a new linear opacity in the right upper lobe which is likely scarring however she was informed that we will follow-up with a 6- month chest CT scan which will be due in April 2025 at [facility] to ensure stability or resolution of this opacity. Non-small cell carcinoma of lung (CMS/HCC V24, C MS/HCC V28) 02/13/2022 Encounters Date Type Department Care Team Description 11/15/2024 10:00 AM EDT Office Visit Thoracic Surgery - [place] [address] [facility] [address] [place] [address] Dg Lima PA History of lung cancer (Primary Dx) 09/27/2024 9:15 AM EDT Office Visit [facility] Hematology Oncology [address] [place] [id number] Marie Williamson MD Non-small cell cancer of right lung (CMS/HCC V24, CMS/HCC V28) (Primary Dx) from Last 3 Months Surgical History Surgery Date Site/Laterality Comments TUBAL LIGATION PROCEDURE: HISTORICAL TUBAL LIGATION OTHER SURGICAL HISTORY N/A PROCEDURE: VT CLTX CARPO/METACARPAL DISLOCATION THUMB W/MANJ COLONOSCOPY N/A PROCEDURE: HISTORICAL COLONOSCOPY TUBAL LIGATION N/A PROCEDURE: HISTORICAL TUBAL LIGATION; COMMENT: reversal OTHER SURGICAL HISTORY 12/16/2021 Right PROCEDURE: VT THORACOSCOPY W/LOBECTOMY SINGLE LOBE; COMMENT: RUL Medical History Medical History Date Comments Anxiety disorder DX:Anxiety diso rder COPD (chronic obstructive pu lmonary disease) ([facility] [place], [facility] V28) DX:COPD (chronic o bstructive pulmonary disease) ([facility]) Pulmonary nodule DX:Pulmonary no dule Vitamin D deficiency DX:Vitamin D deficiency Pure hypercholesterolemia DX:Pur e hypercholesterolemia Bronchiectasis ([facility] [place]24, [facility] V28) DX:Bronchiectasis ([facility]) Mild intermittent asthma, uncomplicated 09/06/2023 DX:Mild intermittent asthma, uncomplicated Essential (primary) hypertension 09/06/2023 DX:Essential (primary) hypertension Adenocarcinoma of right lung ([facility] [place], [facility] V28) 2021 DX:Adenocarcinoma of right l terry ([facility]) Personal history of nicotine dependence DX:Personal history of nicot ine dependence Supraventricular tachycardia ([facility] V24) DX:Supraventricular tachycar fernie ([facility]) Family History Medical History Relation Name [...] Description 05/30/2025 9:15 AM EST Office Visit [facility] Hematology Oncology [address] [place] [phone] Marie Williamson MD [address] [place] [address] Health Maintenance Due Date Last Done Comments [...] Resul t from Last 3 Months Insurance [facility] Care Teams Ocean Transportation Intermediary Relationship Specialty Start Date End Date Babar Espino MD [address] [place] [address] [address] [place], [place] PCP - General Internal Medicine 11/07/21
== END 2024-12-07 08:37 | disposition home or self-care (01) ==
LOC: HO.MAMMO 08:36
PROVIDERS: PCP Internal Medicine; Visit Provider Internal Medicine
DX: Z12.31 Encounter for screening mammogram for malignant neoplasm of breast (principal)
CPT/HCPCS: 77063; 77067

== ENCOUNTER → 2024-12-07 08:45 | Outpatient (BNV) | payer BC, SELFPAY | PROVIDERS: PCP Internal Medicine; Visit Provider Internal Medicine | DX: Z12.31 Encounter for screening mammogram for malignant neoplasm of breast (principal) | CPT/HCPCS: 77063; 77067 ==

== ENCOUNTER 2025-03-21 09:52 | Outpatient (AMB) | payer BC, SELFPAY ==
--- OUTSIDE RECORDS SUMMARY | 2024-03-29 08:28 | XMS_ITS | Encounter Summary ---
Author Organization [facility] Address [address] [place] [address] Care Team Providers Care Pet Care Attendant Name Role Phone Babar Espino MD Primary Care Provider Encounter Details Date Type Department Care Team (Late st Contact Info) Description 03/29/2024 8:28 AM EDT Hospital Encounter TH HISTORIC ENCOUNTERS EASTERN CONVERSION ONLY Marie Williamson MD [address] [place] [phone] Social History Tobacco Use Types Packs/Day Years [...] HPI: 63-year-old female who has more than 93-gfch-ldud smoking history, quit smoking few months ago, [...] 45 Oncology History Overview Note Patient has 79-rpda-wucv smoking history, also evidence of COPD In [...] on molecular studies, according to results from [employer], it seems that all his specimen (3 [...] smoking in October 2023, has more than 71-eeqg-qgdy smoking history She drinks socially She was [...] CT scan done a week ago in [facility] still not read by radiologist, I will call them again IMPRESSION: SNOMED CT(R) 1. Adenocarcinoma of right lung (HCC) ADENOCARCINOMA OF RIGHT LUNG 63-year-old female who has more than 35-yrrn-xfol smoking history, she quit smoking in October of this year, patient in the spring of this year had CT scan that showed groundglass opacities/question infection/inflammation (at that time she was diagnosed with pneumonia and treated with antibiotics with good response) patient has been feeling very well, has no worsening symptom or any major issues, patient had a CT scan done week ago in [facility], we do not have results yet, I try [facility] radiology department, hopefully some radiologist will call [...] Description 05/30/2025 9:15 AM EST Office Visit [facility] Hematology Oncology [address] [place] [id number] Marie Williamson MD [address] [place] [address] documented as of this encounter Procedures Procedure Name Priority Date/Time Associated Diagnosis Comments ..MISCELLANEOUS REFERENCE LAB TEST 03/29/2024 documented in this encounter Results * Miscellaneous reference lab test (03/29/2024) us Provider Onbase LAB BLOOD ORDERABLES Final Re sult documented in this encounter Visit Diagnoses Not on filedocumented in this encounter Care Teams Pet Care Attendant Relationship Specialty Start Date End Date Babar Espino MD [address] [place] [address] Dr [address] [place], [place] PCP - General Internal Medicine 11/07/21 documented as of this encounter
--- NOTE | 2025-03-21 10:41 | MHC.OFFVIS ---
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 SUPERVISOR annual exam Freelance Digital Project Manager Required: No Information Interpreted: non-clinical & clinical Citrix Systems Administrator: Citrix Systems Administrator Present Allergies levofloxacin (From LEVAQUIN) Allergy (Intermediate, Verified 03/21/25 10:53) NAUSEA & VOMITING, hives bupropion Allergy (Unknown, Verified 03/21/25 10:53) increased anxiety/depression Medication List - Last Reconciled 03/21/25 by Martine Gonsales, OLY albuterol sulfate 90 mcg/actuation 2 puffs inhalation Q6H PRN 30 days amlodipine 10 mg PO DAILY 90 days cholecalciferol (vitamin D3) 50 mcg PO DAILY 90 days fluticasone propion-salmeterol 250-50 mcg/dose (Wixela Inhub) 1 inh inhalation BID fluticasone propion-salmeterol 250-50 mcg/dose (Wixela Inhub) 1 inh inhalation Q12H 30 days hydralazine 50 mg PO TID 90 days hydrochlorothiazide 12.5 mg PO DAILY 90 days ipratropium-albuterol 0.5 mg-3 mg(2.5 mg base)/3 mL 3 mL inhalation Q20M PRN lorazepam 0.5 mg PO TID PRN 30 days [NEBULIZER with all related supplies, including tubing and mask As directed] [PORTABLE OXYGEN TANK for home use Use as directed at 1 LPM at rest and can go up to 2 to 3 LPM with ambulation] potassium chloride ER 20 mEq PO DAILY 30 days Post menopausal: Yes Patient : No HPI Comments Details: Patient is a postmenopausal woman presenting for her new formerly [facility] annual premium representative examination. Senior Environmental Technician concerns: none. Currently sexually active. Admits to dryness, lubrication is helpful. STI testing offered; she declines. Attempting to eat a healthy diet with calcium and vitamin D and stays active with exercise-walks at work. Last pap smear; 2016-[facility]. Last mammogram; 2024. Colonoscopy consult is booked. Denies any family history of breast, ovarian or colon cancer. Everyday smoker. [facility], [facility] Medical History Smoker Insomnia Tobacco dependence Tachycardia Benign essential hypertension Adenocarcinoma of right lung (~2021) Pulmonary nodule Personal history of nicotine dependence Bronchiectasis Pure hypercholesterolemia Anxiety Vitamin D deficiency COPD (chronic obstructive pulmonary disease) Surgical History History of lung surgery (~2021) History of thumb surgery History of reversal of tubal ligation History of colonoscopy History of tubal ligation Family History Father Myocardial infarction Mother Stroke Family/Other Hypertension Social History Household Members: Spouse and Children Housing: House Alcohol intake: current Alcohol intake frequency: holidays/special occasions only Patient Tobacco Use Status: Former Tobacco user Tobacco use type: Cigarette Cigarettes Per Day: 15 Years Smoked: Current smoker, onset 16, 3/4ppd x 45yrs, 33pyh e-Cigarette/Vaping Use: Never Used Second Hand Smoke Exposure: Yes Advance Directives Date on File: 08/21/24 Patient : No service: No Current occupational status: employed Cognitive needs: No Hearing needs: No Vision needs: Yes Female Reproductive History Menstrual Menopause type: natural Total pregnancies: 1 Full term: 1 History of abnormal pap smear: No History of STI: No Date of Mammogram: 12/07/24 History of abnormal mammogram: No Review of Systems Const All systems reviewed & are unremarkable except as noted in HPI and below Reports as per HPI Eyes Reports no additional complaints ENT Reports no additional complaints Card Reports no additional complaints Resp Reports no additional complaints GI Reports as per HPI and Reports no additional complaints Reports as per HPI Musc Reports no additional complaints Skin/Breast Reports as per HPI Neuro Reports no additional complaints Psych Reports no additional complaints Endo Reports no additional complaints Dell/Lymph Reports no additional complaints Aller/Immun Reports no additional complaints Physical Exam Vital Signs: Last Vital Signs BP 126/64 03/21/25 10:42 BMI result Body Mass Index 20.1 Const General: cooperative, healthy appearing, no acute distress, well developed and alert Orientation/consciousness: patient oriented x3 HEENT Head: Yes normal to inspection Eyes General: appearance normal, both eyes and all related structures Neck Neck: Yes normal visual inspection Thyroid: Thyroid normal Chest Chest palpation & inspection: normal inspection of the chest and other (no puckering, dimpling, peau de orange, retraction, discharge, masses) Breast/axilla inspection: normal inspection of the breasts Breast/axilla palpation: normal palpation of the breasts Resp Effort & Inspection: normal respiratory effort GI Inspection: Yes normal to inspection Palpation (GI): Soft to palpation Rectal Exam - Female: deferred General: Yes bladder normal to palpation External Female Exam: normal external appearance and normal appearance of the urethra Speculum Exam - Vagina: normal appearance of the vagina, normal palpation, normal vaginal discharge and vagina atrophic Speculum Exam - Cervix: normal appearance of the cervix and normal palpation Bimanual exam- vagina & uterus: normal bimanual exam, normal palpation, uterine size normal, bladder normal to palpation, normal palpation and non-tender Bimanual Exam- Adnexa, other: no masses Skin General skin exam: no rashes or lesions noted Rashes: no rashes Neuro General: patient oriented x3 Cognition (Neuro): normal cognition Extrem General: Yes normal to inspection Psych Attitude: cooperative Thought process: Normal thought process present Assessment & Plan Assessment & Plan (1) Encounter for well woman exam with routine gynecological exam: Code(s): Z01.419 - Encounter for gynecological examination (general) (routine) without abnormal findings Category: Medical Plan Discussed: Current recommendations for pap smears per ASCCP guidelines. Breast awareness, periodic self breast exams and yearly mammogram. Maintain a healthy lifestyle, well balanced diet including Calcium 1,200 mg and Vitamin D 600 IU daily, and routine exercise. Contact the office with any postmenopausal bleeding. Encouraged tobacco cessation. Patient verbalizes understanding and agrees to the plan of care. She was given opportunity to ask questions and all questions were answered to the best of my ability. RTO in 1 year for annual premium representative exam. This note is constructed using voice recognition software. While every effort has been made to ensure accuracy, color shop helper errors may have been included. Orders: Orders Pap Smear Today Z01.419 - Encounter for gynecological examination (general) (routine) without abnormal findings Coding Level of Care Code New Pt Prev Care 40-64y(26634) Diagnoses Encounter for well woman exam with routine gynecological exam Z01.419
[2025-03-21 10:42] VITALS: BP 126/64; BMI 20.1
--- OUTSIDE RECORDS SUMMARY | 2025-03-21 11:58 | XMS_ITS | Clinical Summary ---
Author Organization [facility] Address [address] [place] [address] Care Team Providers Care Hazardous Materials Analyst Name Role Phone Babar Espino MD Primary Care Provider +1- [phone] Allergies Active Allergy Reactions Criticality Noted Date [...] 89 03/29/2024 8:46 AM EDT Temperature 36.2 C (97.1 F) 03/29/2024 8:46 AM EDT Respiratory Rate 16 07/14/2023 9:11 AM EST [...] (Colonoscopy) 2005 Breast Cancer Screening (Mammogram) 2010 Influenza Vaccine (#1) 2025 RSV Adult > 60+ Yrs or Pregn ant (1 - 1-dose 75+ series) 2035 Hepatitis B Vaccines Aged Out No long er eligible based on patient's age to complete this topic RSV Ped < 20 months Aged Out No longe r eligible based on patient's age to complete this topic Care Teams Hazardous Materials Analyst Relationship Specialty Start Date End Date Babar Espino MD [address] [place] [address] [place] [address] PCP - General Internal Medicine 01/22/22
--- OUTSIDE RECORDS SUMMARY | 2025-03-21 11:58 | XMS_ITS | Encounter Summary ---
Author Organization [facility] Address [address] [place] [address] Care Team Providers Care Tank Worker Name Role Phone Babar Espino MD Primary Care Provider +1- [phone] Reason for Visit * Reason Comments High EOB for Caris Encounter Details Date Type Department Care Team Description 03/30/2022 Nurse Only [facility] Oncology Services [address] [place] [address] Sima Laguerre RN High EOB for Caris [...] on filedocumented in this encounter Care Teams Tank Worker Relationship Specialty Start Date End Date Babar Espino MD [address] [place] [address] [place] [address] PCP - General Internal Medicine 01/22/22 documented as of this encounter
--- OUTSIDE RECORDS SUMMARY | 2025-03-21 11:58 | XMS_ITS | Clinical Summary ---
Author Organization [facility] Address [address] [place] [address] Phone Care Team Providers Care Document Restorer Name Role Phone Babar Espino MD Primary Care Provider [phone] [phone] Self-Referred, Patient Unavailable Unavailab le Social History Tobacco Use Types Packs/Day Years Used Date Smoking Tobacco: Never Assessed Education Answer Date Recorded Are you interested in more education? Not on lamar e 10/23/2022 Are you concerned about learning? Not on file 10/23/2022 No 10/23/2022 No 10/23/2022 Digital Access Answer Date Recorded No 11/21/2022 No 11/21/2022 No 11/21/2022 Reliable internet access at home? Not on file 11/21/2022 Device with a working camera? Not on file Comments Unknown Sex and Gender Information Value Date Recorded Sex Assigned at Female 04/29/2022 4:57 PM EDT Legal Sex Female 9:48 PM EDT Gender Identity Female 04/29/2022 4:57 PM EDT Sexual Orientation Straight 04/29/2022 4: 57 PM EDT Plan of Treatment Health Maintenance Due Date Last Done Comments LIPID PANEL 1960 DEPRESSION SCREENING 1972 SMOKING Hx and SMOKELESS TOBACCO SCREENING 1973 HEPATITIS C SCREENING 1978 HIV ONE-TIME SCREENING (18-65 YEARS) 1978 PAP SMEAR 1981 MAMMOGRAM 2000 COLOGUARD 2005 COLONOSCOPY 2005 COLORECTAL CANCER SCREENING 2005 FIT TEST 2005 FOBT 2005 SIGMOIDOSCOPY 2005 VIRTUAL COLONOSCOPY 2005 ZOSTER VACCINES (1 of 2) 2010 PNEUMOCOCCAL VACCINES (50+ years) (3 of 3 - PCV20 or PCV21) 10/19/2023 10/18/2018, 04/20/2017 INFLUENZA VACCINE (#1) 2025 , 04/05/2019, 04/27/2018, Additional history exists COVID-19 VACCINE ( season) 2025 06/26/2021, 09/18/2020, 08/21/2020 Adult Td,Tdap Booster 10/25/2028 10/25/2018 RSV VACCINE (1 - 1-dose 75+ series) 2035 HEPATITIS A VACCINES Aged Out No long er eligible based on patient's age to complete this topic HIB VACCINES Aged Out No longer eligi ble based on patient's age to complete this topic MENINGOCOCCAL VACCINES (ACWY) Aged Out No longer eligible based on patient's age to complete this topic MENINGOCOCCAL VACCINES (B) Aged Out N o longer eligible based on patient's age to complete this topic Medical Devices Not on file [facility] [place] [place] [place] [facility] HMO POS [facility] HMO POS [facility] HMO POS [facility] HMO POS [facility] HMO POS [facility] HMO POS [facility] HMO POS Care Teams Document Restorer Relationship Specialty Start Date End Date Babar Espino MD [address] [place] [address] [place] [address] PCP - General 04/12/17 Self-Referred, Patient 04/29/22 Additional Source Comments The information contained in this document represents components of the legal health record. It is not the complete legal health record.[facility]
--- OUTSIDE RECORDS SUMMARY | 2025-03-21 11:58 | XMS_ITS ---
Author Organization [facility] Address [address] [place] [address] Care Team Providers Care Decision Support Manager Name Role Phone Babar Espino MD Primary Care Provider +1- [phone] Active Problems Problem Noted Date Diagnosed Date Non-small cell carcinoma of lung 02/13/2022 Current Oncology Plans No current plan information found. Past Plans ONCOLOGY TREATMENT Plan Name Start Date Discontinue Date Treatment Medications Discontinue Reason Plan Provider [facility] 023 08/31/2023 albuterol (PROVENTIL)diphenhydrAMI NE (BENADRYL)durvalumab (IMFINZI) infusionEPINEPHrinefamot idine (PF) (PEPCID)hydrocortisone (SOLU-CORTEF) IVmeperidine (DEMEROL) 25 MG/MLpotassium chloride ERSaline Flush 0.9 %sodium chloride (NS) 0.9 %sodium chloride 0.9% bolus (NS) Therapy Complete Marie Williamson MD 15 of 15 cycles started [facility] OP PACLITAXEL / CARBOPLATIN (LUNG) 5 [...] Williamson MD 4 of 4 cycles [facility] CARBOPLATIN (LUNG) 5 [...] Williamson MD 1 of 4 cycles started [facility] [phone] METFORMIN OR [place] WITH PACLITAXEL AND CARBOPLATIN 022 02/24/2022 No medications scheduled. Entered in error Marie Williamson MD No cycles in plan Radiation Treatments * No radiation treatments are documented for this patient in [facility]. Treatments may have been administered in another system.
--- OUTSIDE RECORDS SUMMARY | 2025-03-21 11:58 | XMS_ITS | Encounter Summary ---
Author Organization [facility] Address [address] [place] [address] Care Team Providers Care Film Mounter Name Role Phone Babar Espino MD Primary Care Provider +1- [phone] Encounter Details Date Type Department Care Team Description 02/25/2022 Social Work [facility] Oncology Services [address] [place] [address] Bill Cid, [facility] Social History Tobacco Use Types Packs/Day Years [...] on filedocumented in this encounter Care Teams Film Mounter Relationship Specialty Start Date End Date Babar Espino MD [address] [place] [address] [place] [address] PCP - General Internal Medicine 01/22/22 documented as of this encounter
--- OUTSIDE RECORDS SUMMARY | 2025-03-21 11:59 | XMS_ITS | Clinical Summary ---
Author Organization [facility] Address [address] [place] [address] Phone Care Team Providers Care Supervisor Dental Laboratory Name Role Phone Babar Espino MD Primary Care Provider +1- [phone] Allergies Active Allergy Reactions Criticality Noted Date [...] chest CT scan which was performed at [facility] in October 2024 and shows no obvious new or worsening pulmonary nodules or mediastinal lymphadenopathy however does show a new linear opacity in the right upper lobe which is likely scarring however she was informed that we will follow-up with a 6- month chest CT scan which will be due in April 2025 at [facility] to ensure stability or resolution of this opacity. Non-small cell carcinoma of lung ([facility] V24, [facility] [place]/[facility] V28) 02/13/2022 Surgical History Surgery Date Site/Laterality Comments TUBAL LIGATION PROCEDURE: HISTORICAL TUBAL LIGATION OTHER SURGICAL HISTORY N/A PROCEDURE: [place] CLTX CARPO/METACARPAL DISLOCATION THUMB W/MANJ COLONOSCOPY N/A PROCEDURE: HISTORICAL COLONOSCOPY TUBAL LIGATION N/A PROCEDURE: HISTORICAL TUBAL LIGATION; COMMENT: reversal OTHER SURGICAL HISTORY 12/16/2021 Right PROCEDURE: [place] THORACOSCOPY W/LOBECTOMY SINGLE LOBE; COMMENT: RUL Medical History Medical History Date Comments Anxiety disorder DX:Anxiety diso rder COPD (chronic obstructive pu lmonary disease) ([facility]/HCC V24, [facility] V28) DX:COPD (chronic o bstructive pulmonary disease) (HCC) Pulmonary nodule DX:Pulmonary no dule Vitamin D deficiency DX:Vitamin D deficiency Pure hypercholesterolemia DX:Pur e hypercholesterolemia Bronchiectasis ([facility] V24, [facility] V28) DX:Bronchiectasis (HCC) Mild intermittent asthma, uncomplicated 09/06/2023 DX:Mild intermittent asthma, uncomplicated Essential (primary) hypertension 09/06/2023 DX:Essential (primary) hypertension Adenocarcinoma of right lung ([facility] V24, [facility] V28) 2021 DX:Adenocarcinoma of right l terry ([facility]) Personal history of nicotine dependence DX:Personal history of nicot ine dependence Supraventricular tachycardia ([facility] V24) DX:Supraventricular tachycar fernie ([facility]) Family History Medical History Relation Name Comments [...] 54 11/15/2024 9:47 AM EDT Temperature 36.7 C (98.1 F) 11/15/2024 9:47 AM EDT Respiratory Rate 16 11/15/2024 9:47 AM EDT [...] Description 05/30/2025 9:15 AM EST Office Visit [facility] Hematology Oncology [address] [place] [phone] Marie Williamson MD [address] [place] [address] Health Maintenance Due Date Last Done Comments Breast Cancer Screening 1960 Zoster Vaccines (1 of 2) 1979 Cervical Cancer Screening: Pap Smear 1981 Cholesterol Screening (Lipid Panel) 06/06/2022 Colorectal Cancer Screening: Colonoscopy 06/06/2022 HIV Screening 06/06/2022 Hepatitis C Screening 06/06/2022 Lung Cancer Screening (Low Dose CT) 06/06/2022 Social Influencers of Health Screening 06/06/2022 Depression Screening 06/28/2024 COVID-19 Vaccine (5 - Moderna risk season) 2025 03/29/2024, 06/26/2021, 09/18/2020, Additional history exists Influenza Vaccine (#1) 2025 , 04/07/2023, 04/20/2022, Additional history exists DTaP,Tdap,and Td Vaccines (2 - Td or Tdap) 10/25/2028 10/25/2018 RSV Immunization Adult Patients (1 - 1-dose 75+ series) 2035 Pneumococcal Vaccine: 50+ Years Completed 10/21/2022, 10/18/2018, 04/20/2017 HIB Vaccines Aged Out No longer eligi [...] patient's age to complete this topic Insurance [facility] Care Teams Supervisor Dental Laboratory Relationship Specialty Start Date End Date Babar Espino MD [address] [place] [address] Dr [address] [place], [place] PCP - General Internal Medicine 11/07/21
== END 2025-03-21 14:11 | disposition home or self-care (01) ==
LOC: HO.HWS 09:53
PROVIDERS: PCP Internal Medicine; Visit Provider Advanced Practice Midwife
DX: Z01.419 Encounter for gynecological examination (general) (routine) without abnormal findings (principal)
CPT/HCPCS: 99386; 99459

== ENCOUNTER 2025-03-21 09:52 | Outpatient (REF) | payer BC, SELFPAY | END 2025-03-21 09:53 | disposition home or self-care (01) | LOC: HO.LNP 09:52 | PROVIDERS: PCP Internal Medicine; Visit Provider Advanced Practice Midwife | DX: Z12.11 Encounter for screening for malignant neoplasm of colon (principal); Z01.419 Encounter for gynecological examination (general) (routine) without abnormal findings | CPT/HCPCS: 87626; 88175 ==

== ENCOUNTER 2025-03-21 11:24 | Outpatient (AMB) | payer BC, SELFPAY ==
--- NOTE | 2025-03-21 11:33 | A.OFFVIS_ITS ---
Vital Signs 03/21/25 11:37 Height 5 ft 1 in Weight 106 lb 8 oz BMI 20.1 BP 132/62 Blood Pressure Location Lt brachial Position Sitting Pulse 54 Pulse Oximetry (%) 97 Oxygen Delivery Method Room Air Intake Visit Reasons: Colonoscopy Screening Intake Note: New consult for 2nd pre Colonoscopy/Returning pt for recall colo, overdue, last w/ Dr. Marques 2011. Patient denies any GI issues. Molybdenum Steamer Operator Required: No Accompanied by: Self / Same As Patient Allergies levofloxacin (From LEVAQUIN) Allergy (Intermediate, Verified 03/21/25 11:35) NAUSEA & VOMITING, hives bupropion Allergy (Unknown, Verified 03/21/25 11:35) increased anxiety/depression HPI HPI Colonoscopy Screening: Details: 61 year old? female with past medical history of insomnia, COPD, tobacco dependence, adenocarcinoma of right lung status post lobectomy in 2021, hypertension, hypercholesteremia, and anxiety is here today for pre colonoscopy screening.? Patient was sent to us by her PCP.? Patient had normal colonoscopy in January of 2012.? Patient denies any gastrointestinal symptoms in the past or at present.? Denies any personal or family history of gastrointestinal disease, colon polyps, or CRC.? Denies history of difficulty with sedation or anesthesia in the past.? Negative for history of sleep apnea.? Denies any history of cardiac, renal or hepatic disease.?? No history of infectious? diseases like hepatitis A, B, C, HIV or tuberculosis.? Patient is not on any anticoagulation [facility] Medical History Smoker Insomnia Tobacco dependence Tachycardia Benign essential hypertension Adenocarcinoma of right lung (~2021) Pulmonary nodule Personal history of nicotine dependence Bronchiectasis Pure hypercholesterolemia Anxiety Vitamin D deficiency COPD (chronic obstructive pulmonary disease) Surgical History History of lung surgery (~2021) History of thumb surgery History of reversal of tubal ligation History of colonoscopy History of tubal ligation Family History Father Myocardial infarction Mother Stroke Family/Other Hypertension Social History Household Members: Spouse and Children Housing: House Alcohol intake: current Alcohol intake frequency: holidays/special occasions only Patient Tobacco Use Status: Former Tobacco user Tobacco use type: Cigarette Cigarettes Per Day: 15 Years Smoked: Current smoker, onset 16, 3/4ppd x 45yrs, 33pyh e-Cigarette/Vaping Use: Never Used Second Hand Smoke Exposure: Yes Advance Directives Date on File: 08/21/24 service: No Current occupational status: employed Cognitive needs: No Hearing needs: No Vision needs: Yes Review of Systems Const Denies weight gain and Denies weight loss ENT Reports no additional complaints, Denies dysphagia and Denies odynophagia Card Reports no additional complaints Resp Reports no additional complaints GI Denies abdominal pain, Denies belching, Denies melena, Denies bloating, Denies change in bowel habits, Denies dysphagia, Denies excessive flatus, Denies dyspepsia, Denies heartburn, Denies diarrhea, Denies loose stools, Denies nausea, Denies odynophagia and Denies vomiting Musc Reports no additional complaints Neuro Reports no additional complaints Psych Reports no additional complaints Endo Reports no additional complaints Physical Exam Vital Signs: Last Vital Signs Pulse 54 03/21/25 11:37 BP 132/62 03/21/25 11:37 Pulse Ox 97 03/21/25 11:37 Oxygen Delivery Method Room Air 03/21/25 11:37 BMI result Body Mass Index 20.1 Const General: healthy appearing, no acute distress and well developed Nutritional Appearance: well nourished Orientation/consciousness: patient oriented x3 Resp Effort & Inspection: normal respiratory effort, able to speak in complete sentences, no tracheal deviation and symmetric chest movement Auscultation: clear to auscultation bilaterally Cardio Rate: regular rate GI Inspection: Yes normal to inspection and No distended Palpation (GI): Soft to palpation, not firm, nontender and No hepatosplenomegaly present Auscultation: normal bowel sounds General: Yes no CVA tenderness Back/Spine/Pelvis Back: no CVA tenderness Skin General skin exam: elasticity normal, turgor normal and dry skin Neuro General: patient oriented x3 Psych Appearance: grossly normal Mental Status: mental status grossly normal Assessment & Plan Assessment & Plan (1) Screen for colon cancer: Code(s): Z12.11 - Encounter for screening for malignant neoplasm of colon Plan Patient denies any GI, cardiac or respiratory symptoms.? However patient does wear oxygen occasionally. Sees Dr. Love in pulmonology, status post right lobectomy. Will have CT scan in April and follow-up with her glove examiner after. Denies any issues with anesthesia in the past.? Denies any history of sleep apnea.? No history infectious diseases in the past or present.? Not on any anticoagulation therapy.? No family or personal history of colon cancer or polyps.? Patient denies melena, hematochezia, unintentional weight loss or ribbon like stools.? Discussed at length the pre-procedure,? prep, diet & medications as well as what to expect prior, during and after the procedure.?? Stressed the importance of good bowel prep.? Recommended the use of Vaseline or Calmoseptine OTC & baby wipes with bowel movements to promote comfort.? ?Patient verbalizes understanding and agrees to plan of care.? She was given the opportunity to ask questions and all questions answered.? We will see her after the procedure.? Orders: Referrals GI Procedure Notification Z12.11 - Encounter for screening for malignant neoplasm of colon Medications: New polyethylene glycol 3350 (Miralax) As directed by gastroenterology department at [facility] 238 grams PO ONCE 238 grams 0RF Z12.11 - Encounter for screening for malignant neoplasm of colon bisacodyl (Dulcolax (bisacodyl)) take 4 tabs at noon the day before your colonoscopy 20 mg (4 x 5 mg) PO ONCE 4 tabs 0RF constipation 1 day Z12.11 - Encounter for screening for malignant neoplasm of colon Coding Level of Care Code New Pt Level 3 (76785) Diagnoses Screen for colon cancer Z12.11 Time Spent (min) 40 Comment 30 minutes spent with patient and additional 10 minutes spent reviewing her records
[2025-03-21 11:37] VITALS: BP 132/62; PULSE 54; O2SAT 97; BMI 20.1
== END 2025-03-21 12:25 | disposition home or self-care (01) ==
PROVIDERS: PCP Internal Medicine; Visit Provider Nurse Practitioner Family
DX: Z01.818 Encounter for other preprocedural examination (principal); Z12.11 Encounter for screening for malignant neoplasm of colon
CPT/HCPCS: S0285

== ENCOUNTER 2025-03-28 07:55 | Day surgery (SDC) | payer BC, SELFPAY ==
--- OUTSIDE RECORDS SUMMARY | 2024-03-29 08:28 | XMS_ITS | Encounter Summary ---
Author Organization [facility] Address [address] [place] [address] Care Team Providers Care Full Roll Inspector Name Role Phone Babar Espino MD Primary Care Provider [phone] Encounter Details Date Type Department Care Team (Late st Contact Info) Description 03/29/2024 8:28 AM EDT Hospital Encounter TH HISTORIC ENCOUNTERS EASTERN CONVERSION ONLY Marie Williamson MD [address] [place] [id number] Social History Tobacco Use Types Packs/Day Years [...] HPI: 63-year-old female who has more than 40-fgax-rnxf smoking history, quit smoking few months ago, [...] 45 Oncology History Overview Note Patient has 73-ncry-sznf smoking history, also evidence of COPD In [...] on molecular studies, according to results from [employer], it seems that all his specimen (3 [...] smoking in October 2023, has more than 03-nasv-mjky smoking history She drinks socially She was [...] CT scan done a week ago in [facility] still not read by radiologist, I will call them again IMPRESSION: SNOMED CT(R) 1. Adenocarcinoma of right lung (HCC) ADENOCARCINOMA OF RIGHT LUNG 63-year-old female who has more than 11-onar-nxfd smoking history, she quit smoking in October of this year, patient in the spring of this year had CT scan that showed groundglass opacities/question infection/inflammation (at that time she was diagnosed with pneumonia and treated with antibiotics with good response) patient has been feeling very well, has no worsening symptom or any major issues, patient had a CT scan done week ago in [facility], we do not have results yet, I try [facility] radiology department, hopefully some radiologist will call [...] Care Team (Late st Contact Info) Description 05/30/2025 9:15 AM EST Office Visit [facility] Hematology Oncology [address] [place] [phone] Marie Williamson MD [address] [place] [address] documented as of this encounter Procedures Procedure Name Priority Date/Time Associated Diagnosis Comments ..MISCELLANEOUS REFERENCE LAB TEST 03/29/2024 documented in this encounter Results * Miscellaneous reference lab test (03/29/2024) us Provider Onbase LAB BLOOD ORDERABLES Final Re sult documented in this encounter Visit Diagnoses Not on filedocumented in this encounter Care Teams Full Roll Inspector Relationship Specialty Start Date End Date Babar Espino MD [address] [place] [address] Dr [address] [place], [place] PCP - General Internal Medicine 11/07/21 documented as of this encounter
--- OUTSIDE RECORDS SUMMARY | 2025-03-22 17:49 | XMS_ITS ---
Author Organization [facility] Address [address] [place] [address] Care Team Providers Care Cathead Worker Name Role Phone Babar Espino MD Primary Care Provider +1- [phone] Active Problems Problem Noted Date Diagnosed Date Non-small cell carcinoma of lung 02/13/2022 Current Oncology Plans No current plan information found. Past Plans ONCOLOGY TREATMENT Plan Name Start Date Discontinue Date Treatment Medications Discontinue Reason Plan Provider Cycles [facility] DUR[facility] 023 08/31/2023 albuterol (PROVENTIL)diphenhydrAMI NE (BENADRYL)durvalumab (IMFINZI) infusionEPINEPHrinefamot idine (PF) (PEPCID)hydrocortisone (SOLU-CORTEF) IVmeperidine (DEMEROL) 25 MG/MLpotassium chloride ERSaline Flush 0.9 %sodium chloride (NS) 0.9 %sodium chloride 0.9% bolus (NS) Therapy Complete Marie Williamson MD 15 of 15 cycles started [facility] OP PACLITAXEL / CARBOPLATIN (LUNG) 5 [...] Williamson MD 4 of 4 cycles [facility] CARBOPLATIN (LUNG) 5 [...] Williamson MD 1 of 4 cycles started [facility] [phone] METFORMIN OR [place] WITH PACLITAXEL AND CARBOPLATIN 022 02/24/2022 No medications scheduled. Entered in error Marie Williamson MD No cycles in plan Radiation Treatments * No radiation treatments are documented for this patient in [facility]. Treatments may have been administered in another system.
--- OUTSIDE RECORDS SUMMARY | 2025-03-22 17:49 | XMS_ITS | Clinical Summary ---
Author Organization [facility] Address [address] [place] [address] Phone Care Team Providers Care Bleacher Lard Name Role Phone Babar Espino MD Primary Care Provider +1- [phone] Allergies Active Allergy Reactions Criticality Noted Date [...] chest CT scan which was performed at [facility] in October 2024 and shows no obvious new or worsening pulmonary nodules or mediastinal lymphadenopathy however does show a new linear opacity in the right upper lobe which is likely scarring however she was informed that we will follow-up with a 6- month chest CT scan which will be due in April 2025 at [facility] to ensure stability or resolution of this opacity. Non-small cell carcinoma of lung ([facility] V24, [place]/[facility] V28) 02/13/2022 Surgical History Surgery Date Site/Laterality [...] rder COPD (chronic obstructive pu lmonary disease) ([facility]/HCC V24, [facility] V28) DX:COPD (chronic o bstructive pulmonary disease) (HCC) Pulmonary nodule DX:Pulmonary no dule Vitamin D deficiency DX:Vitamin D deficiency Pure hypercholesterolemia DX:Pur e hypercholesterolemia Bronchiectasis ([facility] V24, [facility] V28) DX:Bronchiectasis (HCC) Mild intermittent asthma, uncomplicated 09/06/2023 DX:Mild intermittent asthma, uncomplicated Essential (primary) hypertension 09/06/2023 DX:Essential (primary) hypertension Adenocarcinoma of right lung ([facility] V24, [facility] V28) 2021 DX:Adenocarcinoma of right l terry ([facility]) Personal history of nicotine dependence DX:Personal history of nicot ine dependence Supraventricular tachycardia ([facility] V24) DX:Supraventricular tachycar fernie ([facility]) Family History Medical History Relation Name [...] Visit [facility] Hematology Oncology [address] [place] [phone] Marie Williamson MD [address] [place] [address] Health Maintenance Due Date Last Done Comments [...] patient's age to complete this topic Insurance [employer] Care Teams Bleacher Lard Relationship Specialty Start Date End Date Babar Espino MD [address] [place] [address] Dr [address] [place], [place] PCP - General Internal Medicine 11/07/21
--- OUTSIDE RECORDS SUMMARY | 2025-03-22 17:49 | XMS_ITS | Clinical Summary ---
Author Organization [facility] Address [address] [place] [address] Care Team Providers Care Director Building Name Role Phone Babar Espino MD Primary Care Provider +1- [phone] Allergies Active Allergy Reactions Criticality Noted Date [...] age to complete this topic Care Teams Director Building Relationship Specialty Start Date End Date Babar Espino MD [address] [place] [address] [place] [address] PCP - General Internal Medicine 01/22/22
--- OUTSIDE RECORDS SUMMARY | 2025-03-22 17:49 | XMS_ITS | Encounter Summary ---
Author Organization [facility] Address [address] [place] [address] Care Team Providers Care Milk Pickup Truck Driver Name Role Phone Babar Espino MD Primary Care Provider +1- [phone] Reason for Visit * Reason Comments High EOB for Caris Encounter Details Date Type Department Care Team Description 03/30/2022 Nurse Only [facility] Oncology Services [address] [place] [address] Sima Laguerre RN High EOB for Caris [...] on filedocumented in this encounter Care Teams Milk Pickup Truck Driver Relationship Specialty Start Date End Date Babar Espino MD [address] [place] [address] [place] [address] PCP - General Internal Medicine 01/22/22 documented as of this encounter
--- OUTSIDE RECORDS SUMMARY | 2025-03-22 17:49 | XMS_ITS | Encounter Summary ---
Author Organization [facility] Address [address] [place] [address] Care Team Providers Care Waste Treatment Operator Name Role Phone Babar Espino MD Primary Care Provider +1- [phone] Encounter Details Date Type Department Care Team Description 02/25/[address] [facility] Oncology Services [address] [place] [address] Bill Cid, [place] Social History Tobacco Use Types Packs/Day Years [...] on filedocumented in this encounter Care Teams Waste Treatment Operator Relationship Specialty Start Date End Date Babar Espino MD [address] [place] [address] [place] [address] PCP - General Internal Medicine 01/22/22 documented as of this encounter
--- OUTSIDE RECORDS SUMMARY | 2025-03-22 17:49 | XMS_ITS | Clinical Summary ---
Author Organization [facility] Address [address] [place] [address] Phone Care Team Providers Care [employer] Member Name Role Phone Babar Espino MD Primary Care Provider +1 -[phone] Self-Referred, Patient Unavailable Unavailab le Social History [...] topic Medical Devices Not on file [facility] [place] [place] [facility] HMO POS [facility] HMO POS [facility] HMO POS [facility] HMO POS [facility] HMO POS [facility] HMO POS [facility] HMO POS Care Teams [employer] Member Relationship Specialty Start Date End Date Babar Espino MD [address] [place] [address] [place] [address] PCP - General 04/12/17 Self-Referred, Patient 04/29/22 Additional Source Comments The information contained in this document represents components of the legal health record. It is not the complete legal health record.[facility]
--- NOTE | 2025-03-26 14:31 | HO.ANESPROP2 ---
Documented by User: Deysi Alamo NP 03/26/25 14:35 HPI - Anesthesia Eval Consult details Narrative: 64 yr old female for colonoscopy Advanced COPD: on 2 liters O2 with activity; chronic cough, SOB with exertion. Adenocarcinoma of right lung: s/p RUL lobectomy 11/2021; chemo 04/2022; Immunetherapy 06/2022 PMFSH Active Problems Active Problems: All Active Problems Encounter for well woman exam with routine gynecological exam (Acute) Insomnia (Acute) Hypokalemia (Acute) Bronchitis (Acute) Pneumonia (Acute) Asthma exacerbation in COPD (Acute) Hypoxia (Acute) Malignant neoplasm of unspecified part of right bronchus or lung (Acute) Bronchospasm (Acute) Cough (Acute) COPD exacerbation (Acute) Acute cervical myofascial strain (Acute) Tobacco dependence (Acute) Pulmonary nodule (Acute) Adenocarcinoma of right lung (Acute ~2021) Cancer of upper lobe of right lung (Acute ~2021) 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) COPD (chronic obstructive pulmonary disease) (Acute) Personal history of nicotine dependence (Acute) Bronchiectasis (Acute) Tachycardia (Acute) Benign essential hypertension (Acute) Pure hypercholesterolemia (Acute) Anxiety (Acute) Constipation (Acute) Vitamin D deficiency (Acute) Past Medical History Medical History Smoker Insomnia Tobacco dependence Tachycardia Benign essential hypertension Adenocarcinoma of right lung (~2021) Pulmonary nodule Personal history of nicotine dependence Bronchiectasis Pure hypercholesterolemia Anxiety Vitamin D deficiency COPD (chronic obstructive pulmonary disease) Family History Family History Father Myocardial infarction Mother Stroke Family/Other Hypertension Surgical History Surgical History History of lung surgery (~2021) History of thumb surgery History of reversal of tubal ligation History of colonoscopy History of tubal ligation Social History Social History Household Members: Spouse and Children Housing: House Alcohol intake: current Alcohol intake frequency: holidays/special occasions only Patient Tobacco Use Status: Current everyday Tobacco user Tobacco use type: Cigarette Cigarettes Per Day: 15 Years Smoked: Current smoker, onset 16, 3/4ppd x 45yrs, 33pyh e-Cigarette/Vaping Use: Never Used Second Hand Smoke Exposure: Yes Use of substances other than those prescribed or required for medical reasons: No Advance Directives: No Advance Directives Information Provided: Yes Advance Directives Date on File: 08/21/24 service: No Current occupational status: employed Cognitive needs: No Hearing needs: No Vision needs: Yes Meds Allergies Allergy/AdvReac Type Severity Reaction Status Date / Time levofloxacin (From LEVAQUIN) Allergy Intermediate NAUSEA & Verified 03/21/25 11:35 VOMITING, hives bupropion Allergy Unknown increased Verified 03/21/25 11:35 anxiety/depression Home Medications ?Medication ?Instructions ?Recorded ?Confirmed ?Last Taken ?Type tiotropium bromide 2.5 2 puff inhalation QAM 03/21/25 Unknown History mcg/actuation mist for inhalation (Spiriva Respimat) fluticasone 250 mcg-salmeterol 50 1 ea inhalation Q12H 03/28/25 03/28/25 Unknown History mcg/dose blistr powdr for inhalation (Wixela Inhub) fluticasone 250 mcg-salmeterol 50 1 ea inhalation Q12H 03/28/25 03/28/25 03/28/25 07:00 History mcg/dose blistr powdr for inhalation (Wixela Inhub) Documented by User: Phill Mcdowell MD 03/28/25 10:29 [facility] Past Medical History Medical History Smoker Insomnia Tobacco dependence Tachycardia Benign essential hypertension Adenocarcinoma of right lung (~2021) Pulmonary nodule Personal history of nicotine dependence Bronchiectasis Pure hypercholesterolemia Anxiety Vitamin D deficiency COPD (chronic obstructive pulmonary disease) Cognitive capacity: no Functional capacity: independent ambulation Family History Family History Father Myocardial infarction Mother Stroke Family/Other Hypertension Family history of problems with anesthesia: No Surgical History Surgical History History of lung surgery (~2021) History of thumb surgery History of reversal of tubal ligation History of colonoscopy History of tubal ligation History of Problems with Anesthesia: No Social History Social History Household Members: Spouse and Children Housing: House Alcohol intake: current Alcohol intake frequency: holidays/special occasions only Patient Tobacco Use Status: Current everyday Tobacco user Tobacco use type: Cigarette Cigarettes Per Day: 15 Years Smoked: Current smoker, onset 16, 3/4ppd x 45yrs, 33pyh e-Cigarette/Vaping Use: Never Used Second Hand Smoke Exposure: Yes Use of substances other than those prescribed or required for medical reasons: No Advance Directives: No Advance Directives Information Provided: Yes Advance Directives Date on File: 08/21/24 service: No Current occupational status: employed Cognitive needs: No Hearing needs: No Vision needs: Yes Meds Allergies Allergy/AdvReac Type Severity Reaction Status Date / Time levofloxacin (From LEVAQUIN) Allergy Intermediate NAUSEA & Verified 03/21/25 11:35 VOMITING, hives bupropion Allergy Unknown increased Verified 03/21/25 11:35 anxiety/depression Home Medications ?Medication ?Instructions ?Recorded ?Confirmed ?Last Taken ?Type tiotropium bromide 2.5 2 puff inhalation QAM 03/21/25 Unknown History mcg/actuation mist for inhalation (Spiriva Respimat) fluticasone 250 mcg-salmeterol 50 1 ea inhalation Q12H 03/28/25 03/28/25 Unknown History mcg/dose blistr powdr for inhalation (Wixela Inhub) fluticasone 250 mcg-salmeterol 50 1 ea inhalation Q12H 03/28/25 03/28/25 03/28/25 07:00 History mcg/dose blistr powdr for inhalation (Wixela Inhub) Assessment and Plan Final Anesthetic Review Family History of Problems with Anesthesia: No History of Problems with Anesthesia: No NPO: Yes ASA Class: II Final Preanesthetic Review: No Changes in Pt Med Stat, Meds/Allgs Chart Reviewed, Consent Obtained/Reviewed and Anes Risks/Benef Reviewed Patient Risk: Low Procedure Risk: Low Anesthetic Plan Anesthetic Plan: MAC: Disposition: Standard PACU and Inp. Admit - [facility]
[2025-03-28 08:12] VITALS: BMI 19.7
--- NOTE | 2025-03-28 08:21 | MHC.SHP ---
Pre-Procedural Eval Section A - 24 Hr Update-Section A only Date of Service: 03/28/25 The patient is an INPATIENT: No Changes since office visit: Yes Patient answered all questions; No Cold of Flu in the past 2 weeks, No New Medical Problems and No Changes in Medication The patient has been examined within 24 hours of the surgical procedure. The History & Physical has been completed within 30 days and I have reviewed it.: Yes Section B - Complete if H&P > 30 days Chief Complaint: screening Allergies: Allergies Allergy/AdvReac Type Severity Reaction Status Date / Time levofloxacin (From LEVAQUIN) Allergy Intermediate NAUSEA & Verified 03/21/25 11:35 VOMITING, hives bupropion Allergy Unknown increased Verified 03/21/25 11:35 anxiety/depression Exam Surgical H&P Exam: Normal: Heart, Normal: Lungs, Normal: Extremities and Normal: Abdomen Plan Diagnosis/Plan: Unchanged I have reviewed the history and physical and performed a pertinent physical examination on my patient. No changes have occurred unless specified. Time Spent With Patient Time: Total time managing care of this patient today ____ minutes.
[2025-03-28 08:25] VITALS: BP 146/81; PULSE 81; RESP 18; TEMP 36.3; O2SAT 95
[2025-03-28] MEDS: Lactated Ringers 1,000 ML 100 ML IVCONT (08:26)
[2025-03-28 10:36] VITALS: BP 113/58; PULSE 96; RESP 16; TEMP 36.3; O2SAT 98
--- NOTE | 2025-03-28 10:36 | P.OPN-COLO_ITS ---
Colonoscopy Operative Note Operative Note Date of Service: 03/28/25 Narrative: COLONOSCOPY TILL CECUM WITH SNARE POLYPECTOMY Pre-op diagnosis: Colon cancer screening (2nd colon). Post-op diagnosis:? Colon polyp, Diverticulosis Endoscopist:? Cristal Berman MD Anesthesia:?MAC Consent: Indications for the procedure and potential complications of bleeding, perforation, reaction to medications and missed diagnosis were discussed with the patient and informed consent was obtained. Instrument: Olympus PCF H 190 L variable stiffness pediatric colonoscope Monitoring: Vital signs and clinical assessment, intermittent blood pressure monitoring, continuous EKG monitoring, Pulse oximetry and Carbon Dioxide monitoring were done throughout the procedure. Please see anesthesia flowsheet. Colon withdrawl time was 17 minutes. Procedure: The patient was placed in the left lateral decubitis position and pre-procedure medications were administered. After a digital rectal examination of the ano-rectum, the video colonoscope was inserted into the rectum and advanced through the colon to the cecum. The colonoscope was slowly withdrawn in a retrograde panoramic fashion and the colon mucosa was carefully examined including a retroflexed view of the rectum. Findings and interventions are described below. Procedure Difficulty: There was narrowing of the sigmoid colon due to severe diverticulosis which was navigated with some difficulty Findings: Terminal Ileum: Not evaluated Cecum: A 7-8 mm sessile polyp - removed with a hot snare Ascending Colon: Normal Transverse Colon: Normal Descending Colon: Moderate diverticulosis Sigmoid Colon: Severe diverticulosis with luminal narrowing Rectum: Normal Ano-rectum: Normal Colon preparation: Excellent after some irrigation. [place] Bowel Preparation Scale Right colon; 3 Transverse colon: 3 Left colon; 3 (0 = Unprepared colon segment with mucosa not seen due to solid stool that cannot be cleared. 1 = Portion of mucosa of the colon segment seen, but other areas of the colon segment not well seen due to staining, residual stool and/or opaque liquid. 2 = Minor amount of residual staining, small fragments of stool and/or opaque liquid, but mucosa of colon segment seen well. 3 = Entire mucosa of colon segment seen well with no residual staining, small fragments of stool or opaque liquid) Impression and Post Procedure Diagnosis: Colonoscopy Findings: One small polyp was removed Moderate to severe diverticulosis seen in the left colon Plan: I will send a letter with biopsy results. Repeat Colonoscopy in 5 years if polyps are adenomatous and 10 year if polyps are hyperplastic. Above findings were reviewed with the patient and relevant handouts were given and the discharge area.
[2025-03-28 10:51] VITALS: BP 113/66; PULSE 91; RESP 15; O2SAT 94
[2025-03-28 11:04] VITALS: BP 129/72; PULSE 98; RESP 12; O2SAT 93
[2025-03-28 11:20] VITALS: BP 129/75; PULSE 96; RESP 14; O2SAT 95
[2025-03-28 11:35] VITALS: BP 110/52; PULSE 75; RESP 14; TEMP 37.2; O2SAT 96
== END 2025-03-28 12:04 | disposition home or self-care (01) ==
PROVIDERS: PCP Internal Medicine; Visit Provider Internal Medicine Gastroenterology
PROC: 0DJD8ZZ Inspection of Lower Intestinal Tract, Via Natural or Artificial Opening Endoscopic (ICD-10-PCS; CPT 45378; principal; 2025-03-28 09:20)
DX: Z12.11 Encounter for screening for malignant neoplasm of colon (principal); D12.0 Benign neoplasm of cecum; K57.30 Diverticulosis of large intestine without perforation or abscess without bleeding; I10 Essential (primary) hypertension; J44.9 Chronic obstructive pulmonary disease, unspecified; Z85.118 Personal history of other malignant neoplasm of bronchus and lung; Z88.1 Allergy status to other antibiotic agents
CPT/HCPCS: 45385; 88305; J2003; J2250; J2704; J3010

== ENCOUNTER → 2025-03-28 07:55 | Outpatient (BNV) | payer BC, SELFPAY | PROVIDERS: PCP Internal Medicine; Visit Provider Internal Medicine Gastroenterology | DX: Z12.11 Encounter for screening for malignant neoplasm of colon (principal); D12.0 Benign neoplasm of cecum; K57.90 Diverticulosis of intestine, part unspecified, without perforation or abscess without bleeding | CPT/HCPCS: 45385 ==

== ENCOUNTER 2025-04-04 09:48 | Outpatient (AMB) | payer BC, SELFPAY ==
[2025-04-04 10:35] VITALS: BP 126/82; PULSE 48; O2SAT 92; BMI 20.2
--- NOTE | 2025-04-04 10:35 | A.OFFPC_ITS ---
Vital Signs 04/04/25 10:35 Height 5 ft 1 in Weight 107 lb 2 oz BMI 20.2 BP 126/82 Blood Pressure Location Lt brachial Position Sitting Pulse 48 L Pulse Source Pulse Oximeter Pulse Oximetry (%) 92 Oxygen Delivery Method Room Air Intake Visit Reasons: COPD, Hx lung cancer, insomnia Manager Of Financial Reporting Required: No Accompanied by: Self / Same As Patient Allergies levofloxacin (From LEVAQUIN) Allergy (Intermediate, Verified 04/04/25 11:08) NAUSEA & VOMITING, hives bupropion Allergy (Unknown, Verified 04/04/25 11:08) increased anxiety/depression Medication List - Last Reconciled 04/04/25 by Babar Espino MD albuterol sulfate 90 mcg/actuation 2 puffs inhalation Q6H PRN 30 days amlodipine 10 mg PO DAILY 90 days cholecalciferol (vitamin D3) 50 mcg PO DAILY 90 days fluticasone propion-salmeterol 250-50 mcg/dose (Wixela Inhub) 1 ea inhalation Q12H fluticasone propion-salmeterol 250-50 mcg/dose (Wixela Inhub) 1 ea inhalation Q12H hydralazine 50 mg PO TID 90 days hydrochlorothiazide 12.5 mg PO DAILY 90 days ipratropium-albuterol 0.5 mg-3 mg(2.5 mg base)/3 mL 3 mL inhalation Q20M PRN lorazepam 0.5 mg PO TID PRN 30 days [NEBULIZER with all related supplies, including tubing and mask As directed] [PORTABLE OXYGEN TANK for home use Use as directed at 1 LPM at rest and can go up to 2 to 3 LPM with ambulation] potassium chloride ER 20 mEq PO DAILY 30 days tiotropium bromide 2.5 mcg/actuation (Spiriva Respimat) 2 puffs inhalation QAM Tobacco use date assessed: 04/04/25 Fall risk assessment: No Falls in past year Last assessed Fall Risk: 04/04/25 Dental Screening Dental Screen Date: 04/04/25 Did you have a dental visit in the last 12 months?: No Did you have a dental problem in the last 6 months where you did not have access to dental care?: No Was dental information given to patient?: No HPI COPD, Hx lung cancer, insomnia HPI Details Patient comes in today for her follow up visit States that she currently feels okay She denies any headaches or dizziness Denies any chest pains, no increased SOB - states that her current inhalers seem to be working well for her No nausea/vomiting, no abdominal pain No change in bowel habits noted Needs a few of her Rx refilled She was not able to get her follow up labs done prior to her appointment today She did have her colonoscopy done last week - (+) tubular adenoma so her next one will be in 5 years (2029) She also had her annual mammogram and yearly pap smear/gynecology exam done over the past few months and both came out normal States that she is working regularly again at [email or web address] and does not have any significant limitations with regards to her activities while at work She has completed her treatment and immunotherapy for her lung cancer Her most recent chest CT done on 10/26/2024 revealed (+) new linear opacity along the anterior right mediastinal border suggesting progressive scarring or atypical atelectasis/postobstructive change but no recurrence of malignancy She will be getting another chest CT for follow up in early April 2025 [facility] Medical History Smoker Insomnia Tobacco dependence Tachycardia Benign essential hypertension Adenocarcinoma of right lung (~2021) Pulmonary nodule Personal history of nicotine dependence Bronchiectasis Pure hypercholesterolemia Anxiety Vitamin D deficiency COPD (chronic obstructive pulmonary disease) Surgical History History of lung surgery (~2021) History of thumb surgery History of reversal of tubal ligation History of colonoscopy History of tubal ligation Family History Father Myocardial infarction Mother Stroke Family/Other Hypertension Social History Household Members: Spouse and Children Housing: House Alcohol intake: current Alcohol intake frequency: holidays/special occasions only Patient Tobacco Use Status: Current everyday Tobacco user Tobacco use type: Cigarette Cigarettes Per Day: 15 Years Smoked: Current smoker, onset 16, 3/4ppd x 45yrs, 33pyh e-Cigarette/Vaping Use: Never Used Second Hand Smoke Exposure: Yes Advance Directives Date on File: 08/21/24 service: No Current occupational status: employed Cognitive needs: No Hearing needs: No Vision needs: Yes Questionnaire PHQ-9 Over the last 2 weeks, how often have you been bothered by any of the following problems? 1. Little interest or pleasure in doing things: not at all 2. Feeling down, depressed, or hopeless: not at all 3. Trouble falling or staying asleep, or sleeping too much: more than half the days 4. Feeling tired or having little energy: several days 5. Poor appetite or overeating: not at all 6. Feeling bad about yourself - or that you are a failure or have let yourself or your family down: not at all 7. Trouble concentrating on things, such as reading the newspaper or watching television: not at all 8. Moving or speaking so slowly that other people could have noticed. Or the opposite - being so fidgety or restless that you have been moving around a lot more than usual: not at all 9. Thoughts that you would be better off or of hurting yourself in some way: not at all Total score: 3 Depression Screening Interpretation: Negative Depression Screening Done: Yes 35985 - PHQ-9 Billing: Yes Source: Developed by Drs. Khoa Cote, Isabel Babin, Tevin Rendon and colleagues, with an educational sancho from [employer]. Thrive Questionnaire Date Thrive assessed: 11/21/24 I am a: Patient What is your living situation today?: I have a steady place to live Within the past 12 months, did the food you bought not last and you didn't have the money to get more?: Never true Within the past 12 months, did you worry whether your food would run out before you got money to buy more?: Never true Do you have trouble paying for medicines?: No Do you have trouble getting transportation to medical appointments?: No Do you have trouble paying your heating and electricity bill?: No Do you have trouble taking care of your child, family member or friend?: No Do you have trouble with day-to-day activities such as bathing, preparing meals, shopping, managing finances, etc.?: No Are you currently unemployed and looking for a job?: No Are you interested in more education?: No Please select the resources that you would like help with: None Currently or been in a relationship where the following occur: No concerns reported THRIVE Score: 0 AUDIT C Alcohol Use Questionnaire (AUDIT-C) 1. How often do you have a drink containing alcohol?: 2-3 times a week 2. How many drinks containing alcohol do you have on a typical day when you are drinking?: 1 or 2 3. How often do you have six or more drinks on one occasion?: Never Total Score: 3 Score Reviewed/Action Taken: Yes LETTY-7 AMB Questionnaire LETTY-7 Date LETTY - 7 assessed: 11/22/24 Source: Developed by Drs. Khoa Cote, Isabel Babin, Tevin Rendon and colleagues, with an educational sancho from [employer]. Review of Systems Const Denies chills, Reports difficulty sleeping, Reports fatigue, Denies fever(s) and Denies headache(s) ENT Denies dysphagia, Denies dizziness, Denies otalgia, Denies headache(s), Denies neck pain, Denies odynophagia and Denies sore throat Card Denies chest pain, Denies palpitations and Reports dyspnea on exertion (mild) Resp Denies chest congestion, Reports cough (occasional; coughs up thick whitish phlegm at times), Denies pain with cough, Reports dyspnea on exertion (mild) and Denies wheezing GI Denies abdominal pain, Denies constipation, Denies dysphagia, Denies heartburn, Denies diarrhea, Denies nausea, Denies odynophagia and Denies vomiting Denies difficulty voiding, Denies nocturia, Denies dysuria and Denies urinary urgency Musc Denies back pain, Denies neck pain, Reports numbness (of her fingers and toes occasionally) and Reports tingling (in her fingers and toes occasionally) Skin/Breast Denies rash Neuro Denies dizziness, Denies headache(s), Reports numbness (of her fingers and toes occasionally) and Reports tingling (in her fingers and toes occasionally) Psych Reports anxiety Endo Reports fatigue and Denies palpitations Aller/Immun Denies wheezing Physical exam (Primary Care) Vital Signs: Last Vital Signs Pulse 48 L 04/04/25 10:35 BP 126/82 04/04/25 10:35 Pulse Ox 92 04/04/25 10:35 Oxygen Delivery Method Room Air 04/04/25 10:35 BMI result Body Mass Index 20.2 Tobacco/Smoking Status: Tobacco use Status Tobacco use date assessed 04/04/25 04/04/25 10:46 Patient Tobacco Use Status Current everyday Tobacco 04/04/25 10:38 Tobacco use type Cigarette 04/04/25 10:38 e-Cigarette/Vaping Use Never Used 04/04/25 10:38 PHQ-9: PHQ-9 Score PHQ-9: Total score 3 04/04/25 10:46 Depression Screening Interpretation: Negative Thrive Assessment: Date of Thrive Assessment Date Thrive assessed 11/21/24 04/04/25 10:38 Currently or been in a relationship where the following occur: No concerns reported Const General: no acute distress and alert HENMT Ears: TM's normal bilaterally and EAC's normal Throat: Yes posterior oropharynx normal and Yes tonsils normal (no TP congestion noted) Neck Neck: Yes supple and No lymphadenopathy Thyroid: Thyroid normal Resp Auscultation: no crackles, no rales, no wheezes and diminished lung sounds bilateral Cardio Rate: regular rate Rhythm: regular rhythm Heart sounds: no murmurs GI Palpation (GI): Soft to palpation and nontender Auscultation: normal bowel sounds General: Yes no CVA tenderness Back/Spine/Pelvis Back: no CVA tenderness Cervical Spine: No Cervical spine tenderness Thoracic/Lumbar Spine: No lumbar spinal tenderness Skin Rashes: no rashes Extrem General: Yes no clubbing, cyanosis or edema Coding Level of Care Code Est Pt Level 4 (36598) Diagnoses Mucopurulent chronic bronchitis J41.1 COPD type: chronic bronchitis Chronic bronchitis type: mucopurulent Cancer of upper lobe of right lung C34.11 Benign essential hypertension I10 Pure hypercholesterolemia E78.00 Vitamin D deficiency E55.9 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; T45.1X5A Constipation, unspecified constipation type K59.00 Constipation type: unspecified constipation type Insomnia, unspecified type G47.00 Insomnia type: unspecified Anxiety F41.9 Smoker F17.200 Additional Codes PHQ-9 - 60093 - PHQ-9 Billing: Yes ([id number]) Assessment & Plan Assessment & Plan (1) COPD (chronic obstructive pulmonary disease): Code(s): J44.9 - Chronic obstructive pulmonary disease, unspecified Category: Medical Qualifiers: COPD type: chronic bronchitis Chronic bronchitis type: mucopurulent Qualified Code(s): J41.1 - Mucopurulent chronic bronchitis Plan: Better controlled lately Continue Spiriva Respimat 2.5 mcg 2 inhalations QD, Wixela Inhub 250-50 mcg 1 inhalation BID and Albuterol HFA 1 to 2 inhalations Q 6 hours PRN She also has DuoNeb to use with her nebulizer QID when needed Follow up with pulmonary as scheduled (2) Cancer of upper lobe of right lung: Onset Date: ~2021 Comment: (Adenocarcinoma T3 N0, 99%PDL1 - S/P RUL lobectomy 12/16/21 - no LN, 3 distinct lesions, two were T1b and one was T2a; s/p adjuvant chemo - completed 04/2022) Code(s): C34.11 - Malignant neoplasm of upper lobe, right bronchus or lung Category: Medical Plan: S/P right upper lobectomy on 12/17/2021 and completed her adjuvant chemotherapy (Taxol with carboplatin) in April 2022 Started on immunotherapy in 06/2022 (Durvalumab at 10 mg/kg IV Q 2 weeks) x 1 year - completed immunotherapy earlier this year Follow up chest CT on 05/18/2022 after finishing her chemotherapy showed no evidence of recurrence or new disease; there are no pleural few with a no mediastinal lymphadenopathy Repeat chest CT done on 11/11/22 revealed stable postsurgical changes from her right upper lobectomy but there was a new area of focal findings and ground glass attentuation that Dr. Rush believed was due to an infection and she was started on a round of Abx for this - these have reportedly cleared up on her repeat chest CT on 01/20/[address] done in February 2024 revealed (+) postsurgical changes in the right lung status post right upper lobectomy. No dominant suspicious pulmonary nodules were seen. Moderate emphysema. Her last chest CT done on 10/26/2024 showed similar findings from previous except for a new linear opacity along the anterior right mediastinal border suggesting progressive scarring or atypical atelectasis/postobstructive change. The multifocal ground-glass attenuation and micronodular changes on the prior CT have resolved. Remainder of the chest appears stable She will have repeat chest CT done again in 6 months - CT ordered for April 2025 Follow up with oncology/thoracic surgery as scheduled for continuing surveillance (3) Benign essential hypertension: Code(s): I10 - Essential (primary) hypertension Category: Medical Plan: Reinforced low sodium diet - goal is systolic BP of at least 130 mm or less Continue Amlodipine 10 mg QD, HCTZ 12.5 mg QD and Hydralazine 50 mg TID - Rx refilled She is again reminded to monitor her BP regularly (4) Pure hypercholesterolemia: Code(s): E78.00 - Pure hypercholesterolemia, unspecified Category: Medical Plan: Patient did not get her follow up labs done prior to her appointment today Reinforced low cholesterol diet Will recheck her labs and fasting lipids in 4 months for follow up (5) Vitamin D deficiency: Code(s): E55.9 - Vitamin D deficiency, unspecified Category: Medical Plan: Continue Vitamin D3 2000 units QD (6) Peripheral neuropathy due to chemotherapy: Code(s): G62.0 - Drug-induced polyneuropathy; T45.1X5A - Adverse effect of antineoplastic and immunosuppressive drugs, initial encounter Category: Medical Plan: States that her symptoms have improved a lot and are gradually subsiding since she completed her adjuvant chemotherapy in April 2022 (7) Constipation: Code(s): K59.00 - Constipation, unspecified Category: Medical Qualifiers: Constipation type: unspecified constipation type Qualified Code(s): K59.00 - Constipation, unspecified Plan: Encouraged increased oral fluids and dietary fiber intake Continue Docusate 100 mg BID and Senna 8.6 mg 1 to 2 tabs Q HS P (8) Insomnia: Code(s): G47.00 - Insomnia, unspecified Category: Medical Qualifiers: Insomnia type: unspecified Qualified Code(s): G47.00 - Insomnia, unspecified Plan: Sleep hygiene reinforced Continue Zolpidem 5 mg Q HS PRN (9) Anxiety: Code(s): F41.9 - Anxiety disorder, unspecified Category: Medical Plan: Continue Lorazepam 0.5 mg TID PRN She was started additionally on Sertraline 25 mg QD a few months ago but it appears that she self-discontinued the medication a while back (10) Smoker: Code(s): F17.200 - Nicotine dependence, unspecified, uncomplicated Category: Social Hx Plan: Patient is counseled again on complete smoking cessation - states that she is still struggling with this Plan Follow up in 4 months Orders: Orders Comprehensive [place]. Panel Fast 4 Months E78.00 - Pure hypercholesterolemia, unspecified Lipid Panel 4 Months E78.00 - Pure hypercholesterolemia, unspecified UA CC w/rflx Micro + Cult 4 Months R30.0 - Dysuria Complete Blood Count Auto Diff 4 Months D64.9 - Anemia, unspecified TSH reflex Free T4 4 Months E78.00 - Pure hypercholesterolemia, unspecified Vitamin B12 and Folate 4 Months E53.8 - Deficiency of other specified B group vitamins Vitamin D 25-OH Total 4 Months E55.9 - Vitamin D deficiency, unspecified Medications: Changed From potassium chloride ER 20 mEq PO DAILY 30 days 30 tabs 1RF To potassium chloride ER 20 mEq PO DAILY 90 tabs 1RF 90 days Refilled hydralazine 50 mg PO TID 270 tabs 1RF blood pressure 90 days amlodipine 10 mg PO DAILY 90 tabs 1RF for blood pressure 90 days hydrochlorothiazide 12.5 mg PO DAILY 90 caps 1RF 90 days
== END 2025-04-04 11:21 | disposition home or self-care (01) ==
LOC: HO.HMCH 09:49
PROVIDERS: PCP Internal Medicine; Visit Provider Internal Medicine
DX: J41.1 Mucopurulent chronic bronchitis (principal); C34.11 Malignant neoplasm of upper lobe, right bronchus or lung; I10 Essential (primary) hypertension; E78.00 Pure hypercholesterolemia, unspecified; E55.9 Vitamin D deficiency, unspecified; G62.0 Drug-induced polyneuropathy; T45.1X5A Adverse effect of antineoplastic and immunosuppressive drugs, initial encounter; K59.00 Constipation, unspecified; G47.00 Insomnia, unspecified; F41.9 Anxiety disorder, unspecified; F17.200 Nicotine dependence, unspecified, uncomplicated

== ENCOUNTER → 2025-04-04 09:48 | Outpatient (BNVA) | payer BC, SELFPAY | PROVIDERS: PCP Internal Medicine; Visit Provider Internal Medicine | DX: I10 Essential (primary) hypertension (principal); J41.1 Mucopurulent chronic bronchitis; C34.11 Malignant neoplasm of upper lobe, right bronchus or lung; E78.00 Pure hypercholesterolemia, unspecified; E55.9 Vitamin D deficiency, unspecified; G62.0 Drug-induced polyneuropathy; K59.00 Constipation, unspecified; G47.00 Insomnia, unspecified; F41.9 Anxiety disorder, unspecified; F17.210 Nicotine dependence, cigarettes, uncomplicated; R30.0 Dysuria; D64.9 Anemia, unspecified; E53.8 Deficiency of other specified B group vitamins; T45.1X5A Adverse effect of antineoplastic and immunosuppressive drugs, initial encounter | CPT/HCPCS: 96127 ==

== ENCOUNTER 2025-05-02 07:52 | Outpatient (REF) | payer BC, SELFPAY ==
--- OUTSIDE RECORDS SUMMARY | 2024-03-29 07:28 | XMS_ITS | Encounter Summary ---
Author Organization [facility] Address [address] [place] [address] Care Team Providers Care Pattern Chain Maker Supervisor Name Role Phone Babar Espino MD Primary Care Provider Encounter Details Date Type Department Care Team (Late st Contact Info) Description 03/29/2024 8:28 AM EDT Hospital Encounter TH HISTORIC ENCOUNTERS EASTERN CONVERSION ONLY Marie Williamson MD [address] [place] [id number] Social History Tobacco Use Types Packs/Day Years Used Date Smoking Tobacco: Some Days Cigarettes 1 48.4 Started: 06/28/1973; Last attempted to quit: 11/04/2021 Smokeless Tobacco: Never Alcohol Use Standard Drinks/Week Comments Not Currently 0 (1 standard drink = 0.6 oz pur e alcohol) Comments Unknown Sex and Gender Information Value Date Recorded Sex Assigned at Not on file Legal Sex Female 12:18 PM EST Gender Identity Not on file Sexual Orientation Not on file documented as of this encounter Last Filed Vital Signs Vital Sign Reading Time Taken Comments Blood Pressure 133/60 03/29/2024 8:46 AM EDT Sitting Left arm Pulse 89 03/29/2024 8:46 AM EDT Temperature - - Respiratory Rate - - Oxygen Saturation - - Inhaled Oxygen Concentration - - Weight 49.1 kg (108 lb 3.2 oz) 03/29/2024 8:46 AM EDT Height 154.9 cm (5' 1 ) 12/15/2023 8:55 AM EDT Body Mass Index 20.44 12/15/2023 8:55 AM EDT documented in this encounter Progress Notes * Marie Williamson MD - 03/29/2024 8:45 AM EDT CHIEF COMPLAINT: Follow-up IDENTIFIER:Dee Dee Charles is a 63 y.o. female. HPI: 63-year-old female who has more than 95-duoi-qwud smoking history, quit smoking few months ago, diagnosed in early 2021 with T3 N0 adenocarcinoma of right lung, please see oncology history for details, patient after surgery had adjuvant chemotherapy and then since she had elevated PD-L1 we gave her durvalumab for 1 year, patient has been doing very well, previous CT scan in the spring of this year which showed some groundglass opacities in the left upper lung more like infection/inflammation, at that time she was also having pneumonia. I repeated CT scan which was done last week butapparently not read but patient has been feeling very well at this time ROS: GENERAL: No anorexia or weight loss, rather gain few pounds, has been feeling good, she missed smoking but did not smoke for 4-month HEENT: no headache or any visual symptom NECK: No discomfort or lumps. RESPIRATORY: Mild intermittent cough and sometimes shortness of breath on exertion but denies any hemoptysis CARDIOVASCULAR: No chest pain. GI: No abdominal discomfort, blood in stools or black stools MUSCULOSKELETAL: No new unusual aches and pain. HEMATOLOGY/LYMPHOLOGY No prolonged bleeding, easy bruisability or swollen nodes EXT: no significant swelling rash or discomfort this is for an acute to biliary cancer we will go without bolus, please if you do not mind send/it out lorazepam 1 mg nightly as needed okay Thank she is a 45 Oncology History Overview Note Patient has 39-oazn-pvid smoking history, also evidence of COPD In the spring 2021 patient was evaluated by Dr. Love regarding her COPD, patient found to havesome suspicious pulmonary nodule so patient underwent PET CT scan of these nodule in October 2021, PET CT scan showed FDG avid 2 spiculated pulmonary nodule so Dr. Love sent patient to Dr. Rush After discussion with thoracic surgery patient underwent da Marisol right upper lobe wedge resection on 12/16/2021, since frozen section was consistent with adenocarcinoma patient had complete right upper lung lobectomy. Patient has no lymph node involvement, patient had 3 distinct lesion two were T1band 1 was T2 a. Patient case was discussed in our multidisciplinary thoracic oncology conference and according to assessment there was a suspicious that this is 3 different primary malignancy, if these are 3 different primary malignancies then patient has stage I disease and benefit of adjuvant chemotherapy is limited whereas if she have similar malignancies in [address] then by definition she have T3 pathology and relatively advanced stage (stage IIb) and may get more benefit from adjuvant chemotherapy, Dr. Pabon suggested to send specimen for further molecular studies to figure it out if it is separate malignancies versus similar malignant process Per finding on molecular studies, according to results from [facility], it seems that all his specimen (3 tiny tumor) probably the same malignancy, so patient has T3 disease (stage II), so Idiscussed again with patient and her Hare regarding risk benefit of adjuvant chemotherapy,this seems reluctant but finally made a decision to go with adjuvant chemotherapy, patient started adjuvant chemotherapy (Taxol with carboplatin) in first week of February 2022 Patient finished 4 cycle of adjuvant chemotherapy in April 2022 Patient started on durvalumab last week of June 2022 Non-small cell carcinoma of lung (HCC) 02/13/2022 Initial Diagnosis Non-small cell carcinoma of lung (HCC) 02/25/2022 - 04/29/2022 Chemotherapy SFC BCN OP PACLITAXEL / CARBOPLATIN (LUNG) 5 HRS Plan Provider: Marie Williamson MD Treatment goal: Curative Line of treatment: Adjuvant 07/23/2022 - 07/14/2023 Chemotherapy SFC BCN OP DURVALUMAB Plan Provider: Marie Williamson MD Treatment goal: Curative Line of treatment: Adjuvant PAST MEDICAL HISTORY: Chronic obstructive pulmonary disease Adenocarcinoma of right lung Hypertension Anxiety ? SOCIAL HISTORY: She quit smoking in October 2023, has more than 80-iwhd-labi smoking history She drinks socially She was working until last month, has been on short-term disability She is FAMILY HISTORY: Family History Problem Relation Age of Onset ??? Hypertension Mother ??? Hypertension Father ??? Cancer Niece Family Status Relation Name Status ??? Mother (Not Specified) ??? Father (Not Specified) ??? Niece (Not Specified) Current Outpatient Medications: ??? acetaminophen (TYLENOL) 325 MG tablet, TAKE 3 TABLETS (975 MG) BY MOUTH EVERY 6 TO 8 HOURS NEEDED FOR PAIN FOR 30 DAYS, Disp: , Rfl: ??? Albuterol Sulfate, sensor, 108 (90 Base) MCG/ACT AEPB, Inhale 2 puffs into the lungs every 6 (six) hours as needed., Disp: , Rfl: ??? amLODIPine (NORVASC) tablet 10 mg, TAKE 1 TABLET BY MOUTH DAILY FOR BLOOD PRESSURE, Disp: , Rfl: ??? azithromycin (ZITHROMAX) 250 MG tablet, TAKE 1 TAB 250 MG ORALLY 3 TIMES A WEEK FOR 28 DAYS TAKE 1 TABLET ON WEDNESDAY/WEDNESDAY/WEDNESDAY, Disp: , Rfl: ??? budesonide-formoterol (SYMBICORT) 160-4.5 MCG/ACT inhaler, Inhale 2 puffs into the lungs., Disp: , Rfl: ??? hydroCHLOROthiazide (MICROZIDE) 12.5 MG capsule, Take 1 capsule (12.5 mg total) by mouth., Disp: , Rfl: ??? LORazepam (ATIVAN) 0.5 MG tablet, Take 1 tablet (0.5 mg total) by mouth., Disp: , Rfl: ??? Spiriva Respimat 2.5 MCG/ACT AERS, , Disp: , Rfl: You are allergic to the following Date Reviewed: 03/29/2024 Allergen Reactions Bupropion Not Noted Other reaction(s): OTHER Levofloxacin Not Noted Other reaction(s): Hives/Urticaria PHYSICAL EXAM: BP 133/60 (BP Location: Left arm) Pulse 89 Temp 97.1 ??F (36.2 ??C) (Temporal) Wt 49.1 kg (108 lb 3.2 oz) SpO2 97% BMI 20.44 kg/m?? ECOG 0 APPEARANCE: Alert and oriented in no acute distress EYES: nonicteric sclera pink conjunctiva ORAL CAVITY: No mucositis or thrush NECK: Neck supple, no cervical and supraclavicular adenopathy, HEART: normal S1 and S2 LUNG: Distant breath sounds with bilateral rhonchi LYMPH NODES: No palpable superficial adenopathy ABDOMEN: soft, nontender and no organomegaly appreciated EXTREMITIES: No edema erythema tenderness LABS: CT scan done a week ago in [facility] still not read by radiologist, I will call them again IMPRESSION: SNOMED CT(R) 1. Adenocarcinoma of right lung (HCC) ADENOCARCINOMA OF RIGHT LUNG 63-year-old female who has more than 35-zttt-yavt smoking history, she quit smoking in October of this year, patient in the spring of this year had CT scan that showed groundglass opacities/question infection/inflammation (at that time she was diagnosed with pneumonia and treated with antibiotics with good response) patient has been feeling very well, has no worsening symptom or any major issues, patient had a CT scan done week ago in [facility], we do not have results yet, I try [facility] radiology department, hopefully some radiologist will call me regarding this result soon. Since she has been clinically doing well, most likely abnormal finding in previous CT scan may be related to infection/inflammation, I gave her reassurance, I told her I will see her back in 6 months but she will call next week to make sure her CT scan is okay PLAN: Will get CT scan result as soon as possible I will see her back in 6 months but earlier if any issues Marie Williamson MD documented in this encounter Plan of Treatment Upcoming Encounters Date Type Department Care Team (Late st Contact Info) Description 05/09/2025 9:30 AM EST Office Visit [facility] Hematology Oncology [address] [place] [id number] Maire Williamson MD [address] [place] [address] documented as of this encounter Procedures Procedure Name Priority Date/Time Associated Diagnosis Comments ..MISCELLANEOUS REFERENCE LAB TEST 03/29/2024 documented in this encounter Results * Miscellaneous reference lab test (03/29/2024) us Provider Onbase LAB BLOOD ORDERABLES Final Re sult documented in this encounter Visit Diagnoses Not on filedocumented in this encounter Care Teams Pattern Chain Maker Supervisor Relationship Specialty Start Date End Date Babar Espino MD [address] [place] [address] Dr [address] [place], [place] PCP - General Internal Medicine 11/07/21 documented as of this encounter
--- NOTE | ~2025-05-02 | CT_ITS ---
CLINICAL HISTORY: C34.11 - Malignant neoplasm of upper lobe, right bronchus or lung CT chest without contrast Comparison: CT/SR - CT CHEST W IV CON - 10/25/24 09:00 EDT Findings: T no cardiomegaly. Moderately severe atherosclerotic disease of the coronary arteries. No mediastinal adenopathy or pericardial effusion. Posttreatment changes are similar to prior. There are regions of scarring and/or atelectasis again noted. No new, increasing or suspicious nodule. There is airway thickening, also similar to prior. No effusion or pneumothorax. The visualized upper abdomen demonstrates severe atherosclerotic disease of the aorta. No destructive bone lesion identified. Impression: Stable chronic changes. No acute process. This document has been electronically signed by: Romario Rodriguez MD on 05/02/2025 11:18:53
--- OUTSIDE RECORDS SUMMARY | 2025-05-02 07:56 | XMS_ITS ---
Author Organization [facility] Address [address] [place] [address] Care Team Providers Care Machine Design Checker Name Role Phone Babar Espino MD Primary Care Provider [phone]- [phone] Active Problems Problem Noted Date Diagnosed Date Non-small cell carcinoma of lung 02/13/2022 Current Oncology Plans No current plan information found. Past Plans ONCOLOGY TREATMENT Plan Name Start Date Discontinue Date Treatment Medications Discontinue Reason Plan Provider [facility] 08/31/2023 albuterol (PROVENTIL)diphenhydrAMI NE (BENADRYL)durvalumab (IMFINZI) infusionEPINEPHrinefamot idine (PF) (PEPCID)hydrocortisone (SOLU-CORTEF) IVmeperidine (DEMEROL) 25 MG/MLpotassium chloride ERSaline Flush 0.9 %sodium chloride (NS) 0.9 %sodium chloride 0.9% bolus (NS) Therapy Complete Marie Williamson MD 15 of 15 cycles started [facility] OP PACLITAXEL / CARBOPLATIN (LUNG) [...] Williamson MD 4 of 4 [facility] CARB[facility]UNG) 5 [...] Williamson MD 1 of 4 cycles started [facility] [id number] METFORMIN OR [place] WITH PACLITAXEL AND CARBOPLATIN 022 02/24/2022 No medications scheduled. Entered in error Marie Williamson MD No cycles in plan Radiation Treatments * No radiation treatments are documented for this patient in [facility]. Treatments may have been administered in another system.
--- OUTSIDE RECORDS SUMMARY | 2025-05-02 07:56 | XMS_ITS | Clinical Summary ---
Author Organization [facility] Address [address] [place] [address] Phone Care Team Providers Care Communications Specialist Name Role Phone Babar Espino MD Primary Care Provider [phone]- [phone] Allergies Active Allergy Reactions Criticality Noted Date [...] chest CT scan which was performed at [facility] in October 2024 and shows no obvious new or worsening pulmonary nodules or mediastinal lymphadenopathy however does show a new linear opacity in the right upper lobe which is likely scarring however she was informed that we will follow-up with a 6- month chest CT scan which will be due in April 2025 at [facility] to ensure stability or resolution of this opacity. Non-small cell carcinoma of lung ([facility] V24, [facility] V28) 02/13/2022 Surgical History Surgery Date Site/Laterality Comments TUBAL LIGATION PROCEDURE: HISTORICAL TUBAL LIGATION OTHER SURGICAL HISTORY N/A PROCEDURE: HI CLTX CARPO/METACARPAL DISLOCATION THUMB W/MANJ COLONOSCOPY N/A PROCEDURE: HISTORICAL COLONOSCOPY TUBAL LIGATION N/A PROCEDURE: HISTORICAL TUBAL LIGATION; COMMENT: reversal OTHER SURGICAL HISTORY 12/16/2021 Right PROCEDURE: HI THORACOSCOPY W/LOBECTOMY SINGLE LOBE; COMMENT: RUL Medical History Medical History Date Comments Anxiety disorder DX:Anxiety diso rder COPD (chronic obstructive pu lmonary disease) ([facility]/H[facility] V24, [facility] V28) DX:COPD (chronic o bstructive pulmonary disease) (HCC) Pulmonary nodule DX:Pulmonary no dule Vitamin D deficiency DX:Vitamin D deficiency Pure hypercholesterolemia DX:Pur e hypercholesterolemia Bronchiectasis ([facility] V24, [facility] V28) DX:Bronchiectasis (HCC) Mild intermittent asthma, uncomplicated 09/06/2023 DX:Mild intermittent asthma, uncomplicated Essential (primary) hypertension 09/06/2023 DX:Essential (primary) hypertension Adenocarcinoma of right lung ([facility] V24, [facility] V28) 2021 DX:Adenocarcinoma of right l terry ([facility]) Personal history of nicotine dependence DX:Personal history of nicot ine dependence Supraventricular tachycardia ([facility] V24) DX:Supraventricular tachycar fernie ([facility]) Family History Medical History Relation Name Comments [...] Description 05/09/2025 9:30 AM EST Office Visit [facility] Hematology Oncology [address] [place] [phone] Marie Williamson MD [address] [place] [address] Health Maintenance Due Date Last Done Comments Breast Cancer Screening 1960 Colorectal Cancer Screening: Colonoscopy 1960 Zoster Vaccines (1 of 2) 1979 Cervical Cancer Screening: Pap Smear 1981 Cholesterol Screening (Lipid Panel) 06/06/2022 HIV Screening 06/06/2022 Hepatitis C Screening [...] topic Insurance [facility] Care Teams Communications Specialist Relationship Specialty Start Date End Date Babar Espino MD [address] [place] [address] Dr [address] [place], [place] PCP - General Internal Medicine 11/07/21
--- OUTSIDE RECORDS SUMMARY | 2025-05-02 07:56 | XMS_ITS | Encounter Summary ---
Author Organization [facility] Address [address] [place] [address] Care Team Providers Care Development Assistant Name Role Phone Babar Espino MD Primary Care Provider +1- [phone] Reason for Visit * Reason Comments High EOB for Caris Encounter Details Date Type Department Care Team Description 03/30/2022 Nurse Only [facility] Oncology Services [address] [place] [address] Sima Laguerre RN High EOB for Caris [...] on filedocumented in this encounter Care Teams Development Assistant Relationship Specialty Start Date End Date Babar Espino MD [address] [place] [address] [place] [address] PCP - General Internal Medicine 01/22/22 documented as of this encounter
--- OUTSIDE RECORDS SUMMARY | 2025-05-02 07:56 | XMS_ITS | Encounter Summary ---
Author Organization [facility] Address [address] [place] [address] Care Team Providers Care Business Applications Manager Name Role Phone Babar Espino MD Primary Care Provider +1- [phone] Encounter Details Date Type Department Care Team Description 02/25/2022 Social Work [facility] Oncology Services [address] [place] [address] Bill Cid, [facility] Social History Tobacco Use Types Packs/Day Years [...] on filedocumented in this encounter Care Teams Business Applications Manager Relationship Specialty Start Date End Date Babar Espino MD [address] [place] [address] [place] [address] PCP - General Internal Medicine 01/22/22 documented as of this encounter
--- OUTSIDE RECORDS SUMMARY | 2025-05-02 07:56 | XMS_ITS | Clinical Summary ---
Author Organization [facility] Address [address] [place] [address] Care Team Providers Care Pit Shoveler Name Role Phone Babar Espino MD Primary Care Provider +1- [phone] Allergies Active Allergy Reactions Criticality Noted Date [...] age to complete this topic Care Teams Pit Shoveler Relationship Specialty Start Date End Date Babar Espino MD [address] [place] [address] [place] [address] PCP - General Internal Medicine 01/22/22
--- OUTSIDE RECORDS SUMMARY | 2025-05-02 07:56 | XMS_ITS | Clinical Summary ---
Author Organization [facility] Address [address] [place] [address] Phone Care Team Providers Care Set Up Mechanic Name Role Phone Babar Espino MD Primary Care Provider [phone] -[phone] Self-Referred, Patient Unavailable Unavailab le Social History [...] topic Medical Devices Not on file [facility] [place] [facility] Care Teams Set Up Mechanic Relationship Specialty Start Date End Date Babar Espino MD [address] [place] [address] [place] [address] PCP - General 04/12/17 Self-Referred, Patient 04/29/22 Additional Source Comments The information contained in this document represents components of the legal health record. It is not the complete legal health record.[facility]
== END 2025-05-02 07:53 | disposition home or self-care (01) ==
LOC: HO.CT 07:52
PROVIDERS: PCP Internal Medicine; Visit Provider Hospitalist
DX: Z85.118 Personal history of other malignant neoplasm of bronchus and lung (principal)
CPT/HCPCS: 71250

== ENCOUNTER → 2025-05-02 07:54 | Outpatient (BNV) | payer BC, SELFPAY | PROVIDERS: PCP Internal Medicine; Visit Provider Radiology Vascular & Interventional Radiology | DX: C34.11 Malignant neoplasm of upper lobe, right bronchus or lung (principal) | CPT/HCPCS: 71250 ==